=== PATIENT | male | born 1930 | race Caucasian/White ===

== ENCOUNTER 2016-12-08 12:53 | Observation (INO) | payer OTHER ==
[~2016-12-08] VITALS: Ht 175.3 cm; Wt 83.7 kg
[~2016-12-08 12:53] MED LIST: ACET500C6 PO; ALBU1AER9 INH; AMLO5TAB2 PO; ASPEC81 PO; CMD5 PO; DIGO0.122 PO; IPRA0.037 NAE; ISR20 PO; LCTX PO; LSN40 PO; MCRK20 PO; METO50TA17 PO; MULT-506 PO; NTRGSL/4 UT; POTTAB2 PO; PRAV20TA PO; PRLSR20 PO; SALM50AE2 INH; VLSO15 TOP; WARF5TAB90 PO
[2016-12-08] MEDS ORDERED: NITROGLYCERIN OINT 2% 1GM PACKET EXT STA (13:16)
--- NOTE | 2016-12-08 13:41 | EMERGENCY ROOM VISIT NOTE ---
History Report prepared by Samuel: Hayden Starkey Under the Supervision of: Dr. Alexandr Do M.D. First contact with patient: 13:13 Chief Complaint: BACK PAIN Stated Complaint: BACK PAIN History of Present Illness The patient is an 86 year old male who presents to the Emergency Room via ambulance with complaints of resolved upper back pain beginning two and a half hours prior to arrival. He currently is not experiencing discomfort, but it was a 9-10/10 in severity. The patient states he was getting ready to take a shower this morning, when the upper back pain began between his shoulder blades. As per daughter, the patient associates resolved shortness of breath, resolved diaphoresis, and resolved pale skin with today's symptoms. She states the episode lasted an hour and a half. The daughter notes the patient has experienced similar episodes 3-4 times over the past 10 days. The patient states the discomfort today was the worst his back pain has been during an episode. He notes his symptoms worsen with exertion and resolve with rest. The patient states he took a Nitro this morning before his daughter called for an ambulance. The daughter notes the patient was slow to respond during conversation thirty minutes prior to the ambulance arriving. She states this was when the patient became diaphoretic and pale. The patient denies experiencing nausea. He notes a history of atrial fibrillation and a "slight" heart attack. 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 Review of Systems See HPI for pertinent positives & negatives. A total of 10 systems reviewed and were otherwise negative. Past Medical & Surgical Medical Problems: (1) Chronic atrial fibrillation (2) CKD (chronic kidney disease), stage III (3) COPD, mild (4) Depression (5) Dyslipidemia (6) HTN (hypertension) (7) Ischemic heart disease Surgical Problems: (1) History of inguinal hernia repair, bilateral (2) Hx of cataract surgery Family History FH: heart disease Hypertension Social History Smoking Status: Never Smoker Marital Status: Occupation Status: retired Current/Historical Medications Scheduled Acetaminophen (Acetaminophen), 1,000 MG PO TID Amlodipine Besylate (Amlodipine Besylate), 10 MG PO DAILY Amoxicillin & Pot Clavulanate (Augmentin 875-125 mg), 1 TAB PO BID Aspirin Enteric Coated (Ecotrin Or Generic *), 81 MG PO DAILY Calcitriol (Calcitriol), 0.25 MCG PO 3XWK Digoxin (Lanoxin), 0.125 MG PO DAILY Ipratropium [place] (Nasal) (Atrovent Nasal [place]), 2 SPRAYS MIGUEL QID PRN Lisinopril (Lisinopril), 40 MG PO DAILY Metoprolol Tartrate (Lopressor), 100 MG PO BID Multivitamin (Multivitamin), 1 TAB PO DAILY Nitroglycerin (Nitrostat), 0.4 MG UT PRN Omeprazole (Prilosec), 20 MG PO DAILY Pot Phosphate Monobasic W/ Sod (Phospha 250 Neutral), 1 TAB PO BID Potassium Chloride (Klor-Con), 20 MEQ PO DAILY Pravastatin Sodium (Pravachol), 10 MG PO HS Prednisone (Prednisone), Unknown Dose PO UD Salmeterol Xinafoate (Serevent Diskus Inh), 1 PUFF INH BID Warfarin Sod (Coumadin *), 5 MG PO 2XWK Warfarin Sodium (Coumadin), 2.5 MG PO 5XD Scheduled PRN Albuterol Sulfate (Proair Hfa), 2 PUFFS INH Q6 PRN for Wheezing Betamethasone Nasrin (Valisone 0.1% Oint), 1 APPLN TOP DAILY PRN for UNKN Isosorbide Dinitrate (Isordil), 20 MG PO DAILY PRN for PRIOR TO STRENUOS ACTIVITY Allergies Coded Allergies: Latex (Verified Allergy, Unknown, RASH, 12/08/16) Meclizine (Verified Allergy, Unknown, unknown, 12/08/16) Niacin (Verified Allergy, Unknown, RASH, 12/08/16) Physical Exam Vital Signs Date Time Temp Pulse Resp B/P Pulse Ox O2 Delivery O2 Flow Rate FiO2 12/08/16 15:22 97 Room Air 12/08/16 15:04 86 16 175/91 97 12/08/16 14:10 76 24 165/70 97 Room Air 12/08/16 13:23 96 Room Air 12/08/16 13:05 96 Room Air 12/08/16 13:04 61 12/08/16 13:02 36.5 60 16 158/100 96 Room Air Physical Exam GENERAL: Patient is in no acute distress. HEENT: No acute trauma, normocephalic atraumatic, mucous membranes moist, no nasal congestion, no scleral icterus. NECK: No stridor, no adenopathy, no meningismus, trachea is midline. LUNGS: Clear to auscultation bilaterally, no wheeze, no rhonchi, breath sounds equal. HEART: Bradycardic and irregular. No murmurs. ABDOMEN: Soft, nontender, bowel sounds positive, no hernias, no peritonitis. EXTREMITIES: No cyanosis or edema, full range of motion of all the joints without pain or difficulty, no signs for acute trauma. NEUROLOGIC: Oriented x 3, no acute motor or sensory deficits, no focal weakness. SKIN: No rash, no jaundice, no diaphoresis. Medical Decision & Procedures ER Provider Diagnostic Interpretation: X-ray results as stated below per interpretation by me and the radiologist: SINGLE VIEW CHEST CLINICAL HISTORY: Atypical chest pain. FINDINGS: An AP, portable, upright chest radiograph is compared to study dated 12/11/2015 and correlated with chest CT dated 12/09/2015. The examination is degraded by portable technique and patient rotation. The heart is enlarged and there is atherosclerotic calcification of the thoracic aorta. The pulmonary vasculature is noncongested. Chronic interstitial thickening is unchanged. Bibasilar airspace opacities are observed, right greater than left. No large pleural effusion or pneumothorax is seen. Right apical scarring is similar to previous. The skeletal structures are osteopenic. The bony thorax is grossly intact. IMPRESSION: 1. Cardiomegaly without radiographic evidence of congestive failure. 2. There are bibasilar airspace opacities, right greater than left. This likely represents atelectasis. Correlate clinically for evidence of a mild infectious or inflammatory pneumonitis. Electronically signed by: Alexandr Harper M.D. 12/08/2016 1:41 PM Laboratory Results 12/08/16 13:50 12/08/16 13:50 Test 12/08/16 13:50 Red Blood Count 4.36 M/uL (4.7-6.1) Mean Corpuscular Volume 88.8 fL (80-100) Mean Corpuscular Hemoglobin 30.0 pg (25-34) Mean Corpuscular Hemoglobin Concent 33.9 g/dl (32-36) RDW Standard Deviation 43.4 fL (36.4-46.3) RDW Coefficient of Variation 13.5 % (11.5-14.5) Mean Platelet Volume 9.9 fL (7.4-10.4) Prothrombin Time 24.8 SECONDS (9.0-12.0) Prothromb Time International Ratio 2.2 (0.9-1.1) Activated Partial Thromboplast Time 35.1 SECONDS (21.0-31.0) Partial Thromboplastin Ratio 1.4 Anion Gap 8.0 mmol/L (3-11) Est Creatinine Clear Calc Drug Dose 29.8 ml/min Estimated GFR () 35.9 Estimated GFR (Non- 31.0 BUN/Creatinine Ratio 17.2 (10-20) Calcium Level 8.8 mg/dl (8.5-10.1) Total Bilirubin 0.4 mg/dl (0.2-1) Aspartate Amino Transf (AST/SGOT) 12 U/L (15-37) Alanine Aminotransferase (ALT/SGPT) 18 U/L (12-78) Alkaline Phosphatase 50 U/L (45-117) Total Creatine Kinase 48 U/L (39-308) Creatine Kinase MB 0.7 ng/ml (0.5-3.6) Creatine Kinase MB Ratio 1.5 (0-3.0) Troponin I < 0.015 ng/ml (0-0.045) Total Protein 8.4 gm/dl (6.4-8.2) Albumin 3.8 gm/dl (3.4-5.0) Globulin 4.6 gm/dl (2.5-4.0) Albumin/Globulin Ratio 0.8 (0.9-2) Lipase 276 U/L (73-393) Digoxin Level 1.9 ng/ml (0.8-2.0) Laboratory results reviewed by me. Medications Administered Medications (Trade) Dose Ordered Sig/Norma Route Start Time Stop Time Status Last Admin Dose Admin Nitroglycerin (Nitroglycerin 2% Oint) 1 inch NOW STAT EXT 12/08/16 13:16 12/08/16 13:19 DC 12/08/16 13:33 1 INCH ECG Indication: back/shoulder pain Rate (beats per minute): 66 Rhythm: atrial fibrillation Findings: no acute ischemic change, no ectopy ED Course 1313: The patient was evaluated in room B3B. A complete history and physical exam was performed. 1316: Ordered Nitroglycerin 1 inch EXT. 1447: I spoke to Chacha Massey PA-C, [facility] (Hospitalist) about the patient's case, and she will follow the patient for further evaluation. 1452: Reevaluated the patient at this time and updated him. He is doing well and drinking a chocolate milkshake. Medical Decision The differential diagnoses include but are not limited to: cardiac ischemia, UT , musculoskeletal pain, aortic dissection, anemia, electrolyte imbalance. There is no leukocytosis or worrisome anemia. No significant electrolyte abnormality. The patient does have some renal insufficiency but this appears baseline looking back at previous testing. There is no hepatitis or pancreatitis. EKG shows a rate-controlled atrial fibrillation, no acute ischemia. Cardiac enzyme testing times one is not consistent with acute cardiac injury. Chest x-ray shows some possible atelectasis at the bases; no pneumonia, CHF or mediastinal widening. The patient was given Nitropaste, he has had no recurrence of symptoms, he is resting comfortably. Given the exertional component to his presentation, given the diaphoresis and shortness of breath, cardiac ischemia was a true consideration. I did think further evaluation in the hospital was warranted. I spoke with the patient and case management. The on-call hospitalist was consulted. Consults Time Called: 1438 Consulting Physician: Chacha Massey PA-C, [facility] (Hospitalist) Returned Call: 1447 I spoke to Chacha Massey PA-C, [facility] (Hospitalist) about the patient's case, and she will follow the patient for further evaluation. Impression Primary Impression: Upper back pain Additional Impression: Near syncope Scribe Attestation The scribe's documentation has been prepared under my direction and personally reviewed by me in its entirety. I confirm that the note above accurately reflects all work, treatment, procedures, and medical decision making performed by me. Departure Information Dispostion Being Evaluated By Hospitalist (Chacha Massey PA-C, [facility] (Hospitalist)) Referrals Seymour Hoff M.D. (PCP) Problem Qualifiers
[2016-12-08 13:58] LABS: HEMATOCRIT 38.7 % (42-52); MEAN CELL VOLUME 88.8 fL (80-100); MEAN CORPUSCULAR HGB CONC 33.9 g/dl (32-36); MEAN PLATELET VOLUME 9.9 fL (7.4-10.4); PLATELET COUNT 275 K/uL (130-400); RED BLOOD COUNT 4.36 M/uL (4.7-6.1); WHITE BLOOD COUNT 9.75 K/uL (4.8-10.8)
[2016-12-08] MEDS ORDERED: NRV/10 PO (14:06)
[2016-12-08] MEDS ORDERED: METO-596 PO (14:06)
[2016-12-08 14:07] LABS: INR 2.2 (0.9-1.1); PARTIAL THROMBOPLASTIN RATIO 1.4; PROTHROMBIN TIME (PATIENT) 24.8 SECONDS (9.0-12.0)
[2016-12-08 14:18] LABS: ALT/SGPT 18 U/L (12-78); AST/SGOT 12 U/L (15-37); BLOOD UREA NITROGEN 33 mg/dl (7-18); BUN/CREATININE RATIO 17.2 (10-20); CALCIUM 8.8 mg/dl (8.5-10.1); CARBON DIOXIDE 29 mmol/L (21-32); CHLORIDE 102 mmol/L (98-107); GLUCOSE 107 mg/dl (70-99); POTASSIUM 4.5 mmol/L (3.5-5.1); SODIUM 139 mmol/L (136-145)
[2016-12-08] MEDS ORDERED: AMOX875T PO (14:18)
[2016-12-08] MEDS ORDERED: PRED10TA PO (14:18)
[2016-12-08] MEDS ORDERED: CALC1CAP36 PO (14:18)
[2016-12-08 14:24] LABS: ALB/GLOB RATIO 0.8 (0.9-2); ALKALINE PHOSPHATASE 50 U/L (45-117); CKMB/CK RATIO 1.5 (0-3.0)
[2016-12-08 15:22] VITALS: O2SAT 97; Ht 175.3 cm; Wt 83.7 kg
[2016-12-08] MEDS ORDERED: ONDANSETRON INJ 2 MG/ML 2 ML VIAL IV PRN (15:45)
[2016-12-08] MEDS ORDERED: NITROGLYCERIN 0.4 MG SL PER TAB CHARGE SL PRN (15:45)
[2016-12-08] MEDS ORDERED: ACETAMINOPHEN 325 MG TAB PO PRN (15:45)
[2016-12-08] MEDS ORDERED: FERR1TAB13 PO (16:05)
[2016-12-08] MEDS ORDERED: IV FLUIDS COMPLETED PRN (16:15)
--- NOTE | 2016-12-08 16:18 | DIAGNOSTIC IMAGING REPORT ---
CT SCAN OF THE CHEST WITHOUT IV CONTRAST; CT SCAN OF THE THORACIC SPINE WITHOUT IV CONTRAST CLINICAL HISTORY: Atypical chest pain. Thoracic back pain. COMPARISON STUDY: Chest CT scan dated 12/09/2015. Chest x-ray dated 12/08/2016. TECHNIQUE: CT scan of the thorax was performed from the thoracic inlet to the upper abdomen. Images are reviewed in the axial, sagittal, and coronal planes. CT scan of the thoracic spine is also performed from the lower cervical spine to the upper lumbar spine. Images are reviewed in the axial, sagittal, and coronal planes. IV contrast was not administered for this examination as per the referring clinician. CT DOSE: 331.72 mGy.cm FINDINGS: Thyroid: Atrophic. Thoracic aorta: There is atherosclerotic calcification of the thoracic aorta, which is normal in caliber and demonstrates standard 3-vessel arch anatomy. Heart: The heart is enlarged and there is a small pericardial effusion. The coronary arteries are densely calcified. There is diminished attenuation of the cardiac blood pool as compared to the myocardium suggesting anemia. The pulmonary trunk is normal in caliber. Lungs and pleural spaces: Evaluation of the lung parenchyma is degraded by large ring motion artifact. There is biapical scarring, right greater than left. There is no airspace consolidation or pleural effusion. The trachea and central airways are clear. Scattered calcified granulomas are similar previous. Mild chronic nodularity in the left upper lobe is also similar to the 2016 examination. Mediastinum: There is no mediastinal lymphadenopathy. Gladys: Not well assessed without IV contrast. Axillae: There is no axillary lymphadenopathy. Upper abdomen: There is a small hiatal hernia. Partially visualized upper abdominal viscera is otherwise within normal limits. Thoracic spine and skeletal structures: The skeletal structures are osteopenic. Vertebral body height and alignment are maintained throughout the thoracic spine. The transverse and spinous processes appear intact. Multilevel degenerative disc space narrowing is observed. There is no evidence of large disc herniation. The central canal is clear as visualized. Calcification of the anterior longitudinal ligament is consistent with DISH. Anterior osteophytes are noted throughout. No lytic or blastic bony lesions are seen. A large hemangioma is noted in the body of T6. A hemangioma is also seen in the manubrium of the sternum. There are healed right-sided rib fractures. IMPRESSION: 1. There is no airspace consolidation or pleural effusion. 2. Cardiomegaly. 3. Chronic pulmonary parenchymal changes as above. 4. No acute bony abnormality is identified involving the thoracic spine. 5. Osteopenia and spondylotic change as above. Electronically signed by: Alexandr Harper M.D. 12/08/2016 4:16 PM Dictated Date/Time: 12/08/2016 4:04 PM
--- NOTE | 2016-12-08 16:34 | History and Physical ---
History & Physical Date & Time of Service: Dec 08, 2016 at 16:10 Chief Complaint: Back Pain Primary Care Physician: Seymour Hoff M.D. History of Present Illness 86 year old male who presents to the ER with upper back pain. Patient reports he has been getting these episodes of back pain over the past couple of weeks however today was the most severe. He describes the pain as located in between the shoulder blades and radiates down and underneath both shoulder blades. Previously the back pain was brought on with running the vacuum and shaving and was relieved with about 10 minutes of rest. Today when patient got out of the shower he reports the pain was severe. He also had associated diaphoresis and shortness of breath. Patient's daughter is at the bedside and reports he had decreased responsiveness for about 30 minutes. He then took a nitroglycerin. EMS was called and pain was starting to subside. Patient denies associated chest pain, lightheadedness, dizziness, or nausea. No abdominal pain, vomiting, constipation, diarrhea, or loss of appetite. He denies fever and chills. No urinary symptoms. In the ER, patient's work up is unrevealing. Initial troponin is negative, EKG does not show any acute ST changes. CXR unremarkable. Patient was given 1 inch nitro paste. Past Medical/Surgical History Medical Problems: (1) Chronic atrial fibrillation Status: Chronic (2) CKD (chronic kidney disease), stage III Status: Chronic (3) COPD, mild Status: Chronic (4) Depression Status: Chronic (5) Dyslipidemia Status: Chronic (6) HTN (hypertension) Status: Chronic (7) Ischemic heart disease Permanent Comment: echo 2009 - inferior wall motion abnormality suggesting silent [place] Status: Chronic Surgical Problems: (1) History of inguinal hernia repair, bilateral Status: Chronic (2) Hx of cataract surgery Status: Chronic Family History non contributory due to patient's age Social History Smoking Status: Never Smoker Alcohol Use: none Immunizations History of Influenza Vaccine: Yes Influenza Vaccine Date: Sep 02, 2016 History of Tetanus Vaccine?: Yes Tetanus Immunization Date: May 30, 2008 History of Pneumococcal: Yes Pneumococcal Date: Sep 14, 2015 Multi-Drug Resistant Organisms History of MDRO: No Allergies Coded Allergies: Latex (Verified Allergy, Unknown, RASH, 12/08/16) Meclizine (Verified Allergy, Unknown, unknown, 12/08/16) Niacin (Verified Allergy, Unknown, RASH, 12/08/16) Home Medications Scheduled Acetaminophen (Acetaminophen), 1,000 MG PO TID Amlodipine Besylate (Amlodipine Besylate), 10 MG PO DAILY Amoxicillin & Pot Clavulanate (Augmentin 875-125 mg), 1 TAB PO BID Aspirin Enteric Coated (Ecotrin Or Generic *), 81 MG PO DAILY Calcitriol (Calcitriol), 0.25 MCG PO 3XWK Digoxin (Lanoxin), 0.125 MG PO DAILY Ferrous Sulfate (Kp Ferrous Sulfate), 1 TAB PO DAILY Ipratropium [place] (Nasal) (Atrovent Nasal [place]), 2 SPRAYS MIGUEL QID PRN Lisinopril (Lisinopril), 40 MG PO DAILY Metoprolol Tartrate (Lopressor), 100 MG PO BID Multivitamin (Multivitamin), 1 TAB PO DAILY Nitroglycerin (Nitrostat), 0.4 MG [place] PRN Omeprazole (Prilosec), 20 MG PO DAILY Pot Phosphate Monobasic W/ Sod (Phospha 250 Neutral), 1 TAB PO BID Potassium Chloride (Klor-Con), 20 MEQ PO DAILY Pravastatin Sodium (Pravachol), 10 MG PO HS Prednisone (Prednisone), Unknown Dose PO UD Salmeterol Xinafoate (Serevent Diskus Inh), 1 PUFF INH BID Warfarin Sod (Coumadin *), 5 MG PO 2XWK Warfarin Sodium (Coumadin), 2.5 MG PO 5XD Scheduled PRN Albuterol Sulfate (Proair Hfa), 2 PUFFS INH Q6 PRN for Wheezing Betamethasone Nasrin (Valisone 0.1% Oint), 1 APPLN TOP DAILY PRN for UNKN Review of Systems 10 point review of systems was completed with the pertinent positives and negatives noted per the HPI Physical Exam Vital Signs Date Time Temp Pulse Resp B/P Pulse Ox O2 Delivery O2 Flow Rate FiO2 12/08/16 15:22 97 Room Air 12/08/16 15:04 86 16 175/91 97 12/08/16 14:10 76 24 165/70 97 Room Air 12/08/16 13:23 96 Room Air 12/08/16 13:05 96 Room Air 12/08/16 13:04 61 12/08/16 13:02 36.5 60 16 158/100 96 Room Air please refer to Dr. Carmona's addendum for physical exam Diagnostics Laboratory Results Results Past 24 Hours Test 12/08/16 13:50 Range/Units White Blood Count 9.75 4.8-10.8 K/uL Red Blood Count 4.36 4.7-6.1 M/uL Hemoglobin 13.1 14.0-18.0 g/dL Hematocrit 38.7 42-52 % Mean Corpuscular Volume 88.8 80-100 fL Mean Corpuscular Hemoglobin 30.0 25-34 pg Mean Corpuscular Hemoglobin Concent 33.9 32-36 g/dl RDW Standard Deviation 43.4 36.4-46.3 fL RDW Coefficient of Variation 13.5 11.5-14.5 % Platelet Count 275 130-400 K/uL Mean Platelet Volume 9.9 7.4-10.4 fL Prothrombin Time 24.8 9.0-12.0 SECONDS Prothromb Time International Ratio 2.2 0.9-1.1 Activated Partial Thromboplast Time 35.1 21.0-31.0 SECONDS Partial Thromboplastin Ratio 1.4 Sodium Level 139 136-145 mmol/L Potassium Level 4.5 3.5-5.1 mmol/L Chloride Level 102 98-107 mmol/L Carbon Dioxide Level 29 21-32 mmol/L Anion Gap 8.0 3-11 mmol/L Blood Urea Nitrogen 33 7-18 mg/dl Creatinine 1.90 0.60-1.40 mg/dl Est Creatinine Clear Calc Drug Dose 29.8 ml/min Estimated GFR () 35.9 Estimated GFR (Non- 31.0 BUN/Creatinine Ratio 17.2 10-20 Random Glucose 107 70-99 mg/dl Calcium Level 8.8 8.5-10.1 mg/dl Total Bilirubin 0.4 0.2-1 mg/dl Aspartate Amino Transf (AST/SGOT) 12 15-37 U/L Alanine Aminotransferase (ALT/SGPT) 18 12-78 U/L Alkaline Phosphatase 50 45-117 U/L Total Creatine Kinase 48 39-308 U/L Creatine Kinase MB 0.7 0.5-3.6 ng/ml Creatine Kinase MB Ratio 1.5 0-3.0 Troponin I < 0.015 0-0.045 ng/ml Total Protein 8.4 6.4-8.2 gm/dl Albumin 3.8 3.4-5.0 gm/dl Globulin 4.6 2.5-4.0 gm/dl Albumin/Globulin Ratio 0.8 0.9-2 Lipase 276 73-393 U/L Digoxin Level 1.9 0.8-2.0 ng/ml Diagnostic Radiology CXR IMPRESSION: 1. Cardiomegaly without radiographic evidence of congestive failure. 2. There are bibasilar airspace opacities, right greater than left. This likely represents atelectasis. Correlate clinically for evidence of a mild infectious or inflammatory pneumonitis. CT CHEST/THORACIC SPINE IMPRESSION: 1. There is no airspace consolidation or pleural effusion. 2. Cardiomegaly. 3. Chronic pulmonary parenchymal changes as above. 4. No acute bony abnormality is identified involving the thoracic spine. 5. Osteopenia and spondylotic change as above. Impression Assessment and Plan BACK PAIN - admit to tele - pain seems to be musculoskeletal however due to possible exertional component will work up for atypical angina - initial troponin negative, EKG without acute ST changes - continue to cycle cardiac enzymes - CT ordered and does not show any acute findings - PT/OT ATRIAL FIBRILLATION - rate controlled on dig and metoprolol - dig level therapeutic - on Coumadin with therapeutic INR HTN - BP somewhat elevated, ? situational - continue home meds (lisinopril, amlodipine, and metoprolol) for now, make adjustments if needed CKD STAGE III - baseline creat runs in the high 1's - noted to be 1.9 today - continue to monitor, avoid nephrotoxic agents when able COPD - no signs of acute exacerbation - continue home inhalers DVT PROPHYLAXIS - on Coumadin with therapeutic INR CODE STATUS - Patient is a DNR as per Dr. Carmona's discussion with the patient. DISPO - The patient will be placed as observation status for now until further work up is complete. Attending Note Patient seen & examined at bedside. Reviewed the above History/Physical and confirmed all the findings in person. Patient has been having intermittent inter-scapular pain especially on exertion associated with cold sweats. Denies any nausea/vomiting. Afebrile. Exam. is a follows: GENERAL: Alert/Awake and is in no acute distress. HEENT: No acute trauma, normocephalic atraumatic, mucous membranes moist, no nasal congestion, no scleral icterus. NECK: No stridor, no adenopathy, no meningismus, trachea is midline. LUNGS: Clear to auscultation bilaterally, no wheeze, no rhonchi, breath sounds equal. Reproducible pain on palpating around the Right scapula. No selling or other abnormality in that area. HEART: Bradycardic and irregular. No murmurs. ABDOMEN: Soft, nontender, bowel sounds positive, no hernias, no peritonitis. EXTREMITIES: No cyanosis or edema, full range of motion of all the joints without pain or difficulty, no signs for acute trauma. NEUROLOGIC: Oriented x 3, no acute motor or sensory deficits, no focal weakness. SKIN: No rash, no jaundice, no diaphoresis. With medical history and risk factors of the patient, he is being admitted to telemetry to R/O ACS. Follow serial Troponin. Ordered CT Chest. Discussed with patient & he is DNR. DVT Prophylaxis: Coumadin. Patient will be followed by Dr. Patel. Khris Carmona MD Advanced Directives Existing Advance Directive: Yes Existing Living Will: Yes Existing Power of Harness Repairer: Yes VTE Prophylaxis VTE Risk Assessment Done? Y/N: Yes Risk Level: Moderate
[2016-12-08 16:35] VITALS: BP 165/86; PULSE 96; TEMP 36.4; O2SAT 95
[2016-12-08 19:00] VITALS: BP 166/76; PULSE 87; TEMP 36.6; O2SAT 96
[2016-12-08] MEDS ORDERED: WARFARIN SOD 2.5 MG TAB PO SCH (19:00)
[2016-12-08] MEDS: METOPROLOL TARTRATE 100 MG TAB PO SCH (19:36)
[2016-12-08] MEDS: SALMETEROL XINAFOATE 50MCG 28 BLISTER INH INH SCH (19:36)
[2016-12-08] MEDS: POT PHOSPHATE MONOBASIC W/ SOD TAB PO SCH (19:36)
[2016-12-08 19:37] VITALS: BP 166/76; PULSE 87; TEMP 36.6; O2SAT 96
[2016-12-08] MEDS ORDERED: PRAVASTATIN SOD 20 MG TAB PO SCH (21:00)
[2016-12-08 22:30] VITALS: BP 178/79; PULSE 79
[2016-12-09] VITALS (9 sets, daily range): BP systolic 137–176; BP diastolic 62–86; PULSE 74–84; TEMP 36.6–36.7; O2SAT 94–96
[2016-12-09 06:58] LABS: HEMATOCRIT 37.3 % (42-52); MEAN CELL VOLUME 89.7 fL (80-100); MEAN CORPUSCULAR HEMOGLOBIN 30.3 pg (25-34); MEAN CORPUSCULAR HGB CONC 33.8 g/dl (32-36); MEAN PLATELET VOLUME 10.2 fL (7.4-10.4); PLATELET COUNT 276 K/uL (130-400); RED BLOOD COUNT 4.16 M/uL (4.7-6.1); WHITE BLOOD COUNT 9.65 K/uL (4.8-10.8)
[2016-12-09 07:05] LABS: INR 2.2 (0.9-1.1); PROTHROMBIN TIME (PATIENT) 24.1 SECONDS (9.0-12.0)
[2016-12-09 07:35] LABS: BUN/CREATININE RATIO 16.1 (10-20); CALCIUM 8.8 mg/dl (8.5-10.1); CREATININE 1.7 mg/dl (0.60-1.40)
[2016-12-09 07:59] LABS: POTASSIUM 3.7 mmol/L (3.5-5.1)
[2016-12-09] MEDS: SALMETEROL XINAFOATE 50MCG 28 BLISTER INH INH SCH (08:17)
[2016-12-09] MEDS: METOPROLOL TARTRATE 100 MG TAB PO SCH (08:20)
[2016-12-09] MEDS: POT PHOSPHATE MONOBASIC W/ SOD TAB PO SCH (08:22)
[2016-12-09] MEDS ORDERED: LISINOPRIL 40 MG TAB PO SCH (09:00)
[2016-12-09] MEDS ORDERED: POTASSIUM CHLORIDE 20 MEQ TABCR PO SCH (09:00)
[2016-12-09] MEDS ORDERED: CALCITRIOL 0.25 MCG CAP PO SCH (09:00)
[2016-12-09] MEDS ORDERED: MULTIVITAMIN TAB PO SCH (09:00)
[2016-12-09] MEDS ORDERED: AMLODIPINE BESYLATE 5 MG TAB PO SCH (09:00)
[2016-12-09] MEDS ORDERED: PANTOprazole SOD 40 MG TAB PO SCH (09:00)
[2016-12-09] MEDS ORDERED: ASPIRIN 81 MG ECTAB PO SCH (09:00)
[2016-12-09] MEDS ORDERED: FERROUS SULFATE 325 MG TAB PO SCH (09:00)
--- NOTE | 2016-12-09 13:52 | Discharge Instructions ---
Discharge Instructions Admission Reason for Admission: Upper Back Pain Discharge Discharge Diagnosis / Problem: INTRASCPULAR PAIN , CHRONIC AFIB Discharge Goals Goal(s): Improve disease control, Diagnostic testing Activity Recommendations Activity Limitations: resume your previous activity . Instructions / Follow-Up Instructions / Follow-Up HOSPITAL FOLLOW UP WITH DR Seymour Hoff ON 12/17/2016 @11:10 AM [facility] FOLLOW UP WITH CARDIOLOGY DR TATE /Snow Larios PA-C on 12/23/2016 @ 2:15 PM Cardiology, [facility] OUT PT ECHO WITH CARDIOLOGY APPOINTMENT Current Hospital Diet Patient's current hospital diet: AHA Diet (Heart Healthy) Discharge Diet Recommended Diet: AHA Diet (Heart Healthy) Pending Studies Studies pending at discharge: no Medical Emergencies . Who to Call and When: Medical Emergencies: If at any time you feel your situation is an emergency, please call 911 immediately. . Non-Emergent Contact Non-Emergency issues call your: Primary Care Provider . . "Provider Documentation" section prepared by Katharina Patel. VTE Core Measure Inpt VTE Proph given/why not?: Warfarin (Coumadin) [place] Drug Monitoring Program Search Results: no issues identified
--- NOTE | 2016-12-09 15:48 | Discharge Summary ---
Discharge Summary Admission Date: Dec 08, 2016 at 15:36 Discharge Date: Dec 09, 2016 Discharge Disposition: Home Principal Diagnosis: INTRASCAPULAR PAIN , CHRONIC AFIB Procedures: CARDIAC MONITORING CT SCAN OF THE CHEST WITHOUT IV CONTRAST; CT SCAN OF THE THORACIC SPINE WITHOUT IV CONTRAST IMPRESSION: 1. There is no airspace consolidation or pleural effusion. 2. Cardiomegaly. 3. Chronic pulmonary parenchymal changes as above. 4. No acute bony abnormality is identified involving the thoracic spine. 5. Osteopenia and spondylotic change as above. Pending Studies/Follow-Up: Instructions / Follow-Up HOSPITAL FOLLOW UP WITH DR Seymour Hoff ON 12/17/2016 @11:10 AM [facility] FOLLOW UP WITH CARDIOLOGY DR TATE /Snow Larios PA-C on 12/23/2016 @ 2:15 PM Cardiology, [facility] OUT PT ECHO WITH CARDIOLOGY APPOINTMENT Medication Reconciliation Continued Medications: Acetaminophen (Acetaminophen) 500 Mg Cap 1000 MG PO TID Albuterol Sulfate (Proair Hfa) 108 Mcg/ Aer 2 PUFFS INH Q6 PRN for Wheezing Amlodipine Besylate (Amlodipine Besylate) 10 Mg Tab 10 MG PO DAILY, #90 Amoxicillin & Pot Clavulanate (Augmentin 875-125 mg) 1 Tab Tab 1 TAB PO BID, #20 PRN COPD rescue kit Aspirin Enteric Coated (Ecotrin Or Generic *) 81 Mg Ectab 81 MG PO DAILY, 0 Refills Betamethasone Nasrin (Valisone 0.1% Oint) 45 Appln/15 Gm Oint 1 APPLN TOP DAILY PRN for UNKN Calcitriol (Calcitriol) 0.25 Mcg Cap 0.25 MCG PO 3XWK, #15 Digoxin (Lanoxin) 0.125 Mg Tab 0.125 MG PO DAILY, 0 Refills Ferrous Sulfate (Kp Ferrous Sulfate) 325 Mg Tab 1 TAB PO DAILY for 30 Days, #30 TAB 3 Refills Ipratropium [place] (Nasal) (Atrovent Nasal Council) 0.06 % April 2 SPRAYS MIGUEL QID PRN Lisinopril (Lisinopril) 40 Mg Tab 40 MG PO DAILY Metoprolol Tartrate (Lopressor) 100 Mg Tab 100 MG PO BID, TAB Multivitamin (Multivitamin) Tab 1 TAB PO DAILY Nitroglycerin (Nitrostat) 0.4 Mg Tab 0.4 MG UT PRN Omeprazole (Prilosec) 20 Mg Capcr 20 MG PO DAILY, 0 Refills Pot Phosphate Monobasic W/ Sod (Phospha 250 Neutral) 1 Tab Tab 1 TAB PO BID Potassium Chloride (Klor-Con) 20 Meq Tabcr 20 MEQ PO DAILY, TAB Pravastatin Sodium (Pravachol) 20 Mg Tab 10 MG PO HS, TAB Prednisone (Prednisone) Unknown Strength Tab Unknown Dose PO UD, #30 PRN COPD rescue kit Salmeterol Xinafoate (Serevent Diskus Inh) 50 Mcg/ Aer 1 PUFF INH BID, INHALER Warfarin Sod (Coumadin *) 5 Mg Tab 5 MG PO 2XWK, 0 Refills TUES<SAT Warfarin Sodium (Coumadin) 5 Mg Tab 2.5 MG PO 5XD, TAB MON<WED<THURS<FRI<SUN Referrals At Discharge Follow up Referrals: Physician Referral - 12/23/16 with Wilfrido Tate D.O. Physician Referral - 12/17/16 with Seymour Hoff M.D. Admission Information HPI (per Admitting provider): 86 year old male who presents to the ER with upper back pain. Patient reports he has been getting these episodes of back pain over the past couple of weeks however today was the most severe. He describes the pain as located in between the shoulder blades and radiates down and underneath both shoulder blades. Previously the back pain was brought on with running the vacuum and shaving and was relieved with about 10 minutes of rest. Today when patient got out of the shower he reports the pain was severe. He also had associated diaphoresis and shortness of breath. Patient's daughter is at the bedside and reports he had decreased responsiveness for about 30 minutes. He then took a nitroglycerin. EMS was called and pain was starting to subside. Patient denies associated chest pain, lightheadedness, dizziness, or nausea. No abdominal pain, vomiting, constipation, diarrhea, or loss of appetite. He denies fever and chills. No urinary symptoms. In the ER, patient's work up is unrevealing. Initial troponin is negative, EKG does not show any acute ST changes. CXR unremarkable. Patient was given 1 inch nitro paste. Physical Exam (per Admitting): please refer to Dr. Carmona's addendum for physical exam Hospital Course pain and discomfort in mid back /intra scapular region has resolved no SOB or chest discomfort no dizzy spell , feels fine wants to know when he can be discharged home . P/E: gen : Elderly male , very pleasant, no sign of distress HEENT: sclera , no icteric , PERRLA/EOMI HT: regular S1/S2 Lungs; CTA abdomen; soft, non tender EXT ; no rash or deformity Neuro: no focal neurological deformity BACK PAIN - presented with severe pain in between scapular area -mentions of doing some house hold chores prior that - pain seems to be musculoskeletal - serial troponin negative, EKG without acute ST changes - CT of chest and thoracic spine does not show any acute change pt is completely asymptomatic now stable to be discharge home will benefit with muscle relaxant -Flexeril PRN out pt follow up with Family physician ATRIAL FIBRILLATION - rate controlled on dig and metoprolol - dig level therapeutic - on Coumadin with therapeutic INR -no complain of chest pain or SOB on presentation -will benefit with follow up with Cardiology and repeat ECHO HTN - BP stable - continue home meds (lisinopril, amlodipine, and metoprolol) CKD STAGE III - Cr at baseline - continue to monitor, avoid nephrotoxic agents when able COPD - no signs of acute exacerbation - continue home inhalers DVT PROPHYLAXIS - on Coumadin with therapeutic INR CODE STATUS - Patient is a DNR DISPOSITION : stable to be discharged home today Medicine follow up with Dr Seymour Hoff Cardiology follow up with Dr Tate Total time spent on discharge = This includes examination of the patient, discharge planning, medication reconciliation, and communication with other providers. Discharge Instructions Discharge Instructions Admission Reason for Admission: Upper Back Pain Discharge Discharge Diagnosis / Problem: INTRASCAPULAR PAIN , CHRONIC AFIB Discharge Goals Goal(s): Improve disease control, Diagnostic testing Activity Recommendations Activity Limitations: resume your previous activity . Instructions / Follow-Up Instructions / Follow-Up HOSPITAL FOLLOW UP WITH DR Seymour Hoff ON 12/17/2016 @11:10 AM [facility] FOLLOW UP WITH CARDIOLOGY DR TATE /Snow Larios PA-C on 12/23/2016 @ 2:15 PM Cardiology, [facility] OUT PT ECHO WITH CARDIOLOGY APPOINTMENT Current Hospital Diet Patient's current hospital diet: AHA Diet (Heart Healthy) Discharge Diet Recommended Diet: AHA Diet (Heart Healthy) Pending Studies Studies pending at discharge: no Medical Emergencies . Who to Call and When: Medical Emergencies: If at any time you feel your situation is an emergency, please call 911 immediately. . Non-Emergent Contact Non-Emergency issues call your: Primary Care Provider . . "Provider Documentation" section prepared by Katharina Patel. VTE Core Measure Inpt VTE Proph given/why not?: Warfarin (Coumadin) [place] Drug Monitoring Program Search Results: no issues identified Additional Copies To Wilfrido Tate D.O. Rozick, Mark S., M.D.
[2016-12-09] MEDS ORDERED: DIGOXIN 0.125 MG TAB PO SCH (16:00)
[2016-12-09] MEDS ORDERED: CYCL10TA6 PO (18:37)
[2016-12-10] MEDS ORDERED: WARFARIN SOD 5 MG TAB PO SCH (16:00)
== END 2016-12-09 17:24 | disposition home or self-care (01) ==
LOC: ENRESERVDT → ENRESERVTM → EDBD 12:53 → C.EDB 12:56 → C.2T 15:36
PROVIDERS: ADMIT Emergency Medicine; ATTEND Hospitalist
DX: M54.9 Dorsalgia, unspecified (principal); I48.2 Chronic atrial fibrillation; N18.3 Chronic kidney disease, stage 3 (moderate); I12.9 Hypertensive chronic kidney disease with stage 1 through stage 4 chronic kidney disease, or unspecified chronic kidney disease; E78.5 Hyperlipidemia, unspecified; J44.9 Chronic obstructive pulmonary disease, unspecified; I25.9 Chronic ischemic heart disease, unspecified; Z66 Do not resuscitate; Z91.040 Latex allergy status; Z79.01 Long term (current) use of anticoagulants; Z79.52 Long term (current) use of systemic steroids; Z79.82 Long term (current) use of aspirin; Z82.49 Family history of ischemic heart disease and other diseases of the circulatory system

== ENCOUNTER 2017-03-22 13:10 | Emergency (ER) | payer OTHER ==
[~2017-03-22] VITALS: Ht 172.7 cm; Wt 88.6 kg
[~2017-03-22 13:10] MED LIST changes: -AMLO5TAB2 PO; +AMOX875T PO; +CALC1CAP36 PO; +FERR1TAB13 PO; -ISR20 PO; -LCTX PO; +METO-596 PO; -METO50TA17 PO; +NRV/10 PO; +PRED10TA PO
[2017-03-22 13:14] VITALS: TEMP 36.8; Ht 172.7 cm; Wt 88.6 kg
[2017-03-22] MEDS ORDERED: DiphenhydrAMINE HCL 50 MG/ML VIAL IV STA (13:30)
[2017-03-22] MEDS ORDERED: METHYLPREDNISOLONE 125 MG VIAL IV STA (13:30)
[2017-03-22] MEDS ORDERED: FAMOTIDINE IV INJ 20 MG in DEXTROSE 5% 100ML 100 ML IV SCH (13:30)
[2017-03-22] MEDS ORDERED: POTA20TA16 PO (13:42)
[2017-03-22] MEDS ORDERED: IPRA0.06 (13:42)
[2017-03-22] MEDS ORDERED: DIGO30TA PO (13:42)
[2017-03-22] MEDS ORDERED: CMD/25 PO (13:42)
[2017-03-22] MEDS ORDERED: VNTHFA/IN INH (13:42)
[2017-03-22] MEDS ORDERED: WARF-246 PO (13:42)
[2017-03-22] MEDS ORDERED: ASPI81TA28 PO (13:42)
[2017-03-22 13:44] LABS: BASO % 0.5 %; BASO ABS # 0.05 K/uL (0-0.2); COMPLETE YES; EOS % 3.3 %; HEMATOCRIT 38.3 % (42-52); IG% 0.3 %; LYMPH % 31.7 %; LYMPH ABS # 3.45 K/uL (1.2-3.4); MEAN CELL VOLUME 88.5 fL (80-100); MEAN CORPUSCULAR HEMOGLOBIN 29.3 pg (25-34); MEAN CORPUSCULAR HGB CONC 33.2 g/dl (32-36); MONO % 7.5 %; NEUT % 56.7 %; PLATELET COUNT 266 K/uL (130-400); RED BLOOD COUNT 4.33 M/uL (4.7-6.1); WHITE BLOOD COUNT 10.87 K/uL (4.8-10.8)
[2017-03-22] MEDS ORDERED: FAMOTIDINE 20MG/102 ML D5W ONE (13:56)
[2017-03-22 14:03] LABS: BUN/CREATININE RATIO 15.3 (10-20); CALCIUM 8.8 mg/dl (8.5-10.1); CREATININE 1.8 mg/dl (0.60-1.40); POTASSIUM 4.3 mmol/L (3.5-5.1)
--- NOTE | 2017-03-22 15:13 | EMERGENCY ROOM VISIT NOTE ---
ED Visit Note First contact with patient: 13:17 I have personally evaluated and examined this patient. I agree with assessment and plan of Bola Garcia PA-C. 86 yr old male with tongue swelling. Consistent with joselin-related angioedema. No respiratory difficulty though clearly large amount of tongue swelling.
--- NOTE | 2017-03-22 17:10 | EMERGENCY ROOM VISIT NOTE ---
History First contact with patient: 13:17 Chief Complaint: SWELLING TO EXTREMITY Stated Complaint: SWELLING TO TONGUE History of Present Illness The patient is a 86 year old white Male who presents to the Emergency Room with complaints of swelling of his tongue that began about an hour and a half ago. He denies any trauma to his tongue. He states it was a normal morning. He took his usual medications including lisinopril, around 9 AM. He had breakfast. He denies eating anything out of the ordinary. He has no food allergies. He brushed his teeth, which he also says was uneventful. He developed swelling that has since progressed. He denies any difficulty swallowing or breathing. There is difficulty speaking. No prior history of similar episode. His son accompanies him today. He denies any tenderness in the sublingual area. No other complaints. Review of Systems REVIEW OF SYSTEM: HEENT: No dizziness, visual problems, hearing loss, or tinnitus. There is no difficulty swallowing and no oral lesions are present. LYMPH: No adenopathy. PULMONARY: No cough, shortness of breath, sputum production or hemoptysis. CARDIOVASCULAR: No chest pain, palpitations, shortness of breath or peripheral edema. GASTROINTESTINAL: No diarrhea, constipation, nausea, vomiting, or abdominal pain. GENITOURINARY: No dysuria, frequency, urgency or nocturia. NEUROLOGIC: No weakness, muscle tenderness, epilepsy or history of neurological problems. MUSCULOSKELETAL: No history of joint tenderness/swelling. Positive history of arthritis and arthralgias. SKIN: No rashes or lesions. PSYCHIATRIC: Positive history of depression. ENDOCRINE: No history of diabetes, thyroid disorders, or abnormal hair growth. Past Medical/Surgical History Medical Problems: (1) Chronic atrial fibrillation (2) CKD (chronic kidney disease), stage III (3) COPD, mild (4) Depression (5) Dyslipidemia (6) HTN (hypertension) (7) Ischemic heart disease Surgical Problems: (1) History of inguinal hernia repair, bilateral (2) Hx of cataract surgery Family History FH: heart disease Hypertension Social History Smoking Status: Never Smoker Smokeless Tobacco Use: No Alcohol Use: none Drug Use: none Housing Status: lives with family Occupation Status: retired Current/Historical Medications Scheduled Albuterol Hfa (Ventolin Hfa), 2-4 PUFFS INH Q6H Amlodipine Besylate (Amlodipine Besylate), 10 MG PO DAILY Aspirin (Aspirin Ec), 81 MG PO DAILY Calcitriol (Calcitriol), 0.25 MCG PO 3XWK Digoxin (Digitek), 1 TAB PO DAILY Ferrous Sulfate (Kp Ferrous Sulfate), 1 TAB PO DAILY Lisinopril (Lisinopril), 40 MG PO DAILY Metoprolol Tartrate (Lopressor), 100 MG PO BID Multivitamin (Multivitamin), 1 TAB PO DAILY Nitroglycerin (Nitrostat), 0.4 MG UT PRN Omeprazole (Prilosec), 20 MG PO DAILY Pot Phosphate Monobasic W/ Sod (Phospha 250 Neutral), 1 TAB PO BID Potassium Ext Rel (Klor-Con), 20 MEQ PO DAILY Pravastatin Sodium (Pravachol), 10 MG PO HS Warfarin Sod (Coumadin), 2.5 MG PO 5XWK Warfarin Sodium (Warfarin Sodium), 1 TAB PO 2XWK Scheduled PRN Betamethasone Nasrin (Valisone 0.1% Oint), 1 APPLN TOP DAILY PRN for UNKN Miscellaneous Medications Ipratropium [place] (Nasal) (Ipratropium [place]) Allergies Coded Allergies: Latex (Verified Allergy, Unknown, RASH, 03/22/17) Meclizine (Verified Allergy, Unknown, unknown, 03/22/17) Niacin (Verified Allergy, Unknown, RASH, 03/22/17) Physical Exam Vital Signs Date Time Temp Pulse Resp B/P Pulse Ox O2 Delivery O2 Flow Rate FiO2 03/22/17 17:16 95 18 196/121 96 Room Air 03/22/17 15:36 78 20 182/93 95 Room Air 03/22/17 14:34 64 03/22/17 13:42 66 18 174/85 96 Room Air 03/22/17 13:14 36.8 69 20 189/84 96 Room Air Physical Exam Gen.: Well-developed, well-nourished, elderly white male, in no acute distress. Laying on a bed. Alert and oriented. Skin:Warm and dry with fair turgor. No rashes or lesions. No ecchymosis or erythema. The patient is not diaphoretic. No abrasions. HEENT: Normocephalic atraumatic. Eyes PERRLA, EOMI. No conjunctiva or scleral injection. Nares patent bilaterally without turbinate enlargement. No significant drainage. No epistaxis. Oropharynx with significant edema of the tongue. It is primarily left side. Sublingual area is also considerably swollen. Fullness is palpable under the chin and into the soft tissue. Again it is primarily on the left side. Patient has difficulty with speech. No difficulty with swallowing or breathing. No swelling of the lips or cheeks. No erythema or exudate. Uvula midline, oral mucosa moist. No lesions present. Heart: Heart RRR with occasional premature beats. No MGR. Peripheral pulses are 2+. Lungs: Lungs are clear to auscultation. No crackles rhonchi or wheezing. Good air movement. The patient is able to take a deep breath. Abdomen: Abdomen was inspected, auscultated, and palpated. Bowel sounds present x 4. Soft, nontender to palpation. Musculoskeletal: Gross motor function of the upper and lower extremities is intact and unremarkable. Medical Decision & Procedures ER Provider Diagnostic Interpretation: EKG obtained today was reviewed with Dr. Rios. Atrial fibrillation with a rate of 75. No acute ST or T-wave changes are present. Laboratory Results 03/22/17 13:29 Red Blood Count 4.33, Mean Corpuscular Volume 88.5, Mean Corpuscular Hemoglobin 29.3, Mean Corpuscular Hemoglobin Concent 33.2, Mean Platelet Volume 10.0, Neutrophils (%) (Auto) 56.7, Lymphocytes (%) (Auto) 31.7, Monocytes (%) (Auto) 7.5, Eosinophils (%) (Auto) 3.3, Basophils (%) (Auto) 0.5, Neutrophils # (Auto) 6.16, Lymphocytes # (Auto) 3.45, Monocytes # (Auto) 0.82, Eosinophils # (Auto) 0.36, Basophils # (Auto) 0.05 03/22/17 13:29 Test 03/22/17 13:29 White Blood Count 10.87 K/uL (4.8-10.8) Red Blood Count 4.33 M/uL (4.7-6.1) Hemoglobin 12.7 g/dL (14.0-18.0) Hematocrit 38.3 % (42-52) Mean Corpuscular Volume 88.5 fL (80-100) Mean Corpuscular Hemoglobin 29.3 pg (25-34) Mean Corpuscular Hemoglobin Concent 33.2 g/dl (32-36) Platelet Count 266 K/uL (130-400) Mean Platelet Volume 10.0 fL (7.4-10.4) Neutrophils (%) (Auto) 56.7 % Lymphocytes (%) (Auto) 31.7 % Monocytes (%) (Auto) 7.5 % Eosinophils (%) (Auto) 3.3 % Basophils (%) (Auto) 0.5 % Neutrophils # (Auto) 6.16 K/uL (1.4-6.5) Lymphocytes # (Auto) 3.45 K/uL (1.2-3.4) Monocytes # (Auto) 0.82 K/uL (0.11-0.59) Eosinophils # (Auto) 0.36 K/uL (0-0.5) Basophils # (Auto) 0.05 K/uL (0-0.2) RDW Standard Deviation 46.6 fL (36.4-46.3) RDW Coefficient of Variation 14.2 % (11.5-14.5) Immature Granulocyte % (Auto) 0.3 % Immature Granulocyte # (Auto) 0.03 K/uL (0.00-0.02) Anion Gap 6.0 mmol/L (3-11) Est Creatinine Clear Calc Drug Dose 31.3 ml/min Estimated GFR () 38.4 Estimated GFR (Non- 33.1 BUN/Creatinine Ratio 15.3 (10-20) Calcium Level 8.8 mg/dl (8.5-10.1) CBC, and PRP were obtained. Mildly low H&H. WBC is within normal limits. Creatinine of 1.8 Medications Administered Medications (Trade) Dose Ordered Sig/Norma Route Start Time Stop Time Status Last Admin Dose Admin Diphenhydramine HCl (Benadryl Inj) 25 mg NOW STAT IV 03/22/17 13:30 03/22/17 13:33 DC 03/22/17 13:41 25 MG Methylprednisolone Sodium Succinate (Solu-Medrol IV) 125 mg NOW STAT IV 03/22/17 13:30 03/22/17 13:33 DC 03/22/17 13:41 125 MG Famotidine (Pepcid 20mg/100 ml) 20 mg STK-MED ONCE .ROUTE 03/22/17 13:56 03/22/17 13:57 DC 03/22/17 14:01 20 MG Pepcid 20 mg IV, Solu-Medrol 125 mg IV, Benadryl 25 mg IV ED Course Patient and his son were educated regarding today's findings. Conservative care measures were discussed. IV was established. Labs were obtained. EKG was obtained. He remained stable while in the ED. He had no difficulty with breathing. Oxygen saturations remained adequate. He was given Solu-Medrol 125 mg IV, Benadryl 25 mg IV, and Pepcid 20 mg IV with mild improvement of his edema. He was able to speak more clearly. I had a long discussion with the patient regarding observation overnight due to his airway involvement. Patient was adamant that he did not want to come in for observation. I do not think he will meet criteria for 2 mid nights in the hospital and this was discussed at length with him. Patient was adamant that he would like to go home. I did make him aware that he may return at any point if he reconsiders, and to certainly return for any breathing difficulty or worsening swelling. He was made aware that he should no longer take lisinopril and call his PCP on Friday to discuss an alternative antihypertensive. He was hypertensive during his visit here today. He should have this rechecked by his PCP. He was able to demonstrate adequate swallowing of ice water prior to discharge. Patient was seen in conjunction with Dr. Rios, who also evaluated the patient and concurred with today's diagnosis and treatment plan. Medical Decision Possibility of angioedema secondary to lisinopril use, food allergy, medication allergy, oral trauma, and infection were considered. Impression Primary Impression: Angioedema Additional Impressions: Swollen tongue HTN (hypertension) Departure Information Referrals Seymour Hoff M.D. (PCP) Patient Instructions [facility] Problem Qualifiers Primary Impression: Angioedema Encounter type: initial encounter Qualified Codes: T78.3XXA - Angioneurotic edema, initial encounter Additional Impressions: HTN (hypertension) Hypertension type: essential hypertension Qualified Codes: I10 - Essential ( primary) hypertension
[2017-03-22 17:16] VITALS: BP 196/121; PULSE 95; O2SAT 96
[2017-09-24] MEDS ORDERED: PRD20 PO (12:31)
[2017-09-24] MEDS ORDERED: ZYR10 PO (12:31)
== END 2017-03-22 17:19 | disposition home or self-care (01) ==
LOC: C.EDB 13:12 → C.EDA 17:19
DX: T78.3XXA Angioneurotic edema, initial encounter (principal); X58.XXXA Exposure to other specified factors, initial encounter; I12.9 Hypertensive chronic kidney disease with stage 1 through stage 4 chronic kidney disease, or unspecified chronic kidney disease; N18.3 Chronic kidney disease, stage 3 (moderate); E78.5 Hyperlipidemia, unspecified; I48.91 Unspecified atrial fibrillation; J44.9 Chronic obstructive pulmonary disease, unspecified; F32.9 Major depressive disorder, single episode, unspecified; I51.9 Heart disease, unspecified; Z98.890 Other specified postprocedural states; Z98.49 Cataract extraction status, unspecified eye; Z79.82 Long term (current) use of aspirin; Z79.01 Long term (current) use of anticoagulants; Z79.899 Other long term (current) drug therapy; Z88.8 Allergy status to other drugs, medicaments and biological substances; Z91.040 Latex allergy status

== ENCOUNTER 2017-09-23 09:50 | Inpatient (IN) | payer OTHER ==
[2017-09-23] VITALS (7 sets, daily range): BP systolic 145–197; BP diastolic 71–88; PULSE 65–85; TEMP 36.6–37; O2SAT 91–97; Ht 175.3 cm; Wt 83.7 kg
[~2017-09-23] VITALS: Ht 175.3 cm; Wt 83.7 kg
[~2017-09-23 09:50] MED LIST changes: -ACET500C6 PO; -ALBU1AER9 INH; -AMOX875T PO; -ASPEC81 PO; +ASPI81TA28 PO; +CMD/25 PO; -CMD5 PO; -DIGO0.122 PO; +DIGO30TA PO; -IPRA0.037 NAE; +IPRA0.06; -MCRK20 PO; +POTA20TA16 PO; -PRED10TA PO; -SALM50AE2 INH; +VNTHFA/IN INH; +WARF-246 PO; -WARF5TAB90 PO
[2017-09-23] MEDS ORDERED: METHYLPREDNISOLONE 125 MG VIAL IV STA (10:14)
[2017-09-23] MEDS ORDERED: FAMOTIDINE 20MG/5ML IV PUSH IV STA (10:14)
[2017-09-23] MEDS ORDERED: DiphenhydrAMINE HCL 50 MG/ML VIAL IV STA (10:14)
[2017-09-23 10:32] LABS: BASO % 0.4 %; BASO ABS # 0.04 K/uL (0-0.2); COMPLETE YES; EOS % 2.1 %; HEMATOCRIT 39.4 % (42-52); IG% 0.3 %; LYMPH % 25.1 %; LYMPH ABS # 2.64 K/uL (1.2-3.4); MEAN CELL VOLUME 85.1 fL (80-100); MEAN CORPUSCULAR HEMOGLOBIN 28.1 pg (25-34); MEAN PLATELET VOLUME 9.9 fL (7.4-10.4); MONO % 7.4 %; NEUT % 64.7 %; PLATELET COUNT 260 K/uL (130-400); RED BLOOD COUNT 4.63 M/uL (4.7-6.1); WHITE BLOOD COUNT 10.51 K/uL (4.8-10.8)
[2017-09-23 10:37] LABS: INR 1.5 (0.9-1.1); PARTIAL THROMBOPLASTIN RATIO 1.3; PROTHROMBIN TIME (PATIENT) 16.7 SECONDS (9.0-12.0)
--- NOTE | 2017-09-23 10:42 | DIAGNOSTIC IMAGING REPORT ---
CHEST ONE VIEW PORTABLE CLINICAL HISTORY: sob eval for pna dyspnea COMPARISON STUDY: 12/08/2016 FINDINGS: Mild cardiomegaly. Diaphragms smooth. Lungs are clear. Chronic fibrotic changes right pulmonary apex. IMPRESSION: No acute process. The above report was generated using voice recognition software. It may contain grammatical, syntax or spelling errors. Electronically signed by: Seymour Yun M.D. 09/23/2017 10:41 AM Dictated Date/Time: 09/23/2017 10:40 AM
[2017-09-23 10:48] LABS: BUN/CREATININE RATIO 16.9 (10-20); CALCIUM 8.8 mg/dl (8.5-10.1); CREATININE 1.92 mg/dl (0.60-1.40); POTASSIUM 3.8 mmol/L (3.5-5.1)
[2017-09-23] MEDS ORDERED: LSX20 PO (10:55)
[2017-09-23] MEDS ORDERED: ZLF/50 PO (10:55)
[2017-09-23] MEDS ORDERED: DEXAMETHASONE SOD INJ 10 MG/ML VIAL IV ONE (11:15)
[2017-09-23] MEDS ORDERED: ONDANSETRON INJ 2 MG/ML 2 ML VIAL IV PRN (11:45)
[2017-09-23] MEDS ORDERED: ACETAMINOPHEN 325 MG TAB PO PRN (11:45)
[2017-09-23] MEDS ORDERED: CETIRIZINE HCL 10 MG TAB PO ONE (13:00)
--- NOTE | 2017-09-23 13:55 | History and Physical ---
History & Physical Date & Time of Service: Sep 23, 2017 ~ 12:00 Chief Complaint: Tongue Swelling Primary Care Physician: Seymour Hoff M.D. History of Present Illness 86 year old male who presents to the ED with tongue swelling. Patient had a similar episode about 6 months ago in the setting of being on Lisinopril (which he had been on for several years). He was treated in the ED for angioedema and advised to stop his Lisinopril. For BP control, patient was trialed on PO clonidine which made him feel tired and then clonidine patch which made him itch all over. On 07/30, patient was started on furosemide. Then on 09/10 and he was started on sertraline. He took a half a tab for one week and then increased to a full tab 2 days ago. Last night he thought he had some mild shortness of breath however that resolved by this morning. While shaving this morning patient reports he bit his tongue and that's when he noticed his tongue was swollen. He then tried to have breakfast and was able to chew however his tongue got in the way of him being able to swallow. He denies any feelings of his throat closing shut. No chest pain or shortness of breath. He denies itching and rashes. He notes some mild diarrhea over the past couple of days. No BRBPR or dark tarry stools. He denies abdominal pain, nausea, and vomiting. No fever or chills. He denies urinary symptoms. In the ED, patient was initially noted to have swelling on the left side of his tongue. He was given IV solumedrol and IV Pepcid. Swelling then started to develop on the right side of his tongue so he was then given IV Decadron. 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 Status: Chronic Surgical Problems: (1) History of inguinal hernia repair, bilateral Status: Chronic (2) Hx of cataract surgery Status: Chronic Family History non contributory due to patient's advanced age Social History Smoking Status: Never Smoker Alcohol Use: none Immunizations History of Influenza Vaccine: Yes Influenza Vaccine Date: Sep 10, 2017 History of Tetanus Vaccine?: Yes Tetanus Immunization Date: May 30, 2008 History of Pneumococcal: Yes Pneumococcal Date: Sep 14, 2015 Multi-Drug Resistant Organisms History of MDRO: No Allergies Coded Allergies: Latex (Verified Allergy, Unknown, RASH, 03/22/17) Meclizine (Verified Allergy, Unknown, unknown, 03/22/17) Niacin (Verified Allergy, Unknown, RASH, 03/22/17) Home Medications Scheduled Amlodipine Besylate (Amlodipine Besylate), 10 MG PO DAILY Aspirin (Aspirin Ec), 81 MG PO DAILY Calcitriol (Calcitriol), 0.25 MCG PO DAILY Digoxin (Digitek), 1 TAB PO DAILY Ferrous Sulfate (Kp Ferrous Sulfate), 1 TAB PO DAILY Furosemide (Furosemide), 20 MG PO DAILY Metoprolol Tartrate (Lopressor), 100 MG PO BID Multivitamin (Multivitamin), 1 TAB PO DAILY Nitroglycerin (Nitrostat), 0.4 MG UT PRN Omeprazole (Prilosec), 20 MG PO DAILY Pot Phosphate Monobasic W/ Sod (Phospha 250 Neutral), 1 TAB PO BID Potassium Ext Rel (Klor-Con), 20 MEQ PO DAILY Pravastatin Sodium (Pravachol), 10 MG PO HS Sertraline HCl (Sertraline HCl), 50 MG PO DAILY Warfarin Sod (Coumadin), 2.5 MG PO 5XWK Warfarin Sodium (Warfarin Sodium), 1 TAB PO 2XWK Scheduled PRN Albuterol Hfa (Ventolin Hfa), 2-4 PUFFS INH Q6H PRN for Shortness of Breath Ipratropium [place] (Nasal) (Ipratropium [place]), 1 DOSE QID PRN for Nasal Congestion Review of Systems ROS per HPI, all other systems reviewed and negative Physical Exam Vital Signs Date Time Temp Pulse Resp B/P (MAP) Pulse Ox O2 Delivery O2 Flow Rate FiO2 09/23/17 12:30 37.0 84 18 197/78 (117) 92 Room Air 09/23/17 12:06 81 22 97 09/23/17 12:01 195/91 09/23/17 12:00 193/144 09/23/17 11:48 Room Air 09/23/17 11:36 64 15 09/23/17 11:31 182/75 09/23/17 11:28 179/82 09/23/17 11:20 61 14 09/23/17 11:01 153/119 09/23/17 10:50 61 16 09/23/17 10:32 158/84 09/23/17 10:29 76 20 144/86 96 Room Air 09/23/17 10:26 144/86 09/23/17 10:20 58 14 97 09/23/17 10:05 66 09/23/17 10:05 75 20 183/89 98 Room Air 09/23/17 10:04 97 Room Air 09/23/17 10:03 183/89 09/23/17 09:52 36.4 73 18 201/81 96 Room Air General Appearance: WD/WN, no apparent distress Head: normocephalic, atraumatic Eyes: normal inspection, EOMI, sclerae normal ENT: hearing grossly normal, + pertinent finding (tongue edema noted, L>R side ; airway intact, no respiratory distress) Neck: supple, no JVD, trachea midline Respiratory/Chest: lungs clear, normal breath sounds, no respiratory distress Cardiovascular: regular rate, rhythm, no edema, normal peripheral pulses Abdomen/GI: normal bowel sounds, non tender, soft, no organomegaly Extremities/Musculoskelatal: normal inspection, no calf tenderness, normal capillary refill Neurologic/Psych: no motor/sensory deficits, alert, normal mood/affect, oriented x 3 Skin: normal color, warm/dry Diagnostics Laboratory Results Results Past 24 Hours Test 09/23/17 10:22 09/23/17 10:24 Range/Units White Blood Count 10.51 4.8-10.8 K/uL Red Blood Count 4.63 4.7-6.1 M/uL Hemoglobin 13.0 14.0-18.0 g/dL Hematocrit 39.4 42-52 % Mean Corpuscular Volume 85.1 80-100 fL Mean Corpuscular Hemoglobin 28.1 25-34 pg Mean Corpuscular Hemoglobin Concent 33.0 32-36 g/dl Platelet Count 260 130-400 K/uL Mean Platelet Volume 9.9 7.4-10.4 fL Neutrophils (%) (Auto) 64.7 % Lymphocytes (%) (Auto) 25.1 % Monocytes (%) (Auto) 7.4 % Eosinophils (%) (Auto) 2.1 % Basophils (%) (Auto) 0.4 % Neutrophils # (Auto) 6.80 1.4-6.5 K/uL Lymphocytes # (Auto) 2.64 1.2-3.4 K/uL Monocytes # (Auto) 0.78 0.11-0.59 K/uL Eosinophils # (Auto) 0.22 0-0.5 K/uL Basophils # (Auto) 0.04 0-0.2 K/uL RDW Standard Deviation 45.3 36.4-46.3 fL RDW Coefficient of Variation 14.6 11.5-14.5 % Immature Granulocyte % (Auto) 0.3 % Immature Granulocyte # (Auto) 0.03 0.00-0.02 K/uL Prothrombin Time 16.7 9.0-12.0 SECONDS Prothromb Time International Ratio 1.5 0.9-1.1 Activated Partial Thromboplast Time 33.2 21.0-31.0 SECONDS Partial Thromboplastin Ratio 1.3 Sodium Level 137 136-145 mmol/L Potassium Level 3.8 3.5-5.1 mmol/L Chloride Level 101 98-107 mmol/L Carbon Dioxide Level 28 21-32 mmol/L Anion Gap 8.0 3-11 mmol/L Blood Urea Nitrogen 32 7-18 mg/dl Creatinine 1.92 0.60-1.40 mg/dl Est Creatinine Clear Calc Drug Dose 29.5 ml/min Estimated GFR () 35.5 Estimated GFR (Non- 30.6 BUN/Creatinine Ratio 16.9 10-20 Random Glucose 142 70-99 mg/dl Calcium Level 8.8 8.5-10.1 mg/dl Total Bilirubin 0.5 0.2-1 mg/dl Direct Bilirubin 0.1 0-0.2 mg/dl Aspartate Amino Transf (AST/SGOT) 13 15-37 U/L Alanine Aminotransferase (ALT/SGPT) 16 12-78 U/L Alkaline Phosphatase 51 45-117 U/L Total Protein 8.2 6.4-8.2 gm/dl Albumin 3.4 3.4-5.0 gm/dl Bedside Troponin I < 0.030 0-0.045 ng/ml Diagnostic Radiology CXR IMPRESSION: No acute process. Impression Assessment and Plan ANGIOEDEMA - admit to tele - patient presenting with tongue swelling that began this morning; airway intact , no respiratory distress; Patient had a similar episode about 6 months ago in the setting of being on Lisinopril (which he had been on for several years). He was treated in the ED for angioedema and advised to stop his Lisinopril. For BP control, patient was trialed on PO clonidine which made him feel tired and then clonidine patch which made him itch all over. On 07/30, patient was started on furosemide. Then on 09/10 and he was started on sertraline. He took a half a tab for one week and then increased to a full tab 2 days ago. - patient denies any other new exposures - ? due to sertraline vs. idiopathic angioedema - no signs of airway compromise - full liquids for now and advance as edema improves - case was discussed with Thuy Altman PA-C with [facility] - recommends a prednisone taper and daily Zyrtec, no role for H2 martinez at this time; also recommended to provide patient with a rescue tablet of Prednisone 40mg to take at the onset of recurrent symptoms - appointment made with [facility] - 10/06 at 2pm CAD - stable, no reports of chest pain - continue ASA, beta martinez, and statin ATRIAL FIBRILLATION - rate controlled on digoxin and metoprolol - anticoagulated on Coumadin, INR 1.5 HTN - BP elevated, however patient missed meds this morning - will give home doses of antihypertensives and reassess - continue amlodipine, furosemide, metoprolol CKD STAGE III - baseline creat runs ~ 1.8 - 2.0 - creat noted to be 1.9 today - continue to monitor, avoid nephrotoxic agents when able - continue routine renal meds DVT PROPHYLAXIS - on Coumadin CODE STATUS - Patient is a full code as per my discussion with him. DISPO - In my clinical judgment this beneficiary meets acute admission criteria, established by [facility], that includes being hospitalized through two midnights. ATTENDING NOTE : pt seen and examined , care co -ordinated with Chacha TURNER 86 yo M presented with sudden onset of tongue swelling developed this morning had prior hx of angioedema while on ACEI -was discontinued since recently started on SSRI /Zoloft for depression P/E: GEN; No apparent distress HEENT : tongue -mild swelling, no rash or erythema ,speech is fluent , able to eat solid, no dysphagia or odynophagia , no erythema noted on oropharynx sclera non icteric , PERRLA/EOMI HT; regular Lungs: CTA ext; no rash or deformity noted neuro: no focal deficit A/P ANGIOEDEMA OF TONGUE : possible idiopathic-not on ACEI/ARB , does not take NSAID's new medication was Zoloft which was started 1 week back pt stopped taking it after 1-2 dose due to GI symptoms with diarrhea tongue swelling has significantly improved after Prednisone , H1 receptor martinez given in ED no trouble in speech . articulation , no problem in swallowing. able to eat solid case d/w complaint specialist possible drug reaction vs idiopathic has appointment schedule in office for next week possible discharge home with PO prednisone taper and Prednisone 40mg PO rescue kit HTN : BP elevated as pt was unable to take any of the antihypertensive meds in AM for tongue swelling home medications -Lasix , Lopressor resumes repeat BP monitor in Tele HX OF AFIB : controlled with Lopressor and Digoxin -continued on Coumadin anticoagulation Full code Disposition ; expected to be discharged home when medically stable Advanced Directives Existing Living Will: Yes 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 Y/N: Yes Risk Level: Moderate Additional Copies To Seymour Hoff M.D.
--- NOTE | 2017-09-23 15:38 | EMERGENCY ROOM VISIT NOTE ---
History Report prepared by Samuel: Bibi Man Under the Supervision of: Dr. Patrice Valencia M.D. First contact with patient: 10:01 Chief Complaint: SWELLING TO EXTREMITY Stated Complaint: SWOLLEN TONGUE, DIFFICULTY W/BOWELS History of Present Illness The patient is a 86 year old male who presents to the Emergency Room with complaints of worsening swelling to his tongue since he woke up this morning. The patient was feeling fine last night when he went to bed, although, he did feel slightly more short of breath than usual. He states he did not feel short of breath because of his throat. There was just a brief episode of shortness of breath. He denies experiencing any chest pain or chest heaviness. His shortness of breath has resolved. This morning he woke up and states that it felt like he had bit his tongue. His tongue has continued to swell. He denies any tongue pain or dental pain. The patient denies feeling like his throat is closing. He denies any other swelling anywhere on his body. He denies fevers, itching, rash, abdominal pain, nausea, and vomiting. He has been having some diarrhea for the last few days. The patient has a history of a-fib. He had similar swelling in February 2017 that he states was worse. He was advised to stop his lisinopril at that time. The patient is no longer taking lisinopril. He started taking sertraline about one week ago. He denies any other recent changes to his medications. Source of History: patient Onset: this morning Position: tongue Quality: other (swelling) Timing: worsening Associated Symptoms: + SOB (resolved), + diarrhea, No fevers, No chest pain , No nausea, No vomiting, No abdominal pain, No rash Review of Systems See HPI for pertinent positives & negatives. A total of 10 systems reviewed and were otherwise negative. Past Medical & Surgical Medical Problems: (1) Chronic atrial fibrillation (2) CKD (chronic kidney disease), stage III (3) COPD, mild (4) Depression (5) Dyslipidemia (6) HTN (hypertension) (7) Ischemic heart disease Surgical Problems: (1) History of inguinal hernia repair, bilateral (2) Hx of cataract surgery Family History FH: heart disease Hypertension Social History Smoking Status: Never Smoker Alcohol Use: none Drug Use: none Housing Status: lives with family Occupation Status: retired Current/Historical Medications Scheduled Amlodipine Besylate (Amlodipine Besylate), 10 MG PO DAILY Aspirin (Aspirin Ec), 81 MG PO DAILY Calcitriol (Calcitriol), 0.25 MCG PO DAILY Digoxin (Digitek), 1 TAB PO DAILY Ferrous Sulfate (Kp Ferrous Sulfate), 1 TAB PO DAILY Furosemide (Furosemide), 20 MG PO DAILY Metoprolol Tartrate (Lopressor), 100 MG PO BID Multivitamin (Multivitamin), 1 TAB PO DAILY Nitroglycerin (Nitrostat), 0.4 MG UT PRN Omeprazole (Prilosec), 20 MG PO DAILY Pot Phosphate Monobasic W/ Sod (Phospha 250 Neutral), 1 TAB PO BID Potassium Ext Rel (Klor-Con), 20 MEQ PO DAILY Pravastatin Sodium (Pravachol), 10 MG PO HS Sertraline HCl (Sertraline HCl), 50 MG PO DAILY Warfarin Sod (Coumadin), 2.5 MG PO 5XWK Warfarin Sodium (Warfarin Sodium), 1 TAB PO 2XWK Scheduled PRN Albuterol Hfa (Ventolin Hfa), 2-4 PUFFS INH Q6H PRN for Shortness of Breath Ipratropium [place] (Nasal) (Ipratropium [place]), 1 DOSE QID PRN for Nasal Congestion Allergies Coded Allergies: Latex (Verified Allergy, Unknown, RASH, 03/22/17) Meclizine (Verified Allergy, Unknown, unknown, 03/22/17) Niacin (Verified Allergy, Unknown, RASH, 03/22/17) Physical Exam Vital Signs Date Time Temp Pulse Resp B/P (MAP) Pulse Ox O2 Delivery O2 Flow Rate FiO2 09/23/17 11:36 64 15 09/23/17 11:31 182/75 09/23/17 11:28 179/82 09/23/17 11:20 61 14 09/23/17 11:01 153/119 09/23/17 10:50 61 16 09/23/17 10:32 158/84 09/23/17 10:29 76 20 144/86 96 Room Air 09/23/17 10:26 144/86 09/23/17 10:20 58 14 97 09/23/17 10:05 66 09/23/17 10:05 75 20 183/89 98 Room Air 09/23/17 10:04 97 Room Air 09/23/17 10:03 183/89 09/23/17 09:52 36.4 73 18 201/81 96 Room Air Physical Exam Constitutional: Vital signs reviewed. Eyes: Pupils are equal round reactive to light. Conjunctiva are noninjected. ENT: Pharynx is clear without erythema or exudate. Mucous membranes are moist. Neck supple without meningeal signs. Significant swelling to left side of tongue without tenderness, no percussion tenderness to teeth. No submental tenderness or swelling, no facial swelling. Respiratory: Clear to auscultation bilaterally. Breath sounds are equal bilaterally. No wheezing or stridor. Cardiovascular: Irregularly irregular rhythm. Normal rate. No rubs or gallops. GI: Soft, nondistended and nontender. Bowel sounds are present. Musculoskeletal: No lower extremity tenderness. Pitting edema to lower extremities. Integumentary: No cyanosis. Neurological: The patient is awake and alert. No focal deficits. Psychiatric: Normal affect. Medical Decision & Procedures ER Provider Diagnostic Interpretation: Radiology results as stated below per my review and the radiologist's interpretation: CHEST ONE VIEW PORTABLE CLINICAL HISTORY: sob eval for pna dyspnea COMPARISON STUDY: 12/08/2016 FINDINGS: Mild cardiomegaly. Diaphragms smooth. Lungs are clear. Chronic fibrotic changes right pulmonary apex. IMPRESSION: No acute process. The above report was generated using voice recognition software. It may contain grammatical, syntax or spelling errors. Electronically signed by: Seymour Yun M.D. 09/23/2017 10:41 AM Dictated Date/Time: 09/23/2017 10:40 AM Laboratory Results 09/23/17 10:22 Red Blood Count 4.63, Mean Corpuscular Volume 85.1, Mean Corpuscular Hemoglobin 28.1, Mean Corpuscular Hemoglobin Concent 33.0, Mean Platelet Volume 9.9, Neutrophils (%) (Auto) 64.7, Lymphocytes (%) (Auto) 25.1, Monocytes (%) (Auto) 7.4, Eosinophils (%) (Auto) 2.1, Basophils (%) (Auto) 0.4, Neutrophils # (Auto) 6.80, Lymphocytes # (Auto) 2.64, Monocytes # (Auto) 0.78, Eosinophils # (Auto) 0.22, Basophils # (Auto) 0.04 10/31/17 10:22 Test 09/23/17 10:22 09/23/17 10:24 White Blood Count 10.51 K/uL (4.8-10.8) Red Blood Count 4.63 M/uL (4.7-6.1) Hemoglobin 13.0 g/dL (14.0-18.0) Hematocrit 39.4 % (42-52) Mean Corpuscular Volume 85.1 fL (80-100) Mean Corpuscular Hemoglobin 28.1 pg (25-34) Mean Corpuscular Hemoglobin Concent 33.0 g/dl (32-36) Platelet Count 260 K/uL (130-400) Mean Platelet Volume 9.9 fL (7.4-10.4) Neutrophils (%) (Auto) 64.7 % Lymphocytes (%) (Auto) 25.1 % Monocytes (%) (Auto) 7.4 % Eosinophils (%) (Auto) 2.1 % Basophils (%) (Auto) 0.4 % Neutrophils # (Auto) 6.80 K/uL (1.4-6.5) Lymphocytes # (Auto) 2.64 K/uL (1.2-3.4) Monocytes # (Auto) 0.78 K/uL (0.11-0.59) Eosinophils # (Auto) 0.22 K/uL (0-0.5) Basophils # (Auto) 0.04 K/uL (0-0.2) RDW Standard Deviation 45.3 fL (36.4-46.3) RDW Coefficient of Variation 14.6 % (11.5-14.5) Immature Granulocyte % (Auto) 0.3 % Immature Granulocyte # (Auto) 0.03 K/uL (0.00-0.02) Prothrombin Time 16.7 SECONDS (9.0-12.0) Prothromb Time International Ratio 1.5 (0.9-1.1) Activated Partial Thromboplast Time 33.2 SECONDS (21.0-31.0) Partial Thromboplastin Ratio 1.3 Anion Gap 8.0 mmol/L (3-11) Est Creatinine Clear Calc Drug Dose 29.5 ml/min Estimated GFR () 35.5 Estimated GFR (Non- 30.6 BUN/Creatinine Ratio 16.9 (10-20) Calcium Level 8.8 mg/dl (8.5-10.1) Total Bilirubin 0.5 mg/dl (0.2-1) Direct Bilirubin 0.1 mg/dl (0-0.2) Aspartate Amino Transf (AST/SGOT) 13 U/L (15-37) Alanine Aminotransferase (ALT/SGPT) 16 U/L (12-78) Alkaline Phosphatase 51 U/L (45-117) Total Protein 8.2 gm/dl (6.4-8.2) Albumin 3.4 gm/dl (3.4-5.0) Bedside Troponin I < 0.030 ng/ml (0-0.045) Laboratory results as reviewed by me. Medications Administered Medications (Trade) Dose Ordered Sig/Norma Route Start Time Stop Time Status Last Admin Dose Admin Methylprednisolone Sodium Succinate (Solu-Medrol IV) 125 mg NOW STAT IV 09/23/17 10:14 09/23/17 10:20 DC 09/23/17 10:26 125 MG Diphenhydramine HCl (Benadryl Inj) 50 mg NOW STAT IV 09/23/17 10:14 09/23/17 10:20 DC 09/23/17 10:26 50 MG Famotidine (Pepcid 20mg Iv Push) 20 mg ONE STAT IV 09/23/17 10:14 09/23/17 10:20 DC 09/23/17 10:26 20 MG Dexamethasone Sodium Phosphate (Decadron Inj) 10 mg NOW ONCE IV 09/23/17 11:15 09/23/17 11:16 DC 09/23/17 11:38 10 MG ECG Indication: SOB/dyspnea Rate (beats per minute): 57 Rhythm: atrial fibrillation Findings: no acute ischemic change, no ectopy ED Course 1001: The patient was evaluated in room A3. A complete history and physical exam was performed. 1014: Famotidine 20 mg IV, Benadryl 50 mg IV, Solu-Medrol 125 mg IV 1059: Upon reevaluation the patient has increased swelling now to the right side of his tongue. He denies any difficulty breathing. I discussed the results and treatment plan with the patient. I answered all pertaining questions that he had. He expressed understanding and verbalized agreement. 1115: I spoke with Jazmin Garvey PA-C. We discussed the patients case. [facility]. Medical Decision This is a 86-year-old male who presents with swelling to his tongue and a brief episode of shortness of breath. Differential diagnosis includes Allergic reaction, angioedema, dental abscess, Dayo angina, tumor. I did perform a limited focused review of portions of the patient's old chart on the electronic medical record. The patient was here in February for swelling to his tongue and extremities. He did not want to be hospitalized at that time because he was concerned about not meeting criteria for admission so he was discharged home per his request. He was told to stop his lisinopril. I did evaluate the patient as noted above. Patient is presenting with unilateral swelling to the left side of his tongue. He has no other symptoms other than a brief episode of shortness of breath yesterday. He has no pain to that area or any dental tenderness. There is no cyanosis of an abscess or Dayo angina. He was previously seen here for a similar episode when he was on lisinopril but he has been off of that medication since. IV access was established. The patient was placed on a continuous cardiac cath lab manager. I did treat patient with Solu-Medrol, Benadryl and Pepcid IV. I did order and personally review the patient's 12-lead EKG and chest x-ray as described above. I did order and review the patient's blood work as noted in the electronic medical record. He has chronic elevation of his creatinine. I did reevaluate the patient. He now has swelling to the entire tongue. It is no longer unilateral. He does not have any shortness of breath or difficulty breathing. He does not feel his throat is swelling. I did discuss the test results with him and recommended hospitalization for further care and evaluation. I did discuss the case with the hospitalist and caser shoe parts. I did treat patient with an additional 10 mg of Decadron IV. I did not give him epinephrine as the patient has a prior history of [place]. Medication Reconcilliation Current Medication List: was personally reviewed by me Blood Pressure Screening Patient's blood pressure: Elevated blood pressure Blood pressure disposition: Referred to PCP Consults Time Called: 1111 Consulting Physician: Jazmin Garvey PA-C Returned Call: 1112 I spoke with Jazmin Garvey PA-C. We discussed the patients case. The patient will be evaluated by the [facility] for further management. Impression Primary Impression: Angioedema Additional Impressions: Elevated serum creatinine Subtherapeutic international normalized ratio (INR) Atrial fibrillation Scribe Attestation The scribe's documentation has been prepared under my direct and personally reviewed by me in its entirety. I confirm that the note above accurately reflects all work, treatment, procedures, and medical decision making performed by me. Departure Information Dispostion Being Evaluated By Hospitalist Seymour Brady M.D. (PCP) Patient Instructions My [facility] Problem Qualifiers Primary Impression: Angioedema Encounter type: initial encounter Qualified Codes: T78.3XXA - Angioneurotic edema, initial encounter Additional Impressions: Atrial fibrillation Atrial fibrillation type: chronic Qualified Codes: I48.2 - Chronic atrial fibrillation
[2017-09-23] MEDS ORDERED: DIGOXIN 0.125 MG TAB PO SCH (16:00)
[2017-09-23] MEDS ORDERED: WARFARIN SOD 5 MG TAB PO SCH (16:00)
[2017-09-23] MEDS: ASPIRIN 81 MG ECTAB PO SCH (16:08)
[2017-09-23] MEDS: FUROSEMIDE 20 MG TAB PO SCH (16:09)
[2017-09-23] MEDS: METOPROLOL TARTRATE 100 MG TAB PO SCH ×2 (16:09→23:24)
[2017-09-23] MEDS: AMLODIPINE BESYLATE 5 MG TAB PO SCH (16:10)
[2017-09-23] MEDS ORDERED: HydrALAZINE HCL 20 MG/ML VIAL IV. PRN (18:30)
[2017-09-23] MEDS: POT PHOSPHATE MONOBASIC W/ SOD TAB PO SCH (19:39)
[2017-09-23] MEDS ORDERED: METOPROLOL TARTRATE 100 MG TAB PO SCH (21:00)
[2017-09-23] MEDS ORDERED: PRAVASTATIN SOD 10 MG TAB PO SCH (21:00)
[2017-09-24 04:30] VITALS: BP 193/76; PULSE 60; TEMP 36.7; O2SAT 96
[2017-09-24 06:13] LABS: HEMATOCRIT 35.9 % (42-52); MEAN CELL VOLUME 84.9 fL (80-100); MEAN CORPUSCULAR HEMOGLOBIN 28.4 pg (25-34); MEAN CORPUSCULAR HGB CONC 33.4 g/dl (32-36); MEAN PLATELET VOLUME 10.2 fL (7.4-10.4); PLATELET COUNT 263 K/uL (130-400); RED BLOOD COUNT 4.23 M/uL (4.7-6.1); WHITE BLOOD COUNT 10.25 K/uL (4.8-10.8)
[2017-09-24 06:22] LABS: INR 1.6 (0.9-1.1)
[2017-09-24 06:34] LABS: BUN/CREATININE RATIO 18.9 (10-20); CALCIUM 8.8 mg/dl (8.5-10.1); CREATININE 2.05 mg/dl (0.60-1.40); POTASSIUM 3.7 mmol/L (3.5-5.1)
[2017-09-24] MEDS: FUROSEMIDE 20 MG TAB PO SCH (07:53)
[2017-09-24] MEDS: AMLODIPINE BESYLATE 5 MG TAB PO SCH (07:54)
[2017-09-24] MEDS: METOPROLOL TARTRATE 100 MG TAB PO SCH (07:54)
[2017-09-24] MEDS: POT PHOSPHATE MONOBASIC W/ SOD TAB PO SCH (07:55)
[2017-09-24] MEDS: ASPIRIN 81 MG ECTAB PO SCH (07:55)
[2017-09-24 08:07] VITALS: BP 186/82; PULSE 69; TEMP 36.7; O2SAT 95
[2017-09-24] MEDS ORDERED: CETIRIZINE HCL 10 MG TAB PO SCH (09:00)
[2017-09-24] MEDS ORDERED: POTASSIUM CHLORIDE 20 MEQ TABCR PO SCH (09:00)
[2017-09-24] MEDS ORDERED: FUROSEMIDE 20 MG TAB PO SCH (09:00)
[2017-09-24] MEDS ORDERED: PANTOprazole SOD 40 MG TAB PO SCH (09:00)
[2017-09-24] MEDS ORDERED: ASPIRIN 81 MG ECTAB PO SCH (09:00)
[2017-09-24] MEDS ORDERED: CALCITRIOL 0.25 MCG CAP PO SCH (09:00)
[2017-09-24] MEDS ORDERED: DIGOXIN 0.125 MG TAB PO SCH (09:00)
[2017-09-24] MEDS ORDERED: MULTIVITAMIN TAB PO SCH (09:00)
[2017-09-24] MEDS ORDERED: FERROUS SULFATE 325 MG TAB PO SCH (09:00)
[2017-09-24] MEDS ORDERED: AMLODIPINE BESYLATE 10 MG PO SCH (09:00)
--- NOTE | 2017-09-24 10:49 | Progress Note ---
Internal Med Progress Note Date of Service: Sep 24, 2017. Provider Documentation: SUBJECTIVE: patient eating and drinking without difficulty. oral swelling symptoms reported by patient to have been resolving. denies shortness of breath OBJECTIVE: General Appearance: WD/WN, no apparent distress Head: normocephalic, atraumatic Eyes: normal inspection, EOMI, sclerae normal ENT: hearing grossly normal,tongue of normal size Neck: supple, no JVD, trachea midline Respiratory/Chest: lungs clear, normal breath sounds, no respiratory distress Cardiovascular: regular rate, rhythm, no edema, normal peripheral pulses Abdomen/GI: normal bowel sounds, non tender, soft, no organomegaly Extremities/Musculoskelatal: normal inspection, no calf tenderness, normal capillary refill Neurologic/Psych: no motor/sensory deficits, alert, normal mood/affect, oriented x 3 Skin: normal color, warm/dry ASSESSMENT & PLAN: This is a 87 year old M who presented with angioedema, swelling of the tongue. Patient recently on sertraline and symptoms correlating with the start of this medication as outpatient. Since ED presentation on 09/23/17 pative has received IV solumedrol and IV Pepcid and IV Decadron as well as Zyrtec. Patient symptoms resolving since [facility] on [facility]. No overnight events. Patient able to eat, swallow, speak and breath comfortably throughout hospital course. Patient to be discharged with prescription for Zyretc and Prednisone. Patient instructed to avoid sertraline and lisinopril to prevent future episodes of angioedema Follow up appointments 09/29/2017 11:20 AM Seymour Hoff MD [facility] 09/30/2017 9:45 AM [facility] 2:20 PM Sara Jiménez Oncu, DO Nephrology, [facility] Vital Signs: Date Time Temp Pulse Resp B/P (MAP) Pulse Ox O2 Delivery O2 Flow Rate FiO2 09/24/17 12:00 Room Air 09/24/17 11:07 36.6 58 18 153/75 (101) 96 Room Air 09/24/17 08:07 36.7 69 18 186/82 (116) 95 Room Air 09/24/17 08:00 Room Air 09/24/17 04:30 36.7 60 18 193/76 (115) 96 Room Air 09/24/17 04:00 Room Air 09/24/17 00:01 Room Air 09/23/17 23:22 36.8 73 18 176/77 (110) 93 Room Air 09/23/17 20:21 97 Room Air 09/23/17 20:15 36.7 65 18 176/71 (106) 95 Room Air 09/23/17 16:23 97 Room Air 09/23/17 16:09 72 09/23/17 15:32 36.6 76 19 186/88 (120) 97 Room Air 09/23/17 15:29 36.8 85 20 145/74 (97) 91 Room Air Lab Results: Results Past 24 Hours Test 09/24/17 05:55 Range/Units White Blood Count 10.25 4.8-10.8 K/uL Red Blood Count 4.23 4.7-6.1 M/uL Hemoglobin 12.0 14.0-18.0 g/dL Hematocrit 35.9 42-52 % Mean Corpuscular Volume 84.9 80-100 fL Mean Corpuscular Hemoglobin 28.4 25-34 pg Mean Corpuscular Hemoglobin Concent 33.4 32-36 g/dl RDW Standard Deviation 45.7 36.4-46.3 fL RDW Coefficient of Variation 14.8 11.5-14.5 % Platelet Count 263 130-400 K/uL Mean Platelet Volume 10.2 7.4-10.4 fL Prothrombin Time 17.0 9.0-12.0 SECONDS Prothromb Time International Ratio 1.6 0.9-1.1 Sodium Level 138 136-145 mmol/L Potassium Level 3.7 3.5-5.1 mmol/L Chloride Level 102 98-107 mmol/L Carbon Dioxide Level 29 21-32 mmol/L Anion Gap 7.0 3-11 mmol/L Blood Urea Nitrogen 39 7-18 mg/dl Creatinine 2.05 0.60-1.40 mg/dl Est Creatinine Clear Calc Drug Dose 24.9 ml/min Estimated GFR () 32.6 Estimated GFR (Non- 28.1 BUN/Creatinine Ratio 18.9 10-20 Random Glucose 134 70-99 mg/dl Calcium Level 8.8 8.5-10.1 mg/dl
[2017-09-24 11:07] VITALS: BP 153/75; PULSE 58; TEMP 36.6; O2SAT 96
[2017-09-24] MEDS ORDERED: ZYR10 PO (12:31)
[2017-09-24] MEDS ORDERED: PRD20 PO (12:31)
--- NOTE | 2017-09-24 12:39 | Discharge Instructions ---
Discharge Instructions Date of Service Sep 24, 2017. Admission Reason for Admission: Angioedema Discharge Discharge Diagnosis / Problem: angioedema of tongue, serteraline use, atrial fibrillation, on couamdin Discharge Goals Goal(s): Decrease discomfort, Improve function, Improve disease control Activity Recommendations Activity Limitations: resume your previous activity . Instructions / Follow-Up Instructions / Follow-Up This is a 87 year old M who presented with angioedema, swelling of the tongue. Patient recently on sertraline and symptoms correlating with the start of this medication as outpatient. Since ED presentation on 09/23/17 pative has received IV solumedrol and IV Pepcid and IV Decadron as well as Zyrtec. Patient symptoms resolving since presentation [facility] same [facility] on [facility]. No overnight events. Patient able to eat, swallow, speak and breath comfortably throughout hospital course. Patient to be discharged with prescription for Zyretc and Prednisone. Patient instructed to avoid sertraline and lisinopril to prevent future episodes of angioedema Follow up appointments 09/29/2017 11:20 AM Seymour Hoff MD [facility] 09/30/2017 9:45 AM [facility] [place] 10/01/2017 2:20 PM Sara Jiménez Oncu, DO Nephrology, [facility] Current Hospital Diet Patient's current hospital diet: AHA Diet (Heart Healthy) Discharge Diet Recommended Diet: AHA Diet (Heart Healthy) Pending Studies Studies pending at discharge: no Laboratory Results 09/24/17 05:55 09/24/17 05:55 Test 09/23/17 10:22 09/23/17 10:24 09/24/17 05:55 Immature Granulocyte % (Auto) 0.3 % White Blood Count 10.51 K/uL (4.8-10.8) Red Blood Count 4.63 M/uL (4.7-6.1) 4.23 M/uL (4.7-6.1) Hemoglobin 13.0 g/dL (14.0-18.0) Hematocrit 39.4 % (42-52) Mean Corpuscular Volume 85.1 fL (80-100) 84.9 fL (80-100) Mean Corpuscular Hemoglobin 28.1 pg (25-34) 28.4 pg (25-34) Mean Corpuscular Hemoglobin Concent 33.0 g/dl (32-36) 33.4 g/dl (32-36) Platelet Count 260 K/uL (130-400) Mean Platelet Volume 9.9 fL (7.4-10.4) 10.2 fL (7.4-10.4) Neutrophils (%) (Auto) 64.7 % Lymphocytes (%) (Auto) 25.1 % Monocytes (%) (Auto) 7.4 % Eosinophils (%) (Auto) 2.1 % Basophils (%) (Auto) 0.4 % Neutrophils # (Auto) 6.80 K/uL (1.4-6.5) Lymphocytes # (Auto) 2.64 K/uL (1.2-3.4) Monocytes # (Auto) 0.78 K/uL (0.11-0.59) Eosinophils # (Auto) 0.22 K/uL (0-0.5) Basophils # (Auto) 0.04 K/uL (0-0.2) Immature Granulocyte # (Auto) 0.03 K/uL (0.00-0.02) Activated Partial Thromboplast Time 33.2 SECONDS (21.0-31.0) Partial Thromboplastin Ratio 1.3 Total Bilirubin 0.5 mg/dl (0.2-1) Direct Bilirubin 0.1 mg/dl (0-0.2) Aspartate Amino Transf (AST/SGOT) 13 U/L (15-37) Alanine Aminotransferase (ALT/SGPT) 16 U/L (12-78) Alkaline Phosphatase 51 U/L (45-117) Total Protein 8.2 gm/dl (6.4-8.2) Albumin 3.4 gm/dl (3.4-5.0) Bedside Troponin I < 0.030 ng/ml (0-0.045) RDW Standard Deviation 45.7 fL (36.4-46.3) RDW Coefficient of Variation 14.8 % (11.5-14.5) Prothrombin Time 17.0 SECONDS (9.0-12.0) Prothromb Time International Ratio 1.6 (0.9-1.1) Anion Gap 7.0 mmol/L (3-11) Est Creatinine Clear Calc Drug Dose 24.9 ml/min Estimated GFR () 32.6 Estimated GFR (Non- 28.1 BUN/Creatinine Ratio 18.9 (10-20) Calcium Level 8.8 mg/dl (8.5-10.1) Medical Emergencies . Who to Call and When: Medical Emergencies: If at any time you feel your situation is an emergency, please call 911 immediately. . Non-Emergent Contact Non-Emergency issues call your: Primary Care Provider . . "Provider Documentation" section prepared by Devin Cevallos. . VTE Core Measure Inpt VTE Proph given/why not?: Warfarin (Coumadin)
--- NOTE | 2017-09-24 12:42 | Discharge Summary ---
Discharge Summary Date of Service Sep 24, 2017. Discharge Summary Admission Date: Sep 23, 2017 at 11:47 Discharge Date: Sep 24, 2017 Discharge Disposition: Home Principal Diagnosis: angioedema of tongue, sertraline use, atrial fibrillation, on Coumadin Medication Reconciliation New Medications: Cetirizine HCl (All Day Allergy) 10 Mg Tab 5 MG PO QAM for 10 Days, #10 TAB Prednisone (Prednisone) 20 Mg Tab 40 MG PO DAILY for 7 Days, #14 TAB Continued Medications: Albuterol Hfa (Ventolin Hfa) 200 Puffs/83073 Mcg Aers 2-4 PUFFS INH Q6H PRN for Shortness of Breath, #1 INHALER Amlodipine Besylate (Amlodipine Besylate) 10 Mg Tab 10 MG PO DAILY, #90 Aspirin (Aspirin Ec) 81 Mg Tab 81 MG PO DAILY Calcitriol (Calcitriol) 0.25 Mcg Cap 0.25 MCG PO DAILY, #15 Digoxin (Digitek) 0.125 Mg Tab 1 TAB PO DAILY, #30 Ferrous Sulfate (Kp Ferrous Sulfate) 325 Mg Tab 1 TAB PO DAILY for 30 Days, #30 TAB 3 Refills Furosemide (Furosemide) 20 Mg Tab 20 MG PO DAILY Ipratropium [place] (Nasal) (Ipratropium [place]) 0.06 % Spr 1 DOSE QID PRN for Nasal Congestion, #45 Metoprolol Tartrate (Lopressor) 100 Mg Tab 100 MG PO BID, TAB Multivitamin (Multivitamin) Tab 1 TAB PO DAILY Nitroglycerin (Nitrostat) 0.4 Mg Tab 0.4 MG UT PRN Omeprazole (Prilosec) 20 Mg Capcr 20 MG PO DAILY, 0 Refills Pot Phosphate Monobasic W/ Sod (Phospha 250 Neutral) 1 Tab Tab 1 TAB PO BID Potassium Ext Rel (Klor-Con) 20 Meq Tabcr 20 MEQ PO DAILY, TAB Pravastatin Sodium (Pravachol) 20 Mg Tab 10 MG PO HS, TAB Warfarin Sod (Coumadin) 2.5 Mg Tab 2.5 MG PO 5XWK, TAB MON, WED, THURS, FRI, SUN Warfarin Sodium (Warfarin Sodium) 5 Mg Tab 1 TAB PO 2XWK, #30 TUESDAYS & SATURDAYS Discontinued Medications: Sertraline HCl (Sertraline HCl) 50 Mg Tab 50 MG PO DAILY Admission Information HPI (per Admitting provider): 86 year old male who presents to the ED with tongue swelling. Patient had a similar episode about 6 months ago in the setting of being on Lisinopril (which he had been on for several years). He was treated in the ED for angioedema and advised to stop his Lisinopril. For BP control, patient was trialed on PO clonidine which made him feel tired and then clonidine patch which made him itch all over. On 07/30, patient was started on furosemide. Then on 09/10 and he was started on sertraline. He took a half a tab for one week and then increased to a full tab 2 days ago. Last night he thought he had some mild shortness of breath however that resolved by this morning. While shaving this morning patient reports he bit his tongue and that's when he noticed his tongue was swollen. He then tried to have breakfast and was able to chew however his tongue got in the way of him being able to swallow. He denies any feelings of his throat closing shut. No chest pain or shortness of breath. He denies itching and rashes. He notes some mild diarrhea over the past couple of days. No BRBPR or dark tarry stools. He denies abdominal pain, nausea, and vomiting. No fever or chills. He denies urinary symptoms. In the ED, patient was initially noted to have swelling on the left side of his tongue. He was given IV solumedrol and IV Pepcid. Swelling then started to develop on the right side of his tongue so he was then given IV Decadron. Physical Exam (per Admitting): General Appearance: WD/WN, no apparent distress Head: normocephalic, atraumatic Eyes: normal inspection, EOMI, sclerae normal ENT: hearing grossly normal, + pertinent finding (tongue edema noted, L>R side; airway intact, no respiratory distress) Neck: supple, no JVD, trachea midline Respiratory/Chest: lungs clear, normal breath sounds, no respiratory distress Cardiovascular: regular rate, rhythm, no edema, normal peripheral pulses Abdomen/GI: normal bowel sounds, non tender, soft, no organomegaly Extremities/Musculoskelatal: normal inspection, no calf tenderness, normal capillary refill Neurologic/Psych: no motor/sensory deficits, alert, normal mood/affect, oriented x 3 Skin: normal color, warm/dry Hospital Course This is a 87 year old M who presented with angioedema, swelling of the tongue. Patient recently on sertraline and symptoms correlating with the start of this medication as outpatient. Since ED presentation on 09/23/17 pative has received IV solumedrol and IV Pepcid and IV Decadron as well as Zyrtec. Patient symptoms resolving since [facility] the [facility] on [facility]. No overnight events. Patient able to eat, swallow, speak and breath comfortably throughout hospital course. Patient to be discharged with prescription for Zyretc and Prednisone. Patient instructed to avoid sertraline and lisinopril to prevent future episodes of angioedema Follow up appointments 09/29/2017 11:20 AM Seymour Hoff MD [facility] [place] 09/30/2017 9:45 AM [facility] [place] 10/01/2017 2:20 PM Sara Jiménez Oncu, DO Nephrology, [facility] Total time spent on discharge = 1 hour This includes examination of the patient, discharge planning, medication reconciliation, and communication with other providers. Discharge Instructions see above
[2017-09-24 13:40] VITALS: BP 153/75; PULSE 58; TEMP 36.6; O2SAT 96
[2017-09-24] MEDS ORDERED: WARFARIN SOD 2.5 MG TAB PO SCH (16:00)
== END 2017-09-24 14:45 | disposition home or self-care (01) | DRG 916 ==
LOC: C.EDB 09:52 → C.2T 11:47 → ENRESERV 12:00
PROVIDERS: ADMIT Hospitalist; ATTEND Hospitalist
DX: T78.3XXA Angioneurotic edema, initial encounter (principal); I48.2 Chronic atrial fibrillation; F32.9 Major depressive disorder, single episode, unspecified; N18.3 Chronic kidney disease, stage 3 (moderate); J44.9 Chronic obstructive pulmonary disease, unspecified; I25.10 Atherosclerotic heart disease of native coronary artery without angina pectoris; I12.9 Hypertensive chronic kidney disease with stage 1 through stage 4 chronic kidney disease, or unspecified chronic kidney disease

== ENCOUNTER 2019-04-06 10:03 | Inpatient (IN) ==
--- OUTSIDE RECORDS SUMMARY | 2019-04-06 10:06 | External Medical Summary | Continuity of Care Document ---
:1930 Author Name Austin M.D. 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 , M.D. Refills: 0 PriLOSEC 20 MG CPDR; TAKE 1 CAPSULE DAILY. , M.D. Refills: 0 Digoxin 125 MCG Oral Tablet; TAKE 1 TABLET DAILY. , M.D. Refills: 0 Lisinopril 20 MG Oral Tablet; TAKE 1 TABLET DAILY DIRECTE D. , M.D. Refills: 0 hydroCHLOROthiazide 25 MG Oral Tablet; TAKE 1 TABLET DAILY. , M.D. Refills: 0 Klor-Con 20 MEQ Oral Packet; TAKE 1 PACKET DAILY. , M.D. Refills: 0 Nitrostat 0.4 MG Sublingual Tablet Subli ngual; DISSOLVE 1 TABLET UNDER THE TONGUE NEEDED FOR CHEST PAIN. , M.D. Refills: 0 Aspirin 81 MG TABS; TAKE 1 TABLET DAILY. , M.D. Refills: 0 Vitamin D TABS; 1 tablet 3 times a week , M.D. Refills: 0 Isosorbide Dinitrate 5 MG Oral Tablet , M.D. Refills: 0 Pravastatin Sodium 10 MG Oral Tablet , M.D. Refills: 0 Metoprolol Tartrate 100 MG Oral Tablet; TAKE 1 TABLET TWICE DAILY. , M.D. Refills: 0 Procedures History of Hernia Repair Status: Complet ed History of Blepharoplasty Upper Lid W/ Excessive Skin Status: Completed Immunizations Immunizations not documented Family History Unknown Family Member Family history of Reported Family History Of Status: Active Comments: Family History Heart Disease Social History - Smoking Status Never smoker Plan of Treatment Planned Observations Planned Goals not documented Results No Known Results Results not documented Encounters Appointment; Seymour Case M.D. 26-May-2017 15:20 Encounter Diagnosis: Problem not documented
[2019-04-06 10:24] LABS: Basophils # (auto) 0.04 K/uL (0-0.2); Basophils % (auto) 0.4 %; Eosinophils # (auto) 0.17 K/uL (0-0.5); Eosinophils % (auto) 1.8 %; Hematocrit (blood only) 40.1 % (42-52); Hemoglobin 13.4 g/dL (14.0-18.0); Immature Granulocytes # (auto) 0.02 K/uL (0.00-0.02); Immature Granulocytes % (auto) 0.2 %; Lymphocytes # (auto) 2.16 K/uL (1.2-3.4); Lymphocytes % (auto) 22.8 %; Mean Corpuscular Hgb Conc 33.4 g/dL (32-36); Mean Corpuscular Volume 86.1 fL (80-100); Mean Platelet Volume 10.2 fL (7.4-10.4); Monocytes # (auto) 0.99 K/uL (0.11-0.59); Monocytes % (auto) 10.5 %; Neutrophils # (auto) 6.09 K/uL (1.4-6.5); Neutrophils % (auto) 64.3 %; Platelet Count 247 K/uL (130-400); RDW Coefficient of Variation 14.5 % (11.5-14.5); RDW Standard Deviation 45.4 fL (36.4-46.3); Red Blood Count 4.66 M/uL (4.7-6.1); White Blood Count 9.47 K/uL (4.8-10.8)
--- NOTE | 2019-04-06 10:39 | XRay Report ---
XR chest 1V portable CLINICAL HISTORY: Chest Pain COMPARISON STUDY: Chest radiograph May 05, 2018. FINDINGS: Right apical opacity is unchanged and favors scarring. There is no pneumothorax or pleural effusion. There is no evidence for pulmonary edema. No consolidation is identified to suggest pneumon ia. Cardiomegaly is unchanged. The appearance of the chest is unchanged. IMPRESSION: No acute cardiopulmonary findings. No change in appearance of the chest. Electronically signed by: Erik Lo M.D. 04/06/2019 10:37 AM
[2019-04-06 10:40] LABS: INR 2.3 (0.9-1.1); Prothrombin Time 22.6 Seconds (9.0-12.0)
[2019-04-06 10:45] LABS: Alanine Aminotransferase 17 U/L (12-78); Albumin Level 3.6 gm/dl (3.4-5.0); Aspartate Aminotransferase 14 U/L (15-37); Bilirubin Direct < 0.1 mg/dl (0-0.2); Blood Urea Nitrogen 28 mg/dl (7-18); Calcium 8.9 mg/dl (8.5-10.1); Carbon Dioxide 30 mmol/L (21-32); Chloride 103 mmol/L (98-107); Creatinine Clr Calc Pharmacy 29.5 ml/min; Est GFR (African American) 36.6; Est GFR (Non-African American) 31.6; Glucose 97 mg/dl (70-99); Magnesium 1.8 mg/dl (1.8-2.4); Potassium 3.8 mmol/L (3.5-5.1); Sodium 139 mmol/L (136-145)
[2019-04-06 10:48] LABS: Albumin Globulin Ratio 0.7 (0.9-2); Alkaline Phosphatase 69 U/L (45-117); Bilirubin,Total 0.4 mg/dl (0.2-1); Globulin 5.3 gm/dl (2.5-4.0); NT Pro B Type Natriuretic Pept 2003 pg/ml (0-1800); Phosphorus 2.6 mg/dl (2.5-4.9); Total Protein 8.9 gm/dl (6.4-8.2); Troponin I < 0.015 ng/ml (0-0.045)
--- NOTE | 2019-04-06 10:49 | Emergency Department Note ---
Entered by Brooklynn Syed acting as a scribe for Christoph Walton MD History of Present Illness General Chief complaint: Chest Pain Time Seen by Provider: 04/06/19 10:08 Source: patient Mode of arrival: EMS Limitations: no limitations History of Present Illness Onset (ago): month(s) 1 Location: chest Pain Consistency: + intermittent Quality: + other (He describes the pain as breathing problems and heaviness.) Exacerbated By: + movement (exertion) Associated symptoms: + chest pain, + shortness of breath and + other (The patient complains of melena. The patient denies diarrhea and urinary symptoms. ); no nausea/vomiting The patient is an 88 year old male with a history of a heart attack and atrial fibrillation who presents to the ED via EMS with complaints of intermittent chest pain that onset 1 month ago. The patient was referred to the ED by his PCP for his symptoms after an EKG was completed in office this morning. He states that he is not currently in any pain. The patient states that he was in pain yesterday but does not experience it every day. The patient complains of shortness of breath and melena. He notes that his shortness of breath is exacerbated with exertion. He describes the pain as breathing problems and heaviness. The patient denies nausea, vomiting, diarrhea, and urinary symptoms. The patient states that he takes iron supplements and Coumadin. *The patient had an echo completed in 2016 and had a normal EF with mild LVH. He had mild mitral regurgitation. Aortic valve sclerosis is mild without significant stenosis. Mild aortic regurgitation. Home Medications Home Medications Medication Instructions Recorded Confirmed Type acetaminophen [Tylenol Extra 500 mg PO Q6H PRN 04/06/19 04/06/19 History Strength] albuterol sulfate [Ventolin HFA] 2 puff INHALATION Q6H PRN 04/06/19 04/06/19 History amlodipine 10 mg PO DAILY 04/06/19 04/06/19 History aspirin 81 mg PO DAILY 04/06/19 04/06/19 History digoxin [Digitek] 125 mcg PO DAILY 04/06/19 04/06/19 History diphenhydramine HCl 25 mg PO UD PRN 04/06/19 04/06/19 History ferrous sulfate 325 mg PO Q2D 04/06/19 04/06/19 History fluticasone propionate [Flovent 2 puff INHALATION BID 04/06/19 04/06/19 History HFA] furosemide 20 mg PO QAM 04/06/19 04/06/19 History ipratropium bromide 2 spray INTRANASAL QAM 04/06/19 04/06/19 History metoprolol tartrate 100 mg PO BID 04/06/19 04/06/19 History montelukast 10 mg PO HS 04/06/19 04/06/19 History nitroglycerin 0.4 mg SUBLINGUAL UD 04/06/19 04/06/19 History omeprazole 20 - 40 mg PO DAILY 04/06/19 04/06/19 History potassium chloride 20 meq PO HS 04/06/19 04/06/19 History pravastatin 10 mg PO HS 04/06/19 04/06/19 History prednisone 40 mg PO UD 04/06/19 04/06/19 History vit C,P-Eh-evyac-lutein-zeaxan 1 tab PO QAM 04/06/19 04/06/19 History [PreserVision AREDS-2] warfarin 2.5 mg PO SUMOWETHFR@1600 04/06/19 04/06/19 History warfarin 5 mg PO TUSA@1600 04/06/19 04/06/19 History Allergies Allergy/AdvReac Type Severity Reaction Status Date / Time lisinopril Allergy Severe tongue Verified 04/06/19 10:39 swelling latex Allergy Unknown RASH Verified 04/06/19 10:39 meclizine Allergy Unknown unknown Verified 04/06/19 10:39 niacin Allergy Unknown RASH Verified 04/06/19 10:39 sertraline AdvReac Severe Edema Unverified 04/06/19 10:39 face/lips/tongue clonidine [From Catapres] AdvReac Unknown Unknown Unverified 04/06/19 10:39 Past Med/Surg History Medical History CKD (chronic kidney disease), stage III (Chronic) MGUS (monoclonal gammopathy of unknown significance) (Chronic) Anemia (Chronic) Chronic ischemic heart disease (Chronic) Asthma (Chronic) Depression (Chronic) Dyslipidemia (Chronic) HTN (hypertension) (Chronic) Chronic atrial fibrillation (Chronic) Surgical History History of inguinal hernia repair, bilateral (Chronic) Hx of cataract surgery (Chronic) Family History Other Heart disease Social History Preferred Language: [place] Communication Ability: Effective Visual Impairment: No Limitations Hearing Ability: Normal Beliefs That Will Affect Care: None Current Living Situation: Family Feels Safe at Home: Yes and No Is there a partner from a previous relationship who is making you feel unsafe now?: No Any Concerns about Your Family Situation: No Would You Like to Speak to Someone About Your Situation: No Safety Concerns: Feels Safe At This Time Smoking Status: Never smoker Hx Alcohol Use: Yes Hx Substance Use: No Review of Systems See HPI for pertinent positives & negatives. and A total of 10 systems reviewed and were otherwise negative Physical Exam Vital Signs Vital Signs - 24 hr 04/06/19 10:12 04/06/19 10:18 04/06/19 11:04 Temperature 36.6 C Temperature Source Oral Sepsis Recent Fever Within 48 Hours No Sepsis New/Unexplained Change in Mental Status No Sepsis Action Taken by Nursing No Action Required Pulse Rate 57 L Pulse Rate [Apical] 60 Respiratory Rate 18 20 Respiratory Effort / Characteristics Respiratory Depth Normal Respiratory Pattern Blood Pressure 208/105 H Blood Pressure [Left Arm] 180/90 H Blood Pressure Mean 139 Blood Pressure Mean [Left Arm] 120 Blood Pressure Position [Left Arm] Pulse Oximetry 96 96 95 Oxygen Delivery Method Room Air Room Air Room Air 04/06/19 11:49 04/06/19 13:41 04/06/19 14:20 Temperature 36.4 C L Temperature Source Oral Sepsis Recent Fever Within 48 Hours Sepsis New/Unexplained Change in Mental Status Sepsis Action Taken by Nursing Pulse Rate Pulse Rate [Apical] 60 72 70 Respiratory Rate 16 18 Respiratory Effort / Characteristics Non-Labored Spontaneous SOB on Exertion Respiratory Depth Normal Respiratory Pattern Regular Blood Pressure Blood Pressure [Left Arm] 181/107 H 212/102 H 210/115 H Blood Pressure Mean Blood Pressure Mean [Left Arm] 131 138 146 Blood Pressure Position [Left Arm] Lying Pulse Oximetry 95 97 94 Oxygen Delivery Method Room Air Room Air Room Air 04/06/19 16:58 04/06/19 19:10 Temperature 36.4 C L Temperature Source Oral Sepsis Recent Fever Within 48 Hours Sepsis New/Unexplained Change in Mental Status Sepsis Action Taken by Nursing Pulse Rate Pulse Rate [Apical] 110 H 84 Respiratory Rate 18 Respiratory Effort / Characteristics Respiratory Depth Respiratory Pattern Blood Pressure Blood Pressure [Left Arm] 187/86 H 197/90 H Blood Pressure Mean Blood Pressure Mean [Left Arm] 119 125 Blood Pressure Position [Left Arm] Pulse Oximetry 96 Oxygen Delivery Method Room Air GENERAL: Awake, alert, well-appearing, in no distress HENT: Normocephalic, atraumatic. Oropharynx with dry mucous membranes and otherwise unremarkable. EYES: Normal conjunctiva. Sclera non-icteric. NECK: Supple. No nuchal rigidity. FROM. No JVD. RESPIRATORY: Normal exam. CARDIAC: Regular rate, irregular rhythm. Extremities warm and well perfused. Pulses equal. ABDOMEN: Soft, non-distended. No tenderness to palpation. No rebound or guarding. No masses. RECTAL: No stool, no blood, no melena. MUSCULOSKELETAL: Chest examination reveals no tenderness. The back is symmetrical on inspection without obvious abnormality. There is no CVA tenderness to palpation. No joint edema. LOWER EXTREMITIES: Calves are equal size bilaterally and non-tender. Scant edema. No discoloration. NEURO: Normal sensorium. No sensory or motor deficits noted. SKIN: No rash or jaundice noted. Course 1014: Past medical records reviewed. The patient was evaluated in room A03. A complete history and physical examination was performed. 1212: I reviewed the patient's case with Jazmin Morales. She will evaluate the patient for further management. Consultations Consultation #1: 1212: I reviewed the patient's case with Jazmin Morales. She will evaluate the patient for further management. Time: 12:12 Administered Medications Ferrous Sulfate (Feosol) 325 mg PO Q2D [facility] Stop: 05/06/19 14:19 Last Admin: 04/06/19 17:17 Dose: 325 mg Documented by: [id number] Fluticasone Propionate (Flovent Hfa 110mch) 2 puffs INH BID JT Stop: 05/06/19 20:59 Last Admin: 04/06/19 21:49 Dose: 2 puffs Documented by: [id number] Hydralazine HCl (Apresoline) 10 mg PO Q8H PRN PRN Reason: SBP >170 Stop: 05/06/19 14:19 Last Admin: 04/06/19 18:52 Dose: 10 mg Documented by: [id number] Hydralazine HCl (Apresoline) 10 mg PO TID [facility] Stop: 05/06/19 20:59 Last Admin: 04/06/19 21:47 Dose: 10 mg Documented by: [id number] Metoprolol Tartrate (Lopressor) 100 mg PO BID [facility] Stop: 05/06/19 20:59 Last Admin: 04/06/19 21:47 Dose: 100 mg Documented by: [id number] Montelukast Sodium (Singulair) 10 mg PO HS [facility] Stop: 05/06/19 20:59 Last Admin: 04/06/19 21:48 Dose: 10 mg Documented by: [id number] Nitroglycerin (Nitro-Bid 2%) 1 inch EXT Q6H [facility] Stop: 05/06/19 17:59 Last Admin: 04/06/19 17:17 Dose: 1 inch Documented by: [id number] Potassium Chloride (Klor-Con M20) 20 meq PO [facility] Stop: 05/06/19 20:59 Last Admin: 04/06/19 21:48 Dose: 20 meq Documented by: [id number] Pravastatin Sodium (Pravachol) 10 mg PO [facility] Stop: 05/06/19 20:59 Last Admin: 04/06/19 21:47 Dose: 10 mg Documented by: [id number] Warfarin Sodium (Coumadin) 5 mg PO TUSA@1600 [facility] Stop: 05/06/19 15:59 Last Admin: 04/06/19 17:16 Dose: 5 mg Documented by: [id number] Discontinued Medications Aspirin (Aspirin) 162 mg PO NOW STA Stop: 04/06/19 12:06 Last Admin: 04/06/19 12:15 Dose: Not Given Documented by: [id number] Aspirin (Aspirin Chew) Confirm Administered Dose 162 mg .ROUTE .STK-MED ONE Stop: 04/06/19 12:11 Last Admin: 04/06/19 12:15 Dose: 162 mg Documented by: [id number] Hydralazine HCl (Hydralazine Hcl) 10 mg IV NOW STA Stop: 04/06/19 14:05 Last Admin: 04/06/19 16:00 Dose: 10 mg Documented by: [id number] Medical Decision Making Differential Diagnosis Differential diagnoses includes but is not limited to pneumonia, bronchitis, COPD/Asthma exacerbation, pneumothorax, pulmonary embolism, congestive heart failure, acute coronary syndrome Medical Records Attestation: I reviewed the patient's medical records. Home Medications Current Medication List: was personally reviewed by me Laboratory Data Attestation: I reviewed the patient's lab results. Result diagrams: 04/06/19 10:11 04/06/19 10:11 Lab Results 04/06/19 04/06/19 04/06/19 Range/Units 10:11 10:11 10:11 WBC 9.47 (4.8-10.8) K/uL RBC 4.66 L (4.7-6.1) M/uL Hgb 13.4 L (14.0-18.0) g/dL Hct 40.1 L (42-52) % MCV 86.1 (80-100) fL MCH 28.8 (25-34) pg MCHC 33.4 (32-36) g/dL RDW Std Deviation 45.4 (36.4-46.3) fL RDW Coeff of Ember 14.5 (11.5-14.5) % Plt Count 247 (130-400) K/uL MPV 10.2 (7.4-10.4) fL Immature Gran % (Auto) 0.2 % Neut % (Auto) 64.3 % Lymph % (Auto) 22.8 % [place] % (Auto) 10.5 % Eos % (Auto) 1.8 % Baso % (Auto) 0.4 % Immature Gran # (Auto) 0.02 (0.00-0.02) K/uL Neut # (Auto) 6.09 (1.4-6.5) K/uL Lymph # (Auto) 2.16 (1.2-3.4) K/uL [place] # (Auto) 0.99 H (0.11-0.59) K/uL Eos # (Auto) 0.17 (0-0.5) K/uL Baso # (Auto) 0.04 (0-0.2) K/uL PT 22.6 H (9.0-12.0) Seconds INR 2.3 H (0.9-1.1) Sodium 139 (136-145) mmol/L Potassium 3.8 (3.5-5.1) mmol/L Chloride 103 (98-107) mmol/L Carbon Dioxide 30 (21-32) mmol/L Anion Gap 6.0 (3-11) BUN 28 H (7-18) mg/dl Creatinine 1.85 H (0.6-1.4) mg/dl Est Cr Clr Drug Dosing 29.5 ml/min Est GFR ( Amer) 36.6 Est GFR (Non-Af Amer) 31.6 BUN/Creatinine Ratio 15.0 (10-20) Glucose 97 (70-99) mg/dl Calcium 8.9 (8.5-10.1) mg/dl Phosphorus 2.6 (2.5-4.9) mg/dl Magnesium 1.8 (1.8-2.4) mg/dl Total Bilirubin 0.4 (0.2-1) mg/dl Direct Bilirubin < 0.1 (0-0.2) mg/dl AST 14 L (15-37) U/L ALT 17 (12-78) U/L Alkaline Phosphatase 69 (45-117) U/L Troponin I < 0.015 (0-0.045) ng/ml NT-Pro-B Natriuret Pep 2003 H (0-1800) pg/ml Total Protein 8.9 H (6.4-8.2) gm/dl Albumin 3.6 (3.4-5.0) gm/dl Globulin 5.3 H (2.5-4.0) gm/dl Albumin/Globulin Ratio 0.7 L (0.9-2) Lipase 147 (73-393) U/L 04/06/19 Range/Units 15:47 WBC (4.8-10.8) K/uL RBC (4.7-6.1) M/uL Hgb (14.0-18.0) g/dL Hct (42-52) % MCV (80-100) fL MCH (25-34) pg MCHC (32-36) g/dL RDW Std Deviation (36.4-46.3) fL RDW Coeff of Ember (11.5-14.5) % Plt Count (130-400) K/uL MPV (7.4-10.4) fL Immature Gran % (Auto) % Neut % (Auto) % Lymph % (Auto) % [place] % (Auto) % Eos % (Auto) % Baso % (Auto) % Immature Gran # (Auto) (0.00-0.02) K/uL Neut # (Auto) (1.4-6.5) K/uL Lymph # (Auto) (1.2-3.4) K/uL [place] # (Auto) (0.11-0.59) K/uL Eos # (Auto) (0-0.5) K/uL Baso # (Auto) (0-0.2) K/uL PT (9.0-12.0) Seconds INR (0.9-1.1) Sodium (136-145) mmol/L Potassium (3.5-5.1) mmol/L Chloride (98-107) mmol/L Carbon Dioxide (21-32) mmol/L Anion Gap (3-11) BUN (7-18) mg/dl Creatinine (0.6-1.4) mg/dl Est Cr Clr Drug Dosing ml/min Est GFR ( Amer) Est GFR (Non-Af Amer) BUN/Creatinine Ratio (10-20) Glucose (70-99) mg/dl Calcium (8.5-10.1) mg/dl Phosphorus (2.5-4.9) mg/dl Magnesium (1.8-2.4) mg/dl Total Bilirubin (0.2-1) mg/dl Direct Bilirubin (0-0.2) mg/dl AST (15-37) U/L ALT (12-78) U/L Alkaline Phosphatase (45-117) U/L Troponin I < 0.015 (0-0.045) ng/ml NT-Pro-B Natriuret Pep (0-1800) pg/ml Total Protein (6.4-8.2) gm/dl Albumin (3.4-5.0) gm/dl Globulin (2.5-4.0) gm/dl Albumin/Globulin Ratio (0.9-2) Lipase (73-393) U/L Imaging Data Radiologist's Impression: Radiology results as stated below per my review and the radiologist's interpretation: XR chest 1V portable CLINICAL HISTORY: Chest Pain COMPARISON STUDY: Chest radiograph May 05, 2018. FINDINGS: Right apical opacity is unchanged and favors scarring. There is no pneumothorax or pleural effusion. There is no evidence for pulmonary edema. No consolidation is identified to suggest pneumonia. Cardiomegaly is unchanged. The appearance of the chest is unchanged. IMPRESSION: No acute cardiopulmonary findings. No change in appearance of the chest. Electronically signed by: Erik Lo M.D. 04/06/2019 10:37 AM Dictated: 04/06/19 1036 Transcribed: 04/06/19 1036 ECG Data Attestation: I personally reviewed and interpreted this ECG as follows: Indication: chest pain Rate (beats per minute): 62 Rhythm: atrial fibrillation Findings: + other (LVH), + nonspecific-ST abn (nonspecific ST changes) and + left axis deviation; no acute ischemic change Comparison ECG Date: from (04/06/2019 this morning) Change: no significant change Additional Comments: EKG from today is similar to EKG conducted on 05/05/2018. Blood Pressure Blood Pressure Findings: Normal blood pressure MDM Narrative The patient is a pleasant 88-year-old gentleman with a past medical history of stage III CKD, hypertension, A. fib on Coumadin, COPD, CAD, hyperlipidemia, hypertension who presents emergency department referred from his PCPs office aft er being seen for 1 month of exertional chest pain and shortness of breath per hpi. On arrival patient is in no acute distress, afebrile, hypertensive with systolic blood pressure in the 200s but otherwise vital signs stable. Of note, the patient denies any symptoms at this time other than some mild seasonal allergies. Rectal exam performed and the patient had no stool, blood or melena at this time. EKG demonstrates A. fib with LVH and nonspecific ST abnormalities that are similar to prior. Chest x-ray without acute process. WBC within normal limits. H/H 13.4/40.1 similar to prior values. Platelets within normal limits. INR therapeutic at 2.3. Creatinine is 1.85 within patient's baseline range for his CKD. BUN is 28 also within patient's baseline range. Troponin negative. BNP 2K without prior values for comparison. The patient continued to feel asymptomatic in the emergency department. Given the patient's exertional symptoms was given 162 mg of aspirin. While patient has no evidence of GI bleed at this time and his H/H is approximate to prior values, will defer heparin at this time. Case was discussed with Andrew Gómez PA-C, who will evaluate the patient for admission. Impression & Plan Exertional chest pain Discharge Plan Visit Data *Final* Discharge Date/Time: 04/06/19 13:57 Chief Complaint: Chest Pain Other Complaint: Hypertension ED Provider: Christoph Walton Discharge Problem: Exertional chest pain Patient Disposition: Admitted As Inpatient Discharge Instructions Interventions: ED Discharge Assessment Last Done: 04/06/19 13:57 The scribe's documentation has been prepared under my direction and personally reviewed by me in its entirety. I confirm that the note above accurately reflects all work, treatment, procedures, and medical decision making performed by me.
[2019-04-06] MEDS ORDERED: ASPIRIN CHEW 324 MG PO STA (12:05)
[2019-04-06] MEDS ORDERED: ASPIRIN 81 MG CHEW ONE (12:10)
[2019-04-06] MEDS ORDERED: HydrALAZINE HCL 20 MG/ML VIAL IV STA (14:04)
[2019-04-06] MEDS ORDERED: NITROGLYCERIN SL 0.4 MG/TAB TAB SL SCH (14:20)
[2019-04-06] MEDS ORDERED: ALBUTEROL HFA 8 GM INHALER INH PRN (14:20)
[2019-04-06] MEDS ORDERED: ONDANSETRON INJ 2 MG/ML 2 ML VIAL IV PRN (14:20)
[2019-04-06] MEDS ORDERED: ACETAMINOPHEN 500 MG TAB PO PRN (14:20)
[2019-04-06] MEDS ORDERED: POLYETHYLENE (MIRALAX) 17 GM PACK PO PRN (14:20)
--- NOTE | 2019-04-06 15:33 | History & Physical Report ---
Date of Service April 06, 2019 Assessment & Plan (1) Chest pain: This is an 79yo M with a PMH of HTN, chronic diastolic heart failure, chronic A Fib on coumadin, CKD III, asthma and other medical problems listed below who was sent over from PCP's office with intermittent chest pain x 1 month. -Asymptomatic right now -Hypertensive at 181/107, did take AM medications. Pain possibly 2/2 uncontrolled HTN -Initial troponin negative. EKG without acute changes. CXR normal -Trend serial cardiac enzymes. Repeat EKG in AM -Check echo. Most recent echo from Nov 2015 with evidence of normal left ventricular EF, mild concentric LVH, AV sclerosis without stenosis, mild aortic insufficiency and mild mitral regurgitation -Given full dose aspirin in ED. NTG prn -Routine cardio consult (2) HTN (hypertension): Uncontrolled HTN of 181/107 initially -Given 10mg IV Hydralazine x 1 -Continue home amlodipine, lopressor -PRN PO Hydralazine Q8H for SBP >170 (3) Chronic ischemic heart disease: Continue home dose lasix, lopressor (4) Chronic atrial fibrillation: EKG with A Fib at 62 bpm -Continue lopressor, digoxin -Anticoagulated with coumadin with INR of 2.3 -Check INR daily (5) CKD (chronic kidney disease), stage III: As baseline (Cr high-1s at baseline, GFR low 30s) -Continue monitoring with daily BMP (6) Anemia: Hgb stable at 13.4 -Rectal exam performed in ED negative -Continue iron supplement -Continue trending CBC daily (7) Asthma: Stable. Continue albuterol inhaler PRN (8) MGUS (monoclonal gammopathy of unknown significance): Was evaluated by Dr. Caldera of [facility] onc in 2013 and told to follow up as needed (9) Dyslipidemia: Continue Pravastatin DVT Ppx: Coumadin Code status: DNR per discussion with patient PCP: Luis Eduardo Dispo: Observation med tele. Plan to return home once medically stable (lives with daughter). Patient seen in collaboration with Dr. Lindo. Please see addendum. History of Present Illness Chief Complaint: intermittent CP Primary Care Provider: Seymour Hoff MD This is an 79yo M with a PMH of HTN, chronic diastolic heart failure, chronic A Fib on coumadin, CKD III, asthma and other medical problems listed below who was sent over from PCP's office with intermittent chest pain x 1 month. Patient has been experiencing heaviness in chest for 5-10 minute episodes intermittently over the past month. Heaviness is associated with shortness of breath but is nonradiating and patient denies any diaphoresis, nausea or vomiting. Chest heaviness does not seem to occur in the setting of exertion patient has noticed it after eating meals as well as while sitting still watching TV. Denies any burning pain or reflux symptoms. Denies any history of [place]. Last episode of chest pain was yesterday. Also endorsing dark colored stool but does not know whether or not this is due to iron supplementation. Follows with Dr. Horn for chronic A Fib and diastolic HF. Echo from November 2015 with evidence of normal left ventricular ejection fraction, mild concentric left ventricular hypertrophy, aortic valve sclerosis without stenosis, mild aortic insufficiency and mild mitral regurgitation. Denies fever, chills, headache, lightheadedness, visual changes, palpitations, shortness of breath, abdominal pain, nausea, vomiting, dysuria, constipation or diarrhea. Allergies Allergy/AdvReac Type Severity Reaction Status Date / Time lisinopril Allergy Severe tongue Verified 04/06/19 10:39 swelling latex Allergy Unknown RASH Verified 04/06/19 10:39 meclizine Allergy Unknown unknown Verified 04/06/19 10:39 niacin Allergy Unknown RASH Verified 04/06/19 10:39 sertraline AdvReac Severe Edema Unverified 04/06/19 10:39 face/lips/tongue clonidine [From Catapres] AdvReac Unknown Unknown Unverified 04/06/19 10:39 Home Medications Home Medications Medication Instructions Recorded Confirmed Type acetaminophen [Tylenol Extra 500 mg PO Q6H PRN 04/06/19 04/06/19 History Strength] albuterol sulfate [Ventolin HFA] 2 puff INHALATION Q6H PRN 04/06/19 04/06/19 History amlodipine 10 mg PO DAILY 04/06/19 04/06/19 History aspirin 81 mg PO DAILY 04/06/19 04/06/19 History digoxin [Digitek] 125 mg PO DAILY 04/06/19 04/06/19 History diphenhydramine HCl 25 mg PO UD PRN 04/06/19 04/06/19 History ferrous sulfate 325 mg PO Q2D 04/06/19 04/06/19 History fluticasone propionate [Flovent 2 puff INHALATION BID 04/06/19 04/06/19 History HFA] furosemide 20 mg PO QAM 04/06/19 04/06/19 History ipratropium bromide 2 spray INTRANASAL QAM 04/06/19 04/06/19 History metoprolol tartrate 100 mg PO BID 04/06/19 04/06/19 History montelukast 10 mg PO HS 04/06/19 04/06/19 History nitroglycerin 0.4 mg SUBLINGUAL UD 04/06/19 04/06/19 History omeprazole 20 - 40 mg PO DAILY 04/06/19 04/06/19 History potassium chloride 20 meq PO HS 04/06/19 04/06/19 History pravastatin 10 mg PO HS 04/06/19 04/06/19 History prednisone 40 mg PO UD 04/06/19 04/06/19 History vit C,I-Td-uliju-lutein-zeaxan 1 tab PO QAM 04/06/19 04/06/19 History [PreserVision AREDS-2] warfarin 2.5 mg PO SUMOWETHFR@1600 04/06/19 04/06/19 History warfarin 5 mg PO TUSA@1600 04/06/19 04/06/19 History Past Med/Surg History Medical History CKD (chronic kidney disease), stage III (Chronic) MGUS (monoclonal gammopathy of unknown significance) (Chronic) Anemia (Chronic) Chronic ischemic heart disease (Chronic) Asthma (Chronic) Depression (Chronic) Dyslipidemia (Chronic) HTN (hypertension) (Chronic) Chronic atrial fibrillation (Chronic) Surgical History History of inguinal hernia repair, bilateral (Chronic) Hx of cataract surgery (Chronic) Social History Preferred Language: Turkish Communication Ability: Effective Visual Impairment: No Limitations Hearing Ability: Normal Beliefs That Will Affect Care: None Current Living Situation: Family Feels Safe at Home: Yes and No Is there a partner from a previous relationship who is making you feel unsafe now?: No Any Concerns about Your Family Situation: No Would You Like to Speak to Someone About Your Situation: No Safety Concerns: Feels Safe At This Time Smoking Status: Never smoker Hx Alcohol Use: Yes Hx Substance Use: No Review of Systems Review of Systems: At least ten systems reviewed and negative except as noted in the HPI. Physical Exam Physical Exam: General Appearance: WD/WN, no apparent distress, elderly gentleman resting comfortably Head: normocephalic, atraumatic Eyes: normal inspection, PERRL, EOMI ENT: hard of hearing, pharynx normal (moist mucous membranes) Neck: supple, no JVD, no adenopathy Respiratory/Chest: lungs clear to auscultation. No wheezes, rales or rhonci. No respiratory distress or accessory muscle use Cardiovascular: irregular rate & rhythm, no murmur, normal peripheral pulses, trace BLE edema Abdomen/GI: normal bowel sounds, soft, non-tender to palpation Extremities/Musculoskelatal: normal inspection, no calf tenderness, normal capillary refill Neurologic/Psych: alert, normal mood/affect, oriented x 3 Skin: normal color, warm/dry Results & Data Vital Signs (Past 12 Hours) Vital Signs Temp Pulse Pulse Resp BP BP Pulse Ox 04/06/19 13:41 72 18 212/102 H 97 04/06/19 11:49 60 16 181/107 H 95 04/06/19 11:04 60 20 180/90 H 95 04/06/19 10:18 96 04/06/19 10:12 36.6 C 57 L 18 208/105 H 96 Laboratory Results Short CBC 04/06/19 Range/Units 10:11 WBC 9.47 (4.8-10.8) K/uL Hgb 13.4 L (14.0-18.0) g/dL Hct 40.1 L (42-52) % Plt Count 247 (130-400) K/uL BMP 04/06/19 10:11 Sodium 139 Potassium 3.8 Chloride 103 Carbon Dioxide 30 BUN 28 H Creatinine 1.85 H Glucose 97 Calcium 8.9 Cardiac Enzymes 04/06/19 Range/Units 10:11 Troponin I < 0.015 (0-0.045) ng/ml Liver Function 04/06/19 Range/Units 10:11 Total Bilirubin 0.4 (0.2-1) mg/dl Direct Bilirubin < 0.1 (0-0.2) mg/dl AST 14 L (15-37) U/L ALT 17 (12-78) U/L Alkaline Phosphatase 69 (45-117) U/L Albumin 3.6 (3.4-5.0) gm/dl Diagnostic Findings CXR: IMPRESSION: No acute cardiopulmonary findings. No change in appearance of the chest. Supervising Physician Co-Signing Physician Notes Patient is an 79-year-old male with history of hypertension, diastolic heart failure, chronic atrial fibrillation on anticoagulation and other problems presents with history of intermittent chest pain associated with shortness of breath since 1 month duration. He describes the chest pain as heaviness which is retrosternal location, nonradiating, no relation with exertion, denies any nausea, dizziness. He states that his chest pain lasts for about 5-10 minutes each time. Patient received aspirin while in ED. Currently he denies any chest pain. He was noted to have hypertensive urgency with systolic blood pressure in 200s. He denies any headache, visual changes. His EKG did not show any signs of acute ischemia. Initial troponins are negative. Chest x-ray showed no acute cardiopulmonary findings. His INR is in therapeutic range. On exam patient is moderately built and nourished, no apparent distress, normocephalic atraumatic, lungs are clear to auscultation, decreased breath sounds, irregularly irregular rhythm, no audible murmur, abdomen soft nontender, neurologically no focal deficits, trace pedal edema. Patient's chest pain is likely due to uncontrolled hypertension. Plan to trend cardiac enzymes, update echo, control his blood pressure. We will start him on PO hydralazine as needed. He is allergic to MARK, clonidine. If chest pain reoccurs, we will start him on nitroglycerin. Continue aspirin, metoprolol, statin. Also continue amlodipine for blood pressure control. Will consult cardiology. His volume status appears to be euvolemic. Continue Coumadin for atrial fibrillation, monitor INR. Check digoxin levels. Patient noted dark-colored stool but was unsure on about the onset. He is currently on iron supplements. Hemoglobin is at baseline. He denies any bright red blood in stools. Monitor CBC and consider evaluation for GI bleed if needed. Currently does not seem to have any bleeding issues. I personally reviewed the record. Patient is interviewed and examined at bedside. Patient's care is coordinated with Jazmin Garvey PA-C. Please refer to the documentation above for details of patient's presentation and for discussion of other issues.
--- NOTE | 2019-04-06 16:50 | Cardiology Consultation ---
Date of Consultation April 06, 2019 Assessment & Plan (1) Hypertensive urgency: Importance of compliance with current medical therapies discussed with patient at length. Per review of the outpatient record, it appears patient's blood pressure is labile and intermittently registers systolic blood pressures of approximately 190 to 200 mmHg. Patient admits to excessive sodium intake on a regular basis. Recommend addition of topical nitrates as well as low-dose oral hydralazine to improve blood pressure control currently. He will begin hydralazine 10 mg 3 times daily and 1 inch of Nitropaste will be applied at this time. Cardiac enzymes will be cycled x3 sets. Resting 2D transthoracic echocardiogram reviewed. There are no regional wall motion abnormalities present. Atrial fibrillation appears rate controlled currently. Patient does not appear volume overloaded. I do not see a role for intravenous diuretic therapy currently. Further evaluation ending clinical response to medical prevention. (2) TURPIN (dyspnea on exertion): Medical management at this time with a focus regarding blood pressure control. Consider repeat stress testing in future pending clinical course. (3) Chronic atrial fibrillation: Rate controlled. Continue metoprolol and Coumadin. (4) Chronic ischemic heart disease: (5) CKD (chronic kidney disease), stage III: Creatinine at baseline. Continue to monitor. History of Present Illness Reason for Consultation: TURPIN, HTN, AF Requesting Physician: Dr. Lindo Attending Physician: Mikie Lindo MD History of Present Illness 88-year-old patient sent from PCP office today due to the on exertion and chest discomfort. Patient describes dyspnea with activity over the past 1 month. Reports associated chest tightness. Discomfort typically lasts up to 5 minutes and is relieved with rest. The dyspnea as well as chest discomfort is not consistently reproducible. In general he notes it when walking from restaurant to his automobile and parking lot. He reported the symptoms to his primary care physician today who then referred the patient to the emergency room. He was given aspirin in the ER. Blood pressure significantly elevated with systolic blood pressure greater than 200 mmHg. Patient reports this is extremely high for him. Denies orthopnea or PND. No lower extremity edema,, weight gain, or claudication. Carries history of chronic ischemic heart disease, chronic atrial fibrillation, and hypertension. 2D transthoracic echocardiogram performed at the bedside demonstrates preserved LV systolic function with mild concentric left ventricular hypertrophy. Telemetry demonstrates atrial fibrillation with controlled ventricular response. Resting twelve-lead ECG demonstrates no ischemic ST segment changes. Allergies Allergy/AdvReac Type Severity Reaction Status Date / Time lisinopril Allergy Severe tongue Verified 04/06/19 10:39 swelling latex Allergy Unknown RASH Verified 04/06/19 10:39 meclizine Allergy Unknown unknown Verified 04/06/19 10:39 niacin Allergy Unknown RASH Verified 04/06/19 10:39 sertraline AdvReac Severe Edema Unverified 04/06/19 10:39 face/lips/tongue clonidine [From Catapres] AdvReac Unknown Unknown Unverified 04/06/19 10:39 Home Medications Home Medications Medication Instructions Recorded Confirmed Type acetaminophen [Tylenol Extra 500 mg PO Q6H PRN 04/06/19 04/06/19 History Strength] albuterol sulfate [Ventolin HFA] 2 puff INHALATION Q6H PRN 04/06/19 04/06/19 History amlodipine 10 mg PO DAILY 04/06/19 04/06/19 History aspirin 81 mg PO DAILY 04/06/19 04/06/19 History digoxin [Digitek] 125 mcg PO DAILY 04/06/19 04/06/19 History diphenhydramine HCl 25 mg PO UD PRN 04/06/19 04/06/19 History ferrous sulfate 325 mg PO Q2D 04/06/19 04/06/19 History fluticasone propionate [Flovent 2 puff INHALATION BID 04/06/19 04/06/19 History HFA] furosemide 20 mg PO QAM 04/06/19 04/06/19 History ipratropium bromide 2 spray INTRANASAL QAM 04/06/19 04/06/19 History metoprolol tartrate 100 mg PO BID 04/06/19 04/06/19 History montelukast 10 mg PO HS 04/06/19 04/06/19 History nitroglycerin 0.4 mg SUBLINGUAL UD 04/06/19 04/06/19 History omeprazole 20 - 40 mg PO DAILY 04/06/19 04/06/19 History potassium chloride 20 meq PO HS 04/06/19 04/06/19 History pravastatin 10 mg PO HS 04/06/19 04/06/19 History prednisone 40 mg PO UD 04/06/19 04/06/19 History vit C,O-Bm-fakkj-lutein-zeaxan 1 tab PO QAM 04/06/19 04/06/19 History [PreserVision AREDS-2] warfarin 2.5 mg PO SUMOWETHFR@1600 04/06/19 04/06/19 History warfarin 5 mg PO TUSA@1600 04/06/19 04/06/19 History Patient History Medical History CKD (chronic kidney disease), stage III (Chronic) MGUS (monoclonal gammopathy of unknown significance) (Chronic) Anemia (Chronic) Chronic ischemic heart disease (Chronic) Asthma (Chronic) Depression (Chronic) Dyslipidemia (Chronic) HTN (hypertension) (Chronic) Chronic atrial fibrillation (Chronic) Surgical History History of inguinal hernia repair, bilateral (Chronic) Hx of cataract surgery (Chronic) Family History Other Heart disease Social History Preferred Language: Turkish Communication Ability: Effective Visual Impairment: No Limitations Hearing Ability: Normal Beliefs That Will Affect Care: None Current Living Situation: Family Feels Safe at Home: Yes and No Is there a partner from a previous relationship who is making you feel unsafe now?: No Any Concerns about Your Family Situation: No Would You Like to Speak to Someone About Your Situation: No Safety Concerns: Feels Safe At This Time Smoking Status: Never smoker Hx Alcohol Use: Yes Hx Substance Use: No Review of Systems Review of Systems: All systems reviewed & are unremarkable except as noted in HPI & below Physical Exam Physical Exam: General: NAD, AAO x3, well nourished. HEENT: Normocephalic. Atraumatic. Conjunctiva pink, no scleral icterus. Neck: No carotid bruits, the carotid upstrokes are brisk. No JVD. No HJR Heart: Irregular rhythm with a normal S1 and S2. Soft, 1/6 midsystolic murmur heard best at the left ventricular apex. PMI is not displaced. No RV heave. Lungs: Clear bilateral without rales , rhonchi, or wheeze. Abdomen: Normal bowel sounds. Soft. Nontender. No masses or organomegaly. No abdominal bruits. Extremities: No clubbing, cyanosis, or edema. Pulses: radial=2/4, posterior tibial=2/4. Neuro: Cranial nerves grossly intact. No focal motor deficit. Results & Data Vital Signs (Past 12 Hours) Vital Signs Temp Pulse Pulse Resp BP BP Pulse Ox 04/06/19 14:20 36.4 C L 70 210/115 H 94 04/06/19 13:41 72 18 212/102 H 97 04/06/19 11:49 60 16 181/107 H 95 04/06/19 11:04 60 20 180/90 H 95 04/06/19 10:18 96 04/06/19 10:12 36.6 C 57 L 18 208/105 H 96 Laboratory Results Laboratory Results - last 24 hr 04/06/19 04/06/19 04/06/19 10:11 10:11 10:11 WBC 9.47 RBC 4.66 L Hgb 13.4 L Hct 40.1 L MCV 86.1 MCH 28.8 MCHC 33.4 RDW Std Deviation 45.4 RDW Coeff of Ember 14.5 Plt Count 247 MPV 10.2 Immature Gran % (Auto) 0.2 Neut % (Auto) 64.3 Lymph % (Auto) 22.8 [place] % (Auto) 10.5 Eos % (Auto) 1.8 Baso % (Auto) 0.4 Immature Gran # (Auto) 0.02 Neut # (Auto) 6.09 Lymph # (Auto) 2.16 [place] # (Auto) 0.99 H Eos # (Auto) 0.17 Baso # (Auto) 0.04 PT 22.6 H INR 2.3 H Sodium 139 Potassium 3.8 Chloride 103 Carbon Dioxide 30 Anion Gap 6.0 BUN 28 H Creatinine 1.85 H Est Cr Clr Drug Dosing 29.5 Est GFR ( Amer) 36.6 Est GFR (Non-Af Amer) 31.6 BUN/Creatinine Ratio 15.0 Glucose 97 Calcium 8.9 Phosphorus 2.6 Magnesium 1.8 Total Bilirubin 0.4 Direct Bilirubin < 0.1 AST 14 L ALT 17 Alkaline Phosphatase 69 Troponin I < 0.015 NT-Pro-B Natriuret Pep 2003 H Total Protein 8.9 H Albumin 3.6 Globulin 5.3 H Albumin/Globulin Ratio 0.7 L Lipase 147 04/06/19 15:47 WBC RBC Hgb Hct MCV MCH MCHC RDW Std Deviation RDW Coeff of Ember Plt Count MPV Immature Gran % (Auto) Neut % (Auto) Lymph % (Auto) [place] % (Auto) Eos % (Auto) Baso % (Auto) Immature Gran # (Auto) Neut # (Auto) Lymph # (Auto) [place] # (Auto) Eos # (Auto) Baso # (Auto) PT INR Sodium Potassium Chloride Carbon Dioxide Anion Gap BUN Creatinine Est Cr Clr Drug Dosing Est GFR ( Amer) Est GFR (Non-Af Amer) BUN/Creatinine Ratio Glucose Calcium Phosphorus Magnesium Total Bilirubin Direct Bilirubin AST ALT Alkaline Phosphatase Troponin I < 0.015 NT-Pro-B Natriuret Pep Total Protein Albumin Globulin Albumin/Globulin Ratio Lipase
[2019-04-06] MEDS: WARFARIN SOD 5 MG TAB PO SCH (17:16)
[2019-04-06] MEDS: NITROGLYCERIN 2% OINTMENT 30GM TUBE EXT SCH ×2 (17:17→23:24)
[2019-04-06] MEDS: FERROUS SULFATE 325 MG TAB PO SCH (17:17)
[2019-04-06] MEDS: HydrALAZINE 10 MG TAB PO PRN (18:52)
[2019-04-06] MEDS ORDERED: HydrALAZINE 10 MG TAB PO SCH (21:00)
[2019-04-06] MEDS: PRAVASTATIN SOD 10 MG TAB PO SCH (21:47)
[2019-04-06] MEDS: METOPROLOL TARTRATE 100 MG TAB PO SCH (21:47)
[2019-04-06] MEDS: MONTELUKAST SODIUM 10 MG TABLET PO SCH (21:48)
[2019-04-06] MEDS: POTASSIUM CHLORIDE 20 MEQ TABCR PO SCH (21:48)
[2019-04-06] MEDS: FLUTICASONE HFA 110MCG INHALER INH SCH (21:49)
[2019-04-07] MEDS: NITROGLYCERIN 2% OINTMENT 30GM TUBE EXT SCH ×4 (05:59→23:18)
[2019-04-07] MEDS: HydrALAZINE 10 MG TAB PO PRN (05:59)
[2019-04-07 07:26] LABS: Hematocrit (blood only) 37.2 % (42-52); Hemoglobin 12.8 g/dL (14.0-18.0); Mean Corpuscular Hgb Conc 34.4 g/dL (32-36); Mean Corpuscular Volume 84.7 fL (80-100); Mean Platelet Volume 10.5 fL (7.4-10.4); Platelet Count 247 K/uL (130-400); RDW Coefficient of Variation 14.5 % (11.5-14.5); RDW Standard Deviation 45.4 fL (36.4-46.3); Red Blood Count 4.39 M/uL (4.7-6.1); White Blood Count 9.28 K/uL (4.8-10.8)
[2019-04-07 07:32] LABS: INR 2.4 (0.9-1.1); Prothrombin Time 23.5 Seconds (9.0-12.0)
[2019-04-07 07:51] LABS: BUN Creatinine Ratio 16.9 (10-20); Calcium 8.7 mg/dl (8.5-10.1); Creatinine Clr Calc Pharmacy 28.6 ml/min; Est GFR (African American) 39.1; Est GFR (Non-African American) 33.8; Potassium 3.7 mmol/L (3.5-5.1)
--- NOTE | 2019-04-07 08:52 | Cardiology Progress Note ---
Date of Service April 07, 2019 Assessment & Plan (1) Hypertensive urgency: Increase hydralazine to 20 mg 3 times daily. Continue topical nitrates in addition to other outpatient antihypertensive medications. Will administer 20 mg of IV furosemide today. Patient is not a candidate for MARK inhibitor or angiotensin receptor martinez with chronic renal insufficiency. (2) Elevated troponin: Suspect related to hypertensive urgency in the setting of CKD stage IV. No regional wall motion abnormalities per echocardiogram. Will trend x3 sets. (3) TURPIN (dyspnea on exertion): Medical management at this time with a focus regarding blood pressure control. Give dose of intravenous furosemide today and assess clinical response. (4) Chronic atrial fibrillation: Rate controlled. Continue metoprolol and Coumadin. (5) Chronic ischemic heart disease: (6) CKD (chronic kidney disease), stage III: Creatinine at baseline. Continue to monitor. Subjective Patient seen and examined the bedside. Reports episode of dyspnea when walking to the bathroom. Denies recurrent chest discomfort. Mildly elevated troponin noted since admission. Resting 2D transthoracic echocardiogram without regional wall motion abnormality. Telemetry demonstrates rate controlled atrial fibrillation. INR is therapeutic. Blood pressure remains elevated. Review of Systems Review of Systems: All systems reviewed & are unremarkable except as noted in HPI & below Physical Exam Physical Exam: General: NAD, AAO x3, well nourished. HEENT: Normocephalic. Atraumatic. Conjunctiva pink, no scleral icterus. Neck: No carotid bruits, the carotid upstrokes are brisk. No JVD. No HJR Heart: Irregular rhythm with a normal S1 and S2. Soft, 1/6 midsystolic murmur heard best at the left ventricular apex. PMI is not displaced. No RV heave. Lungs: Clear bilateral without rales , rhonchi, or wheeze. Abdomen: Normal bowel sounds. Soft. Nonten gage. No masses or organomegaly. No abdominal bruits. Extremities: No clubbing, cyanosis, or edema. Pulses: radial=2/4, posterior tibial=2/4. Neuro: Cranial nerves grossly intact. No focal motor deficit. Results & Data Vital Signs (Past 12 Hours) Vital Signs Temp Pulse Pulse Resp BP Pulse Ox 04/07/19 07:23 36.9 C 64 17 196/88 H 94 04/07/19 04:58 37.1 C 57 L 20 196/87 H 95 04/06/19 23:55 37.1 C 68 19 161/70 H 96 04/06/19 23:38 86 Laboratory Results Laboratory Results - last 24 hr 04/06/19 04/06/19 04/06/19 10:11 10:11 10:11 WBC 9.47 RBC 4.66 L Hgb 13.4 L Hct 40.1 L MCV 86.1 MCH 28.8 MCHC 33.4 RDW Std Deviation 45.4 RDW Coeff of Ember 14.5 Plt Count 247 MPV 10.2 Immature Gran % (Auto) 0.2 Neut % (Auto) 64.3 Lymph % (Auto) 22.8 [place] % (Auto) 10.5 Eos % (Auto) 1.8 Baso % (Auto) 0.4 Immature Gran # (Auto) 0.02 Neut # (Auto) 6.09 Lymph # (Auto) 2.16 [place] # (Auto) 0.99 H Eos # (Auto) 0.17 Baso # (Auto) 0.04 PT 22.6 H INR 2.3 H Sodium 139 Potassium 3.8 Chloride 103 Carbon Dioxide 30 Anion Gap 6.0 BUN 28 H Creatinine 1.85 H Est Cr Clr Drug Dosing 29.5 Est GFR ( Amer) 36.6 Est GFR (Non-Af Amer) 31.6 BUN/Creatinine Ratio 15.0 Glucose 97 Calcium 8.9 Phosphorus 2.6 Magnesium 1.8 Total Bilirubin 0.4 Direct Bilirubin < 0.1 AST 14 L ALT 17 Alkaline Phosphatase 69 Troponin I < 0.015 NT-Pro-B Natriuret Pep 2003 H Total Protein 8.9 H Albumin 3.6 Globulin 5.3 H Albumin/Globulin Ratio 0.7 L Lipase 147 Digoxin 04/06/19 04/06/19 04/07/19 15:47 22:12 07:00 WBC 9.28 RBC 4.39 L Hgb 12.8 L Hct 37.2 L MCV 84.7 MCH 29.2 MCHC 34.4 RDW Std Deviation 45.4 RDW Coeff of Ember 14.5 Plt Count 247 MPV 10.5 H Immature Gran % (Auto) Neut % (Auto) Lymph % (Auto) [place] % (Auto) Eos % (Auto) Baso % (Auto) Immature Gran # (Auto) Neut # (Auto) Lymph # (Auto) [place] # (Auto) Eos # (Auto) Baso # (Auto) PT INR Sodium Potassium Chloride Carbon Dioxide Anion Gap BUN Creatinine Est Cr Clr Drug Dosing Est GFR ( Amer) Est GFR (Non-Af Amer) BUN/Creatinine Ratio Glucose Calcium Phosphorus Magnesium Total Bilirubin Direct Bilirubin AST ALT Alkaline Phosphatase Troponin I < 0.015 0.074 H* NT-Pro-B Natriuret Pep Total Protein Albumin Globulin Albumin/Globulin Ratio Lipase Digoxin 04/07/19 04/07/19 04/07/19 07:00 07:00 07:00 WBC RBC Hgb Hct MCV MCH MCHC RDW Std Deviation RDW Coeff of Ember Plt Count MPV Immature Gran % (Auto) Neut % (Auto) Lymph % (Auto) [place] % (Auto) Eos % (Auto) Baso % (Auto) Immature Gran # (Auto) Neut # (Auto) Lymph # (Auto) [place] # (Auto) Eos # (Auto) Baso # (Auto) PT 23.5 H INR 2.4 H Sodium 142 Potassium 3.7 Chloride 107 Carbon Dioxide 29 Anion Gap 6.0 BUN 30 H Creatinine 1.75 H Est Cr Clr Drug Dosing 28.6 Est GFR ( Amer) 39.1 Est GFR (Non-Af Amer) 33.8 BUN/Creatinine Ratio 16.9 Glucose 101 H Calcium 8.7 Phosphorus Magnesium Total Bilirubin Direct Bilirubin AST ALT Alkaline Phosphatase Troponin I NT-Pro-B Natriuret Pep Total Protein Albumin Globulin Albumin/Globulin Ratio Lipase Digoxin 0.9
[2019-04-07] MEDS: METOPROLOL TARTRATE 100 MG TAB PO SCH ×2 (09:13→20:48)
[2019-04-07] MEDS: HydrALAZINE 10 MG TAB PO SCH ×3 (09:13→20:49)
[2019-04-07] MEDS: PANTOprazole 40 MG TAB PO SCH (09:13)
[2019-04-07] MEDS: AMLODIPINE BESYLATE 5 MG TAB PO SCH (09:14)
[2019-04-07] MEDS: ASPIRIN 81 MG CHEW PO SCH (09:14)
[2019-04-07] MEDS: CEROVITE ADV FORMULA TAB PO SCH (09:14)
[2019-04-07] MEDS ORDERED: FUROSEMIDE 20 MG in SYRINGE 0 ML IV ONE (09:15)
[2019-04-07] MEDS: FUROSEMIDE 20 MG TAB PO SCH (09:15)
[2019-04-07] MEDS: IPRATROPIUM BROMIDE NASAL SPRAY 0.06% 15ML SCH (09:16)
[2019-04-07] MEDS: FLUTICASONE HFA 110MCG INHALER INH SCH ×2 (09:16→20:51)
--- NOTE | 2019-04-07 14:05 | Hospitalist Progress Note ---
Date of Service April 07, 2019 Assessment & Plan (1) Hypertensive urgency: uncontrolled, increase hydralazine and cont nitro per cards. cont norvasc and Lasix. (2) Chest pain: Resolved with no reoccurrences overnight. That being said, patient is not ambulating much at this time and pain occured with exertion at home. Cont with BP control efforts and increase activity level. (3) Elevated troponin: Doubt active ischemia, currently no chest pain. EKG reveals atrial fibrillation this morning with no acute ischemic changes. Cont to trend per Cards. (4) CKD (chronic kidney disease), stage III: at baseline. Cont to monitor. (5) Chronic atrial fibrillation: Lopressor, digoxin, INR therapeutic. Cont warfarin. (6) Chronic ischemic heart disease: Cont home medications including ASA 81, Lopressor 100mg PO BID, Pravachol 10mg qHS. ACEI/ARB contraindicated in setting of CKD. (7) DVT prophylaxis: warfarin DNR/DNI Dispo-pending more consistent BP control and PT/OT evaluations. Elaina Renteria DO [facility] Hospitalist Subjective 88-year-old man presents to the ER with chest pain shortness of breath for approximately 1 month. He reports that episodes of chest pain have lasted 15 to 20 minutes and have occurred when he returns from outings to dinner. He reports this happening more than twice weekly but not daily. He reports that once settled in at rest his chest pain resolved. He recently started adding nitroglycerin to help the pain which improved after 1 dose consistently. Since being admitted he has been recorded as having a blood pressure ranging 180s to 210s consistently systolic. Cardiology has been working to increase blood pressure medication to control this. The patient states he has never had an issue with blood pressure in the past while on his current antihypertensive regimen consisting of amlodipine 10 mg p.o. daily, furosemide 20 mill grams p.o. every morning, Lopressor 100 mill grams p.o. twice daily. Review of outpatient records reveals blood pressure ranging from the 120 systolic to 160 systolic, mostly controlled. Only recently has his blood pressure been documented prior to arrival in the hospital at 212/76. He currently denies any chest pain or shortness of breath overnight. Blood pressure is again uncontrolled this morning and cardiology is making further adjustments to medicate. He otherwise feels fine with review of systems otherwise negative. Review of Systems Review of Systems: At least ten systems were reviewed and negative except as indicated in HPI above. Physical Exam Physical Exam: CONSTITUTIONAL: WNWD, vitals as above, generally well- appearing, elderly EYES: normal conjuctivae, no scleral icterus ENT: MMM RESPIRATORY: clear to auscultation bilaterally, no crackles, rales or wheezes, normal respiratory effort CARDIOVASCULAR: regular rate and rhythm, S1 and 2 heard without murmurs, gallops or rubs, no JVD, no peripheral edema, no carotid bruits CHEST: inspection of chest was normal GASTROINTESTINAL: normal bowel sounds, soft, nontender, nondistended MUSCULOSKELETAL: strength 5/5 throughout, head is normocephalic and atraumatic SKIN: warm and dry NEUROLOGIC: No facial palsy, no dysarthria. CN 2-12 grossly intact, normal cognition, no tremor, no gross focal deficits. PSYCHIATRIC: alert cooperative and oriented Results & Data Vital Signs (Past 12 Hours) Vital Signs Temp Pulse Resp BP Pulse Ox 04/07/19 13:06 36.6 C 62 18 178/81 H 95 04/07/19 07:23 36.9 C 64 17 196/88 H 94 04/07/19 04:58 37.1 C 57 L 20 196/87 H 95 Laboratory Results Short CBC 04/07/19 Range/Units 07:00 WBC 9.28 (4.8-10.8) K/uL Hgb 12.8 L (14.0-18.0) g/dL Hct 37.2 L (42-52) % Plt Count 247 (130-400) K/uL BMP 04/07/19 07:00 Sodium 142 Potassium 3.7 Chloride 107 Carbon Dioxide 29 BUN 30 H Creatinine 1.75 H Glucose 101 H Calcium 8.7 Cardiac Enzymes 04/06/19 04/06/19 04/07/19 Range/Units 15:47 22:12 07:00 Troponin I < 0.015 0.074 H* 0.124 H* (0-0.045) ng/ml Medications Administered Current Inpatient Medications Acetaminophen (Tylenol) 500 mg PO Q6H PRN PRN Reason: Pain Stop: 05/06/19 14:19 Albuterol (Ventolin Hfa) 2 puffs INH Q6H PRN PRN Reason: Shortness Of Breath Or Wheezin Stop: 05/06/19 14:19 Amlodipine Besylate (Norvasc) 10 mg PO DAILY [facility] Stop: 05/07/19 08:59 Last Admin: 04/07/19 09:14 Dose: 10 mg Documented by: Aspirin (Aspirin Chew) 81 mg PO DAILY JT Stop: 05/07/19 08:59 Last Admin: 04/07/19 09:14 Dose: 81 mg Documented by: Digoxin (Lanoxin) 0.125 mg PO DAILY@1600 [facility] Stop: 05/07/19 15:59 Diphenhydramine HCl (Benadryl Capsule) 25 mg PO UD PRN PRN Reason: swelling Stop: 05/06/19 14:19 Ferrous Sulfate (Feosol) 325 mg PO Q2D JT Stop: 05/06/19 14:19 Last Admin: 04/06/19 17:17 Dose: 325 mg Documented by: Fluticasone Propionate (Flovent Hfa 110mch) 2 puffs INH BID JT Stop: 05/06/19 20:59 Last Admin: 04/07/19 09:16 Dose: 2 puffs Documented by: Furosemide (Lasix) 20 mg PO QAM [facility] Stop: 05/07/19 08:59 Last Admin: 04/07/19 09:15 Dose: 20 mg Documented by: Hydralazine HCl (Apresoline) 10 mg PO Q8H PRN PRN Reason: SBP >170 Stop: 05/06/19 14:19 Last Admin: 04/07/19 05:59 Dose: 10 mg Documented by: Hydralazine HCl (Apresoline) 20 mg PO TID [facility] Stop: 05/07/19 08:59 Last Admin: 04/07/19 09:13 Dose: 20 mg Documented by: Ipratropium [place] (Atrovent Nasal [place] 0.06%) 2 sprays NA QAM [facility] Stop: 05/07/19 08:59 Last Admin: 04/07/19 09:16 Dose: 2 sprays Documented by: Metoprolol Tartrate (Lopressor) 100 mg PO BID [facility] Stop: 05/06/19 20:59 Last Admin: 04/07/19 09:13 Dose: 100 mg Documented by: Montelukast Sodium (Singulair) 10 mg PO HS [facility] Stop: 05/06/19 20:59 Last Admin: 04/06/19 21:48 Dose: 10 mg Documented by: Multivitamins/Minerals (Multivitamin W/ Minerals Tab) 1 tab PO QAM [facility] Stop: 05/07/19 08:59 Last Admin: 04/07/19 09:14 Dose: 1 tab Documented by: Nitroglycerin (Nitrostat) 0.4 mg SL UD [facility] Stop: 05/06/19 14:19 Nitroglycerin (Nitro-Bid 2%) 1 inch EXT Q6H [facility] Stop: 05/06/19 17:59 Last Admin: 04/07/19 12:00 Dose: 1 inch Documented by: Ondansetron HCl (Zofran) 4 mg IV Q6H PRN PRN Reason: Nausea Stop: 05/06/19 14:19 Pantoprazole Sodium (Protonix) 40 mg PO DAILY [facility] Stop: 05/07/19 08:59 Last Admin: 04/07/19 09:13 Dose: 40 mg Documented by: Polyethylene Glycol (Miralax Powder Packet) 17 gm PO DAILY PRN PRN Reason: Constipation Stop: 05/06/19 14:19 Potassium Chloride (Klor-Con M20) 20 meq PO [facility] Stop: 05/06/19 20:59 Last Admin: 04/06/19 21:48 Dose: 20 meq Documented by: Pravastatin Sodium (Pravachol) 10 mg PO [facility] Stop: 05/06/19 20:59 Last Admin: 04/06/19 21:47 Dose: 10 mg Documented by: Warfarin Sodium (Coumadin) 5 mg PO [facility]@1600 [facility] Stop: 05/06/19 15:59 Last Admin: 04/06/19 17:16 Dose: 5 mg Documented by: Warfarin Sodium (Coumadin) 2.5 mg PO SUMOWETHFR@1600 [facility] Stop: 05/07/19 15:59
[2019-04-07] MEDS: WARFARIN SOD 5 MG TAB PO SCH (16:41)
[2019-04-07] MEDS: DIGOXIN 0.125 MG TAB PO SCH (16:43)
[2019-04-07] MEDS: POTASSIUM CHLORIDE 20 MEQ TABCR PO SCH (20:48)
[2019-04-07] MEDS: PRAVASTATIN SOD 10 MG TAB PO SCH (20:48)
[2019-04-07] MEDS: MONTELUKAST SODIUM 10 MG TABLET PO SCH (20:49)
[2019-04-08] MEDS: HydrALAZINE 10 MG TAB PO PRN (04:26)
[2019-04-08] MEDS: NITROGLYCERIN 2% OINTMENT 30GM TUBE EXT SCH ×4 (05:03→23:31)
[2019-04-08] MEDS ORDERED: METOPROLOL TARTRATE 100 MG TAB PO SCH (06:15)
[2019-04-08] MEDS: METOPROLOL TARTRATE 100 MG TAB PO SCH ×2 (07:13→20:25)
[2019-04-08 08:01] LABS: Hemoglobin 13.1 g/dL (14.0-18.0); Mean Corpuscular Hgb Conc 34.5 g/dL (32-36); Mean Corpuscular Volume 85.2 fL (80-100); Mean Platelet Volume 10.5 fL (7.4-10.4); Platelet Count 256 K/uL (130-400); RDW Coefficient of Variation 14.7 % (11.5-14.5); RDW Standard Deviation 45.7 fL (36.4-46.3); Red Blood Count 4.46 M/uL (4.7-6.1); White Blood Count 11.19 K/uL (4.8-10.8)
[2019-04-08] MEDS: AMLODIPINE BESYLATE 5 MG TAB PO SCH (08:19)
[2019-04-08] MEDS: PANTOprazole 40 MG TAB PO SCH (08:19)
[2019-04-08] MEDS: CEROVITE ADV FORMULA TAB PO SCH (08:19)
[2019-04-08] MEDS: HydrALAZINE 10 MG TAB PO SCH ×3 (08:20→20:24)
[2019-04-08] MEDS: FUROSEMIDE 20 MG TAB PO SCH (08:21)
[2019-04-08] MEDS: FLUTICASONE HFA 110MCG INHALER INH SCH ×2 (08:21→20:24)
[2019-04-08] MEDS: ASPIRIN 81 MG CHEW PO SCH (08:21)
[2019-04-08] MEDS: IPRATROPIUM BROMIDE NASAL SPRAY 0.06% 15ML SCH (08:22)
[2019-04-08 08:31] LABS: BUN Creatinine Ratio 16.8 (10-20); Creatinine Clr Calc Pharmacy 26.6 ml/min; Est GFR (African American) 35.9; Magnesium 1.9 mg/dl (1.8-2.4); Potassium 3.5 mmol/L (3.5-5.1)
--- NOTE | 2019-04-08 09:16 | Cardiology Progress Note ---
Date of Service April 08, 2019 Assessment & Plan (1) Hypertensive urgency: Increase hydralazine to 30 mg 3 times daily. Add terazosin 2 mg nightly. Continue topical nitrates in addition to other outpatient antihypertensive medications. Patient is not a candidate for MARK inhibitor or angiotensin receptor martinez with CKD stage 4. (2) Elevated troponin: Suspect related to hypertensive urgency in the setting of CKD stage IV. No regional wall motion abnormalities per echocardiogram. Will trend x3 sets. (3) TURPIN (dyspnea on exertion): Improving with medical management of hypertension and single dose of intravenous Lasix. (4) Chronic atrial fibrillation: Rate controlled. Continue metoprolol and Coumadin. (5) Chronic ischemic heart disease: (6) CKD (chronic kidney disease), stage III: Creatinine at baseline. Continue to monitor. Subjective Patient seen and examined at the bedside. Poor historian. States he feels well today. Denies chest discomfort or unusual shortness of breath this a.m. Blood pressure remains elevated. Telemetry demonstrates rate controlled atrial fibrillation. Currently without complaints. Review of Systems Review of Systems: All systems reviewed & are unremarkable except as noted in HPI & below Physical Exam Physical Exam: General: NAD, AAO x3, well nourished. HEENT: Normocephalic. Atraumatic. Conjunctiva pink, no scleral icterus. Neck: No carotid bruits, the carotid upstrokes are brisk. No JVD. No HJR Heart: Irregular rhythm with a normal S1 and S2. Soft, 1/6 midsystolic murmur heard best at the left ventricular apex. PMI is not displaced. No RV heave. Lungs: Clear bilateral without rales , rhonchi, or wheeze. Abdomen: Normal bowel sounds. Soft. Non tender. No masses or organomegaly. No abdominal bruits. Extremities: No clubbing, cyanosis, or edema. Pulses: radial=2/4, posterior tibial=2/4. Neuro: Cranial nerves grossly intact. No focal motor deficit. Results & Data Vital Signs (Past 12 Hours) Vital Signs Temp Pulse Pulse Resp BP BP Pulse Ox 04/08/19 08:15 78 198/99 H 04/08/19 08:00 63 04/08/19 07:44 36.6 C 68 20 198/77 H 95 04/08/19 05:57 185/83 H 04/08/19 04:27 36.6 C 63 18 185/80 H 95 04/08/19 00:43 73 04/07/19 22:09 159/83 H Laboratory Results Laboratory Results - last 24 hr 04/07/19 04/08/19 04/08/19 15:08 07:35 07:35 WBC 11.19 H RBC 4.46 L Hgb 13.1 L Hct 38.0 L MCV 85.2 MCH 29.4 MCHC 34.5 RDW Std Deviation 45.7 RDW Coeff of Ember 14.7 H Plt Count 256 MPV 10.5 H Sodium 141 Potassium 3.5 Chloride 106 Carbon Dioxide 28 Anion Gap 7.0 BUN 32 H Creatinine 1.88 H Est Cr Clr Drug Dosing 26.6 Est GFR ( Amer) 35.9 Est GFR (Non-Af Amer) 31.0 BUN/Creatinine Ratio 16.8 Glucose 101 H Calcium 9.0 Magnesium 1.9 Troponin I 0.088 H*
--- NOTE | 2019-04-08 10:19 | Hospitalist Progress Note ---
Date of Service April 08, 2019 Assessment & Plan (1) Hypertensive urgency: Still uncontrolled, improving to the 170s systolic with goal 150s systolic. Increase hydralazine and cont nitro per cards. cont norvasc and Lasix. Added Hytrin qHS (2) Chest pain: Resolved with no reoccurrences overnight. Ambulation today did not provoke symptom return. Cont efforts to control BP. (3) CKD (chronic kidney disease), stage III: at baseline. Cont to monitor. Avoid ACEI or ARB (4) Chronic atrial fibrillation: Lopressor, digoxin, INR therapeutic. Cont warfarin. (5) Chronic ischemic heart disease: Cont home medications including ASA 81, Lopressor 100mg PO BID, Pravachol 10mg qHS. ACEI/ARB contraindicated in setting of CKD. (6) DVT prophylaxis: warfarin DNR/DNI Dispo-to home when BP controlled and Cardiology signs off [facility] Subjective doing well, denies chest pain or SOB reports ambulating around the hallways without issue expressed that he wants to go home soon respects the process, however, eating well no other issues to report Review of Systems Review of Systems: All systems reviewed & are unremarkable except as noted in HPI & below Physical Exam Physical Exam: CONSTITUTIONAL: WNWD, vitals as above, generally well- appearing, appears stronger today EYES: normal conjuctivae, no scleral icterus ENT: MMM RESPIRATORY: clear to auscultation bilaterally, no crackles, rales or wheezes, normal respiratory effort CARDIOVASCULAR: regular rate and rhythm, S1 and 2 heard without murmurs, gallops or rubs, no JVD, no peripheral edema CHEST: inspection of chest was normal GASTROINTESTINAL: soft, nontender, nondistended MUSCULOSKELETAL: strength 5/5 throughout, head is normocephalic and atraumatic SKIN: warm and dry NEUROLOGIC: No facial palsy, no dysarthria. CN 2-12 grossly intact, normal cognition, no tremor, no gross focal deficits. PSYCHIATRIC: alert cooperative and oriented Results & Data Vital Signs (Past 12 Hours) Vital Signs Temp Pulse Pulse Resp BP BP Pulse Ox 04/08/19 08:15 78 198/99 H 04/08/19 08:00 63 04/08/19 07:44 36.6 C 68 20 198/77 H 95 04/08/19 05:57 185/83 H 04/08/19 04:27 36.6 C 63 18 185/80 H 95 04/08/19 00:43 73 Laboratory Results Short CBC 04/08/19 Range/Units 07:35 WBC 11.19 H (4.8-10.8) K/uL Hgb 13.1 L (14.0-18.0) g/dL Hct 38.0 L (42-52) % Plt Count 256 (130-400) K/uL BMP 04/08/19 07:35 Sodium 141 Potassium 3.5 Chloride 106 Carbon Dioxide 28 BUN 32 H Creatinine 1.88 H Glucose 101 H Calcium 9.0 Cardiac Enzymes 04/07/19 Range/Units 15:08 Troponin I 0.088 H* (0-0.045) ng/ml Medications Administered Current Inpatient Medications Acetaminophen (Tylenol) 500 mg PO Q6H PRN PRN Reason: Pain Stop: 05/06/19 14:19 Albuterol (Ventolin Hfa) 2 puffs INH Q6H PRN PRN Reason: Shortness Of Breath Or Wheezin Stop: 05/06/19 14:19 Amlodipine Besylate (Norvasc) 10 mg PO DAILY JT Stop: 05/07/19 08:59 Last Admin: 04/08/19 08:19 Dose: 10 mg Documented by: Aspirin (Aspirin Chew) 81 mg PO DAILY JT Stop: 05/07/19 08:59 Last Admin: 04/08/19 08:21 Dose: 81 mg Documented by: Digoxin (Lanoxin) 0.125 mg PO DAILY@1600 JT Stop: 05/07/19 15:59 Last Admin: 04/07/19 16:43 Dose: 0.125 mg Documented by: Diphenhydramine HCl (Benadryl Capsule) 25 mg PO UD PRN PRN Reason: swelling Stop: 05/06/19 14:19 Ferrous Sulfate (Feosol) 325 mg PO Q2D JT Stop: 05/06/19 14:19 Last Admin: 04/06/19 17:17 Dose: 325 mg Documented by: Fluticasone Propionate (Flovent Hfa 110mch) 2 puffs INH BID JT Stop: 05/06/19 20:59 Last Admin: 04/08/19 08:21 Dose: 2 puffs Documented by: Furosemide (Lasix) 20 mg PO QAM JT Stop: 05/07/19 08:59 Last Admin: 04/08/19 08:21 Dose: 20 mg Documented by: Hydralazine HCl (Apresoline) 10 mg PO Q8H PRN PRN Reason: SBP >170 Stop: 05/06/19 14:19 Last Admin: 04/08/19 04:26 Dose: 10 mg Documented by: Hydralazine HCl (Apresoline) 30 mg PO TID [facility] Stop: 05/08/19 13:59 Ipratropium [place] (Atrovent Nasal [place] 0.06%) 2 sprays NA QAM [facility] Stop: 05/07/19 08:59 Last Admin: 04/08/19 08:22 Dose: 2 sprays Documented by: Metoprolol Tartrate (Lopressor) 100 mg PO BID [facility] Stop: 05/08/19 07:14 Last Admin: 04/08/19 07:13 Dose: 100 mg Documented by: Montelukast Sodium (Singulair) 10 mg PO [facility] Stop: 05/06/19 20:59 Last Admin: 04/07/19 20:49 Dose: 10 mg Documented by: Multivitamins/Minerals (Multivitamin W/ Minerals Tab) 1 tab PO QAM [facility] Stop: 05/07/19 08:59 Last Admin: 04/08/19 08:19 Dose: 1 tab Documented by: Nitroglycerin (Nitrostat) 0.4 mg SL UD [facility] Stop: 05/06/19 14:19 Nitroglycerin (Nitro-Bid 2%) 1 inch EXT Q6H [facility] Stop: 05/06/19 17:59 Last Admin: 04/08/19 05:03 Dose: 1 inch Documented by: Ondansetron HCl (Zofran) 4 mg IV Q6H PRN PRN Reason: Nausea Stop: 05/06/19 14:19 Pantoprazole Sodium (Protonix) 40 mg PO DAILY [facility] Stop: 05/07/19 08:59 Last Admin: 04/08/19 08:19 Dose: 40 mg Documented by: Polyethylene Glycol (Miralax Powder Packet) 17 gm PO DAILY PRN PRN Reason: Constipation Stop: 05/06/19 14:19 Potassium Chloride (Klor-Con M20) 20 meq PO [facility] Stop: 05/06/19 20:59 Last Admin: 04/07/19 20:48 Dose: 20 meq Documented by: Pravastatin Sodium (Pravachol) 10 mg PO [facility] Stop: 05/06/19 20:59 Last Admin: 04/07/19 20:48 Dose: 10 mg Documented by: Terazosin HCl (Hytrin) 2 mg PO [facility] Stop: 05/08/19 20:59 Warfarin Sodium (Coumadin) 5 mg PO [facility]@1600 [facility] Stop: 05/06/19 15:59 Last Admin: 04/06/19 17:16 Dose: 5 mg Documented by: Warfarin Sodium (Coumadin) 2.5 mg PO SUMOWETHFR@1600 [facility] Stop: 05/07/19 15:59 Last Admin: 04/07/19 16:41 Dose: 2.5 mg Documented by:
[2019-04-08] MEDS: DIGOXIN 0.125 MG TAB PO SCH (15:32)
[2019-04-08] MEDS: WARFARIN SOD 5 MG TAB PO SCH (15:33)
[2019-04-08] MEDS: FERROUS SULFATE 325 MG TAB PO SCH (15:33)
[2019-04-08] MEDS: MONTELUKAST SODIUM 10 MG TABLET PO SCH (20:23)
[2019-04-08] MEDS: POTASSIUM CHLORIDE 20 MEQ TABCR PO SCH (20:24)
[2019-04-08] MEDS: PRAVASTATIN SOD 10 MG TAB PO SCH (20:24)
[2019-04-08] MEDS: TERAZOSIN HCL 1 MG CAP PO SCH (20:24)
[2019-04-09] MEDS: HydrALAZINE 10 MG TAB PO PRN (02:59)
[2019-04-09] MEDS: NITROGLYCERIN 2% OINTMENT 30GM TUBE EXT SCH ×3 (05:09→17:44)
[2019-04-09 06:15] LABS: Hematocrit (blood only) 35.9 % (42-52); Hemoglobin 12.2 g/dL (14.0-18.0); Mean Corpuscular Volume 85.3 fL (80-100); Mean Platelet Volume 9.8 fL (7.4-10.4); Platelet Count 218 K/uL (130-400); RDW Coefficient of Variation 14.8 % (11.5-14.5); Red Blood Count 4.21 M/uL (4.7-6.1)
[2019-04-09 06:24] LABS: INR 2.6 (0.9-1.1); Prothrombin Time 24.6 Seconds (9.0-12.0)
[2019-04-09 06:52] LABS: BUN Creatinine Ratio 17.4 (10-20); Calcium 8.4 mg/dl (8.5-10.1); Creatinine Clr Calc Pharmacy 22.5 ml/min; Est GFR (African American) 29.2; Est GFR (Non-African American) 25.2; Potassium 3.7 mmol/L (3.5-5.1)
[2019-04-09] MEDS: HydrALAZINE 10 MG TAB PO SCH ×3 (07:47→20:15)
[2019-04-09] MEDS: PANTOprazole 40 MG TAB PO SCH (07:48)
[2019-04-09] MEDS: IPRATROPIUM BROMIDE NASAL SPRAY 0.06% 15ML SCH (07:48)
[2019-04-09] MEDS: FLUTICASONE HFA 110MCG INHALER INH SCH ×2 (07:48→20:16)
[2019-04-09] MEDS: AMLODIPINE BESYLATE 5 MG TAB PO SCH (07:48)
[2019-04-09] MEDS: CEROVITE ADV FORMULA TAB PO SCH (07:48)
[2019-04-09] MEDS: METOPROLOL TARTRATE 100 MG TAB PO SCH (07:48)
[2019-04-09] MEDS: FUROSEMIDE 20 MG TAB PO SCH (07:48)
[2019-04-09] MEDS: ASPIRIN 81 MG CHEW PO SCH (07:48)
--- NOTE | 2019-04-09 08:57 | Hospitalist Progress Note ---
Date of Service April 09, 2019 Assessment & Plan (1) Acute on chronic renal failure: holding Lasix, repeat BMP in am. Chronic renal insufficiency. Avoid ACEI/ARB. (2) Hypertensive urgency: Continue Norvasc 10 mg daily, terazosin 2 mg p.o. nightly, hydralazine 30 mg p.o. 3 times daily. Will DC topical nitrate per Cards recs and monitor BP overnight. Current BP (1999) is 138 systolic. Increase hydralazine to 50 TID. (3) Chest pain: Resolved with no reoccurrences this admission, notable on topical nitrates this entire admission. Cont efforts to control BP. Of note, patient has expressed a desire to go home for the past two days. He is eating, ambulating and mentating at baseline and has been consistently asymptomatic. BP changes have resulted in some improvement in numbers, however, he is not consistently at goal. Increase hydralazine as above. Observe for pain off nitrates. (4) Demand ischemia: (5) Chronic atrial fibrillation: Lopressor reduced from 100 BID to 75 BID as bradycardia consistently noted on telemetry, digoxin, INR therapeutic. Cont warfarin. (6) Chronic ischemic heart disease: Cont home medications including ASA 81, Lopressor, Pravachol 10mg qHS. ACEI/ARB contraindicated in setting of CKD. (7) DVT prophylaxis: warfarin DNR/DNI Dispo-to home when BP controlled and Cardiology agrees with discharge. Elaina Renteria DO [facility] Hospitalist Subjective doing well, asymptomatic denies CP or SOB tolerating PO ambulatory no events on telemetry Review of Systems Review of Systems: All systems reviewed & are unremarkable except as noted in HPI & below Physical Exam Physical Exam: CONSTITUTIONAL: WNWD, vitals as above, generally well- appearing EYES: normal conjuctivae, no scleral icterus ENT: MMM RESPIRATORY: clear to auscultation bilaterally, no crackles, rales or wheezes, normal respiratory effort CARDIOVASCULAR: regular rate and rhythm, S1 and 2 heard without murmurs, gallops or rubs, no JVD, no peripheral edema CHEST: inspection of chest was normal GASTROINTESTINAL: soft, nontender, nondistended MUSCULOSKELETAL: strength 5/5 throughout, head is normocephalic and atraumatic SKIN: warm and dry NEUROLOGIC: No facial palsy, no dysarthria. CN 2-12 grossly intact, normal cognition, no tremor, no gross focal deficits. PSYCHIATRIC: alert cooperative and oriented Results & Data Vital Signs (Past 12 Hours) Vital Signs Temp Pulse Pulse Resp BP Pulse Ox 04/09/19 07:37 36.8 C 69 20 182/68 H 94 04/09/19 04:30 36.6 C 58 L 18 171/80 H 92 04/09/19 00:02 77 04/08/19 23:31 37 C 96 H 16 154/90 H 94 Laboratory Results Short CBC 04/09/19 Range/Units 06:03 WBC 9.60 (4.8-10.8) K/uL Hgb 12.2 L (14.0-18.0) g/dL Hct 35.9 L (42-52) % Plt Count 218 (130-400) K/uL BMP 04/09/19 06:03 Sodium 139 Potassium 3.7 Chloride 106 Carbon Dioxide 28 BUN 39 H Creatinine 2.23 H D Glucose 105 H Calcium 8.4 L Medications Administered Current Inpatient Medications Acetaminophen (Tylenol) 500 mg PO Q6H PRN PRN Reason: Pain Stop: 05/06/19 14:19 Albuterol (Ventolin Hfa) 2 puffs INH Q6H PRN PRN Reason: Shortness Of Breath Or Wheezin Stop: 05/06/19 14:19 Amlodipine Besylate (Norvasc) 10 mg PO DAILY JT Stop: 05/07/19 08:59 Last Admin: 04/09/19 07:48 Dose: 10 mg Documented by: Aspirin (Aspirin Chew) 81 mg PO DAILY JT Stop: 05/07/19 08:59 Last Admin: 04/09/19 07:48 Dose: 81 mg Documented by: Digoxin (Lanoxin) 0.125 mg PO DAILY@1600 JT Stop: 05/07/19 15:59 Last Admin: 04/08/19 15:32 Dose: 0.125 mg Documented by: Diphenhydramine HCl (Benadryl Capsule) 25 mg PO UD PRN PRN Reason: swelling Stop: 05/06/19 14:19 Ferrous Sulfate (Feosol) 325 mg PO Q2D JT Stop: 05/06/19 14:19 Last Admin: 04/08/19 15:33 Dose: 325 mg Documented by: Fluticasone Propionate (Flovent Hfa 110mch) 2 puffs INH BID [facility]T Stop: 05/06/19 20:59 Last Admin: 04/09/19 07:48 Dose: 2 puffs Documented by: Furosemide (Lasix) 20 mg PO QAM [facility] Stop: 05/07/19 08:59 Last Admin: 04/09/19 07:48 Dose: 20 mg Documented by: Hydralazine HCl (Apresoline) 10 mg PO Q8H PRN PRN Reason: SBP >170 Stop: 05/06/19 14:19 Last Admin: 04/09/19 02:59 Dose: 10 mg Documented by: Hydralazine HCl (Apresoline) 30 mg PO TID JT Stop: 05/08/19 13:59 Last Admin: 04/09/19 07:47 Dose: 30 mg Documented by: Ipratropium [place] (Atrovent Nasal [place] 0.06%) 2 sprays NA QAM [facility] Stop: 05/07/19 08:59 Last Admin: 04/09/19 07:48 Dose: 2 sprays Documented by: Metoprolol Tartrate (Lopressor) 100 mg PO BID [facility] Stop: 05/08/19 07:14 Last Admin: 04/09/19 07:48 Dose: 100 mg Documented by: Montelukast Sodium (Singulair) 10 mg PO HS [facility] Stop: 05/06/19 20:59 Last Admin: 04/08/19 20:23 Dose: 10 mg Documented by: Multivitamins/Minerals (Multivitamin W/ Minerals Tab) 1 tab PO QAM [facility] Stop: 05/07/19 08:59 Last Admin: 04/09/19 07:48 Dose: 1 tab Documented by: Nitroglycerin (Nitrostat) 0.4 mg SL UD [facility] Stop: 05/06/19 14:19 Nitroglycerin (Nitro-Bid 2%) 1 inch EXT Q6H JT Stop: 05/06/19 17:59 Last Admin: 04/09/19 05:09 Dose: 1 inch Documented by: Ondansetron HCl (Zofran) 4 mg IV Q6H PRN PRN Reason: Nausea Stop: 05/06/19 14:19 Pantoprazole Sodium (Protonix) 40 mg PO DAILY [facility]T Stop: 05/07/19 08:59 Last Admin: 04/09/19 07:48 Dose: 40 mg Documented by: Polyethylene Glycol (Miralax Powder Packet) 17 gm PO DAILY PRN PRN Reason: Constipation Stop: 05/06/19 14:19 Potassium Chloride (Klor-Con M20) 20 meq PO [facility] Stop: 05/06/19 20:59 Last Admin: 04/08/19 20:24 Dose: 20 meq Documented by: Pravastatin Sodium (Pravachol) 10 mg PO [facility] Stop: 05/06/19 20:59 Last Admin: 04/08/19 20:24 Dose: 10 mg Documented by: Terazosin HCl (Hytrin) 2 mg PO [facility] Stop: 05/08/19 20:59 Last Admin: 04/08/19 20:24 Dose: 2 mg Documented by: Warfarin Sodium (Coumadin) 5 mg PO [facility]@1600 [facility] Stop: 05/06/19 15:59 Last Admin: 04/06/19 17:16 Dose: 5 mg Documented by: Warfarin Sodium (Coumadin) 2.5 mg PO [place]OWETHFR@1600 [facility] Stop: 05/07/19 15:59 Last Admin: 04/08/19 15:33 Dose: 2.5 mg Documented by: (1) Acute on chronic renal failure Acute renal failure type: unspecified Chronic kidney disease stage: stage 4 (severe) Qualified Code(s): N17.9 - Acute kidney failure, unspecified; N18.4 - Chronic kidney disease, stage 4 (severe)
--- NOTE | 2019-04-09 12:11 | Cardiology Progress Note ---
Date of Service April 09, 2019 Assessment & Plan (1) Hypertensive urgency: Continue hydralazine to 30 mg 3 times daily and terazosin 2 mg nightly. Discontinue topical nitrates. Patient is not a candidate for MARK inhibitor or angiotensin receptor martinez with CKD stage 4. (2) Acute on chronic renal failure: Hold Lasix today. Encourage oral hydration. Repeat BMP in a.m. (3) Elevated troponin: Suspect related to hypertensive urgency in the setting of CKD stage IV. No regional wall motion abnormalities per echocardiogram. (4) TURPIN (dyspnea on exertion): Resolved. (5) Chronic atrial fibrillation: Rate controlled. Continue metoprolol and Coumadin. (6) Chronic ischemic heart disease: Subjective Patient seen and examined the bedside. Denies chest pain or shortness of breath. Atrial fibrillation with heart rates ranging from 50 to 65 bpm noted on telemetry. Denies lightens, dizziness, syncope, near syncope. Mild elevation of creatinine noted today. Tolerating new medications including hydralazine and terazosin. Anxious for discharge. Review of Systems Review of Systems: All systems reviewed & are unremarkable except as noted in HPI & below Physical Exam Physical Exam: General: NAD, AAO x3, well nourished. HEENT: Normocephalic. Atraumatic. Conjunctiva pink, no scleral icterus. Neck: No carotid bruits, the carotid upstrokes are brisk. No JVD. No HJR Heart: Irregular rhythm with a normal S1 and S2. Soft, 1/6 midsystolic murmur heard best at the left ventricular apex. PMI is not displaced. No RV heave. Lungs: Clear bilateral without rales , rhonchi, or wheeze. Abdomen: Normal bowel sounds. Soft. Nontender. No masses or organomegaly. No abdominal bruits. Extremities: No clubbing, cyanosis, or edema. Pulses: radial=2/4, posterior tibial=2/4. Neuro: Cranial nerves grossly intact. No focal motor deficit. Results & Data Vital Signs (Past 12 Hours) Vital Signs Temp Pulse Pulse Resp BP Pulse Ox 04/09/19 11:57 36.4 C L 55 L 18 176/77 H 95 04/09/19 08:00 58 L 04/09/19 07:37 36.8 C 69 20 182/68 H 94 04/09/19 04:30 36.6 C 58 L 18 171/80 H 92 Laboratory Results Laboratory Results - last 24 hr 04/09/19 04/09/19 04/09/19 06:03 06:03 06:03 WBC 9.60 RBC 4.21 L Hgb 12.2 L Hct 35.9 L MCV 85.3 MCH 29.0 MCHC 34.0 RDW Std Deviation 46.0 RDW Coeff of Ember 14.8 H Plt Count 218 MPV 9.8 PT 24.6 H INR 2.6 H Sodium 139 Potassium 3.7 Chloride 106 Carbon Dioxide 28 Anion Gap 5.0 BUN 39 H Creatinine 2.23 H D Est Cr Clr Drug Dosing 22.5 Est GFR ( Amer) 29.2 Est GFR (Non-Af Amer) 25.2 BUN/Creatinine Ratio 17.4 Glucose 105 H Calcium 8.4 L (1) Acute on chronic renal failure Acute renal failure type: unspecified Chronic kidney disease stage: stage 4 (severe) Qualified Code(s): N17.9 - Acute kidney failure, unspecified; N18.4 - Chronic kidney disease, stage 4 (severe)
[2019-04-09] MEDS ORDERED: TRAMADOL HCL 50 MG TABLET PO PRN (13:31)
[2019-04-09] MEDS ORDERED: TRAMADOL HCL 50 MG TABLET ONE (13:36)
[2019-04-09] MEDS: DIGOXIN 0.125 MG TAB PO SCH (16:02)
[2019-04-09] MEDS: WARFARIN SOD 5 MG TAB PO SCH (16:03)
[2019-04-09] MEDS: TERAZOSIN HCL 1 MG CAP PO SCH (20:16)
[2019-04-09] MEDS: POTASSIUM CHLORIDE 20 MEQ TABCR PO SCH (20:16)
[2019-04-09] MEDS: METOPROLOL TARTRATE 50 MG TAB PO SCH (20:17)
[2019-04-09] MEDS: PRAVASTATIN SOD 10 MG TAB PO SCH (20:17)
[2019-04-09] MEDS: MONTELUKAST SODIUM 10 MG TABLET PO SCH (20:18)
[2019-04-10 06:18] LABS: INR 2.6 (0.9-1.1); Prothrombin Time 25.1 Seconds (9.0-12.0)
[2019-04-10 06:42] LABS: BUN Creatinine Ratio 19.2 (10-20); Calcium 8.6 mg/dl (8.5-10.1); Creatinine Clr Calc Pharmacy 23.3 ml/min; Est GFR (African American) 30.5; Est GFR (Non-African American) 26.3
[2019-04-10] MEDS: HydrALAZINE TAB 50 MG TAB PO SCH ×2 (08:41→15:29)
[2019-04-10] MEDS: AMLODIPINE BESYLATE 5 MG TAB PO SCH (08:42)
[2019-04-10] MEDS: METOPROLOL TARTRATE 50 MG TAB PO SCH (08:42)
[2019-04-10] MEDS: CEROVITE ADV FORMULA TAB PO SCH (08:43)
[2019-04-10] MEDS: PANTOprazole 40 MG TAB PO SCH (08:43)
[2019-04-10] MEDS: ASPIRIN 81 MG CHEW PO SCH (08:43)
[2019-04-10] MEDS: FLUTICASONE HFA 110MCG INHALER INH SCH (08:45)
[2019-04-10] MEDS: IPRATROPIUM BROMIDE NASAL SPRAY 0.06% 15ML SCH (08:46)
--- NOTE | 2019-04-10 12:05 | Hospitalist Progress Note ---
Date of Service April 10, 2019 Assessment & Plan (1) Acute on chronic renal failure: holding Lasix, repeat BMP in am. Chronic renal insufficiency. Avoid ACEI/ARB. (2) Hypertensive urgency: Continue Norvasc 10 mg daily, terazosin 2 mg p.o. nightly, hydralazine 30 mg p.o. 3 times daily. Will DC topical nitrate per Cards recs and monitor BP overnight. Current BP (1999) is 138 systolic. Increase hydralazine to 50 TID. (3) Chest pain: Resolved with no reoccurrences this admission, notable on topical nitrates this entire admission. Cont efforts to control BP. Of note, patient has expressed a desire to go home for the past two days. He is eating, ambulating and mentating at baseline and has been consistently asymptomatic. BP changes have resulted in some improvement in numbers, however, he is not consistently at goal. Increase hydralazine as above. Observe for pain off nitrates. (4) Demand ischemia: (5) Chronic atrial fibrillation: Lopressor reduced from 100 BID to 75 BID as bradycardia consistently noted on telemetry, digoxin, INR therapeutic. Cont warfarin. (6) Chronic ischemic heart disease: Cont home medications including ASA 81, Lopressor, Pravachol 10mg qHS. ACEI/ARB contraindicated in setting of CKD. (7) DVT prophylaxis: warfarin DNR/DNI Dispo-to home when BP controlled and Cardiology agrees with discharge. Elaina Renteria DO [facility] Hospitalist Results & Data Vital Signs (Past 12 Hours) Vital Signs Temp Pulse Pulse Resp BP Pulse Ox 04/10/19 11:08 36.5 C 57 L 16 158/64 H 95 04/10/19 07:19 70 04/10/19 07:10 36.4 C L 69 18 166/86 H 92 04/10/19 04:08 36.4 C L 73 18 173/82 H 95 Laboratory Results BMP 04/10/19 05:51 Sodium 139 Potassium 4.0 Chloride 105 Carbon Dioxide 30 BUN 41 H Creatinine 2.15 H Glucose 104 H Calcium 8.6 Medications Administered Current Inpatient Medications Acetaminophen (Tylenol) 500 mg PO Q6H PRN PRN Reason: Pain Stop: 05/06/19 14:19 Last Admin: 04/09/19 16:08 Dose: 500 mg Documented by: Albuterol (Ventolin Hfa) 2 puffs INH Q6H PRN PRN Reason: Shortness Of Breath Or Wheezin Stop: 05/06/19 14:19 Amlodipine Besylate (Norvasc) 10 mg PO DAILY JT Stop: 05/07/19 08:59 Last Admin: 04/10/19 08:42 Dose: 10 mg Documented by: Aspirin (Aspirin Chew) 81 mg PO DAILY JT Stop: 05/07/19 08:59 Last Admin: 04/10/19 08:43 Dose: 81 mg Documented by: Digoxin (Lanoxin) 0.125 mg PO DAILY@1600 JT Stop: 05/07/19 15:59 Last Admin: 04/09/19 16:02 Dose: 0.125 mg Documented by: Diphenhydramine HCl (Benadryl Capsule) 25 mg PO UD PRN PRN Reason: swelling Stop: 05/06/19 14:19 Ferrous Sulfate (Feosol) 325 mg PO Q2D [facility] Stop: 05/06/19 14:19 Last Admin: 04/08/19 15:33 Dose: 325 mg Documented by: Fluticasone Propionate (Flovent Hfa 110mch) 2 puffs INH BID [facility] Stop: 05/06/19 20:59 Last Admin: 04/10/19 08:45 Dose: 2 puffs Documented by: Furosemide (Lasix) 20 mg PO QAM [facility] Stop: 05/07/19 08:59 Last Admin: 04/09/19 07:48 Dose: 20 mg Documented by: Hydralazine HCl (Apresoline) 50 mg PO TID [facility] Stop: 05/10/19 08:59 Last Admin: 04/10/19 08:41 Dose: 50 mg Documented by: Ipratropium [place] (Atrovent Nasal Fletcher 0.06%) 2 sprays NA QAM [facility] Stop: 05/07/19 08:59 Last Admin: 04/10/19 08:46 Dose: 2 sprays Documented by: Metoprolol Tartrate (Lopressor) 75 mg PO BID [facility] Stop: 05/09/19 20:59 Last Admin: 04/10/19 08:42 Dose: 75 mg Documented by: Montelukast Sodium (Singulair) 10 mg PO HS [facility] Stop: 05/06/19 20:59 Last Admin: 04/09/19 20:18 Dose: 10 mg Documented by: Multivitamins/Minerals (Multivitamin W/ Minerals Tab) 1 tab PO QAM [facility] Stop: 05/07/19 08:59 Last Admin: 04/10/19 08:43 Dose: 1 tab Documented by: Nitroglycerin (Nitrostat) 0.4 mg [facility] Stop: 05/06/19 14:19 Ondansetron HCl (Zofran) 4 mg IV Q6H PRN PRN Reason: Nausea Stop: 05/06/19 14:19 Pantoprazole Sodium (Protonix) 40 mg PO DAILY [facility] Stop: 05/07/19 08:59 Last Admin: 04/10/19 08:43 Dose: 40 mg Documented by: Polyethylene Glycol (Miralax Powder Packet) 17 gm PO DAILY PRN PRN Reason: Constipation Stop: 05/06/19 14:19 Potassium Chloride (Klor-Con M20) 20 meq PO [facility] Stop: 05/06/19 20:59 Last Admin: 04/09/19 20:16 Dose: 20 meq Documented by: Pravastatin Sodium (Pravachol) 10 mg PO [facility] Stop: 05/06/19 20:59 Last Admin: 04/09/19 20:17 Dose: 10 mg Documented by: Terazosin HCl (Hytrin) 2 mg PO [facility] Stop: 05/08/19 20:59 Last Admin: 04/09/19 20:16 Dose: 2 mg Documented by: Tramadol HCl (Ultram) 50 mg PO Q4H PRN PRN Reason: Pain Stop: 05/09/19 13:30 Last Admin: 04/09/19 17:43 Dose: 50 mg Documented by: Warfarin Sodium (Coumadin) 5 mg PO TUSA@1600 [facility] Stop: 05/06/19 15:59 Last Admin: 04/06/19 17:16 Dose: 5 mg Documented by: Warfarin Sodium (Coumadin) 2.5 mg PO SUMOWETHFR@1600 [facility] Stop: 05/07/19 15:59 Last Admin: 04/09/19 16:03 Dose: 2.5 mg Documented by: (1) Acute on chronic renal failure Acute renal failure type: unspecified Chronic kidney disease stage: stage 4 (severe) Qualified Code(s): N17.9 - Acute kidney failure, unspecified; N18.4 - Chronic kidney disease, stage 4 (severe)
[2019-04-10 15:04] VITALS: TEMP 97.3; O2SAT 94
--- NOTE | 2019-04-10 15:07 | Discharge Summary ---
Date of Service April 10, 2019 Admission HPI Per Admitting Provider This is an 79yo M with a PMH of HTN, chronic diastolic heart failure, chronic A Fib on coumadin, CKD III, asthma and other medical problems listed below who was sent over from PCP's office with intermittent chest pain x 1 month. Patient has been experiencing heaviness in chest for 5-10 minute episodes intermittently over the past month. Heaviness is associated with shortness of breath but is nonradiating and patient denies any diaphoresis, nausea or vomiting. Chest heaviness does not seem to occur in the setting of exertion patient has noticed it after eating meals as well as while sitting still watching TV. Denies any burning pain or reflux symptoms. Denies any history of [place]. Last episode of chest pain was yesterday. Also endorsing dark colored stool but does not know whether or not this is due to iron supplementation. Follows with Dr. Horn for chronic A Fib and diastolic HF. Echo from November 2015 with evidence of normal left ventricular ejection fraction, mild concentric left ventricular hypertrophy, aortic valve sclerosis without stenosis, mild aortic insufficiency and mild mitral regurgitation. Denies fever, chills, headache, lightheadedness, visual changes, palpitations, shortness of breath, abdominal pain, nausea, vomiting, dysuria, constipation or diarrhea. Admission Exam Per Admitting Provider General Appearance: WD/WN, no apparent distress, elderly gentleman resting comfortably Head: normocephalic, atraumatic Eyes: normal inspection, PERRL, EOMI ENT: hard of hearing, pharynx normal (moist mucous membranes) Neck: supple, no JVD, no adenopathy Respiratory/Chest: lungs clear to auscultation. No wheezes, rales or rhonci. No respiratory distress or accessory muscle use Cardiovascular: irregular rate & rhythm, no murmur, normal peripheral pulses, trace BLE edema Abdomen/GI: normal bowel sounds, soft, non-tender to palpation Extremities/Musculoskelatal: normal inspection, no calf tenderness, normal capillary refill Neurologic/Psych: alert, normal mood/affect, oriented x 3 Skin: normal color, warm/dry Principal Diagnosis Hypertensive urgency Atypical chest pain-resolved. Discharge Data Allergies Allergy/AdvReac Type Severity Reaction Status Date / Time lisinopril Allergy Severe tongue Verified 04/06/19 10:39 swelling latex Allergy Unknown RASH Verified 04/06/19 10:39 meclizine Allergy Unknown unknown Verified 04/06/19 10:39 niacin Allergy Unknown RASH Verified 04/06/19 10:39 sertraline AdvReac Severe Edema Unverified 04/06/19 10:39 face/lips/tongue clonidine [From Catapres] AdvReac Unknown Unknown Unverified 04/06/19 10:39 Consultations 04/06/19 12:05 ED Decision to Admit Stat 04/06/19 14:20 Consult Cardiology Routine Hospital Course (1) Acute on chronic renal failure: (2) Hypertensive urgency: (3) Chest pain: (4) Demand ischemia: (5) Chronic atrial fibrillation: (6) Chronic ischemic heart disease: 88-year-old man with a history of hypertension and chronic diastolic failure as well as chronic A. fib on Coumadin and CKD stage III presented to the hospital for intermittent chest pain x1 month. He was notably hypertensive on arrival with a blood pressure 181/107. He was admitted to the hospitalist service and cardiology was consulted. Cardiology thought hypertensive urgency was responsible for his intermittent pain and the patient admitted to excessive sodium intake on a regular basis. Topical nitrates and low-dose oral hydralazine were started. He was notably not fluid overloaded. 2D echocardiogram revealed an ejection fraction 60 to 65% with moderate concentric left ventricular hypertrophy and no regional wall motion abnormalities. There was mild valvular disease. Over the next several days his blood pressure remained high, and hydralazine and nitrates were adjusted to effect. It was noted that the patient was not a candidate for MARK inhibitor or angiotensin receptor martinez therapy with chronic renal insufficiency. Over the next couple days his blood pressure trended into the 150 systolic and there was no continued pain or dyspnea on exertion while admitted. There were also no events on telemetry while hospitalized. On day of discharge the patient was ablating at baseline, was mentating normally and was tolerating p.o. He was asymptomatic. Physical exam was unremarkable. He was discharged in stable condition with close primary care follow-up recommended with adjustments in blood pressure medications per medication discharge list. While hospitalized heart rate was too low and Lopressor 100 mg p.o. twice daily was reduced to 75 mg p.o. twice daily. Also, a mildly elevated troponin while hospitalized was thought se condary to demand ischemia as opposed to ACS. Total Time Total Time Spent Total Time Spent (In Minutes): 60 Total Time Includes: Examination of the Patient, Discharge Planning, Medication Reconciliation and Communication With Other Providers Discharge Plan Discharge Items Patient Disposition: Home - Self-Care Reason For Visit: CHEST PAIN Discharge Diagnosis: Hypertensive urgency Atypical chest pain-resolved. Condition: Good Discharge Goals: Improve disease control Activity: Resume your previous activity Non-emergency contact: Primary Care Provider Call non-emergency contact if: you have any medication questions, your symptoms worsen, your pain is not controlled and you have a fever Follow-up/Referrals: Seymour Hoff MD [Primary Care Provider] - Diet: Low Sodium (2gm) Addtl Provider Instructions: Please take all medications as instructed on discharge list below. It is recommended that you follow-up with primary care within 1 week of discharge to for recheck of blood pressure and to ensure you are still doing well. Someone from our hospital staff will contact you on Friday regarding time and date for this appointment. It was a pleasure taking care of you! Please call if you have any questions or problems. You can reach a [facility] hospitalist on duty at [facility] 24 hours a day by calling [phone]. Take care of yourself. Elaina Renteria, DO [facility] Hospitalist Prescriptions: New metoprolol tartrate 50 mg Tablet 75 mg PO BID Qty: 60 RF: 1 hydralazine 50 mg Tablet 50 mg PO TID Qty: 90 RF: 1 terazosin 1 mg Capsule 2 mg PO HS Qty: 30 RF: 1 Continued prednisone 20 mg tablet 40 mg PO UD RF: 0 acetaminophen [Tylenol Extra Strength] 500 mg Tablet 500 mg PO Q6H PRN (Reason: Pain) RF: 0 pravastatin 10 mg tablet 10 mg PO HS RF: 0 amlodipine 10 mg tablet 10 mg PO DAILY RF: 0 diphenhydramine HCl 25 mg Capsule 25 mg PO UD PRN (Reason: swelling) RF: 0 ferrous sulfate 325 mg (65 mg iron) Tablet 325 mg PO Q2D RF: 0 warfarin 5 mg tablet 2.5 mg PO SUMOWETHFR@1600 RF: 0 warfarin 5 mg tablet 5 mg PO TUSA@1600 RF: 0 nitroglycerin 0.4 mg tablet, sublingual 0.4 mg sublingual UD RF: 0 omeprazole 20 mg capsule,delayed release(DR/EC) 20 - 40 mg PO DAILY RF: 0 aspirin 81 mg Tablet,Chewable 81 mg PO DAILY RF: 0 montelukast 10 mg tablet 10 mg PO HS RF: 0 digoxin [Digitek] 125 mcg tablet 125 mcg PO DAILY RF: 0 albuterol sulfate [Ventolin HFA] 90 mcg/actuation Hfa Aerosol Inhaler 2 puff INHALATION Q6H PRN (Reason: Shortness Of Breath Or Wheezing) RF: 0 ipratropium bromide 42 mcg (0.06 %) spray,non-aerosol 2 spray intranasal QAM RF: 0 Flovent HFA 110 mcg/actuation HFA aerosol inhaler 2 puff inhalation BID RF: 0 PreserVision AREDS-2 [phone] [id number]-mg Capsule 1 tab PO QAM RF: 0 Discontinued metoprolol tartrate 100 mg tablet 100 mg PO BID RF: 0 potassium chloride 20 mEq tablet,ER particles/crystals 20 meq PO HS RF: 0 furosemide 20 mg tablet 20 mg PO QAM RF: 0 Stand-Alone Forms: [facility] Discharge Orders: Discharge Order (Routine); Ordered 04/10/19 Ordered By: Elaina Renteria Admission Data Admit Date/Time: 04/07/19 14:15 Attending Provider: Elaina Renteria Admit Provider: Mikie Lindo Primary Care Provider: Seymour Hoff Other Providers: Patrice Esparza Service: Telemetry Medical Other Interventions: Discharge Summary Assessment (RN) Last Done: 04/10/19 15:36 DC Date/Time DO NOT enter until pt leaves facility: 04/10/19 16:10
[2019-04-10 15:28] VITALS: BP 163/52; PULSE 91
--- NOTE | 2019-04-10 15:28 | Cardiology Progress Note ---
Date of Service April 10, 2019 Assessment & Plan (1) Hypertensive urgency: Continue current medical therapies as prescribed there is room to increase terazosin further post hospital discharge will need close clinical follow-up. Renal function appears to have plateaued (2) Elevated troponin: Suspect related to hypertensive urgency in the setting of CKD stage IV. No regional wall motion abnormalities per echocardiogram. Renal function appears to have plateaued (3) TURPIN (dyspnea on exertion): Resolved. (4) Chronic atrial fibrillation: Rate controlled. Continue metoprolol and Coumadin. (5) Chronic ischemic heart disease: (6) CKD (chronic kidney disease), stage III: Creatinine at baseline. Continue to monitor. Subjective . No fevers chills or sweats. No headache or visual changes. Patient seen and examined, chart medications telemetry reviewed. Feels very well today without complaints. No dizziness or lightheadedness. Blood pressures are trending towards better control Physical Exam Constitutional: WD/WN, vitals as above Eyes: PERRL, conjunctivae normal, anicteric sclerae ENMT: external ear and nose normal, oropharynx normal Neck: trachea midline, no thyromegaly Respiratory: normal respiratory effort, lungs clear to auscultation Cardiovascular: Rate/Rhythm: + irregularly irregular Heart Sounds: + murmur; no gallop Gastrointestinal (Abdomen): normal bowel sounds, soft, nontender, no hepatosplenomegaly Neurologic: PERRL, EOMI, accommodation nl, no face palsy, no dysarthria Results & Data Vital Signs (Past 12 Hours) Vital Signs Temp Pulse Pulse Resp BP Pulse Ox 04/10/19 15:05 65 04/10/19 15:03 36.3 C L 77 16 173/75 H 94 04/10/19 11:08 36.5 C 57 L 16 158/64 H 95 04/10/19 07:19 70 04/10/19 07:10 36.4 C L 69 18 166/86 H 92 04/10/19 04:08 36.4 C L 73 18 173/82 H 95
[2019-04-10] MEDS: FERROUS SULFATE 325 MG TAB PO SCH (15:30)
[2019-04-10] MEDS: WARFARIN SOD 5 MG TAB PO SCH (15:40)
[2019-04-10] MEDS: DIGOXIN 0.125 MG TAB PO SCH (15:41)
== END 2019-04-10 16:10 | disposition home or self-care (01) | DRG 305 ==
LOC: ED 10:03 → 2N 10:03 → SUATTDRO 13:37 → 2N 13:57
DX: N17.9 Acute kidney failure, unspecified; I24.8 Other forms of acute ischemic heart disease; I50.32 Chronic diastolic (congestive) heart failure; Z66 Do not resuscitate; Z91.040 Latex allergy status; J45.909 Unspecified asthma, uncomplicated; Z79.01 Long term (current) use of anticoagulants; I16.0 Hypertensive urgency; I25.10 Atherosclerotic heart disease of native coronary artery without angina pectoris; I48.2 Chronic atrial fibrillation; Z79.82 Long term (current) use of aspirin; E78.5 Hyperlipidemia, unspecified; Z51.81 Encounter for therapeutic drug level monitoring; Z79.52 Long term (current) use of systemic steroids; Z79.899 Other long term (current) drug therapy; I13.0 Hypertensive heart and chronic kidney disease with heart failure and stage 1 through stage 4 chronic kidney disease, or unspecified chronic kidney disease; D63.1 Anemia in chronic kidney disease; Z88.8 Allergy status to other drugs, medicaments and biological substances; N18.3 Chronic kidney disease, stage 3 (moderate)

== ENCOUNTER 2019-04-18 16:41 | Inpatient (IN) ==
[2019-04-18] MEDS ORDERED: NITROGLYCERIN SL 0.4 MG/TAB TAB ONE (17:05)
[2019-04-18] MEDS: NITROGLYCERIN SL 0.4 MG/TAB TAB SL PRN (17:08)
[2019-04-18 17:21] LABS: Basophils # (auto) 0.03 K/uL (0-0.2); Basophils % (auto) 0.2 %; Eosinophils # (auto) 0.02 K/uL (0-0.5); Eosinophils % (auto) 0.1 %; Hematocrit (blood only) 35.3 % (42-52); Hemoglobin 12.3 g/dL (14.0-18.0); Immature Granulocytes # (auto) 0.04 K/uL (0.00-0.02); Immature Granulocytes % (auto) 0.3 %; Lymphocytes # (auto) 1.76 K/uL (1.2-3.4); Mean Corpuscular Hgb Conc 34.8 g/dL (32-36); Mean Corpuscular Volume 84.4 fL (80-100); Mean Platelet Volume 10.5 fL (7.4-10.4); Monocytes # (auto) 1.37 K/uL (0.11-0.59); Monocytes % (auto) 9.4 %; Neutrophils # (auto) 11.41 K/uL (1.4-6.5); Platelet Count 291 K/uL (130-400); RDW Coefficient of Variation 14.4 % (11.5-14.5); RDW Standard Deviation 44.7 fL (36.4-46.3); Red Blood Count 4.18 M/uL (4.7-6.1); White Blood Count 14.63 K/uL (4.8-10.8)
[2019-04-18 17:38] LABS: INR 1.9 (0.9-1.1); Partial Thromboplastin Ratio 1.3; Prothrombin Time 18.2 Seconds (9.0-12.0)
[2019-04-18 17:39] LABS: Albumin Level 3.4 gm/dl (3.4-5.0); BUN Creatinine Ratio 15.3 (10-20); Calcium 9.1 mg/dl (8.5-10.1); Creatinine Clr Calc Pharmacy 30.4 ml/min; Est GFR (African American) 38.1; Est GFR (Non-African American) 32.9; Potassium 3.7 mmol/L (3.5-5.1)
--- NOTE | 2019-04-18 17:41 | XRay Report ---
XR chest 1V portable HISTORY: Short of breath. Atypical chest pain. COMPARISON: Chest 04/06/2019. FINDINGS: No pneumothorax. The heart remains enlarged. Progressive interstitial thickening most prono unced at the right lung base. Trace right pleural effusion. IMPRESSION: Progressive interstitial thickening most pronounced at the right lung base. This may represent develo ping pulmonary edema. There is also a trace right pleural effusion. Electronically signed by: Altaf Gandara M.D. 04/18/2019 5:39 PM
[2019-04-18 17:42] LABS: Albumin Globulin Ratio 0.7 (0.9-2); Bilirubin,Total 0.6 mg/dl (0.2-1); Globulin 4.9 gm/dl (2.5-4.0); Total Protein 8.3 gm/dl (6.4-8.2)
[2019-04-18] MEDS ORDERED: ASPIRIN 81 MG CHEW PO STA (17:49)
[2019-04-18] MEDS ORDERED: NITROGLYCERIN 2% OINTMENT 30GM TUBE EXT ONE (17:49)
--- NOTE | 2019-04-18 18:27 | Emergency Department Note ---
Entered by Collette Jimenes acting as a scribe for Patrice Valencia MD History of Present Illness General Chief complaint: Shortness of Breath/Dyspnea Stated complaint: SHORT OF BREATH - EXTREME TIREDNESS Source: patient and family (daughter) History of Present Illness Provider complaint: shortness of breath Onset (ago): day(s) 5 Location: chest Pain Consistency: + other (worsening) Relieved By: + medication (nitroglycerine) Exacerbated By: + other (laying down) Associated symptoms: + chest pain Treatments prior to arrival: none (nitroglycerine) The patient is a 88 year old male who presents to the Emergency Room with complaints of worsening shortness of breath. Per the daughter, the patient's shortness of breath had started 5 days ago and worsened since then. She states that on Friday the patient was her for shortness of breath and chest pain where he was discharged. She states that the patient was prescribed Hydralazine and Terazosin. She reports that his PCP reduced his dose of hydralazine and discontinued his Terazosin, because his conditions did not improve. She states that the patient has been experiencing fatigue. The patient reports that he is experiencing 8/10 chest pain that feels like pressure that is in the middle of his chest and radiates to his neck. He states is been pretty much having this chest pain since he was admitted. He states that laying down and deep breaths worsens his breathing. The patient reports taking a nitroglycerine which all eviated the pain temporarily, but denies any Asprin prior to visit. The daughter states that the patient has a history of hypertension, chronic obstructive pulmonary disorder, and that he has never had an asthma attack. Home Medications Home Medications Medication Instructions Recorded Confirmed Type Flovent HFA 2 puff INHALATION BID 04/06/19 04/18/19 History PreserVision AREDS-2 1 tab PO QAM 04/06/19 04/18/19 History acetaminophen [Tylenol Extra 500 mg PO Q6H PRN 04/06/19 04/18/19 History Strength] albuterol sulfate [Ventolin HFA] 2 puff INHALATION Q6H PRN 04/06/19 04/18/19 History amlodipine 10 mg PO QAM 04/06/19 04/18/19 History digoxin [Digitek] 125 mcg PO QAM 04/06/19 04/18/19 History diphenhydramine HCl 25 mg PO UD PRN 04/06/19 04/18/19 History ferrous sulfate 325 mg PO Q2D 04/06/19 04/18/19 History ipratropium bromide 2 spray INTRANASAL QID PRN 04/06/19 04/18/19 History montelukast 10 mg PO HS 04/06/19 04/18/19 History nitroglycerin 0.4 mg SUBLINGUAL UD 04/06/19 04/18/19 History omeprazole 20 mg PO HS 04/06/19 04/18/19 History pravastatin 10 mg PO HS 04/06/19 04/18/19 History prednisone 40 mg PO UD 04/06/19 04/18/19 History warfarin 2.5 mg PO SUMOWETHFR@1600 04/06/19 04/18/19 History warfarin 5 mg PO TUSA@1600 04/06/19 04/18/19 History metoprolol tartrate 75 mg PO BID #60 tab 04/10/19 04/18/19 Rx aspirin 81 mg PO DAILY 04/18/19 04/18/19 History furosemide 20 mg PO QAM 04/18/19 04/18/19 History hydralazine 25 mg PO TID 04/18/19 04/18/19 History lidocaine [Lidocaine Pain Relief] 1 patch TOPICAL DAILY 04/18/19 04/18/19 History multivitamin 1 tab PO QAM 04/18/19 04/18/19 History potassium chloride 10 meq PO QAM 04/18/19 04/18/19 History Allergies Allergy/AdvReac Type Severity Reaction Status Date / Time lisinopril Allergy Severe tongue Verified 04/18/19 17:55 swelling latex Allergy Unknown RASH Verified 04/18/19 17:55 meclizine Allergy Unknown unknown Verified 04/18/19 17:55 niacin Allergy Unknown RASH Verified 04/18/19 17:55 sertraline AdvReac Severe Edema Unverified 04/18/19 17:55 face/lips/tongue clonidine [From Catapres] AdvReac Unknown Unknown Unverified 04/18/19 17:55 Past Med/Surg History Medical History CKD (chronic kidney disease), stage III (Chronic) MGUS (monoclonal gammopathy of unknown significance) (Chronic) Anemia (Chronic) Chronic ischemic heart disease (Chronic) Asthma (Chronic) Depression (Chronic) Dyslipidemia (Chronic) HTN (hypertension) (Chronic) Chronic atrial fibrillation (Chronic) Surgical History History of inguinal hernia repair, bilateral (Chronic) Hx of cataract surgery (Chronic) Family History Other Heart disease Social History Preferred Language: Tristanian Communication Ability: Effective Visual Impairment: No Limitations Hearing Ability: Normal Beliefs That Will Affect Care: None Current Living Situation: Family Feels Safe at Home: Yes Smoking Status: Never smoker Hx Alcohol Use: Yes Hx Substance Use: No Review of Systems See HPI for pertinent positives & negatives. and A total of 10 systems reviewed and were otherwise negative Physical Exam Vital Signs Vital Signs - 24 hr 04/18/19 16:41 04/18/19 16:49 04/18/19 17:04 Temperature 36.8 C Temperature Source Oral Sepsis Recent Fever Within 48 Hours No Sepsis New/Unexplained Change in Mental Status No Sepsis Action Taken by Nursing No Action Required Pulse Rate 95 H Pulse Rate [Right Finger] 97 H Pulse Rhythm Respiratory Rate 21 18 Respiratory Effort / Characteristics Non-Labored Spontaneous Respiratory Depth Normal Respiratory Pattern Regular Blood Pressure 191/82 H Blood Pressure [Right Arm] 166/90 H Blood Pressure Mean 118 Blood Pressure Mean [Right Arm] 115 Blood Pressure Position Sitting Blood Pressure Position [Right Arm] Lying Pulse Oximetry 97 92 96 Oxygen Delivery Method Nasal Cannula Room Air Nasal Cannula Oxygen Flow Rate 2 2 04/18/19 17:08 04/18/19 17:11 Temperature Temperature Source Sepsis Recent Fever Within 48 Hours Sepsis New/Unexplained Change in Mental Status Sepsis Action Taken by Nursing Pulse Rate 95 H Pulse Rate [Right Finger] Pulse Rhythm Irregular Respiratory Rate 20 Respiratory Effort / Characteristics Respiratory Depth Respiratory Pattern Blood Pressure Blood Pressure [Right Arm] Blood Pressure Mean Blood Pressure Mean [Right Arm] Blood Pressure Position Blood Pressure Position [Right Arm] Pulse Oximetry 96 Oxygen Delivery Method Nasal Cannula Nasal Cannula Oxygen Flow Rate 2 2 Constitutional: Vital signs reviewed. Eyes: Pupils are equal round reactive to light. Conjunctiva are noninjected. ENT: Pharynx is clear without erythema or exudate. Mucous membranes are moist. Neck supple without meningeal signs. Respiratory: Clear to auscultation bilaterally. Breath sounds are equal bilaterally. Cardiovascular: Regular rate and rhythm. No rubs or gallops. GI: Soft, nondistended and nontender. Bowel sounds are present. Musculoskeletal: No peripheral edema. No lower extremity tenderness. Integumentary: No cyanosis. Neurological: The patient is awake and alert. No focal deficits. Psychiatric: Normal affect. Course 165: The patient was evaluated in room C10, and a complete history and physical examination were performed. 1712: i reevaluated the patient and he is currently experiencing 4/10 chest pain now after nitroglycerine dosage. 1717: I reevaluated the patient and he states that he is chest pain free after second dose of nitroglycerine. 1748: I discussed the patient's case with Dr. Toan Morales, where she recommended to give him nitroglycerine paste and keep his blood pressure under control. She also recommended that the patient be further german luated by a hospitalist 1752: I reevaluated the patient and he is currently stiil chest pain free. 1756: I discussed the patient's case with Noris Morales and the patient will be further reevaluated by Dr. Sarah Morales. Administered Medications Nitroglycerin (Nitrostat) 0.4 mg SL UD PRN PRN Reason: Chest Pain Stop: 05/18/19 17:03 Last Admin: 04/18/19 17:08 Dose: 0.4 mg Documented by: [id number] Discontinued Medications Aspirin (Aspirin Chew) 81 mg PO NOW STA Stop: 04/18/19 17:50 Last Admin: 04/18/19 18:21 Dose: 81 mg Documented by: [id number] Nitroglycerin (Nitrostat) Confirm Administered Dose 0.4 mg .ROUTE .STK-MED ONE Stop: 04/18/19 17:06 Last Admin: 04/18/19 17:08 Dose: Not Given Documented by: [id number] Nitroglycerin (Nitro-Bid 2%) 0.5 inch EXT NOW ONE Stop: 04/18/19 17:50 Last Admin: 04/18/19 18:21 Dose: 0.5 inch Documented by: [id number] Medical Decision Making Differential Diagnosis Differentials include unstable angina, congested heart disease, pulmonary edema, and pneumonia. Medical Records I did perform a limited focused review of portions of the patient's old chart on the electronic medical record. The patient was admitted on April 07 and discharged on that for chest pain and shortness of breath. The patient had light elevated troponin and it was thought to be demand ischemia and not IVS. Home Medications Current Medication List: was personally reviewed by me Laboratory Data Attestation: I reviewed the patient's lab results. Result diagrams: 04/18/19 17:04 04/18/19 17:04 Lab Results 04/18/19 04/18/19 04/18/19 Range/Units 17:04 17:04 17:04 WBC 14.63 H (4.8-10.8) K/uL RBC 4.18 L (4.7-6.1) M/uL Hgb 12.3 L (14.0-18.0) g/dL Hct 35.3 L (42-52) % MCV 84.4 (80-100) fL MCH 29.4 (25-34) pg MCHC 34.8 (32-36) g/dL RDW Std Deviation 44.7 (36.4-46.3) fL RDW Coeff of Ember 14.4 (11.5-14.5) % Plt Count 291 (130-400) K/uL MPV 10.5 H (7.4-10.4) fL Immature Gran % (Auto) 0.3 % Neut % (Auto) 78.0 % Lymph % (Auto) 12.0 % [place] % (Auto) 9.4 % Eos % (Auto) 0.1 % Baso % (Auto) 0.2 % Immature Gran # (Auto) 0.04 H (0.00-0.02) K/uL Neut # (Auto) 11.41 H (1.4-6.5) K/uL Lymph # (Auto) 1.76 (1.2-3.4) K/uL [place] # (Auto) 1.37 H (0.11-0.59) K/uL Eos # (Auto) 0.02 (0-0.5) K/uL Baso # (Auto) 0.03 (0-0.2) K/uL PT 18.2 H (9.0-12.0) Seconds INR 1.9 H (0.9-1.1) APTT 36.0 H (21.0-31.0) Seconds PTT Ratio 1.3 Sodium 141 (136-145) mmol/L Potassium 3.7 (3.5-5.1) mmol/L Chloride 103 (98-107) mmol/L Carbon Dioxide 27 (21-32) mmol/L Anion Gap 11.0 (3-11) BUN 27 H (7-18) mg/dl Creatinine 1.79 H (0.6-1.4) mg/dl Est Cr Clr Drug Dosing 30.4 ml/min Est GFR ( Amer) 38.1 Est GFR (Non-Af Amer) 32.9 BUN/Creatinine Ratio 15.3 (10-20) Glucose 117 H (70-99) mg/dl Calcium 9.1 (8.5-10.1) mg/dl Total Bilirubin 0.6 (0.2-1) mg/dl AST 19 (15-37) U/L ALT 17 (12-78) U/L Alkaline Phosphatase 68 (45-117) U/L POC Troponin I (0-0.045) ng/ml Total Protein 8.3 H (6.4-8.2) gm/dl Albumin 3.4 (3.4-5.0) gm/dl Globulin 4.9 H (2.5-4.0) gm/dl Albumin/Globulin Ratio 0.7 L (0.9-2) //19 Range/Units 17:24 WBC (4.8-10.8) K/uL RBC (4.7-6.1) M/uL Hgb (14.0-18.0) g/dL Hct (42-52) % MCV (80-100) fL MCH (25-34) pg MCHC (32-36) g/dL RDW Std Deviation (36.4-46.3) fL RDW Coeff of Ember (11.5-14.5) % Plt Count (130-400) K/uL MPV (7.4-10.4) fL Immature Gran % (Auto) % Neut % (Auto) % Lymph % (Auto) % [place] % (Auto) % Eos % (Auto) % Baso % (Auto) % Immature Gran # (Auto) (0.00-0.02) K/uL Neut # (Auto) (1.4-6.5) K/uL Lymph # (Auto) (1.2-3.4) K/uL [place] # (Auto) (0.11-0.59) K/uL Eos # (Auto) (0-0.5) K/uL Baso # (Auto) (0-0.2) K/uL PT (9.0-12.0) Seconds INR (0.9-1.1) APTT (21.0-31.0) Seconds PTT Ratio Sodium (136-145) mmol/L Potassium (3.5-5.1) mmol/L Chloride (98-107) mmol/L Carbon Dioxide (21-32) mmol/L Anion Gap (3-11) BUN (7-18) mg/dl Creatinine (0.6-1.4) mg/dl Est Cr Clr Drug Dosing ml/min Est GFR ( Amer) Est GFR (Non-Af Amer) BUN/Creatinine Ratio (10-20) Glucose (70-99) mg/dl Calcium (8.5-10.1) mg/dl Total Bilirubin (0.2-1) mg/dl AST (15-37) U/L ALT (12-78) U/L Alkaline Phosphatase (45-117) U/L POC Troponin I 0.40 H (0-0.045) ng/ml Total Protein (6.4-8.2) gm/dl Albumin (3.4-5.0) gm/dl Globulin (2.5-4.0) gm/dl Albumin/Globulin Ratio (0.9-2) Imaging Data Radiologist's Impression: Radiology results as stated below per my review and the radiologist's interpretation: XR chest 1V portable HISTORY: Short of breath. Atypical chest pain. COMPARISON: Chest 04/06/2019. FINDINGS: No pneumothorax. The heart remains enlarged. Progressive interstitial thickening most pronounced at the right lung base. Trace right pleural effusion. IMPRESSION: Progressive interstitial thickening most pronounced at the right lung base. This may represent developing pulmonary edema. There is also a trace right pleural effusion. Electronically signed by: Altaf Gandara M.D. 04/18/2019 5:39 PM ECG Data Attestation: I personally reviewed and interpreted this ECG as follows: Indication: SOB/dyspnea Rate (beats per minute): 87 Rhythm: atrial fibrillation Findings: + ST depression (deep ST depression in the V3 and V6, depressed in 1 in AVR) and + ST elevation (slight in the AVR) Additional Comments: Repeat EKG after first nitroglycerine dosage: Atrial fibrillation. BPM: 90. Improved ST depression in in anterior lateral waves. Mild ST elevation in AVR. Blood Pressure Blood Pressure Findings: Elevated blood pressure MDM Narrative I did evaluate the patient as noted above. The patient is presenting with act drew chest pain and shortness of breath. IV access was established. The patient was placed on a continuous cardiac tech. I did treat him with sublingual nitroglycerin. I did order and personally review the patient's 12-lead EKG as described above. He has significant ST depressions in leads V3 to V6 as well as some depression in 1 and aVL and slight ST elevation in aVR. I did repeat an EKG after 2 sublingual nitroglycerin. He had significant improvement of his ST depressions. He was chest pain-free after 2 sublingual nitroglycerin. I did give him aspirin. He is on Coumadin and so I did not put him on IV heparin. I did order and personally reviewed the images of the patient's chest x-ray as described above. He has a trace pleural effusion. I did order and review the patient's blood work as noted in the electronic medical record. Creatinine is chronically elevated. Troponin is bumped at 0.4 which is increased from his previous admission. I did discuss the case with Dr. Mccoy of cardiology. He recommended patient be placed on nitroglycerin paste to control his blood pr essure and admitted to the hospitalist. I did discuss the case with the hospitalist and case aide. I did reassess the patient. He is not having any chest discomfort and his blood pressure is in the 130s systolic. Impression & Plan Acute coronary syndrome, CKD (chronic kidney disease), stage III, Subtherapeutic international normalized ratio (INR) Critical Care Time I have personally spent 35 minutes of critical care time in the direct management of this patient. This includes bedside care, interpretation of diagnostic studies, and testing, discussion with consultants, patient, and family members, and other required patient management activities. This 35 minutes is in excess of all separately billable procedures. Critical Care Time: Yes Total Critical Care Time: 35 Discharge Plan Visit Data Chief Complaint: Shortness of Breath/Dyspnea Stated Complaint: SHORT OF BREATH - EXTREME TIREDNESS ED Provider: Patrice Valencia Discharge Problem: Acute coronary syndrome, CKD (chronic kidney disease), stage III, Subtherapeutic international normalized ratio (INR) Patient Disposition: Being Evaluated by Hospitalist Forms Stand Alone Forms: [facility] Prescriptions Prescriptions: No Action prednisone 20 mg tablet 40 mg PO UD RF: 0 acetaminophen [Tylenol Extra Strength] 500 mg Tablet 500 mg PO Q6H PRN (Reason: Pain) RF: 0 pravastatin 10 mg tablet 10 mg PO HS RF: 0 amlodipine 10 mg tablet 10 mg PO QAM RF: 0 diphenhydramine HCl 25 mg Capsule 25 mg PO UD PRN (Reason: swelling) RF: 0 ferrous sulfate 325 mg (65 mg iron) Tablet 325 mg PO Q2D RF: 0 warfarin 5 mg tablet 2.5 mg PO SUMOWETHFR@1600 RF: 0 warfarin 5 mg tablet 5 mg PO TUSA@1600 RF: 0 nitroglycerin 0.4 mg tablet, sublingual 0.4 mg sublingual UD RF: 0 omeprazole 20 mg capsule,delayed release(DR/EC) 20 mg PO HS RF: 0 montelukast 10 mg tablet 10 mg PO HS RF: 0 digoxin [Digitek] 125 mcg tablet 125 mcg PO QAM RF: 0 albuterol sulfate [Ventolin HFA] 90 mcg/actuation Hfa Aerosol Inhaler 2 puff INHALATION Q6H PRN (Reason: Shortness Of Breath Or Wheezing) RF: 0 ipratropium bromide 42 mcg (0.06 %) spray,non-aerosol 2 spray intranasal QID PRN (Reason: Congestion) RF: 0 Flovent HFA 110 mcg/actuation HFA aerosol inhaler 2 puff inhalation BID RF: 0 PreserVision AREDS-2 [id number] Capsule 1 tab PO QAM RF: 0 metoprolol tartrate 50 mg Tablet 75 mg PO BID Qty: 60 RF: 1 multivitamin Tablet 1 tab PO QAM RF: 0 potassium chloride 10 mEq capsule, extended release 10 meq PO QAM RF: 0 Lidocaine Pain Relief 4 % Adhesive Patch,Medicated 1 patch TOPICAL DAILY RF: 0 hydralazine 25 mg Tablet 25 mg PO TID RF: 0 aspirin 81 mg Tablet,Chewable 81 mg PO DAILY RF: 0 furosemide 20 mg tablet 20 mg PO QAM RF: 0 Referrals Referrals: Seymour Hoff MD [Primary Care Provider] - The scribe's documentation has been prepared under my direction and personally reviewed by me in its entirety. I confirm that the note above accurately reflects all work, treatment, procedures, and medical decision making performed by me.
[2019-04-18] MEDS ORDERED: NITROGLYCERIN 2% OINTMENT 30GM TUBE EXT SCH (19:15)
[2019-04-18] MEDS ORDERED: NITROGLYCERIN SL 0.4 MG/TAB TAB SL SCH (19:40)
[2019-04-18] MEDS ORDERED: ALUMINUM/MAGNESIUM SUSP 30 ML UDC PO PRN (19:40)
[2019-04-18] MEDS ORDERED: ONDANSETRON INJ 2 MG/ML 2 ML VIAL IV PRN (19:40)
[2019-04-18] MEDS ORDERED: predniSONE 20 MG TAB PO PRN (19:40)
[2019-04-18] MEDS ORDERED: ACETAMINOPHEN 325 MG TAB PO PRN (19:40)
[2019-04-18] MEDS ORDERED: MAGNESIUM HYDROXIDE SUSP 30 ML UDC PO PRN (19:40)
[2019-04-18] MEDS ORDERED: ACETAMINOPHEN 500 MG TAB PO PRN (19:40)
--- NOTE | 2019-04-18 19:55 | History & Physical Report ---
Date of Service April 18, 2019 Assessment & Plan (1) Chest pain: Recent admission with chest pain, approximately a week ago Had detailed cardiac work-up, was negative for ACS Order for Nitropaste, with significant improvement of symptoms, continues to have dyspnea on exertion, orthopnea Admitted to telemetry, serial cardiac markers ordered, cardiology evaluation requested (2) TURPIN (dyspnea on exertion): Possible decompensation of CHF: Recent echo shows grade 1 diastolic dysfunction Patient is continued with outpatient diuretics Monitor intake output, daily weight Cardiology consult requested (3) Elevated troponin: Possible secondary to demand ischemia/cardiac strain, for hypoxia Follow serial cardiac marker, patient denies of any anginal symptoms at present Had very recent echocardiogram done, repeat echo as per cardiology Continue Nitropaste, beta During telemetry (4) HTN (hypertension): And admission with hypertensive urgency, BP appears to be well controlled Continue outpatient meds, Monitoring telemetry Radiology consulted (5) Chronic atrial fibrillation: Remains in atrial fibrillation Beta-martinez On Coumadin, INR 1.9 (6) CKD (chronic kidney disease), stage III: Recent admission a week ago with acute renal failure, Creatinine appears to be an approximate baseline Continue diuretics Follow daily BMP (7) Asthma: Presents with hypoxia, dyspnea on exertion, possible secondary to decompensated CHF with diastolic dysfunction, no audible wheeze noted Continue outpatient inhalers DNR/DNI as per discussion with pt Follows with Dr Hoff for routine care Pt was seen with Dr Patel. See addendum for assessment and plan. History of Present Illness Chief Complaint: SOB Primary Care Provider: Seymour Hoff MD Pt is 88 y/o M with PMH HTN, chronic atrial fibrillation on Coumadin, CKD 3, chronic diastolic heart failure, asthma presented to ER with complaint of shortness of breath. Recent hospital admission 04/06/2019-04/10/2019 for intermittent chest pain. Patient was hypertensive. Cardiology was consulted and thought hypertensive urgency was because of intermittent pain. Had mildly elevated troponin while hospitalized was thought secondary to demand ischemia as opposed to ACS. Topical nitrates and low-dose oral hydralazine were started. Echo: EF: 60-65% with moderate concentric left ventricular hypertrophy and no regional wall motion abnormalities. There was mild valvular disease. Patient had improved BP during hospital course with improved chest pain and shortness of breath. Patient had Lopressor decreased to 75 mg twice daily from 100 mg twice daily secondary to low heart rate. Since returning home patient states 3 to 4 days ago started with increased shortness of breath with exertion. Also complains of chest heaviness. He has been feeling weak and tired. 4 days ago his Lasix was resumed. 2 days ago terazosin was stopped. Denies fever/chills, diaphoresis, N/V/D/C, MASTERS, dizziness, syncope, vision changes, neck pain, orthopnea, palpitations, cough, sore throat, choking, otalgia, rhinorrhea, abdominal pain, paresthesias, ex tremity weakness, increased extremity edema, rashes, urinary symptoms. Today in ER patient was given nitroglycerin with reported some improvement of SOB and chest heaviness. Allergies Allergy/AdvReac Type Severity Reaction Status Date / Time lisinopril Allergy Severe tongue Verified 04/18/19 17:55 swelling latex Allergy Unknown RASH Verified 04/18/19 17:55 meclizine Allergy Unknown unknown Verified 04/18/19 17:55 niacin Allergy Unknown RASH Verified 04/18/19 17:55 sertraline AdvReac Severe Edema Unverified 04/18/19 17:55 face/lips/tongue clonidine [From Catapres] AdvReac Unknown Unknown Unverified 04/18/19 17:55 Home Medications Home Medications Medication Instructions Recorded Confirmed Type Flovent HFA 2 puff INHALATION BID 04/06/19 04/18/19 History PreserVision AREDS-2 1 tab PO QAM 04/06/19 04/18/19 History acetaminophen [Tylenol Extra 500 mg PO Q6H PRN 04/06/19 04/18/19 History Strength] albuterol sulfate [Ventolin HFA] 2 puff INHALATION Q6H PRN 04/06/19 04/18/19 History amlodipine 10 mg PO QAM 04/06/19 04/18/19 History digoxin [Digitek] 125 mcg PO QAM 04/06/19 04/18/19 History diphenhydramine HCl 25 mg PO UD PRN 04/06/19 04/18/19 History ferrous sulfate 325 mg PO Q2D 04/06/19 04/18/19 History ipratropium bromide 2 spray INTRANASAL QID PRN 04/06/19 04/18/19 History montelukast 10 mg PO HS 04/06/19 04/18/19 History nitroglycerin 0.4 mg SUBLINGUAL UD 04/06/19 04/18/19 History omeprazole 20 mg PO HS 04/06/19 04/18/19 History pravastatin 10 mg PO HS 04/06/19 04/18/19 History prednisone 40 mg PO UD 04/06/19 04/18/19 History warfarin 2.5 mg PO SUMOWETHFR@1600 04/06/19 04/18/19 History warfarin 5 mg PO TUSA@1600 04/06/19 04/18/19 History metoprolol tartrate 75 mg PO BID #60 tab 04/10/19 04/18/19 Rx aspirin 81 mg PO DAILY 04/18/19 04/18/19 History furosemide 20 mg PO QAM 04/18/19 04/18/19 History hydralazine 25 mg PO TID 04/18/19 04/18/19 History lidocaine [Lidocaine Pain Relief] 1 patch TOPICAL DAILY 04/18/19 04/18/19 History multivitamin 1 tab PO QAM 04/18/19 04/18/19 History potassium chloride 10 meq PO QAM 04/18/19 04/18/19 History Past Med/Surg History Medical History CKD (chronic kidney disease), stage III (Chronic) MGUS (monoclonal gammopathy of unknown significance) (Chronic) Anemia (Chronic) Chronic ischemic heart disease (Chronic) Asthma (Chronic) Depression (Chronic) Dyslipidemia (Chronic) HTN (hypertension) (Chronic) Chronic atrial fibrillation (Chronic) Surgical History History of inguinal hernia repair, bilateral (Chronic) Hx of cataract surgery (Chronic) Family History Other Heart disease Social History Preferred Language: Serbian Communication Ability: Effective Visual Impairment: No Limitations Hearing Ability: Normal Beliefs That Will Affect Care: None Current Living Situation: Family Feels Safe at Home: Yes Safety Concerns: Feels Safe At This Time Smoking Status: Never smoker Hx Alcohol Use: No Hx Substance Use: No Review of Systems Review of Systems: All systems reviewed & are unremarkable except as noted in HPI & below Physical Exam Physical Exam: General: elderly male, no acute distress, WDWN Head: normocephalic, atraumatic Eyes: PERRL, EOM's intact, conjunctiva non-injected, anicteric ENT: normal inspection external ears, nose, mucous membranes moist, +hard of hearing Neck: supple, trachea midline Lungs: clear, no respiratory distress, no wheezing/rhonchi/rales CV: irregularly irregular, no murmur, 1+ pretibial edema Abd: normal BS, soft, non-tender Ext: no cyanosis, no calf tenderness Neuro: A&O x 3, no focal deficits noted, normal affect Skin: warm, dry Results & Data Vital Signs (Past 12 Hours) Vital Signs Temp Pulse Pulse Resp BP BP Pulse Ox 04/18/19 19:22 96 H 22 148/84 H 98 04/18/19 18:55 93 H 24 168/94 H 97 04/18/19 17:30 100 H 23 175/87 H 97 04/18/19 17:11 95 H 20 96 04/18/19 17:04 96 04/18/19 16:49 36.8 C 95 H 18 191/82 H 92 04/18/19 16:41 97 H 21 166/90 H 97 Laboratory Results Short CBC 04/18/19 Range/Units 17:04 WBC 14.63 H (4.8-10.8) K/uL Hgb 12.3 L (14.0-18.0) g/dL Hct 35.3 L (42-52) % Plt Count 291 (130-400) K/uL BMP 04/18/19 17:04 Sodium 141 Potassium 3.7 Chloride 103 Carbon Dioxide 27 BUN 27 H Creatinine 1.79 H Glucose 117 H Calcium 9.1 Liver Function 04/18/19 Range/Units 17:04 Total Bilirubin 0.6 (0.2-1) mg/dl AST 19 (15-37) U/L ALT 17 (12-78) U/L Alkaline Phosphatase 68 (45-117) U/L Albumin 3.4 (3.4-5.0) gm/dl Diagnostic Findings CXR: IMPRESSION: Progressive interstitial thickening most pronounced at the right lung base. This may represent developing pulmonary edema. There is also a trace right pleural effusion. ECG Rate (beats per minute): 68 Rhythm: atrial fibrillation Supervising Physician Co-Signing Physician Notes Attending addendum: Patient is seen and examined, care coordinated with Tara Gallo PA-C This is an 88-year-old male with complex medical history, recently discharged h [facility] approximately 1 week ago with chest pain shortness of breath Shortness of breath, orthopnea, dyspnea on exertion, Monitoring telemetry, continue diuretics possible decompensated CHF, cardiology consulted Follow serial cardiac markers CODE STATUS: DNR/DNI Please refer to further documentation by Brandie Gallo PA-C for discussion of other chronic issues Katharina patel MD
[2019-04-18] MEDS: PRAVASTATIN SOD 10 MG TAB PO SCH (21:24)
[2019-04-18] MEDS: METOPROLOL TARTRATE 25 MG TAB PO SCH (21:24)
[2019-04-18] MEDS: FLUTICASONE HFA 110MCG INHALER INH SCH (21:24)
[2019-04-18] MEDS: PANTOprazole 40 MG TAB PO SCH (21:25)
[2019-04-18] MEDS: ALBUTEROL HFA 8 GM INHALER INH PRN (21:26)
[2019-04-18] MEDS: MONTELUKAST SODIUM 10 MG TABLET PO SCH (21:26)
[2019-04-18] MEDS ORDERED: FUROSEMIDE 40 MG/4 ML VIAL IV STA (21:30)
[2019-04-18] MEDS ORDERED: Heparin IV Low Dose *NO* Bolus IV ONE (21:31)
[2019-04-18] MEDS ORDERED: Heparin Adult LOW DOSE Wt-Based Dextrose 5% 25,000 units/500 mL IV SCH (22:00)
[2019-04-18] MEDS: IPRATROPIUM BROMIDE NEB SOLN 0.02% 2.5 ML VIAL INH SCH (22:36)
[2019-04-18] MEDS: LEVALBUTEROL 1.25MG/0.5ML NEB INH SCH (22:36)
[2019-04-18 23:50] LABS: Troponin I 0.685 ng/ml (0-0.045)
[2019-04-19] MEDS ORDERED: XOPENEX/ATROVENT 1.25mg/0.5MG NEB COMBO NEB SCH
[2019-04-19] MEDS: NITROGLYCERIN 2% OINTMENT 30GM TUBE EXT SCH ×4 (01:04→20:08)
[2019-04-19] MEDS: IPRATROPIUM BROMIDE NEB SOLN 0.02% 2.5 ML VIAL INH SCH ×3 (03:15→11:14)
[2019-04-19] MEDS: LEVALBUTEROL 1.25MG/0.5ML NEB INH SCH ×3 (03:15→11:14)
[2019-04-19 05:01] LABS: Basophils # (auto) 0.02 K/uL (0-0.2); Basophils % (auto) 0.1 %; Hematocrit (blood only) 35.9 % (42-52); Hemoglobin 12.1 g/dL (14.0-18.0); Immature Granulocytes # (auto) 0.04 K/uL (0.00-0.02); Immature Granulocytes % (auto) 0.3 %; Lymphocytes # (auto) 1.25 K/uL (1.2-3.4); Lymphocytes % (auto) 8.9 %; Mean Corpuscular Hgb Conc 33.7 g/dL (32-36); Mean Corpuscular Volume 84.7 fL (80-100); Mean Platelet Volume 10.7 fL (7.4-10.4); Monocytes # (auto) 1.51 K/uL (0.11-0.59); Monocytes % (auto) 10.8 %; Neutrophils # (auto) 11.16 K/uL (1.4-6.5); Neutrophils % (auto) 79.9 %; Platelet Count 275 K/uL (130-400); RDW Coefficient of Variation 14.4 % (11.5-14.5); RDW Standard Deviation 44.5 fL (36.4-46.3); Red Blood Count 4.24 M/uL (4.7-6.1); White Blood Count 13.98 K/uL (4.8-10.8)
[2019-04-19 05:12] LABS: INR 1.8 (0.9-1.1); Partial Thromboplastin Ratio 1.5; Partial Thromboplastin Time 41.5 Seconds (21.0-31.0); Prothrombin Time 18.1 Seconds (9.0-12.0)
[2019-04-19 05:27] LABS: BUN Creatinine Ratio 17.9 (10-20); Calcium 8.7 mg/dl (8.5-10.1); Creatinine Clr Calc Pharmacy 30.9 ml/min; Est GFR (African American) 38.9; Est GFR (Non-African American) 33.5; Magnesium 1.9 mg/dl (1.8-2.4); Potassium 3.5 mmol/L (3.5-5.1)
[2019-04-19 05:35] LABS: Troponin I 4.47 ng/ml (0-0.045)
[2019-04-19] MEDS ORDERED: HEPARIN IV BOLUS 3,000 UNITS in SYRINGE 0 ML IV ONE (06:15)
[2019-04-19] MEDS: METOPROLOL TARTRATE 25 MG TAB PO SCH ×2 (07:53→20:11)
[2019-04-19] MEDS: AMLODIPINE BESYLATE 5 MG TAB PO SCH (07:53)
[2019-04-19] MEDS: CEROVITE ADV FORMULA TAB PO SCH (07:53)
[2019-04-19] MEDS: MULTIVITAMIN TAB PO SCH (07:54)
[2019-04-19] MEDS: FUROSEMIDE 20 MG TAB PO SCH (07:54)
[2019-04-19] MEDS: DIGOXIN 0.125 MG TAB PO SCH (07:54)
[2019-04-19] MEDS: POTASSIUM CHLORIDE 10 MEQ TABCR PO SCH (07:55)
[2019-04-19] MEDS: ASPIRIN 81 MG CHEW PO SCH (07:55)
[2019-04-19] MEDS: FLUTICASONE HFA 110MCG INHALER INH SCH ×2 (07:56→20:13)
[2019-04-19] MEDS: IPRATROPIUM BROMIDE NASAL SPRAY 0.06% 15ML NAE PRN (07:56)
[2019-04-19] MEDS: POLYETHYLENE (MIRALAX) 17 GM PACK PO SCH (07:58)
[2019-04-19] MEDS: LIDOCAINE 5% 1 PATCH TD SCH (07:58)
[2019-04-19] MEDS ORDERED: [UNRECOGNIZED DRUG - REMARK] ONE (08:00)
[2019-04-19] MEDS ORDERED: Nursing to Pharmacy Communication ONE (08:25)
[2019-04-19] MEDS ORDERED: METOPROLOL TARTRATE 1 MG/ML VIAL IV STA ×2 (08:26→08:55)
[2019-04-19] MEDS: Heparin Adult LOW DOSE Wt-Based Dextrose 5% 25,000 units/500 mL IV SCH (08:37)
[2019-04-19] MEDS: NITROGLYCERIN SL 0.4 MG/TAB TAB SL PRN ×3 (08:37→08:45)
[2019-04-19] MEDS ORDERED: FUROSEMIDE 40 MG/4 ML VIAL IV ONE (08:49)
[2019-04-19] MEDS ORDERED: FUROSEMIDE 40 MG/4 ML VIAL IV STA (08:56)
--- NOTE | 2019-04-19 09:05 | Cardiology Consultation ---
Date of Consultation April 19, 2019 Assessment & Plan (1) Non-ST elevation (NSTEMI) myocardial infarction: Continue intravenous heparin. Patient currently pain-free after sublingual nitroglycerin x3 and 1 5 mg dose of intravenous Lopressor. Recommend additional 5mg of IV Lopressor now. Consider addition of intravenous nitroglycerin pending clinical course. Recommend urgent cardiac catheterization with any recurrent chest discomfort. Bedside 2D transthoracic echocardiogram pending at this time. 60 minutes critical care time spent evaluating patient, formulating the plan of care, discussion with consultants, as well as family members via telephone. (2) Acute diastolic heart failure with preserved ejection fraction: Likely precipitated by recent discontinuation of diuretic therapy. 40 mg IV Lasix x1 now. Follow fluid balance, daily weight, GFR closely. (3) Atrial fibrillation with RVR: Continue oral Toprol. Patient has received 1 dose of IV Lopressor with a second dose pending at this time. To need to monitor telemetry. (4) Hypertensive urgency: Continue current medications with addition of topical nitrates. (5) CKD (chronic kidney disease) stage 4, GFR 15-29 ml/min: History of Present Illness Reason for Consultation: chest pain, HTN Requesting Physician: Dr. Ly Attending Physician: Domonique Ly MD History of Present Illness 88-year-old patient admitted through the emergency department with chest discomfort. Patient recently hospitalized for hypertensive urgency approximately 1 week ago. Carries history of chronic atrial fibrillation and labile hypertension. During recent hospitalization hydralazine and terazosin added. Lasix was discontinued prior to discharge. He followed up with his primary care physician on 2 occasions over the past week. Hydralazine reduced to 25 mg 3 times daily and terazosin discontinued. Lasix had been on hold for several days. He presented to the emergency room with several hours of persistent chest discomfort. Periods of atrial fibrillation with rapid ventricular response noted on telemetry. Initial troponin minimally elevated with a second troponin of 4.47 recorded. Patient seen and examined at the bedside this morning. Complaining of 9/10 chest discomfort. Stat ECG demonstrates atrial fibrillation with a heart rate of 99 bpm and 3 to 4 mm of downsloping anterolateral ST depression. Patient treated with intravenous Lopressor, Lasix, and sublingual nitroglycerin x3. Currently pain-free. Notes residual dyspnea. ST segments have nearly norm alized with evidence of left ventricular hypertrophy. Allergies Allergy/AdvReac Type Severity Reaction Status Date / Time lisinopril Allergy Severe tongue Verified 04/18/19 17:55 swelling niacin Allergy Intermediate RASH Verified 04/19/19 08:29 latex Allergy Unknown RASH Verified 04/18/19 17:55 meclizine Allergy Unknown unknown Verified 04/18/19 17:55 sertraline AdvReac Severe Edema Unverified 04/18/19 17:55 face/lips/tongue clonidine [From Catapres] AdvReac Unknown Unknown Unverified 04/18/19 17:55 Home Medications Home Medications Medication Instructions Recorded Confirmed Type Flovent HFA 2 puff INHALATION BID 04/06/19 04/18/19 History PreserVision AREDS-2 1 tab PO QAM 04/06/19 04/18/19 History acetaminophen [Tylenol Extra 500 mg PO Q6H PRN 04/06/19 04/18/19 History Strength] albuterol sulfate [Ventolin HFA] 2 puff INHALATION Q6H PRN 04/06/19 04/18/19 History amlodipine 10 mg PO QAM 04/06/19 04/18/19 History digoxin [Digitek] 125 mcg PO QAM 04/06/19 04/18/19 History ferrous sulfate 325 mg PO Q2D 04/06/19 04/18/19 History ipratropium bromide 2 spray INTRANASAL QID PRN 04/06/19 04/18/19 History montelukast 10 mg PO HS 04/06/19 04/18/19 History nitroglycerin 0.4 mg SUBLINGUAL UD 04/06/19 04/18/19 History omeprazole 20 mg PO HS 04/06/19 04/18/19 History pravastatin 10 mg PO HS 04/06/19 04/18/19 History prednisone 40 mg PO UD 04/06/19 04/18/19 History warfarin 2.5 mg PO SUMOWETHFR@1600 04/06/19 04/18/19 History warfarin 5 mg PO TUSA@1600 04/06/19 04/18/19 History Lidocaine Pain Relief 1 patch TOPICAL DAILY 04/18/19 04/18/19 History aspirin 81 mg PO DAILY 04/18/19 04/18/19 History multivitamin 1 tab PO QAM 04/18/19 04/18/19 History hydralazine 50 mg PO TID #180 tab 04/22/19 Rx isosorbide mononitrate 120 mg PO QAM #60 tab 04/22/19 Rx metoprolol tartrate 100 mg PO BID #60 tab 04/22/19 Rx potassium chloride [Klor-Con M10] 40 meq PO QAM #120 tab 04/22/19 Rx furosemide 40 mg PO Q12 #60 tab 04/25/19 Rx Patient History Medical History CKD (chronic kidney disease), stage III (Chronic) MGUS (monoclonal gammopathy of unknown significance) (Chronic) Anemia (Chronic) Chronic ischemic heart disease (Chronic) Asthma (Chronic) Depression (Chronic) Dyslipidemia (Chronic) HTN (hypertension) (Chronic) Chronic atrial fibrillation (Chronic) Surgical History History of inguinal hernia repair, bilateral (Chronic) Hx of cataract surgery (Chronic) Family History Other Heart disease Social History Preferred Language: Hungarian Communication Ability: Effective Visual Impairment: No Limitations Hearing Ability: Normal Beliefs That Will Affect Care: None marital status: / Current Living Situation: Family Feels Safe at Home: Yes Safety Concerns: Feels Safe At This Time Smoking Status: Never smoker Hx Alcohol Use: No Hx Substance Use: No Review of Systems Review of Systems: All systems reviewed & are unremarkable except as noted in HPI & below Physical Exam Physical Exam: General: NAD, AAO x3, well nourished. HEENT: Normocephalic. Atraumatic. Conjunctiva pink, no scleral icterus. Neck: No carotid bruits, the carotid upstrokes are brisk. No JVD. No HJR Heart: Irregular rhythm. Normal S1, S2. No murmurs or rub appreciated. PMI is not displaced. No RV heave. Lungs: Crackles at the right base. No rhonchi or wheeze. Abdomen: Normal bowel sounds. Soft. Nontender. No masses or organomegaly. No abdominal bruits. Extremities: No clubbing, cyanosis, or edema. Pulses: radial=2/4, Dorsalis pedis =2/4, posterior tibial=2/4. Neuro: Cranial nerves grossly intact. No focal motor deficit. Results & Data Vital Signs (Past 12 Hours) Vital Signs Temp Pulse Pulse Resp BP BP Pulse Ox 04/19/19 08:34 110 H 162/67 H 04/19/19 07:54 99 H 04/19/19 07:32 87 16 95 04/19/19 07:04 36.7 C 104 H 18 173/97 H 92 04/19/19 04:00 36.7 C 85 22 176/78 H 94 04/19/19 03:15 97 H 16 95 04/18/19 23:46 99 H 04/18/19 23:41 160/77 H 04/18/19 23:21 36.6 C 95 H 22 183/82 H 90 04/18/19 22:37 82 24 90 Laboratory Results Laboratory Results - last 24 hr 04/18/19 04/18/19 04/18/19 17:04 17:04 17:04 WBC 14.63 H RBC 4.18 L Hgb 12.3 L Hct 35.3 L MCV 84.4 MCH 29.4 MCHC 34.8 RDW Std Deviation 44.7 RDW Coeff of Ember 14.4 Plt Count 291 MPV 10.5 H Immature Gran % (Auto) 0.3 Neut % (Auto) 78.0 Lymph % (Auto) 12.0 [place] % (Auto) 9.4 Eos % (Auto) 0.1 Baso % (Auto) 0.2 Immature Gran # (Auto) 0.04 H Neut # (Auto) 11.41 H Lymph # (Auto) 1.76 [place] # (Auto) 1.37 H Eos # (Auto) 0.02 Baso # (Auto) 0.03 PT 18.2 H INR 1.9 H APTT 36.0 H PTT Ratio 1.3 Sodium 141 Potassium 3.7 Chloride 103 Carbon Dioxide 27 Anion Gap 11.0 BUN 27 H Creatinine 1.79 H Est Cr Clr Drug Dosing 30.4 Est GFR ( Amer) 38.1 Est GFR (Non-Af Amer) 32.9 BUN/Creatinine Ratio 15.3 Glucose 117 H Calcium 9.1 Magnesium Total Bilirubin 0.6 AST 19 ALT 17 Alkaline Phosphatase 68 POC Troponin I Troponin I NT-Pro-B Natriuret Pep Total Protein 8.3 H Albumin 3.4 Globulin 4.9 H Albumin/Globulin Ratio 0.7 L 04/18/19 04/18/19 04/19/19 17:24 22:59 04:43 WBC 13.98 H RBC 4.24 L Hgb 12.1 L Hct 35.9 L MCV 84.7 MCH 28.5 MCHC 33.7 RDW Std Deviation 44.5 RDW Coeff of Ember 14.4 Plt Count 275 MPV 10.7 H Immature Gran % (Auto) 0.3 Neut % (Auto) 79.9 Lymph % (Auto) 8.9 [place] % (Auto) 10.8 Eos % (Auto) 0.0 Baso % (Auto) 0.1 Immature Gran # (Auto) 0.04 H Neut # (Auto) 11.16 H Lymph # (Auto) 1.25 [place] # (Auto) 1.51 H Eos # (Auto) 0.00 Baso # (Auto) 0.02 PT INR APTT PTT Ratio Sodium Potassium Chloride Carbon Dioxide Anion Gap BUN Creatinine Est Cr Clr Drug Dosing Est GFR ( Amer) Est GFR (Non-Af Amer) BUN/Creatinine Ratio Glucose Calcium Magnesium Total Bilirubin AST ALT Alkaline Phosphatase POC Troponin I 0.40 H Troponin I 0.685 H* NT-Pro-B Natriuret Pep 6138 H Total Protein Albumin Globulin Albumin/Globulin Ratio 04/19/19 04/19/19 04:43 04:43 WBC RBC Hgb Hct MCV MCH MCHC RDW Std Deviation RDW Coeff of Ember Plt Count MPV Immature Gran % (Auto) Neut % (Auto) Lymph % (Auto) [place] % (Auto) Eos % (Auto) Baso % (Auto) Immature Gran # (Auto) Neut # (Auto) Lymph # (Auto) [place] # (Auto) Eos # (Auto) Baso # (Auto) PT 18.1 H INR 1.8 H APTT 41.5 H PTT Ratio 1.5 Sodium 136 Potassium 3.5 Chloride 102 Carbon Dioxide 29 Anion Gap 5.0 BUN 31 H Creatinine 1.76 H Est Cr Clr Drug Dosing 30.9 Est GFR ( Amer) 38.9 Est GFR (Non-Af Amer) 33.5 BUN/Creatinine Ratio 17.9 Glucose 137 H Calcium 8.7 Magnesium 1.9 Total Bilirubin AST ALT Alkaline Phosphatase POC Troponin I Troponin I 4.470 H* NT-Pro-B Natriuret Pep Total Protein Albumin Globulin Albumin/Globulin Ratio
[2019-04-19] MEDS ORDERED: FUROSEMIDE 40 MG in SYRINGE 0 ML IV ONE (09:15)
[2019-04-19 14:39] LABS: Partial Thromboplastin Ratio 2.1
[2019-04-19 14:43] LABS: Partial Thromboplastin Time 56.9 Seconds (21.0-31.0)
--- NOTE | 2019-04-19 15:26 | Hospitalist Progress Note ---
Date of Service April 19, 2019 Assessment & Plan (1) Non-ST elevation (NSTEMI) myocardial infarction: (2) Chest pain: Recently admitted with chest pain with negative work up for ACS Present on admission with chest pain Troponin elevated to 6.4 Cardiology on board Continue IV heparin drip Continue aspirin., metoprolol and statin Will continue trend troponin Plan for cardiac cath in am, but if pt develops any chest pain, will get urgent cardiac cath Will make NPO after midnight Continue monitor in tele Echo today showed no wall motion abnormality with EF 55- 60% (3) 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 Pro BNP 6138 on admission Received IV lasix 40mg on admission, additional IV lasix given today Monitor I/O Monitor BMP (4) Elevated troponin: Possible secondary to demand ischemia/cardiac strain, for hypoxia Follow serial cardiac marker, patient denies of any anginal symptoms at present Had very recent echocardiogram done, repeat echo as per cardiology Continue Nitropaste, beta During telemetry (5) HTN (hypertension): BP elevated on admission Continue amlodipine and metoprolol Monitor blood pressure (6) Chronic atrial fibrillation: rate controlled with metoprolol and digoxin On Heparin drip Coumadin on hold with INR 1.8 today Continue monitor in tele (7) CKD (chronic kidney disease), stage III: Creatinine stable at 1.7 Received IV lasix Monitor BMP (8) Asthma: Continue oxygen supplement Duoneb treatment Continue ouptient med CODE STATUS DNR/DNI Disposition Continue monitor in tele Possible cardiac cath in am Subjective Pt was seen and examined Lying in bed with no distress Pt said that he feels fine Denies any chest pain, palpitation and dizziness Physical Exam Physical Exam: General- No acute distress Head- atraumatic Eyes- PERRL, EOMI, ENT- oropharynx clear, decrease hearing function Neck- supple, no JVD Lungs- clear to auscultation Heart- irregular rhythm; no murmur Abdomen- normal bowel sounds, soft, nontender Extremities- no calf tenderness, +edema Neuro- alert, oriented, PERRL, EOMI; no facial palsy; no dysarthria Skin- warm & dry Results & Data Vital Signs (Past 12 Hours) Vital Signs Temp Pulse Pulse Resp BP BP Pulse Ox 04/19/19 11:24 36.6 C 87 18 146/78 H 95 04/19/19 11:15 87 18 95 04/19/19 09:01 110 H 162/67 H 04/19/19 09:00 80 156/79 H 04/19/19 08:34 110 H 162/67 H 04/19/19 07:54 99 H 04/19/19 07:32 87 16 95 04/19/19 07:04 36.7 C 104 H 18 173/97 H 92 04/19/19 04:00 36.7 C 85 22 176/78 H 94 04/19/19 03:15 97 H 16 95
[2019-04-19] MEDS ORDERED: LEVALBUTEROL 1.25MG/0.5ML NEB NEB SCH (16:00)
[2019-04-19] MEDS ORDERED: WARFARIN SOD 2.5 MG TAB PO SCH (16:00)
[2019-04-19] MEDS: IPRATROPIUM BROMIDE NEB SOLN 0.02% 2.5 ML VIAL NEB SCH (19:02)
[2019-04-19] MEDS: LEVALBUTEROL 1.25MG/0.5ML NEB NEB SCH (19:02)
[2019-04-19] MEDS: PANTOprazole 40 MG TAB PO SCH (20:11)
[2019-04-19] MEDS: MONTELUKAST SODIUM 10 MG TABLET PO SCH (20:12)
[2019-04-19] MEDS: PRAVASTATIN SOD 10 MG TAB PO SCH (20:14)
[2019-04-19] MEDS ORDERED: IPRATROPIUM BROMIDE NEB SOLN 0.02% 2.5 ML VIAL NEB SCH (22:00)
[2019-04-20] MEDS: IPRATROPIUM BROMIDE NASAL SPRAY 0.06% 15ML NAE PRN ×2 (02:31→21:23)
[2019-04-20] MEDS: NITROGLYCERIN 2% OINTMENT 30GM TUBE EXT SCH ×2 (02:37→09:04)
[2019-04-20 06:52] LABS: Hematocrit (blood only) 31.6 % (42-52); Hemoglobin 10.5 g/dL (14.0-18.0); Mean Corpuscular Hgb Conc 33.2 g/dL (32-36); Mean Corpuscular Volume 85.2 fL (80-100); Mean Platelet Volume 10.4 fL (7.4-10.4); Platelet Count 234 K/uL (130-400); RDW Coefficient of Variation 14.5 % (11.5-14.5); RDW Standard Deviation 45.6 fL (36.4-46.3); Red Blood Count 3.71 M/uL (4.7-6.1); White Blood Count 13.45 K/uL (4.8-10.8)
[2019-04-20 07:00] LABS: INR 1.5 (0.9-1.1); Prothrombin Time 15.1 Seconds (9.0-12.0)
[2019-04-20] MEDS: LEVALBUTEROL 1.25MG/0.5ML NEB NEB SCH ×2 (07:03→20:16)
[2019-04-20] MEDS: IPRATROPIUM BROMIDE NEB SOLN 0.02% 2.5 ML VIAL NEB SCH ×2 (07:03→20:16)
[2019-04-20 07:15] LABS: Partial Thromboplastin Ratio 1.9
[2019-04-20 07:21] LABS: Calcium 8.8 mg/dl (8.5-10.1); Creatinine Clr Calc Pharmacy 25.4 ml/min; Est GFR (African American) 30.7; Est GFR (Non-African American) 26.5; Potassium 3.4 mmol/L (3.5-5.1)
[2019-04-20 07:22] LABS: Partial Thromboplastin Time 50.9 Seconds (21.0-31.0)
[2019-04-20] MEDS: DIGOXIN 0.125 MG TAB PO SCH (08:42)
[2019-04-20] MEDS: FERROUS SULFATE 325 MG TAB PO SCH (08:42)
[2019-04-20] MEDS: MULTIVITAMIN TAB PO SCH (08:42)
[2019-04-20] MEDS: FUROSEMIDE 20 MG TAB PO SCH (08:42)
[2019-04-20] MEDS: POTASSIUM CHLORIDE 10 MEQ TABCR PO SCH (08:42)
[2019-04-20] MEDS: ASPIRIN 81 MG CHEW PO SCH (08:42)
[2019-04-20] MEDS: CEROVITE ADV FORMULA TAB PO SCH (08:43)
[2019-04-20] MEDS: AMLODIPINE BESYLATE 5 MG TAB PO SCH (08:43)
[2019-04-20] MEDS: METOPROLOL TARTRATE 25 MG TAB PO SCH (08:43)
[2019-04-20] MEDS: FLUTICASONE HFA 110MCG INHALER INH SCH ×2 (09:03→21:18)
[2019-04-20] MEDS: POTASSIUM CHLORIDE / WTR 10 MEQ/100 ML PLCT IV SCH ×2 (09:37→10:51)
[2019-04-20] MEDS: POLYETHYLENE (MIRALAX) 17 GM PACK PO SCH (09:38)
[2019-04-20] MEDS: LIDOCAINE 5% 1 PATCH TD SCH (09:38)
[2019-04-20] MEDS: Heparin Adult LOW DOSE Wt-Based Dextrose 5% 25,000 units/500 mL IV SCH (09:39)
[2019-04-20] MEDS: ISOSORBIDE MONO EXTENDED REL 60 MG TABCR PO SCH (10:47)
--- NOTE | 2019-04-20 14:45 | Cardiology Progress Note ---
Date of Service April 20, 2019 Assessment & Plan (1) Non-ST elevation (NSTEMI) myocardial infarction: troponin trending upwards but now pain free I've changed nitro paste to imdur with good response hydralazine dose increased to 50mg tid will hold digoxin and attempt to uptitrate beta martinez as well cont heparin for now I had a long and extensive conversation with patient and daughter at bedside explained, in great detail, risks/benefits of cardiac catheterization as well as medical therapy alone explained to patient multiple times the risk of renal failure with dye load explained the likelihood that he likely has disease that is not amenable to intervention and the possibility that cath would not be beneficial he would then contradict himself in terms of his goals, i.e. "I want the cath but I don't want my kidneys to shut down" I asked his daughter at the bedside, if she believes he is understanding what has been explained and she stated "probably 70-80% of what you've explained." daughter states that she will follow whatever decisions the patient makes will ask psych to evaluate for decision making capacity, I am not convinced that despite a conversation lasting approx 60minutes that the patient comprehends will also ask palliative care team to discuss goals of care will make npo after midnight should he wish to proceed with cath (2) Acute diastolic heart failure with preserved ejection fraction: Likely precipitated by recent discontinuation of diuretic therapy. will hold off on further diuresis in preparation for possible dye load does not examine as overly volume overloaded (3) Atrial fibrillation with RVR: Continue oral Toprol. rates controlled INR of 1.5 today already on heparin gtt (4) Hypertensive urgency: improving hydralazine increased cont amlodipine, metoprolol and hydralazine ideally would like to increase metoprolol dose for further antianginal relief could also consider restarting terazosin (5) CKD (chronic kidney disease) stage 4, GFR 15-29 ml/min: Subjective Pt seen and examined, with daughter at bedside. OOB in chair. States that he feels well today. No recurrence of chest pain. Denies sob, palpitations, lightheadedness or dizziness. tele reviewed: afib, rate controlled with frequent PVC's Review of Systems Review of Systems: All systems reviewed & are unremarkable except as noted in HPI & below Physical Exam Physical Exam: General: Awake, alert and oriented x 3. No acute distress. HEENT: Normocephalic, atraumatic. Pupils equal, round and reactive to light and accommodation. Extraocular muscles are intact. Anicteric sclera. Moist mucous membranes. Neck: No JVD. No bruit. Cardiovascular: irregularly irregular, unable to appreciate murmur, rub or gallop. Pulmonary: Clear to auscultation bilaterally. No rales, rhonchi, or wheezing. Abdomen: Bowel sounds x 4, soft. No rebound, guarding or tenderness. No organomegaly. Extremities: No clubbing, cyanosis or edema. +2 pedal pulses bilaterally. Skin: Warm and dry. Results & Data Vital Signs (Past 12 Hours) Vital Signs Temp Pulse Pulse Resp BP Pulse Ox 04/20/19 11:15 36.7 C 78 22 154/77 H 94 04/20/19 08:42 70 04/20/19 07:29 36.6 C 93 H 20 163/82 H 94 04/20/19 07:03 77 H 96 04/20/19 04:21 36.9 C 84 24 143/72 H 92
[2019-04-20] MEDS ORDERED: WARFARIN SOD 5 MG TAB PO SCH (16:00)
--- NOTE | 2019-04-20 16:45 | Psychiatric Consultation ---
Date of Consultation April 20, 2019 Impression / Recommendations Impression 88-year-old male admitted medically due to complaints of shortness of breath and chest heaviness. Pt currently being treated for N-STEMI along with other chronic medical concerns. Psychiatric consultation requested to assess patient's capacity for medical decision making regarding cardiac interventions being considered. At time of this evaluation, patient is able to explain to this provider two options proposed: for cardiac catheterization versus medication therapy. Pt was able to recall the options being presented with minimal prompting from this provider. He is able to explain the idea of a cardiac catheterization in his own terms with rather decent accuracy. When asked about risks of the procedure, he is able to verbalize that many blockages may not be amenable to this intervention and that his kidneys would likely undergo significant damage. He explains that there are side effects with medication therapy as well, but feels more comfortable with the possible risks proposed. It is believed that patient is able to appreciate the risks of his condition and consequences of his decisions. He recognizes his age, but also that he would like to maintain his health and independence as long as possible. Pt is able to rationally process the information he shared with this provider, reasoning why medication therapy is felt to be best in his scenario. At the end of the assessment, the patient verbalizes a clear choice to continue with medication therapy alone, not electing for a catheterization at this time. Based on this evaluation, it is this provider's opinion that the patient has capacity to make this decision, and voiced a clear desire to pursue medications alone to treat his condition at this time. Capacity to make specific medical decisions is a factor that can change depending on disease course, contributing factors, and mental status. At this time, patient is deemed to have capacity to decide medical treatment and refusal of a cardiac catheterization. If there is concern for change in patient's capacity - this can be reassessed by evaluating if patient has the following: recall/understanding of information related to the medication situation/decision; ability to appreciate the condition and consequences of the decision; ability to process information rationally; and ability to communicate a clear choice. Dr. Cindy Villalobos was directly involved in review and discussion of the patient's case and participated in medical decision making regarding treatment recommendations. Appreciate the opportunity to participate in the care of this patient. CPT Code Initial Consultation: 14979 Psych History Identifying Data 88-year-old male admitted medically on 04/18/19 for cardiac work-up after presenting to the ED with reports of chest tightness and shortness of breath. Pt was treated for an N-STEMI and recommendations for further management of his condition are being made. Psychiatric consultation was requested to evaluate patient for capacity to determine the next step in his treatment. Information is gathered from hospital documentation, discussion with consulting physician and patient's nurse, patient's daughter, and from the patient himself. Chief Complaint "I think I made a good decision, but getter another person's thoughts is always helpful." History of Present Illness Tee Joseph is an 88-year-old male admitted medically on 04/18/19 for cardiac work-up following presentation to the ED for shortness of breath and chest tightness. Cardiac work-up is consistent with an N-STEMI. Cardiology has been managing treatment and explaining options to the patient regarding recommendations for the next course of action. Psychiatric consultation was requested to assess the patient for capacity to make the decision between cardiac catheterization or medical therapy to manage the condition. A thorough conversation between patient, daughter, and dental secretary was documented and appreciated. Documentation suggests that patient was made aware of treatment options, current recommendation, risks, and benefits. At time of the conversation, patient was interested in a catheterization, but also reportedly interested in maintaining the current function of his kidneys. With these, and other comments, it was questioned if patient was able to reasonably consider this important information and make a rational choice regarding his treatment. Case was reviewed with patient's RN and the ordering physician prior to assessment. Pt's roommate was also asked to step out of room, as he had been contributing too greatly to the conversation, skewing this provider's ability to assess the patient's decision-making process. Pt's daughter, Larissa, was invited to join at patient's request. Pt was seen individually initially, aside from interjections from his roommate. When roommate was kindly agreeable to visiting elsewhere with his family, allowing for better assessment of the patient's understanding. Pt shares with this provider, "Well, they talked about doing that procedure, they check my arteries and check to see how many are bad and clogged up." He clearly explains that he was informed that many of the anticipated blockages - "they're not sure they can clear, they may have to leave them." Pt states, "If they may not be able to get it all, oh, and they said it would hurt my kidneys, then what do I have to loose with medications." Pt begins stating that he has had time to consider his options and is interested in pursuing medication therapy to manage his symptoms, no longer interested in a catheterization. He states, "I'm going in that direction now." Pt is able to explain anticipated risks of both options, as well as the risk of doing nothing. Pt states, "my heart wasn't letting me breathe, it was difficult to do anything. I don't want to feel like that anymore, that's why I came in isn't it?" Pt states, "I think the medication is the lesser of two evils, don't you?" For the duration of our visit, patient maintained a decision to pursue medical therapy to treat his symptoms. Pt states several times, "I'm 88 year old, I don't have long, but I don't want to keep feeling like this. And the other option, they may not get everything and it may end my kidneys." Pt was asked about current level of anxiety and depression. He states, "depression isn't even a word here, it's fine." He does admit to some anxiety, "I think anybody would be anxious about this - I just think once I make a decision, I'll be able to convince myself it's the right one." Pt does not feel any specific intervention is necessary at this time to manage these concerns. Pt denies SI, A/V hallucinations, and other specific psychiatric concerns. Past Psychiatric History Previous Psych History: Reported history of depression Allergies Allergy/AdvReac Type Severity Reaction Status Date / Time lisinopril Allergy Severe tongue Verified 04/18/19 17:55 swelling niacin Allergy Intermediate RASH Verified 04/19/19 08:29 latex Allergy Unknown RASH Verified 04/18/19 17:55 meclizine Allergy Unknown unknown Verified 04/18/19 17:55 sertraline AdvReac Severe Edema Unverified 04/18/19 17:55 face/lips/tongue clonidine [From Catapres] AdvReac Unknown Unknown Unverified 04/18/19 17:55 Home Medications Home Medications Medication Instructions Recorded Confirmed Type Flovent HFA 2 puff INHALATION BID 04/06/19 04/18/19 History PreserVision AREDS-2 1 tab PO QAM 04/06/19 04/18/19 History acetaminophen [Tylenol Extra 500 mg PO Q6H PRN 04/06/19 04/18/19 History Strength] albuterol sulfate [Ventolin HFA] 2 puff INHALATION Q6H PRN 04/06/19 04/18/19 History amlodipine 10 mg PO QAM 04/06/19 04/18/19 History digoxin [Digitek] 125 mcg PO QAM 04/06/19 04/18/19 History diphenhydramine HCl 25 mg PO UD PRN 04/06/19 04/18/19 History ferrous sulfate 325 mg PO Q2D 04/06/19 04/18/19 History ipratropium bromide 2 spray INTRANASAL QID PRN 04/06/19 04/18/19 History montelukast 10 mg PO HS 04/06/19 04/18/19 History nitroglycerin 0.4 mg SUBLINGUAL UD 04/06/19 04/18/19 History omeprazole 20 mg PO HS 04/06/19 04/18/19 History pravastatin 10 mg PO HS 04/06/19 04/18/19 History prednisone 40 mg PO UD 04/06/19 04/18/19 History warfarin 2.5 mg PO SUMOWETHFR@1600 04/06/19 04/18/19 History warfarin 5 mg PO TUSA@1600 04/06/19 04/18/19 History metoprolol tartrate 75 mg PO BID #60 tab 04/10/19 04/18/19 Rx aspirin 81 mg PO DAILY 04/18/19 04/18/19 History furosemide 20 mg PO QAM 04/18/19 04/18/19 History hydralazine 25 mg PO TID 04/18/19 04/18/19 History lidocaine [Lidocaine Pain Relief] 1 patch TOPICAL DAILY 04/18/19 04/18/19 History multivitamin 1 tab PO QAM 04/18/19 04/18/19 History potassium chloride 10 meq PO QAM 04/18/19 04/18/19 History Personal History Living Arrangements: Home Employment Status: Retired Marital Status: Beliefs That Will Affect Care: None Patient History Medical History CKD (chronic kidney disease), stage III (Chronic) MGUS (monoclonal gammopathy of unknown significance) (Chronic) Anemia (Chronic) Chronic ischemic heart disease (Chronic) Asthma (Chronic) Depression (Chronic) Dyslipidemia (Chronic) HTN (hypertension) (Chronic) Chronic atrial fibrillation (Chronic) Surgical History History of inguinal hernia repair, bilateral (Chronic) Hx of cataract surgery (Chronic) Family History Other Heart disease Social History Preferred Language: Croatian Communication Ability: Effective Visual Impairment: No Limitations Hearing Ability: Normal Beliefs That Will Affect Care: None marital status: / Current Living Situation: Family Feels Safe at Home: Yes Safety Concerns: Feels Safe At This Time Smoking Status: Never smoker Hx Alcohol Use: No Hx Substance Use: No Physical Exam Psychiatric: Orientation: alert, oriented x 3 and cooperative (and pleasant) Apperance: appropriately dressed (in hospital gown covered by personal robe), appropriately groomed and appeared stated age Eye Contact: good eye contact Motor Behavior: no abnormal motor movements (observed while laying in bed) Speech: normal rate/rhythm/volume of speech Affect: euthymic affect and + anxious affect (mildly) Mood: + anxious mood ("Yeah, I think anybody would be"); no depressed mood ("depression is not even a word here, ok" ) Thought Process: goal directed thought process, linear/logical thought process and clear/coherent thought process Thought Content: reality based without delusions Suicidal Thoughts: denies suicidal thoughts and denies suicidal plan Homicidal Thoughts: denies homicidal thoughts Hallucinations: no auditory hallucinations and no visual hallucinations Cognition: recent memory grossly intact, attention grossly intact and language grossly intact Estimated Intelligence: consistent with education level Insight: + fair insight Judgement: + fair judgement Vital Signs (Past 24 Hours): Last Vital Signs Temp 36.8 C 04/20/19 15:38 Pulse 86 04/20/19 15:38 Resp 20 04/20/19 15:38 BP 123/73 04/20/19 15:38 Pulse Ox 95 04/20/19 15:38 Review of Systems Constitutional: reports fatigue and weakness Cardiovascular: reports mild chest tightness Respiratory: reports episodes of shortness of breath Gastrointestinal: denied Neurological: reports difficulty concentrating Psychiatric: denies symptoms other than stated above Total of at least 10 systems reviewed, pertinent positives as above and in HPI. Results & Data Medications Administered Albuterol (Ventolin Hfa) 2 puffs INH Q6H PRN PRN Reason: Shortness Of Breath Or Wheezing Stop: 05/18/19 19:39 Last Admin: 04/18/19 21:26 Dose: 2 puffs Documented by: [id number] Amlodipine Besylate (Norvasc) 10 mg PO QAM [facility] Stop: 05/19/19 08:59 Last Admin: 04/20/19 08:43 Dose: 10 mg Documented by: [id number] Admin: 04/19/19 07:53 Dose: 10 mg Documented by: [id number] Aspirin (Aspirin Chew) 81 mg PO DAILY [facility] Stop: 05/19/19 08:59 Last Admin: 04/20/19 08:42 Dose: 81 mg Documented by: [id number] Admin: 04/19/19 07:55 Dose: 81 mg Documented by: [id number] Digoxin (Lanoxin) 0.125 mg PO QAM [facility] Stop: 05/19/19 08:59 Last Admin: 04/20/19 08:42 Dose: 0.125 mg Documented by: [id number] Admin: 04/19/19 07:54 Dose: 0.125 mg Documented by: [id number] Ferrous Sulfate (Feosol) 325 mg PO Q2D [facility] Stop: 05/20/19 08:59 Last Admin: 04/20/19 08:42 Dose: 325 mg Documented by: [id number] Fluticasone Propionate (Flovent Hfa 110mch) 2 puffs INH BID [facility] Stop: 05/18/19 20:59 Last Admin: 04/20/19 09:03 Dose: 2 puffs Documented by: [id number] Admin: 04/19/19 20:13 Dose: 2 puffs Documented by: [id number] Admin: 04/19/19 07:56 Dose: 2 puffs Documented by: [id number] Admin: 04/18/19 21:24 Dose: 2 puffs Documented by: [id number] Furosemide (Lasix) 20 mg PO QAM [facility] Stop: 05/19/19 08:59 Last Admin: 04/20/19 08:42 Dose: 20 mg Documented by: [id number] Admin: 04/19/19 07:54 Dose: 20 mg Documented by: [id number] Hydralazine HCl (Apresoline) 50 mg PO TID [facility] Stop: 05/20/19 13:59 Last Admin: 04/20/19 13:49 Dose: 50 mg Documented by: [id number] Heparin Sodium/Dextrose (Heparin Sodium/Dextrose) 25,000 units in 500 mls @ 20 mls/hr IV .Q24H [facility]; Protocol Stop: 05/19/19 08:29 Last Admin: 04/20/19 09:39 Dose: 1,000 units/hr, 20 mls/hr Documented by: [id number] Cosigned by: [id number] Titration: 04/20/19 09:38 Dose: 1,000 units/hr, 20 mls/hr Documented by: [id number] Cosigned by: [id number] Titration: 04/20/19 07:14 Dose: 1,000 units/hr, 20 mls/hr Documented by: [id number] Cosigned by: [id number] Titration: 04/19/19 18:50 Dose: 1,000 units/hr, 20 mls/hr Documented by: [id number] Cosigned by: [id number] Admin: 04/19/19 08:37 Dose: 1,000 units/hr, 20 mls/hr Documented by: [id number] Cosigned by: [id number] Ipratropium Rodney (Atrovent Nasal [place] 0.06%) 2 sprays MIGUEL QID PRN PRN Reason: CONGESTION Stop: 05/18/19 20:44 Last Admin: 04/20/19 02:31 Dose: 2 sprays Documented by: [id number] Admin: 04/19/19 07:56 Dose: 2 sprays Documented by: [id number] Ipratropium Rodney (Atrovent 0.02% 0.5mg/2.5ml) 0.5 mg NEB Q12R [facility] Stop: 05/19/19 19:59 Last Admin: 04/20/19 07:03 Dose: 0.5 mg Documented by: [id number] Admin: 04/19/19 19:02 Dose: 0.5 mg Documented by: [id number] Isosorbide Mononitrate (Imdur Extended Rel) 60 mg PO QAM [facility] Stop: 05/20/19 09:59 Last Admin: 04/20/19 10:47 Dose: 60 mg Documented by: [id number] Levalbuterol HCl (Xopenex 1.25mg/0.5ml Neb) 1.25 mg NEB Q12R JT Stop: 05/19/19 19:59 Last Admin: 04/20/19 07:03 Dose: 1.25 mg Documented by: [id number] Admin: 04/19/19 19:02 Dose: 1.25 mg Documented by: [id number] Lidocaine (Lidoderm 5%) 1 patch TD DAILY JT Stop: 05/19/19 08:59 Last Admin: 04/20/19 09:38 Dose: Not Given Documented by: [id number] Admin: 04/19/19 07:58 Dose: Not Given Documented by: [id number] Metoprolol Tartrate (Lopressor) 75 mg PO BID JT Stop: 05/18/19 20:59 Last Admin: 04/20/19 08:43 Dose: 75 mg Documented by: [id number] Admin: 04/19/19 20:11 Dose: 75 mg Documented by: [id number] Admin: 04/19/19 07:53 Dose: 75 mg Documented by: [id number] Admin: 04/18/19 21:24 Dose: 75 mg Documented by: [id number] Miscellaneous (Remove Lidoderm Patch) 1 ea N/A [facility] Stop: 05/19/19 20:59 Last Admin: 04/19/19 20:10 Dose: 1 ea Documented by: [id number] Montelukast Sodium (Singulair) 10 mg PO [facility] Stop: 05/18/19 20:59 Last Admin: 04/19/19 20:12 Dose: 10 mg Documented by: [id number] Admin: 04/18/19 21:26 Dose: 10 mg Documented by: [id number] Multivitamins (Multivitamin Tab) 1 tab PO QAM [facility] Stop: 05/19/19 08:59 Last Admin: 04/20/19 08:42 Dose: 1 tab Documented by: [id number] Admin: 04/19/19 07:54 Dose: 1 tab Documented by: [id number] Multivitamins/Minerals (Multivitamin W/ Minerals Tab) 1 tab PO QAM [facility] Stop: 05/19/19 08:59 Last Admin: 04/20/19 08:43 Dose: 1 tab Documented by: [id number] Admin: 04/19/19 07:53 Dose: 1 tab Documented by: [id number] Nitroglycerin (Nitrostat) 0.4 mg SL UD PRN PRN Reason: Chest Pain Stop: 05/18/19 17:03 Last Admin: 04/19/19 08:45 Dose: 0.4 mg Documented by: [id number] Admin: 04/19/19 08:40 Dose: 0.4 mg Documented by: [id number] Admin: 04/19/19 08:37 Dose: 0.4 mg Documented by: [id number] Admin: 04/18/19 17:08 Dose: 0.4 mg Documented by: [id number] Pantoprazole Sodium (Protonix) 40 mg PO HS [facility] Stop: 05/18/19 20:59 Last Admin: 04/19/19 20:11 Dose: 40 mg Documented by: [id number] Admin: 04/18/19 21:25 Dose: 40 mg Documented by: [id number] Polyethylene Glycol (Miralax Powder Packet) 17 gm PO DAILY JT Stop: 05/19/19 08:59 Last Admin: 04/20/19 09:38 Dose: Not Given Documented by: [id number] Admin: 04/19/19 07:58 Dose: Not Given Documented by: [id number] Potassium Chloride (Klor-Con M10) 10 meq PO QAM [facility] Stop: 05/19/19 08:59 Last Admin: 04/20/19 08:42 Dose: 10 meq Documented by: [id number] Admin: 04/19/19 07:55 Dose: 10 meq Documented by: [id number] Pravastatin Sodium (Pravachol) 10 mg PO HS JT Stop: 05/18/19 20:59 Last Admin: 04/19/19 20:14 Dose: 10 mg Documented by: [id number] Admin: 04/18/19 21:24 Dose: 10 mg Documented by: [id number] Prednisone (Prednisone) 40 mg PO UD PRN PRN Reason: SWELLING EPISODES Stop: 05/18/19 19:39 Last Admin: 04/19/19 07:55 Dose: 40 mg Documented by: [id number]
--- NOTE | 2019-04-20 18:28 | Hospitalist Progress Note ---
Date of Service April 20, 2019 Assessment & Plan (1) Non-ST elevation (NSTEMI) myocardial infarction: (2) Elevated troponin: (3) Chest pain: Recently admitted with chest pain with negative work up for ACS Present on admission with chest pain Troponin peaked at 7.12, now trending down to 6.03 Echo showed no wall motion abnormality with EF 55- 60% Cardiology on board Continue IV heparin drip Pt decided not to proceed with any cardiac cath after risks discussed with patient (daughter at bedside agreed with his decision) Pt cardiology on board and recommended conservative management Continue aspirin., and statin Metoprolol increased to 100mg BID Nitro paste discontinued, then starting on isosorbide mononitrate 60mg Continue monitor in tele (4) 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 Pro BNP 6138 on admission Received IV lasix 40mg on admission, additional IV lasix given yesterday Oral lasis held today due to worsening kidney function Monitor I/O Monitor BMP (5) HTN (hypertension): BP improved Continue amlodipine, hydralazine and metoprolol Monitor blood pressure (6) Chronic atrial fibrillation: Rate controlled Metoprolol increased to 100mg BID Digoxin on hold due to worsening creatinine On Heparin drip Coumadin on hold with INR 1.5today Continue monitor in tele (7) CKD (chronic kidney disease), stage III: Acute Kidney injury Creatinine worsening to 2.14 today Lasix and digoxin on hold Avoid nephrotoxic agents Monitor BMP (8) Asthma: Continue oxygen supplement Duoneb treatment Continue outpatient med Hypokalemia K replaced Monitor BMP CODE STATUS DNR/DNI Disposition Continue monitor in tele Subjective Pt was seen and examined Lying in bed with no distress with daughter at bedside Pt said that he feels fine Denies any chest pain, palpitation, dizziness and SOB Physical Exam Physical Exam: General- No acute distress Head- atraumatic Eyes- PERRL, EOMI, ENT- oropharynx clear, decrease hearing function Neck- supple, no JVD Lungs- clear to auscultation Heart- irregular rhythm; no murmur Abdomen- normal bowel sounds, soft, nontender Extremities- no calf tenderness, +edema Neuro- alert, oriented, PERRL, EOMI; no facial palsy; no dysarthria Skin- warm & dry Results & Data Vital Signs (Past 12 Hours) Vital Signs Temp Pulse Pulse Resp BP Pulse Ox 04/20/19 15:38 36.8 C 86 20 123/73 95 04/20/19 11:15 36.7 C 78 22 154/77 H 94 04/20/19 08:42 70 04/20/19 07:29 36.6 C 93 H 20 163/82 H 94 04/20/19 07:03 77 H 96
[2019-04-20] MEDS: PANTOprazole 40 MG TAB PO SCH (21:15)
[2019-04-20] MEDS: PRAVASTATIN SOD 10 MG TAB PO SCH (21:17)
[2019-04-20] MEDS: MONTELUKAST SODIUM 10 MG TABLET PO SCH (21:19)
[2019-04-20] MEDS: METOPROLOL TARTRATE 100 MG TAB PO SCH (21:21)
[2019-04-21 05:32] LABS: Hematocrit (blood only) 29.4 % (42-52); Mean Corpuscular Volume 84.7 fL (80-100); Mean Platelet Volume 10.1 fL (7.4-10.4); Platelet Count 238 K/uL (130-400); RDW Coefficient of Variation 14.5 % (11.5-14.5); RDW Standard Deviation 44.9 fL (36.4-46.3); Red Blood Count 3.47 M/uL (4.7-6.1); White Blood Count 9.98 K/uL (4.8-10.8)
[2019-04-21 05:46] LABS: INR 1.3 (0.9-1.1); Partial Thromboplastin Ratio 1.6; Partial Thromboplastin Time 42.4 Seconds (21.0-31.0); Prothrombin Time 13.3 Seconds (9.0-12.0)
[2019-04-21 05:58] LABS: BUN Creatinine Ratio 19.2 (10-20); Calcium 8.1 mg/dl (8.5-10.1); Creatinine Clr Calc Pharmacy 26.6 ml/min; Est GFR (African American) 32.5; Est GFR (Non-African American) 28.1; Potassium 3.4 mmol/L (3.5-5.1)
[2019-04-21] MEDS ORDERED: HEPARIN IV BOLUS 3,000 UNITS in SYRINGE 0 ML IV ONE ×2 (06:35→16:02)
[2019-04-21] MEDS: IPRATROPIUM BROMIDE NEB SOLN 0.02% 2.5 ML VIAL NEB SCH ×2 (07:09→19:25)
[2019-04-21] MEDS: LEVALBUTEROL 1.25MG/0.5ML NEB NEB SCH ×2 (07:09→19:25)
[2019-04-21] MEDS: AMLODIPINE BESYLATE 5 MG TAB PO SCH (08:28)
[2019-04-21] MEDS: POTASSIUM CHLORIDE 10 MEQ TABCR PO SCH (08:29)
[2019-04-21] MEDS: ISOSORBIDE MONO EXTENDED REL 60 MG TABCR PO SCH (08:29)
[2019-04-21] MEDS: ASPIRIN 81 MG CHEW PO SCH (08:29)
[2019-04-21] MEDS: FLUTICASONE HFA 110MCG INHALER INH SCH ×2 (08:30→21:39)
[2019-04-21] MEDS: LIDOCAINE 5% 1 PATCH TD SCH (08:30)
[2019-04-21] MEDS: METOPROLOL TARTRATE 100 MG TAB PO SCH ×2 (08:31→21:35)
[2019-04-21] MEDS: POLYETHYLENE (MIRALAX) 17 GM PACK PO SCH (08:31)
[2019-04-21] MEDS ORDERED: POTASSIUM CHLORIDE 10 MEQ TABCR PO SCH (09:30)
[2019-04-21] MEDS ORDERED: ISOSORBIDE MONO EXTENDED REL 60 MG TABCR PO SCH (09:30)
[2019-04-21] MEDS: CEROVITE ADV FORMULA TAB PO SCH (10:13)
[2019-04-21] MEDS: MULTIVITAMIN TAB PO SCH (10:13)
[2019-04-21] MEDS: Heparin Adult LOW DOSE Wt-Based Dextrose 5% 25,000 units/500 mL IV SCH (10:14)
--- NOTE | 2019-04-21 12:02 | Hospitalist Progress Note ---
Date of Service April 21, 2019 Assessment & Plan (1) Non-ST elevation (NSTEMI) myocardial infarction: (2) Elevated troponin: Possible secondary to demand ischemia/cardiac strain, for hypoxia Follow serial cardiac marker, patient another episode of R Sided CP, Paste applied and went away Had very recent echocardiogram done, repeat echo as per cardiology Continue Nitropaste, beta Omer, Imdur increased today Continue telemetry (3) Chest pain: Recently admitted with chest pain with negative work up for ACS Present on admission with chest pain Troponin peaked at 7.12, now trending down to 6.03 Echo showed no wall motion abnormality with EF 55- 60% Cardiology on board Continue IV heparin drip Pt decided not to proceed with any cardiac cath after risks discussed with patient (daughter at bedside agreed with his decision) Pt cardiology on board and recommended conservative management Continue aspirin., and statin Metoprolol increased to 100mg BID isosorbide mononitrate increased today by Dr Mccoy Continue monitor in tele (4) 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 Pro BNP 6138 on admission Oral lasix 20 mg daily Monitor I/O Monitor BMP (5) HTN (hypertension): BP improved Continue amlodipine, hydralazine and metoprolol Monitor blood pressure (6) Chronic atrial fibrillation: Rate controlled Metoprolol increased to 100mg BID Digoxin on hold due to worsening creatinine On Heparin drip Coumadin on hold with INR 1.5today Continue monitor in tele (7) CKD (chronic kidney disease), stage III: Acute Kidney injury Creatinine worsening to 2.14 today Lasix and digoxin on hold Avoid nephrotoxic agents Monitor BMP (8) Asthma: Continue oxygen supplement Duoneb treatment Continue outpatient med Hypokalemia K replaced Monitor BMP CODE STATUS DNR/DNI Disposition Continue monitor in tele DC in 1-2 days, PT weak today, reconsult PT/OT ROS-No Headache, No Visual Changes, No Nausea, No Vomiting, No Fever, No Chills, No Neck Pain or Stiffness, No Chest Pain, No Palpitations, No SOB, No TURPIN, No Cough, No Sputum, No Wheezing, No Abdominal Pain, No Diarrhea, No Hematemesis, No Hemoptysis, No Unexpected Weight Loss, No Flank pain, No Melena, No Hematochezia, No Frequency, No Urgency, No Burning, No Hematuria, No Rashes, No Diaphoresis. Appetite is Normal Physical Exam Gen-AAO x 3, NAD, Afebrile, Feels weak and not right today, RN reports R Sided CP after I saw him Head-NCAT, EOMI, PERRLA, Anicteric Sclera, No Posterior Pharyngeal Erythema Neck-Supple, No JVD, No Thyromegaly, No Masses, No LAD, No Bruits Lungs-Clear to Auscultation Bilaterally, No Rales, No Rhonchi, No Wheezing, No Crepitus Chest-No S4, +S1, +S2, No S3, No Murmurs, No Rubs, No Gallops, No Ectopy Abdomen-Soft, Bowel Sounds Present, Non Tender, Non Distended, No Hepatomegaly, No Splenomegaly, No Palpable Masses, No Rebound, No Rigidity, No Guarding Musculoskeletal-Full Range of Motion Bilaterally, No CVAT Extremities-No Cyanosis, No Clubbing, No Edema Nuero-Cranial Nerves II-XII grossly intact, Motor WNL, DTRs WNL, Strength WNL, Non Focal Psych-Normal Mood Results & Data Vital Signs (Past 12 Hours) Vital Signs Temp Pulse Resp BP Pulse Ox 04/21/19 10:32 36.7 C 82 20 129/64 94 04/21/19 07:23 36.6 C 78 20 152/85 H 95 04/21/19 07:12 78 18 95 04/21/19 04:11 37.1 C 73 18 160/70 H 94 Current Diagnoses Essential (primary) hypertension (04/18/19) Hypertensive urgency (04/18/19) Non-ST elevation (NSTEMI) myocardial infarction (04/18/19) Chronic atrial fibrillation (04/18/19) Unspecified atrial fibrillation (04/18/19) Acute diastolic (congestive) heart failure (04/18/19) Unspecified asthma, uncomplicated (04/18/19) Chronic kidney disease, stage 3 (moderate) (04/18/19) Chronic kidney disease, stage 4 (severe) (04/18/19) Other forms of dyspnea (04/18/19) Chest pain, unspecified (04/18/19) Abnormal levels of other serum enzymes (04/18/19) Allergies lisinopril Allergy (Severe, Verified 04/18/19 17:55) tongue swelling niacin Allergy (Intermediate, Verified 04/19/19 08:29) RASH latex Allergy (Unknown, Verified 04/18/19 17:55) RASH meclizine Allergy (Unknown, Verified 04/18/19 17:55) unknown sertraline Adverse Reaction (Severe, Unverified 04/18/19 17:55) Edema face/lips/tongue clonidine [From Catapres] Adverse Reaction (Unknown, Unverified 04/18/19 17:55) Unknown Height/Weight/Isolation Height 5 ft 9 in Weight 85.5 kg Chemistry 04/20/19 04/21/19 06:38 04:44 Sodium 140 139 Potassium 3.4 L 3.4 L Chloride 102 102 Carbon Dioxide 29 30 Anion Gap 9.0 7.0 BUN 36 H 39 H Creatinine 2.14 H D 2.04 H Glucose 106 H 102 H
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
[2019-04-21 13:25] LABS: Partial Thromboplastin Ratio 1.7
--- NOTE | 2019-04-21 13:27 | Cardiology Progress Note ---
Date of Service April 21, 2019 Assessment & Plan (1) Non-ST elevation (NSTEMI) myocardial infarction: pt has opted not to undergo cardiac cath whick I believe is a villalobos decision will treat medically imdur increased to 120mg daily with resolution of chest pain (pt states: "that's a miracle pill") tolerating max dose metoprolol as well cont amlodipine ok to discharge from cardiac standpoint already scheduled to see Dr. 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 will hold off on further diuresis in preparation for possible dye load does not examine as overly volume overloaded (3) Atrial fibrillation with RVR: Continue oral Toprol. rates controlled would not restart digoxin restart coumadin today does not need therapeutic INR before discharge f/u with [facility] (4) Hypertensive urgency: resolved cont amlodipine, metoprolol and hydralazine (5) CKD (chronic kidney disease) stage 4, GFR 15-29 ml/min: Subjective Pt seen and examined, states that he's not feeling right today. Denies cp, sob, palpitations, lightheadedness or dizziness. States he'd feel better if he was home. Psych note reviewed and appreciated. tele reviewed: afib rate controlled. Review of Systems Review of Systems: All systems reviewed & are unremarkable except as noted in HPI & below Physical Exam Physical Exam: General: Awake, alert and oriented x 3. No acute distress. HEENT: Normocephalic, atraumatic. Pupils equal, round and reactive to light and accommodation. Extraocular muscles are intact. Anicteric sclera. Moist mucous membranes. Neck: No JVD. No bruit. Cardiovascular: Regular. Positive S-4. Normal S-1 and S-2. No S-3. No murmurs or rubs. Pulmonary: Clear to auscultation B/L. No rales, rhonchi or wheezing Abdomen: Bowel sounds x 4, soft. No rebound, guarding or tenderness. No organomegaly. Extremities: No clubbing, cyanosis or edema. +2 pedal pulses bilaterally. Skin: Warm and dry. Results & Data Vital Signs (Past 12 Hours) Vital Signs Temp Pulse Resp BP Pulse Ox 04/21/19 10:32 36.7 C 82 20 129/64 94 05/29/19 07:23 36.6 C 78 20 152/85 H 95 04/21/19 07:12 78 18 95 04/21/19 04:11 37.1 C 73 18 160/70 H 94
[2019-04-21 14:03] LABS: Partial Thromboplastin Time 45.9 Seconds (21.0-31.0)
[2019-04-21] MEDS ORDERED: TRAZODONE HCL 50 MG TAB PO ONE (19:34)
[2019-04-21 20:14] LABS: Partial Thromboplastin Ratio 2.3
[2019-04-21 20:23] LABS: Partial Thromboplastin Time 61.4 Seconds (21.0-31.0)
[2019-04-21] MEDS: MONTELUKAST SODIUM 10 MG TABLET PO SCH (21:34)
[2019-04-21] MEDS: PRAVASTATIN SOD 10 MG TAB PO SCH (21:36)
[2019-04-21] MEDS: PANTOprazole 40 MG TAB PO SCH (21:36)
[2019-04-22] MEDS: Heparin Adult LOW DOSE Wt-Based Dextrose 5% 25,000 units/500 mL IV SCH ×2 (05:16→22:42)
[2019-04-22] MEDS: IPRATROPIUM BROMIDE NEB SOLN 0.02% 2.5 ML VIAL NEB SCH ×2 (07:14→19:25)
[2019-04-22] MEDS: LEVALBUTEROL 1.25MG/0.5ML NEB NEB SCH ×2 (07:14→19:25)
[2019-04-22 07:50] LABS: Hematocrit (blood only) 31.9 % (42-52); Hemoglobin 10.5 g/dL (14.0-18.0); Mean Corpuscular Hgb Conc 32.9 g/dL (32-36); Mean Platelet Volume 10.5 fL (7.4-10.4); Platelet Count 244 K/uL (130-400); RDW Coefficient of Variation 14.5 % (11.5-14.5); RDW Standard Deviation 45.6 fL (36.4-46.3); Red Blood Count 3.71 M/uL (4.7-6.1); White Blood Count 11.83 K/uL (4.8-10.8)
[2019-04-22 08:02] LABS: INR 1.2 (0.9-1.1); Partial Thromboplastin Ratio 1.6; Partial Thromboplastin Time 42.9 Seconds (21.0-31.0); Prothrombin Time 12.2 Seconds (9.0-12.0)
[2019-04-22 08:17] LABS: BUN Creatinine Ratio 17.9 (10-20); Calcium 8.7 mg/dl (8.5-10.1); Creatinine Clr Calc Pharmacy 28.9 ml/min; Est GFR (African American) 35.9; Potassium 3.7 mmol/L (3.5-5.1)
[2019-04-22] MEDS ORDERED: HEPARIN IV BOLUS 3,000 UNITS in SYRINGE 0 ML IV ONE (08:18)
[2019-04-22] MEDS: METOPROLOL TARTRATE 100 MG TAB PO SCH ×2 (08:55→20:38)
[2019-04-22] MEDS: AMLODIPINE BESYLATE 5 MG TAB PO SCH (08:55)
[2019-04-22] MEDS: POTASSIUM CHLORIDE 10 MEQ TABCR PO SCH (08:55)
[2019-04-22] MEDS: ASPIRIN 81 MG CHEW PO SCH (08:56)
[2019-04-22] MEDS: MULTIVITAMIN TAB PO SCH (08:56)
[2019-04-22] MEDS: ISOSORBIDE MONO EXTENDED REL 60 MG TABCR PO SCH (08:56)
[2019-04-22] MEDS: FERROUS SULFATE 325 MG TAB PO SCH (08:56)
--- NOTE | 2019-04-22 08:56 | Discharge Summary ---
Date of Service April 22, 2019 Admission HPI Per Admitting Provider Tee Joseph is an 88-year-old male admitted medically on 04/18/19 for cardiac work-up following presentation to the ED for shortness of breath and chest tightness. Cardiac work-up is consistent with an N-STEMI. Cardiology has been managing treatment and explaining options to the patient regarding recommendations for the next course of action. Psychiatric consultation was requested to assess the patient for capacity to make the decision between cardiac catheterization or medical therapy to manage the condition. A thorough conversation between patient, daughter, and hematology nurse was documented and appreciated. Documentation suggests that patient was made aware of treatment options, current recommendation, risks, and benefits. At time of the conversation, patient was interested in a catheterization, but also reportedly interested in maintaining the current function of his kidneys. With these, and other comments, it was questioned if patient was able to reasonably consider this important information and make a rational choice regarding his treatment. Case was reviewed with patient's RN and the ordering physician prior to assessment. Pt's roommate was also asked to step out of room, as he had been contributing too greatly to the conversation, skewing this provider's ability to assess the patient's decision-making process. Pt's daughter, Larissa, was invited to join at patient's request. Pt was seen individually initially, aside from interjections from his roommate. When roommate was kindly agreeable to visiting elsewhere with his family, allowing for better assessment of the patient's understanding. Pt shares with this provider, "Well, they talked about doing that procedure, they check my arteries and check to see how many are bad and clogged up." He clearly explains that he was informed that many of the anticipated blockages - "they're not sure they can clear, they may have to leave them." Pt states, "If they may not be able to get it all, oh, and they said it would hurt my kidneys, then what do I have to loose with medications." Pt begins stating that he has had time to consider his options and is interested in pursuing medication therapy to manage his symptoms, no longer interested in a catheterization. He states, "I'm going in that direction now." Pt is able to explain anticipated risks of both options, as well as the risk of doing nothing. Pt states, "my heart wasn't letting me breathe, it was difficult to do anything. I don't want to feel like that anymore, that's why I came in isn't it?" Pt states, "I think the medication is the lesser of two evils, don't you?" For the duration of our visit, patient maintained a decision to pursue medical therapy to treat his symptoms. Pt states several times, "I'm 88 year old, I don't have long, but I don't want to keep feeling like this. And the other option, they may not get everything and it may end my kidneys." Pt was asked about current level of anxiety and depression. He states, "depression isn't even a word here, it's fine." He does admit to some anxiety, "I think anybody would be anxious about this - I just think once I make a decision, I'll be able to convince myself it's the right one." Pt does not feel any specific intervention is necessary at this time to manage these concerns. Pt denies SI, A/V hallucinations, and other specific psychiatric concerns. Admission Exam Per Admitting Provider General: elderly male, no acute distress, WDWN Head: normocephalic, atraumatic Eyes: PERRL, EOM's intact, conjunctiva non-injected, anicteric ENT: normal inspection external ears, nose, mucous membranes moist, +hard of hearing Neck: supple, trachea midline Lungs: clear, no respiratory distress, no wheezing/rhonchi/rales CV: irregularly irregular, no murmur, 1+ pretibial edema Abd: normal BS, soft, non-tender Ext: no cyanosis, no calf tenderness Neuro: A&O x 3, no focal deficits noted, normal affect Skin: warm, dry Principal Diagnosis NSTEMI CKD Atrial fibrillation Acute diastolic heart failure with preserved ejection fraction Acute coronary syndrome Subtherapeutic INR Dyspnea on exertion Hypertensive urgency MGUS Asthma Depression Dyslipidemia Anemia Discharge Exam ROS-No Headache, No Visual Changes, No Nausea, No Vomiting, No Fever, No Chills, No Neck Pain or Stiffness, No Chest Pain, No Palpitations, No SOB, No TURPIN, No Cough, No Sputum, No Wheezing, No Abdominal Pain, No Diarrhea, No Hematemesis, No Hemoptysis, No Unexpected Weight Loss, No Flank pain, No Melena, No Hematochezia, No Frequency, No Urgency, No Burning, No Hematuria, No Rashes, No Diaphoresis. Appetite is Normal Physical Exam Gen-AAO x 3, NAD, Afebrile, still feels weak Head-NCAT, EOMI, PERRLA, Anicteric Sclera, No Posterior Pharyngeal Erythema Neck-Supple, No JVD, No Thyromegaly, No Masses, No LAD, No Bruits Lungs-Clear to Auscultation Bilaterally, No Rales, No Rhonchi, No Wheezing, No Crepitus Chest-No S4, +S1, +S2, No S3, No Murmurs, No Rubs, No Gallops, No Ectopy Abdomen-Soft, Bowel Sounds Present, Non Tender, Non Distended, No Hepatomegaly, No Splenomegaly, No Palpable Masses, No Rebound, No Rigidity, No Guarding Musculoskeletal-Full Range of Motion Bilaterally, No CVAT Extremities-No Cyanosis, No Clubbing, No Edema Nuero-Cranial Nerves II-XII grossly intact, Motor WNL, DTRs WNL, Strength WNL, Non Focal Psych-Normal Mood Discharge Data Allergies Allergy/AdvReac Type Severity Reaction Status Date / Time lisinopril Allergy Severe tongue Verified 04/18/19 17:55 swelling niacin Allergy Intermediate RASH Verified 04/19/19 08:29 latex Allergy Unknown RASH Verified 04/18/19 17:55 meclizine Allergy Unknown unknown Verified 04/18/19 17:55 sertraline AdvReac Severe Edema Unverified 04/18/19 17:55 face/lips/tongue clonidine [From Catapres] AdvReac Unknown Unknown Unverified 04/18/19 17:55 Consultations 04/18/19 17:49 ED Decision to Admit Stat 04/18/19 19:40 Consult Cardiology Routine Consult Case Management - Discharge Planning Routine 04/20/19 14:40 Consult Psychiatry Routine 04/20/19 14:41 Consult Palliative Care Routine Current Diagnoses Essential (primary) hypertension (04/18/19) Hypertensive urgency (04/18/19) Non-ST elevation (NSTEMI) myocardial infarction (04/18/19) Chronic atrial fibrillation (04/18/19) Unspecified atrial fibrillation (04/18/19) Acute diastolic (congestive) heart failure (04/18/19) Unspecified asthma, uncomplicated (04/18/19) Chronic kidney disease, stage 3 (moderate) (04/18/19) Chronic kidney disease, stage 4 (severe) (04/18/19) Other forms of dyspnea (04/18/19) Chest pain, unspecified (04/18/19) Abnormal levels of other serum enzymes (04/18/19) Other specified counseling (04/18/19) Allergies lisinopril Allergy (Severe, Verified 04/18/19 17:55) tongue swelling niacin Allergy (Intermediate, Verified 04/19/19 08:29) RASH latex Allergy (Unknown, Verified 04/18/19 17:55) RASH meclizine Allergy (Unknown, Verified 04/18/19 17:55) unknown sertraline Adverse Reaction (Severe, Unverified 04/18/19 17:55) Edema face/lips/tongue clonidine [From Catapres] Adverse Reaction (Unknown, Unverified 04/18/19 17:55) Unknown Height/Weight/Isolation Height 5 ft 9 in Weight 85.5 kg Chemistry 04/21/19 04/22/19 04:44 07:35 Sodium 139 138 Potassium 3.4 L 3.7 Chloride 102 102 Carbon Dioxide 30 28 Anion Gap 7.0 8.0 BUN 39 H 34 H Creatinine 2.04 H 1.88 H Glucose 102 H 119 H Hospital Course (1) Non-ST elevation (NSTEMI) myocardial infarction: (2) Elevated troponin: Possible secondary to demand ischemia/cardiac strain for hypoxia Follow serial cardiac marker, patient another episode of R Sided CP, Paste applied and went away Had very recent echocardiogram done, repeat echo as per cardiology Continue Nitropaste, beta Omer, Imdur increased today DC home today with home (3) Chest pain: Recently admitted with chest pain with negative work up for ACS Present on admission with chest pain Troponin peaked at 7.12, now trending down to 6.03 Echo showed no wall motion abnormality with EF 55- 60% Cardiology on board Continue IV heparin drip Pt decided not to proceed with any cardiac cath after risks discussed with patient (daughter at bedside agreed with his decision) Pt cardiology on board and recommended conservative management Continue aspirin., and statin Metoprolol increased to 100mg BID isosorbide mononitrate increased to [address] Mccoy (4) 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 Pro BNP 6138 on admission Oral lasix 20 mg daily (5) HTN (hypertension): BP improved Continue amlodipine, hydralazine and metoprolol (6) Chronic atrial fibrillation: Rate controlled Metoprolol increased to 100mg BID Coumadin (7) CKD (chronic kidney disease), stage III: Acute Kidney injury improved Lasix Avoid nephrotoxic agents (8) Asthma: Hypokalemia K replaced Monitor BMP CODE STATUS DNR/DNI DC today, home health care for safety checks med review and cardiac rehab eval Total Time Total Time Spent Total Time Spent (In Minutes): 45 minutes Total Time Includes: Examination of the Patient, Discharge Planning, Medication Reconciliation and Communication With Other Providers Discharge Plan Discharge Items Patient Disposition: Home - Home Health Services Reason For Visit: CHEST PAIN/SOB Discharge Diagnosis: NSTEMI CKD Atrial fibrillation Acute diastolic heart failure with preserved ejection fraction Acute coronary syndrome Subtherapeutic INR Dyspnea on exertion Hypertensive urgency MGUS Asthma Depression Dyslipidemia Anemia Condition: Fair Discharge Goals: Decrease discomfort, Improve disease control and Improve function Activity: Resume your previous activity Activity Comment: As tolerated Lifting: None and Gradually increase as tolerated Bathing: No limitations Exercise/Sports: None Driving/Machine Use Comment: No driving Weightbearing: Left weightbearing and Right weightbearing Non-emergency contact: Primary Care Provider and Room Manager Call non-emergency contact if: you have any medication questions and your symptoms worsen Follow-up/Referrals: Wilfrido Horn DO [Family Provider] - 05/10/19 (Already has an appoint with Dr. Horn on [phone]) Margoth Flores MD [Physician] - (Follow-up as needed) Seymour Hoff MD [Primary Care Provider] - Diet: Heart Healthy Addtl Provider Instructions: Maximize medical therapy for angina Prescriptions: New metoprolol tartrate 100 mg Tablet 100 mg PO BID Qty: 60 RF: 0 hydralazine 25 mg Tablet 50 mg PO TID Qty: 180 RF: 0 isosorbide mononitrate 60 mg Tablet Extended Release 24 Hr 120 mg PO QAM Qty: 60 RF: 0 potassium chloride [Klor-Con M10] 10 mEq Tablet,Er Particles/Crystals 40 meq PO QAM Qty: 120 RF: 0 Continued prednisone 20 mg tablet 40 mg PO UD RF: 0 acetaminophen [Tylenol Extra Strength] 500 mg Tablet 500 mg PO Q6H PRN (Reason: Pain) RF: 0 pravastatin 10 mg tablet 10 mg PO HS RF: 0 amlodipine 10 mg tablet 10 mg PO QAM RF: 0 ferrous sulfate 325 mg (65 mg iron) Tablet 325 mg PO Q2D RF: 0 warfarin 5 mg tablet 2.5 mg PO SUMOWETHFR@1600 RF: 0 warfarin 5 mg tablet 5 mg PO TUSA@1600 RF: 0 nitroglycerin 0.4 mg tablet, sublingual 0.4 mg sublingual UD RF: 0 omeprazole 20 mg capsule,delayed release(DR/EC) 20 mg PO HS RF: 0 montelukast 10 mg tablet 10 mg PO HS RF: 0 digoxin [Digitek] 125 mcg tablet 125 mcg PO QAM RF: 0 albuterol sulfate [Ventolin HFA] 90 mcg/actuation Hfa Aerosol Inhaler 2 puff INHALATION Q6H PRN (Reason: Shortness Of Breath Or Wheezing) RF: 0 ipratropium bromide 42 mcg (0.06 %) spray,non-aerosol 2 spray intranasal QID PRN (Reason: Congestion) RF: 0 Flovent HFA 110 mcg/actuation HFA aerosol inhaler 2 puff inhalation BID RF: 0 PreserVision AREDS-2 [id number] [id number] Capsule 1 tab PO QAM RF: 0 multivitamin Tablet 1 tab PO QAM RF: 0 Lidocaine Pain Relief 4 % Adhesive Patch,Medicated 1 patch TOPICAL DAILY RF: 0 aspirin 81 mg Tablet,Chewable 81 mg PO DAILY RF: 0 furosemide 20 mg tablet 20 mg PO QAM RF: 0 Discontinued diphenhydramine HCl 25 mg Capsule 25 mg PO UD PRN (Reason: swelling) RF: 0 metoprolol tartrate 50 mg Tablet 75 mg PO BID Qty: 60 RF: 1 potassium chloride 10 mEq capsule, extended release 10 meq PO QAM RF: 0 hydralazine 25 mg Tablet 25 mg PO TID RF: 0 Visit Report Forms: Smoking Cessation Stand-Alone Forms: Count Includes [facility] Discharge Orders: Discharge Order (Routine); Ordered 04/22/19 Ordered By: Devin Alexis Admission Data Admit Date/Time: 04/18/19 19:02 Attending Provider: Devin Alexis Admit Provider: Katharina Patel Primary Care Provider: Seymour Hoff. Other Providers: Katharina Patel ; Elias Mccoy ; Wilfrido Horn ; Edouard Soria ; Patrcie Esparza ; Leno Cole ; Seymour Solano ; Snow Larios ; Judy Yeung ; Cindy Villalobos ; Margoth Flores Service: Telemetry Other Pending Studies at Discharge: No
[2019-04-22] MEDS: CEROVITE ADV FORMULA TAB PO SCH (08:57)
[2019-04-22] MEDS: LIDOCAINE 5% 1 PATCH TD SCH (08:57)
[2019-04-22] MEDS: FLUTICASONE HFA 110MCG INHALER INH SCH ×2 (08:58→20:42)
[2019-04-22] MEDS: POLYETHYLENE (MIRALAX) 17 GM PACK PO SCH (08:58)
--- NOTE | 2019-04-22 09:37 | Cardiology Progress Note ---
Date of Service April 22, 2019 Assessment & Plan (1) Non-ST elevation (NSTEMI) myocardial infarction: pt has opted not to undergo cardiac cath whick I believe is a villalobos decision will treat medically imdur increased to 120mg daily with resolution of chest pain (pt states: "that's a miracle pill") tolerating max dose metoprolol as well cont amlodipine ok to discharge from cardiac standpoint already scheduled to see Dr. 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 will hold off on further diuresis in preparation for possible dye load does not examine as overly volume overloaded (3) Atrial fibrillation with RVR: Continue oral Toprol. rates controlled would not restart digoxin restart coumadin today does not need therapeutic INR before discharge f/u with [facility] (4) Hypertensive urgency: elevated this AM but nursing reports patient significantly agitated at that time would recheck this AM cont current meds (5) CKD (chronic kidney disease) stage 4, GFR 15-29 ml/min: Subjective Pt seen and examined, states that he's not feeling right today. Denies cp, sob, palpitations, lightheadedness or dizziness. States he'd feel better if he was home. tele reviewed: afib rate controlled. Review of Systems Review of Systems: All systems reviewed & are unremarkable except as noted in HPI & below Physical Exam Physical Exam: General: Awake, alert and oriented x 3. No acute distress. HEENT: Normocephalic, atraumatic. Pupils equal, round and reactive to light and accommodation. Extraocular muscles are intact. Anicteric sclera. Moist mucous membranes. Neck: No JVD. No bruit. Cardiovascular: irregularly irregular, unable to appreciate murmur, rub or gallop. Pulmonary: Clear to auscultation bilaterally. No rales, rhonchi, or wheezing. Abdomen: Bowel sounds x 4, soft. No rebound, guarding or tenderness. No organomegaly. Extremities: No clubbing, cyanosis or edema. +2 pedal pulses bilaterally. Skin: Warm and dry. Results & Data Vital Signs (Past 12 Hours) Vital Signs Temp Pulse Pulse Resp BP Pulse Ox 04/22/19 07:24 36.9 C 98 H 16 182/93 H 95 04/22/19 07:16 80 47 L 24 95 04/22/19 04:08 36.5 C 98 H 18 188/76 H 94 04/22/19 00:03 37.2 C 83 18 154/67 H 93
--- NOTE | 2019-04-22 10:51 | XRay Report ---
XR chest 1V portable CLINICAL HISTORY: Hypoxia dyspnea COMPARISON STUDY: 04/18/2018 FINDINGS: Moderate stable cardia megaly. Slight increase in prominence of the bronchovascular and int erstitial markings compared to the prior study. Trace bilateral pleural effusions. IMPRESSION: Slightly progressive components of pulmonary edema versus congestive failure. The above report was generated using voice recognition software. It may contain grammatical, syntax or spelling errors. Electronically signed by: Seymour Yun M.D. 04/22/2019 10:50 AM
[2019-04-22] MEDS: FUROSEMIDE 80 MG in SYRINGE 0 ML IV SCH ×2 (11:03→22:19)
--- NOTE | 2019-04-22 14:50 | Palliative Care Progress Note ---
Date of Service April 22, 2019 Assessment & Plan (1) Goals of care, counseling/discussion: -Met with patient and his daughter, Larissa. -Again discussed goals of care. Both patient and Larissa agree that we are truly just focusing on symptom management and comfort at this point, but patient is not ready for hospice. Nor do I think he would certainly qualify for hospice at this point. Patient is agreeable to having [facility] once he goes home. Larissa states that she has the number for [facility] and will give them a call. -Larissa is concerned that patient continues to "overdo it" at home. He still thinks he is able to clean the house, climb ladders and drive a car. Patient is frustrated but also agreed that maybe he needs to "slow down." -Patient plans to return home where he lives with his daughter Larissa. -No symptom management needs at this time. (2) Non-ST elevation (NSTEMI) myocardial infarction: -Cardiology following -Nitropaste converted to Imdur -Titrating beta martinez up -Heparin gtt -Chest pain is resolved -Decision was made to not proceed with cardiac catheterization due to risks outweighing benefits. Medical management per patient's wishes. (3) Chest pain: -Medical management. -Chest pain resolved. (4) CKD (chronic kidney disease), stage III: -BR[place]ORD on CKD. -Creatinine peaked at 2.14, trending down. 1.88 today Subjective Patient today for follow up. No chest pain and feeling a little better. Daughter Larissa is at bedside. Review of Systems Respiratory: + dyspnea on exertion; no cough Cardiovascular: no chest pain and no edema Gastrointestinal: no abdominal pain and no nausea Psychiatric: no anxiety Physical Exam Constitutional: well developed and well nourished; no acute distress ENMT: Ears: + hearing impairment (hearing aids) Neck: normal visual inspection Respiratory: normal respiratory effort, lungs clear to auscultation Cardiovascular: Rate/Rhythm: regular rate Vessels: normal peripheral pulses Extremities: no edema Gastrointestinal (Abdomen): Inspection/Auscultation: abdomen normal to inspection and normal bowel sounds Percussion/Palpation: abdomen soft Skin: no rashes, warm and dry Neurologic: moves all extremities and awake; not confused Psychiatric: Orientation: alert, oriented x 3 and cooperative (and pleasant) Insight: + fair insight Results & Data Vital Signs (Past 12 Hours) Vital Signs Temp Pulse Pulse Pulse Resp BP Pulse Ox 04/22/19 11:36 36.6 C 63 20 115/52 L 94 04/22/19 07:24 36.9 C 98 H 16 182/93 H 95 04/22/19 07:16 80 47 L 24 95 04/22/19 04:08 36.5 C 98 H 18 188/76 H 94 Time Spent Midlevel 45 minutes with >50% of time spent at bedside with patient discussing condition and GOC.
[2019-04-22] MEDS: PANTOprazole 40 MG TAB PO SCH (20:40)
[2019-04-22] MEDS: MONTELUKAST SODIUM 10 MG TABLET PO SCH (20:40)
[2019-04-22] MEDS: PRAVASTATIN SOD 10 MG TAB PO SCH (20:41)
[2019-04-23 05:02] LABS: Partial Thromboplastin Ratio 1.7
[2019-04-23] MEDS: LEVALBUTEROL 1.25MG/0.5ML NEB NEB SCH ×2 (07:06→19:24)
[2019-04-23] MEDS: IPRATROPIUM BROMIDE NEB SOLN 0.02% 2.5 ML VIAL NEB SCH ×2 (07:06→19:24)
--- NOTE | 2019-04-23 07:46 | Hospitalist Progress Note ---
Date of Service April 23, 2019 Assessment & Plan (1) Non-ST elevation (NSTEMI) myocardial infarction: (2) Elevated troponin: Possible secondary to demand ischemia/cardiac strain for hypoxia Serial cardiac marker trending down, patient c sporadic episodes of R Sided CP, Paste applied and went away Had very recent echocardiogram done, repeat echo as per cardiology Continue Nitropaste, beta Omer, Imdur DC home when less hypoxic Lasix 80 q12 ordered, CHF/Pulm edema on CXR 04/22 CTC wo IVC today V/Q today, Pulm eval ordered (3) Chest pain: Recently admitted with chest pain with negative work up for ACS Present on admission with chest pain Troponin peaked at 7.12, now trending down to 6.03 Echo showed no wall motion abnormality with EF 55- 60% Cardiology on board Continue IV heparin drip Pt decided not to proceed with any cardiac cath after risks discussed with patient (daughter at bedside agreed with his decision) Pt cardiology on board and recommended conservative management Continue aspirin., and statin Metoprolol increased to 100mg BID isosorbide mononitrate increased to [address] Mccoy (4) 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 Pro BNP 6138 on admission IV lasix 80 mg q12 (5) HTN (hypertension): BP improved Continue amlodipine, hydralazine and metoprolol (6) Chronic atrial fibrillation: Rate controlled Metoprolol increased to 100mg BID Coumadin (7) CKD (chronic kidney disease), stage III: Acute Kidney injury improved Avoid nephrotoxic agents (8) Asthma: Hypokalemia K replaced Monitor BMP Cardiac rehab CODE STATUS DNR/DNI DC when less hypoxic, or if refractory then on home O2, home health care for safety checks med review and cardiac rehab eval Results & Data Vital Signs (Past 12 Hours) Vital Signs Temp Pulse Resp BP Pulse Ox 04/23/19 07:08 77 18 92 04/23/19 04:20 36.6 C 78 18 163/86 H 94 04/22/19 23:41 37.2 C 81 18 151/69 H 95 04/22/19 19:42 37.2 C 76 16 152/86 H 96 Current Diagnoses Essential (primary) hypertension (04/18/19) Hypertensive urgency (04/18/19) Non-ST elevation (NSTEMI) myocardial infarction (04/18/19) Chronic atrial fibrillation (04/18/19) Unspecified atrial fibrillation (04/18/19) Acute diastolic (congestive) heart failure (04/18/19) Unspecified asthma, uncomplicated (04/18/19) Chronic kidney disease, stage 3 (moderate) (04/18/19) Chronic kidney disease, stage 4 (severe) (04/18/19) Other forms of dyspnea (04/18/19) Chest pain, unspecified (04/18/19) Abnormal levels of other serum enzymes (04/18/19) Other specified counseling (04/18/19) Allergies lisinopril Allergy (Severe, Verified 04/18/19 17:55) tongue swelling niacin Allergy (Intermediate, Verified 04/19/19 08:29) RASH latex Allergy (Unknown, Verified 04/18/19 17:55) RASH meclizine Allergy (Unknown, Verified 04/18/19 17:55) unknown sertraline Adverse Reaction (Severe, Unverified 04/18/19 17:55) Edema face/lips/tongue clonidine [From Catapres] Adverse Reaction (Unknown, Unverified 04/18/19 17:55) Unknown Height/Weight/Isolation Height 5 ft 9 in Weight 83.5 kg Chemistry 04/22/19 07:35 Sodium 138 Potassium 3.7 Chloride 102 Carbon Dioxide 28 Anion Gap 8.0 BUN 34 H Creatinine 1.88 H Glucose 119 H
[2019-04-23] MEDS: ASPIRIN 81 MG CHEW PO SCH (08:14)
[2019-04-23] MEDS: FLUTICASONE HFA 110MCG INHALER INH SCH ×2 (08:15→20:30)
[2019-04-23] MEDS: ISOSORBIDE MONO EXTENDED REL 60 MG TABCR PO SCH (08:15)
[2019-04-23] MEDS: POTASSIUM CHLORIDE 10 MEQ TABCR PO SCH (08:15)
[2019-04-23] MEDS: METOPROLOL TARTRATE 100 MG TAB PO SCH ×2 (08:16→20:35)
[2019-04-23] MEDS: LIDOCAINE 5% 1 PATCH TD SCH (08:16)
[2019-04-23] MEDS: AMLODIPINE BESYLATE 5 MG TAB PO SCH (08:17)
[2019-04-23] MEDS: CEROVITE ADV FORMULA TAB PO SCH (08:17)
[2019-04-23] MEDS: MULTIVITAMIN TAB PO SCH (08:17)
[2019-04-23] MEDS: IPRATROPIUM BROMIDE NASAL SPRAY 0.06% 15ML NAE PRN ×2 (08:18→20:33)
[2019-04-23] MEDS: POLYETHYLENE (MIRALAX) 17 GM PACK PO SCH (08:24)
[2019-04-23] MEDS: FUROSEMIDE 80 MG in SYRINGE 0 ML IV SCH ×2 (10:21→20:36)
--- NOTE | 2019-04-23 11:12 | CT Scan Report ---
CT chest wo con CT DOSE: 536.72 mGycm HISTORY: Hypoxia Hypoxemia TECHNIQUE: Multiaxial CT images of the chest were performed without contrast. A dose lowering techni que was utilized adhering to the principles of ALARA. COMPARISON: 12/08/2016 FINDINGS: Interval development of moderate bilateral pleural effusions. Mild increase in cardiac size . Small pericardial effusion with maximum thickness of 1.4 cm. Mild prominence of pulmonary vasculatu re compared to the prior study. Minimal apical fibrotic change. Slight peribronchial prominence compared to the prior study. Superimp osed bibasilar atelectatic and or volume loss-type change. Area of calcification of the coronary kathryn rial vasculature. Several mediastinal hilar and subcarinal nodes measuring up to 1.2 cm. These may be reactive. IMPRESSION: 1. Bilateral pleural effusions with superimposed bibasilar atelectasis. 2. Components of congestive heart failure present. 3. Mild pericardial effusion. The above report was generated using voice recognition software. It may contain grammatical, syntax or spelling errors. Electronically signed by: Seymour Yun M.D. 04/23/2019 11:10 AM
--- NOTE | 2019-04-23 11:39 | Nuclear Medicine Report ---
NM pul perfusion CLINICAL HISTORY: Hypoxemia TECHNIQUE: Medially following the intravenous administration of 5.4 mCi of technetium 99 M MAA, anter ior, posterior, oblique, and lateral views of the chest were performed for the perfusion study. COMPARISON STUDY: Chest CT 04/23/2019. Chest x-ray 04/22/2019. FINDINGS: Heterogeneous perfusion within the lungs with a few scattered small nonsegmental defects. T he cardiac silhouette is mildly enlarged. No large segmental defects identified. IMPRESSION: The study is technically suboptimal due to the lack of a ventilation scan. However, the scattered nonsegmental small defects suggest a low probability scan. Electronically signed by: Altaf Gandara M.D. 04/23/2019 11:38 AM
--- NOTE | 2019-04-23 15:34 | Cardiology Progress Note ---
Date of Service April 23, 2019 Assessment & Plan (1) Non-ST elevation (NSTEMI) myocardial infarction: pt has opted not to undergo cardiac cath which I believe is a villalobos decision will treat medically imdur increased to 120mg daily with resolution of chest pain (pt states: "that's a miracle pill") tolerating max dose metoprolol as well cont amlodipine already scheduled to see Dr. Horn on 05/10, would keep that appointment (2) Acute diastolic heart failure with preserved ejection fraction: pleural effusions present for diuresis (3) Atrial fibrillation with RVR: Continue oral Toprol. rates controlled would not restart digoxin restart coumadin today does not need therapeutic INR before discharge f/u with [facility] (4) Hypertensive urgency: now controlled cont current meds (5) CKD (chronic kidney disease) stage 4, GFR 15-29 ml/min: Subjective Pt seen and examined, states that he's "ok" today. Still some sob. Denies cp, palpitations, lightheadedness or dizziness. Tele reviewed: afib rate controlled. Review of Systems Review of Systems: All systems reviewed & are unremarkable except as noted in HPI & below Physical Exam Physical Exam: General: Awake, alert and oriented x 3. No acute distress. HEENT: Normocephalic, atraumatic. Pupils equal, round and reactive to light and accommodation. Extraocular muscles are intact. Anicteric sclera. Moist mucous membranes. Neck: No JVD. No bruit. Cardiovascular: irregularly irregular, unable to appreciate murmur, rub or gallop. Pulmonary: Poor air movement in B/L bases, otherwise, clear. Abdomen: Bowel sounds x 4, soft. No rebound, guarding or tenderness. No organomegaly. Extremities: No clubbing, cyanosis or edema. +2 pedal pulses bilaterally. Skin: Warm and dry. Results & Data Vital Signs (Past 12 Hours) Vital Signs Temp Pulse Resp BP Pulse Ox 04/23/19 15:13 36.7 C 75 13 130/61 92 04/23/19 11:57 36.7 C 74 18 127/73 96 04/23/19 07:59 36.5 C 93 H 19 174/83 H 93 04/23/19 07:08 77 18 92 04/23/19 04:20 36.6 C 78 18 163/86 H 94
[2019-04-23] MEDS: Heparin Adult LOW DOSE Wt-Based Dextrose 5% 25,000 units/500 mL IV SCH ×2 (17:38→19:47)
--- NOTE | 2019-04-23 17:59 | Pulmonary Consultation ---
Date of Consultation April 23, 2019 Assessment & Plan (1) CKD (chronic kidney disease) stage 4, GFR 15-29 ml/min: Present on Admission?: Yes (2) Acute diastolic heart failure with preserved ejection fraction: Present on Admission?: Yes (3) Non-ST elevation (NSTEMI) myocardial infarction: Present on Admission?: Yes (4) TURPIN (dyspnea on exertion): Present on Admission?: Yes (5) CKD (chronic kidney disease), stage III: Present on Admission?: Yes (6) Asthma: Present on Admission?: Yes (7) Acute and chronic respiratory failure: His hypoxemic respiratory failure is multifactorial likely due to HFpEF CKD hypertensive urgency and fluid overload. bilateral pleural effusions are usually cardiac in origin however, removal of fluid offers symptomatic relief the patient is agreeable to thoracentesis and wants it done at 10 30 am. Unfortunately when I got the sonogram to the bedside the pockets of fluid on both sides appeared small with lung tissue floating in. This descripancy between the CT and bedside sono either means the patient is responding to medical therapy or that he has a level o f anasarca where pleural fluid communicated with a small ascitis so when he is erect the fluid is minimal continue diuresis 2 STEP for O2 thank you for allowing me to participate in the medical management of this patient Present on Admission?: Yes History of Present Illness Reason for Consultation: hypoxia refractory Requesting Physician: Clarisse Patel Attending Physician: Devin Alexis DO History of Present Illness This is a very pleasant 88 y/o M with PMH HTN, chronic atrial fibrillation on Coumadin, CKD 3, chronic diastolic heart failure, asthma presented to ER with complaint of shortness of breath as well as intermittent chest pain. Patient was hypertensive. He was managed for NSTEMI related to hypertesive urgency and demand ischemia. Cardiology and Primary medical team has been optimizing his CHF and Cardiac status for several days. He has diastolic heart failure HFpEF with echocardiogram showing EF: 60-65% with moderate concentric left ventricular hypertrophy and no regional wall motion abnormalities and mild valvular disease. Patient was given beta blockers with good BP control and lasix. The patient continues to have dyspnea and he is set to have a 2 STEP test. Pulmonary is consulted to try and help with his hypoxia. Patient denies any history of smoking or asthma. he has been given inhalers by his PCP. CT scan of the chest was performed and it shows bilateral pleural effusions. I discussed with the patient and his daughter the possibility of having a thoracentesis to help improve his symptoms and they are agreeable. he would like to have it tomorrow at 10 am. I infromed him I cover the ICU but would try to do it at 10-11 am for him tomorrow Allergies Allergy/AdvReac Type Severity Reaction Status Date / Time lisinopril Allergy Severe tongue Verified 04/18/19 17:55 swelling niacin Allergy Intermediate RASH Verified 04/19/19 08:29 latex Allergy Unknown RASH Verified 04/18/19 17:55 meclizine Allergy Unknown unknown Verified 04/18/19 17:55 sertraline AdvReac Severe Edema Unverified 04/18/19 17:55 face/lips/tongue clonidine [From Catapres] AdvReac Unknown Unknown Unverified 04/18/19 17:55 Home Medications Home Medications Medication Instructions Recorded Confirmed Type Flovent HFA 2 puff INHALATION BID 04/06/19 04/18/19 History PreserVision AREDS-2 1 tab PO QAM 04/06/19 04/18/19 History acetaminophen [Tylenol Extra 500 mg PO Q6H PRN 04/06/19 04/18/19 History Strength] albuterol sulfate [Ventolin HFA] 2 puff INHALATION Q6H PRN 04/06/19 04/18/19 History amlodipine 10 mg PO QAM 04/06/19 04/18/19 History digoxin [Digitek] 125 mcg PO QAM 04/06/19 04/18/19 History diphenhydramine HCl 25 mg PO UD PRN 04/06/19 04/18/19 History ferrous sulfate 325 mg PO Q2D 04/06/19 04/18/19 History ipratropium bromide 2 spray INTRANASAL QID PRN 04/06/19 04/18/19 History montelukast 10 mg PO HS 04/06/19 04/18/19 History nitroglycerin 0.4 mg SUBLINGUAL UD 04/06/19 04/18/19 History omeprazole 20 mg PO HS 04/06/19 04/18/19 History pravastatin 10 mg PO HS 04/06/19 04/18/19 History prednisone 40 mg PO UD 04/06/19 04/18/19 History warfarin 2.5 mg PO SUMOWETHFR@1600 04/06/19 04/18/19 History warfarin 5 mg PO TUSA@1600 04/06/19 04/18/19 History metoprolol tartrate 75 mg PO BID #60 tab 04/10/19 04/18/19 Rx aspirin 81 mg PO DAILY 04/18/19 04/18/19 History furosemide 20 mg PO QAM 04/18/19 04/18/19 History hydralazine 25 mg PO TID 04/18/19 04/18/19 History lidocaine [Lidocaine Pain Relief] 1 patch TOPICAL DAILY 04/18/19 04/18/19 History multivitamin 1 tab PO QAM 04/18/19 04/18/19 History potassium chloride 10 meq PO QAM 04/18/19 04/18/19 History hydralazine 50 mg PO TID #180 tab 04/22/19 Rx isosorbide mononitrate 120 mg PO QAM #60 tab 04/22/19 Rx metoprolol tartrate 100 mg PO BID #60 tab 04/22/19 Rx potassium chloride [Klor-Con M10] 40 meq PO QAM #120 tab 04/22/19 Rx Patient History Medical History CKD (chronic kidney disease), stage III (Chronic) MGUS (monoclonal gammopathy of unknown significance) (Chronic) Anemia (Chronic) Chronic ischemic heart disease (Chronic) Asthma (Chronic) Depression (Chronic) Dyslipidemia (Chronic) HTN (hypertension) (Chronic) Chronic atrial fibrillation (Chronic) Surgical History History of inguinal hernia repair, bilateral (Chronic) Hx of cataract surgery (Chronic) Family History Other Heart disease Social History Preferred Language: [place] Communication Ability: Effective Visual Impairment: No Limitations Hearing Ability: Normal Beliefs That Will Affect Care: None marital status: / Current Living Situation: Family Feels Safe at Home: Yes Safety Concerns: Feels Safe At This Time Smoking Status: Never smoker Hx Alcohol Use: No Hx Substance Use: No Physical Exam Constitutional: no acute distress Eyes: PERRL, conjunctivae normal, anicteric sclerae Neck: trachea midline, no thyromegaly Respiratory: no crackles but there is diminished air entry bilaterally at the basis Cardiovascular: Rate/Rhythm: regular rate and regular rhythm Heart Sounds: no gallop and no murmur Gastrointestinal (Abdomen): normal bowel sounds, soft, nontender, no hepatosplenomegaly scaphoid abdomen Musculoskeletal: Extremities: no cyanosis and no clubbing + 1 ankle edema Neurologic: no gross focal motor deficits. Results & Data Vital Signs (Past 12 Hours) Vital Signs Temp Pulse Resp BP Pulse Ox 04/23/19 15:13 36.7 C 75 13 130/61 92 04/23/19 11:57 36.7 C 74 18 127/73 96 04/23/19 07:59 36.5 C 93 H 19 174/83 H 93 04/23/19 07:08 77 18 92
[2019-04-23] MEDS: ALBUTEROL HFA 8 GM INHALER INH PRN (20:33)
[2019-04-23] MEDS: PRAVASTATIN SOD 10 MG TAB PO SCH (20:35)
[2019-04-23] MEDS: MONTELUKAST SODIUM 10 MG TABLET PO SCH (20:35)
[2019-04-23] MEDS: PANTOprazole 40 MG TAB PO SCH (20:36)
[2019-04-24 06:36] LABS: Partial Thromboplastin Ratio 1.1; Partial Thromboplastin Time 31.1 Seconds (21.0-31.0)
--- NOTE | 2019-04-24 07:11 | Hospitalist Progress Note ---
Date of Service April 24, 2019 Assessment & Plan (1) Non-ST elevation (NSTEMI) myocardial infarction: Doesn't want Cath (2) Elevated troponin: Possible secondary to demand ischemia/cardiac strain for hypoxia Serial cardiac marker trending down, patient c sporadic episodes of R Sided CP, Paste applied and went away Had very recent echocardiogram done, repeat echo as per cardiology Continue Nitropaste, beta Omer, Imdur DC home when less hypoxic Lasix 80 q12 ordered, CHF/Pulm edema on CXR 04/22 CTC 04/23-Bilateral pleural effusions with superimposed bibasilar atelectasis, Components of congestive heart failure present, Mild pericardial effusion. V/Q Low probability, Now on 2 L, Likely DC home in am 04/25 (3) Pleural effusion: Lasix for now, Pulm on case (4) Chest pain: Recently admitted with chest pain with negative work up for ACS Present on admission with chest pain Troponin peaked at 7.12, now trending down to 6.03 Echo showed no wall motion abnormality with EF 55- 60% Cardiology on board Continue IV heparin drip Pt decided not to proceed with any cardiac cath after risks discussed with patient (daughter at bedside agreed with his decision) Pt cardiology on board and recommended conservative management Continue aspirin., and statin Metoprolol increased to 100mg BID isosorbide mononitrate increased to [address] Mccoy (5) 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 Pro BNP 6138 on admission IV lasix 80 mg q12 (6) HTN (hypertension): BP improved Continue amlodipine, hydralazine and metoprolol (7) Chronic atrial fibrillation: Rate controlled Metoprolol increased to 100mg BID Coumadin (8) CKD (chronic kidney disease), stage III: Acute Kidney injury improved Avoid nephrotoxic agents (9) Asthma: Hypokalemia K replaced Monitor BMP Cardiac rehab CODE STATUS DNR/DNI DC when less hypoxic, or if refractory then on home O2, home health care for safety checks med review and cardiac rehab eval Now on 2 L and weaning nicely Results & Data Vital Signs (Past 12 Hours) Vital Signs Temp Pulse Pulse Resp BP Pulse Ox 04/24/19 02:29 36.7 C 80 20 150/76 H 92 04/23/19 23:11 36.7 C 71 18 144/70 H 92 04/23/19 19:24 91 H 18 95 04/23/19 19:16 36.8 C 89 16 138/70 92 Labs reviewed
[2019-04-24] MEDS: LEVALBUTEROL 1.25MG/0.5ML NEB NEB SCH ×2 (07:12→20:02)
[2019-04-24] MEDS: IPRATROPIUM BROMIDE NEB SOLN 0.02% 2.5 ML VIAL NEB SCH ×2 (07:12→20:02)
[2019-04-24] MEDS: FLUTICASONE HFA 110MCG INHALER INH SCH ×2 (08:36→20:36)
[2019-04-24] MEDS: ASPIRIN 81 MG CHEW PO SCH (08:36)
[2019-04-24] MEDS: FERROUS SULFATE 325 MG TAB PO SCH (08:36)
[2019-04-24] MEDS: LIDOCAINE 5% 1 PATCH TD SCH (08:37)
[2019-04-24] MEDS: POTASSIUM CHLORIDE 10 MEQ TABCR PO SCH (08:37)
[2019-04-24] MEDS: ISOSORBIDE MONO EXTENDED REL 60 MG TABCR PO SCH (08:37)
[2019-04-24] MEDS: POLYETHYLENE (MIRALAX) 17 GM PACK PO SCH (08:38)
[2019-04-24] MEDS: METOPROLOL TARTRATE 100 MG TAB PO SCH ×2 (08:38→20:37)
[2019-04-24] MEDS: MULTIVITAMIN TAB PO SCH (08:38)
[2019-04-24] MEDS: AMLODIPINE BESYLATE 5 MG TAB PO SCH (08:38)
[2019-04-24] MEDS: CEROVITE ADV FORMULA TAB PO SCH (08:38)
[2019-04-24] MEDS: IPRATROPIUM BROMIDE NASAL SPRAY 0.06% 15ML NAE PRN ×2 (08:50→20:36)
[2019-04-24] MEDS ORDERED: Nursing to Pharmacy Communication ONE (10:19)
[2019-04-24 11:08] LABS: INR 1.2 (0.9-1.1); Partial Thromboplastin Time 28.1 Seconds (21.0-31.0); Prothrombin Time 11.8 Seconds (9.0-12.0)
[2019-04-24] MEDS: FUROSEMIDE 80 MG in SYRINGE 0 ML IV SCH ×2 (11:45→20:37)
[2019-04-24] MEDS ORDERED: WARFARIN SOD 5 MG TAB PO SCH (16:00)
[2019-04-24] MEDS ORDERED: WARFARIN SOD 5 MG TAB PO ONE (16:00)
[2019-04-24] MEDS: PRAVASTATIN SOD 10 MG TAB PO SCH (20:37)
[2019-04-24] MEDS: MONTELUKAST SODIUM 10 MG TABLET PO SCH (20:38)
[2019-04-24] MEDS: PANTOprazole 40 MG TAB PO SCH (20:39)
[2019-04-25 06:49] LABS: Hematocrit (blood only) 30.6 % (42-52); Hemoglobin 10.4 g/dL (14.0-18.0); Mean Corpuscular Volume 86.2 fL (80-100); Mean Platelet Volume 10.4 fL (7.4-10.4); Platelet Count 252 K/uL (130-400); RDW Coefficient of Variation 14.7 % (11.5-14.5); RDW Standard Deviation 46.3 fL (36.4-46.3); Red Blood Count 3.55 M/uL (4.7-6.1); White Blood Count 10.63 K/uL (4.8-10.8)
[2019-04-25 07:06] LABS: INR 1.2 (0.9-1.1); Prothrombin Time 11.7 Seconds (9.0-12.0)
--- NOTE | 2019-04-25 07:08 | Discharge Summary ---
Date of Service April 25, 2019 Admission HPI Per Admitting Provider Tee Joseph is an 88-year-old male admitted medically on 04/18/19 for cardiac work-up following presentation to the ED for shortness of breath and chest tightness. Cardiac work-up is consistent with an N-STEMI. Cardiology has been managing treatment and explaining options to the patient regarding recommendations for the next course of action. Psychiatric consultation was requested to assess the patient for capacity to make the decision between cardiac catheterization or medical therapy to manage the condition. A thorough conversation between patient, daughter, and mine deputy was documented and appreciated. Documentation suggests that patient was made aware of treatment options, current recommendation, risks, and benefits. At time of the conversation, patient was interested in a catheterization, but also reportedly interested in maintaining the current function of his kidneys. With these, and other comments, it was questioned if patient was able to reasonably consider this important information and make a rational choice regarding his treatment. Case was reviewed with patient's RN and the ordering physician prior to assessment. Pt's roommate was also asked to step out of room, as he had been contributing too greatly to the conversation, skewing this provider's ability to assess the patient's decision-making process. Pt's daughter, Larissa, was invited to join at patient's request. Pt was seen individually initially, aside from interjections from his roommate. When roommate was kindly agreeable to visiting elsewhere with his family, allowing for better assessment of the patient's understanding. Pt shares with this provider, "Well, they talked about doing that procedure, they check my arteries and check to see how many are bad and clogged up." He clearly explains that he was informed that many of the anticipated blockages - "they're not sure they can clear, they may have to leave them." Pt states, "If they may not be able to get it all, oh, and they said it would hurt my kidneys, then what do I have to loose with medications." Pt begins stating that he has had time to consider his options and is interested in pursuing medication therapy to manage his symptoms, no longer interested in a catheterization. He states, "I'm going in that direction now." Pt is able to explain anticipated risks of both options, as well as the risk of doing nothing. Pt states, "my heart wasn't letting me breathe, it was difficult to do anything. I don't want to feel like that anymore, that's why I came in isn't it?" Pt states, "I think the medication is the lesser of two evils, don't you?" For the duration of our visit, patient maintained a decision to pursue medical therapy to treat his symptoms. Pt states several times, "I'm 88 year old, I don't have long, but I don't want to keep feeling like this. And the other option, they may not get everything and it may end my kidneys." Pt was asked about current level of anxiety and depression. He states, "depression isn't even a word here, it's fine." He does admit to some anxiety, "I think anybody would be anxious about this - I just think once I make a decision, I'll be able to convince myself it's the right one." Pt does not feel any specific intervention is necessary at this time to manage these concerns. Pt denies SI, A/V hallucinations, and other specific psychiatric concerns. Admission Exam Per Admitting Provider General: elderly male, no acute distress, WDWN Head: normocephalic, atraumatic Eyes: PERRL, EOM's intact, conjunctiva non-injected, anicteric ENT: normal inspection external ears, nose, mucous membranes moist, +hard of hearing Neck: supple, trachea midline Lungs: clear, no respiratory distress, no wheezing/rhonchi/rales CV: irregularly irregular, no murmur, 1+ pretibial edema Abd: normal BS, soft, non-tender Ext: no cyanosis, no calf tenderness Neuro: A&O x 3, no focal deficits noted, normal affect Skin: warm, dry Principal Diagnosis NSTEMI Pleural Effusion DCHFpEF Acute AFIB RVR A/C Resp failure c Hypoxia HTN Urgency CKD 3 IHD MGUS Asthma Depression HLD Discharge Exam ROS-No Headache, No Visual Changes, No Nausea, No Vomiting, No Fever, No Chills, No Neck Pain or Stiffness, No Chest Pain, No Palpitations, No SOB, No TURPIN, No Cough, No Sputum, No Wheezing, No Abdominal Pain, No Diarrhea, No Hematemesis, No Hemoptysis, No Unexpected Weight Loss, No Flank pain, No Melena, No Hematochezia, No Frequency, No Urgency, No Burning, No Hematuria, No Rashes, No Diaphoresis. Appetite is Normal Physical Exam Gen-AAO x 3, NAD, Afebrile, mild confusion Head-NCAT, EOMI, PERRLA, Anicteric Sclera, No Posterior Pharyngeal Erythema Neck-Supple, No JVD, No Thyromegaly, No Masses, No LAD, No Bruits Lungs-Clear to Auscultation Bilaterally, No Rales, No Rhonchi, No Wheezing, No Crepitus Chest-No S4, +S1, +S2, No S3, No Murmurs, No Rubs, No Gallops, No Ectopy Abdomen-Soft, Bowel Sounds Present, Non Tender, Non Distended, No Hepatomegaly, No Splenomegaly, No Palpable Masses, No Rebound, No Rigidity, No Guarding Musculoskeletal-Full Range of Motion Bilaterally, No CVAT Extremities-No Cyanosis, No Clubbing, No Edema Nuero-Cranial Nerves II-XII grossly intact, Motor WNL, DTRs WNL, Strength WNL, Non Focal Psych-Normal Mood Discharge Data Allergies Allergy/AdvReac Type Severity Reaction Status Date / Time lisinopril Allergy Severe tongue Verified 04/18/19 17:55 swelling niacin Allergy Intermediate RASH Verified 04/19/19 08:29 latex Allergy Unknown RASH Verified 04/18/19 17:55 meclizine Allergy Unknown unknown Verified 04/18/19 17:55 sertraline AdvReac Severe Edema Unverified 04/18/19 17:55 face/lips/tongue clonidine [From Catapres] AdvReac Unknown Unknown Unverified 04/18/19 17:55 Consultations 04/18/19 17:49 ED Decision to Admit Stat 04/18/19 19:40 Consult Cardiology Routine Consult Case Management - Discharge Planning Routine 04/20/19 14:40 Consult Psychiatry Routine 04/20/19 14:41 Consult Palliative Care Routine 04/23/19 06:07 Consult Pulmonology Routine 04/23/19 07:46 Consult Cardiac Rehabilitation Routine Ordered Studies 04/23/19 06:07 CT chest wo con Routine Current Diagnoses Essential (primary) hypertension (04/18/19) Hypertensive urgency (04/18/19) Non-ST elevation (NSTEMI) myocardial infarction (04/18/19) Chronic atrial fibrillation (04/18/19) Unspecified atrial fibrillation (04/18/19) Acute diastolic (congestive) heart failure (04/18/19) Unspecified asthma, uncomplicated (04/18/19) Pleural effusion, not elsewhere classified (04/18/19) Acute and chronic respiratory failure, unspecified whether with hypoxia or hypercapnia (04/18/19) Chronic kidney disease, stage 3 (moderate) (04/18/19) Chronic kidney disease, stage 4 (severe) (04/18/19) Other forms of dyspnea (04/18/19) Chest pain, unspecified (04/18/19) Abnormal levels of other serum enzymes (04/18/19) Other specified counseling (04/18/19) Allergies lisinopril Allergy (Severe, Verified 04/18/19 17:55) tongue swelling niacin Allergy (Intermediate, Verified 04/19/19 08:29) RASH latex Allergy (Unknown, Verified 04/18/19 17:55) RASH meclizine Allergy (Unknown, Verified 04/18/19 17:55) unknown sertraline Adverse Reaction (Severe, Unverified 04/18/19 17:55) Edema face/lips/tongue clonidine [From Catapres] Adverse Reaction (Unknown, Unverified 04/18/19 17:55) Unknown Height/Weight/Isolation Height 5 ft 9 in Weight 81.1 kg Hospital Course (1) Non-ST elevation (NSTEMI) myocardial infarction: Doesn't want Cath (2) Elevated troponin: Possible secondary to demand ischemia/cardiac strain for hypoxia Serial cardiac marker trending down, patient c sporadic episodes of R Sided CP, Paste applied and went away Had very recent echocardiogram done, repeat echo as per cardiology Continue Nitropaste, beta Omer, Imdur DC home when less hypoxic Lasix 80 q12 ordered, CHF/Pulm edema on CXR 04/22 CTC 04/23-Bilateral pleural effusions with superimposed bibasilar atelectasis, Components of congestive heart failure present, Mild pericardial effusion. V/Q Low probability, Still on 2 L, DC home Today (3) Pleural effusion: Lasix for now, Pulm on case, f/u c Pulm and Cards c PCP (4) Chest pain: Recently admitted with chest pain with negative work up for ACS Present on admission with chest pain Troponin peaked at 7.12, now trending down to 6.03 Echo showed no wall motion abnormality with EF 55- 60% Cardiology on board Off IV heparin drip Pt decided not to proceed with any cardiac cath after risks discussed with patient (daughter at bedside agreed with his decision) Pt cardiology on board and recommended conservative management Continue aspirin., and statin Metoprolol increased to 100mg BID isosorbide mononitrate increased to [address] Mccoy (5) 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 Pro BNP 6138 on admission Continue lasix 40 mg PO q12 on DC (6) HTN (hypertension): BP improved Continue amlodipine, hydralazine and metoprolol (7) Chronic atrial fibrillation: Rate controlled Metoprolol increased to 100mg BID Coumadin (8) CKD (chronic kidney disease), stage III: Acute Kidney injury improved Avoid nephrotoxic agents (9) Asthma: Hypokalemia K replaced Monitor BMP Cardiac rehab CODE STATUS DNR/DNI DC today on home O2, home health care for safety checks med review and cardiac rehab eval Now on 2 L and [place] outpatient Total Time Total Time Spent Total Time Spent (In Minutes): 60 mins Total Time Includes: Examination of the Patient, Discharge Planning, Medication Reconciliation and Communication With Other Providers Discharge Plan Discharge Items Patient Disposition: Home - Home Health Services Reason For Visit: CHEST PAIN/SOB Discharge Diagnosis: NSTEMI CKD Atrial fibrillation Acute diastolic heart failure with preserved ejection fraction Acute coronary syndrome Subtherapeutic INR Dyspnea on exertion Hypertensive urgency MGUS Asthma Depression Dyslipidemia Anemia Condition: Fair Discharge Goals: Decrease discomfort, Improve disease control and Improve function Activity: Resume your previous activity Activity Comment: As tolerated Lifting: None and Gradually increase as tolerated Bathing: No limitations Exercise/Sports: None Driving/Machine Use Comment: No driving Weightbearing: Left weightbearing and Right weightbearing Non-emergency contact: Primary Care Provider and Tank Calibrator Call non-emergency contact if: you have any medication questions and your symptoms worsen Follow-up/Referrals: Wilfrido Horn DO [Family Provider] - 05/10/19 (Already has an appoint with Dr. Horn on [phone]) Margoth Flores MD [Physician] - (Follow-up as needed) Seymour Hoff MD [Primary Care Provider] - Diet: Heart Healthy Add Provider Instructions: Maximize medical therapy for angina Prescriptions: New metoprolol tartrate 100 mg Tablet 100 mg PO BID Qty: 60 RF: 0 hydralazine 25 mg Tablet 50 mg PO TID Qty: 180 RF: 0 isosorbide mononitrate 60 mg Tablet Extended Release 24 Hr 120 mg PO QAM Qty: 60 RF: 0 potassium chloride [Klor-Con M10] 10 mEq Tablet,Er Particles/Crystals 40 meq PO QAM Qty: 120 RF: 0 furosemide 20 mg Tablet 40 mg PO Q12 Qty: 60 RF: 0 Continued prednisone 20 mg tablet 40 mg PO UD RF: 0 acetaminophen [Tylenol Extra Strength] 500 mg Tablet 500 mg PO Q6H PRN (Reason: Pain) RF: 0 pravastatin 10 mg tablet 10 mg PO HS RF: 0 amlodipine 10 mg tablet 10 mg PO QAM RF: 0 ferrous sulfate 325 mg (65 mg iron) Tablet 325 mg PO Q2D RF: 0 warfarin 5 mg tablet 2.5 mg PO SUMOWETHFR@1600 RF: 0 warfarin 5 mg tablet 5 mg PO TUSA@1600 RF: 0 nitroglycerin 0.4 mg tablet, sublingual 0.4 mg sublingual UD RF: 0 omeprazole 20 mg capsule,delayed release(DR/EC) 20 mg PO HS RF: 0 montelukast 10 mg tablet 10 mg PO HS RF: 0 digoxin [Digitek] 125 mcg tablet 125 mcg PO QAM RF: 0 albuterol sulfate [Ventolin HFA] 90 mcg/actuation Hfa Aerosol Inhaler 2 puff INHALATION Q6H PRN (Reason: Shortness Of Breath Or Wheezing) RF: 0 ipratropium bromide 42 mcg (0.06 %) spray,non-aerosol 2 spray intranasal QID PRN (Reason: Congestion) RF: 0 Flovent HFA 110 mcg/actuation HFA aerosol inhaler 2 puff inhalation BID RF: 0 PreserVision AREDS-2 [id number] Capsule 1 tab PO QAM RF: 0 multivitamin Tablet 1 tab PO QAM RF: 0 Lidocaine Pain Relief 4 % Adhesive Patch,Medicated 1 patch TOPICAL DAILY RF: 0 aspirin 81 mg Tablet,Chewable 81 mg PO DAILY RF: 0 Discontinued diphenhydramine HCl 25 mg Capsule 25 mg PO UD PRN (Reason: swelling) RF: 0 metoprolol tartrate 50 mg Tablet 75 mg PO BID Qty: 60 RF: 1 potassium chloride 10 mEq capsule, extended release 10 meq PO QAM RF: 0 hydralazine 25 mg Tablet 25 mg PO TID RF: 0 furosemide 20 mg tablet 20 mg PO QAM RF: 0 Visit Report Forms: Smoking Cessation Stand-Alone Forms: [facility] Discharge Orders: Discharge Order (Routine); Ordered 04/25/19 Ordered By: Devin Alexis Admission Data Admit Date/Time: 04/18/19 19:02 Attending Provider: Devin Alexis Admit Provider: Katharina Patel Primary Care Provider: Seymour Hoff Other Providers: Katharina Patel ; Elias Mccoy ; Wilfrido Horn ; Edouard Soria ; Patrice Esparza ; Leno Cole ; Seymour Solano ; Snow Larios ; Judy Yeung ; Cindy Villalobos ; Margoth Flores ; Mitul Melgoza Service: Telemetry Other Pending Studies at Discharge: No
[2019-04-25] MEDS: IPRATROPIUM BROMIDE NEB SOLN 0.02% 2.5 ML VIAL NEB SCH (07:17)
[2019-04-25] MEDS: LEVALBUTEROL 1.25MG/0.5ML NEB NEB SCH (07:17)
[2019-04-25 07:24] LABS: BUN Creatinine Ratio 16.1 (10-20); Calcium 8.8 mg/dl (8.5-10.1); Creatinine Clr Calc Pharmacy 18.4 ml/min; Est GFR (Non-African American) 19.8; Potassium 3.9 mmol/L (3.5-5.1)
[2019-04-25] MEDS: ASPIRIN 81 MG CHEW PO SCH (09:10)
[2019-04-25] MEDS: FLUTICASONE HFA 110MCG INHALER INH SCH (09:10)
[2019-04-25] MEDS: MULTIVITAMIN TAB PO SCH (09:11)
[2019-04-25] MEDS: ISOSORBIDE MONO EXTENDED REL 60 MG TABCR PO SCH (09:11)
[2019-04-25] MEDS: AMLODIPINE BESYLATE 5 MG TAB PO SCH (09:11)
[2019-04-25] MEDS: POTASSIUM CHLORIDE 10 MEQ TABCR PO SCH (09:11)
[2019-04-25] MEDS: LIDOCAINE 5% 1 PATCH TD SCH (09:12)
[2019-04-25] MEDS: POLYETHYLENE (MIRALAX) 17 GM PACK PO SCH (09:12)
[2019-04-25] MEDS: METOPROLOL TARTRATE 100 MG TAB PO SCH (09:12)
[2019-04-25] MEDS: CEROVITE ADV FORMULA TAB PO SCH (09:12)
[2019-04-25] MEDS: IPRATROPIUM BROMIDE NASAL SPRAY 0.06% 15ML NAE PRN (09:14)
[2019-04-25] MEDS: FUROSEMIDE 80 MG in SYRINGE 0 ML IV SCH (10:17)
--- NOTE | 2019-04-27 14:09 | Coding Query ---
CODING QUERY To promote full compliance with coding requirements relating to patient care, provider participation is requested in all cases of egg sorter uncertainty. Please assist us with the question(s) below: Coding Question(s): Patient admitted with shortness of breath in setting of acute diastolic heart failure and FL. Discharge summary documents NSTEMI and demand ischemia . Please check the following diagnosis that was treated during this Inpatient stay. Patient refused a cardiac catheterization. Thanks for your help!! Buzz Physician's Response(s): __xxx____ NSTEMI NSTEMI TYPE 2 (NSTEMI with FL) Demand Ischemia Other : Please document: Principal Diagnosis: "that condition established after study, to be chiefly responsible for occasioning the admission of the patient to the hospital for care." Co-Existing Principal Diagnosis: "when two or more diagnoses equally meet the criteria for principal diagnosis as determined by the circumstances of admission, diagnostic work up, and/or therapy provided, and the Alphabetic Index, Tabular List, or another coding guideline does not provide sequencing direction, any one of the diagnoses may be sequenced first." "When the physician has documented what appears to be a current diagnosis in the body of the record, but has not included the diagnosis in the final diagnostic statement, the physician should be asked whether the diagnosis should be added." (Source Coding Clinic 2 QTR90. p3-4) DESMOND
== END 2019-04-25 13:07 | disposition home or self-care (01) | DRG 280 ==
LOC: ED 16:41 → 2S 19:02 → SUATTDRO 19:02 → 2S 19:22
DX: F32.9 Major depressive disorder, single episode, unspecified; N18.4 Chronic kidney disease, stage 4 (severe); E78.5 Hyperlipidemia, unspecified; Z66 Do not resuscitate; Z53.29 Procedure and treatment not carried out because of patient's decision for other reasons; Z79.01 Long term (current) use of anticoagulants; R79.1 Abnormal coagulation profile; J91.8 Pleural effusion in other conditions classified elsewhere; I50.31 Acute diastolic (congestive) heart failure; I16.0 Hypertensive urgency; I48.2 Chronic atrial fibrillation; Z82.49 Family history of ischemic heart disease and other diseases of the circulatory system; Z91.040 Latex allergy status; D47.2 Monoclonal gammopathy; I13.0 Hypertensive heart and chronic kidney disease with heart failure and stage 1 through stage 4 chronic kidney disease, or unspecified chronic kidney disease; E87.6 Hypokalemia; I21.4 Non-ST elevation (NSTEMI) myocardial infarction

== ENCOUNTER 2019-06-25 19:51 | Inpatient (IN) ==
[2019-06-25] MEDS ORDERED: NITROGLYCERIN 2% OINTMENT 30GM TUBE EXT STA (20:07)
[2019-06-25 20:22] LABS: Basophils # (auto) 0.07 K/uL (0-0.2); Basophils % (auto) 0.6 %; Eosinophils # (auto) 0.08 K/uL (0-0.5); Eosinophils % (auto) 0.7 %; Hematocrit (blood only) 29.8 % (42-52); Hemoglobin 9.8 g/dL (14.0-18.0); Immature Granulocytes # (auto) 0.02 K/uL (0.00-0.02); Immature Granulocytes % (auto) 0.2 %; Lymphocytes # (auto) 1.49 K/uL (1.2-3.4); Lymphocytes % (auto) 13.7 %; Mean Corpuscular Hgb Conc 32.9 g/dL (32-36); Mean Corpuscular Volume 84.4 fL (80-100); Monocytes % (auto) 10.1 %; Neutrophils # (auto) 8.08 K/uL (1.4-6.5); Neutrophils % (auto) 74.7 %; Platelet Count 281 K/uL (130-400); RDW Coefficient of Variation 14.6 % (11.5-14.5); RDW Standard Deviation 45.2 fL (36.4-46.3); Red Blood Count 3.53 M/uL (4.7-6.1); White Blood Count 10.84 K/uL (4.8-10.8)
--- NOTE | 2019-06-25 20:23 | Emergency Department Note ---
Entered by Patsy Dodson acting as a scribe for Alexandr Do MD History of Present Illness General Chief complaint: Tachycardia Stated complaint: SOB, HIGH BP, HIGH HEART RATE, CHF Time Seen by Provider: 06/25/19 19:54 Source: patient and family Mode of arrival: wheelchair History of Present Illness Provider complaint: diffculty breathing Onset (ago): week(s) 2 Location: chest Maximum Pain Intensity: 5 Quality: + other (soreness) Relieved By: + none Exacerbated By: + none Associated symptoms: + chest pain, + cough, + shortness of breath, + weakness and + other (+diffculty sleeping, +congestion) Treatments prior to arrival: none The patient is an 88 year old male who presents to the Emergency Department in a wheelchair with complaints of difficulty breathing. Per the patients daughter, the patient has a history of CHF but over the past couple of weeks he has been feeling like he cannot breathe. The patient has some coughing when he lies down as well as chest soreness. The patient is not on oxygen at home. The patient believes his difficulty breathing is due to congestion in his nose. The patient states he is weak and has not been sleeping well. The patient was taking iron every other day but 5 days ago they changed the dosage to everyday. The patient had an EKG done on Friday which showed his heart rate was down. The patient has never been a smoker. Home Medications Home Medications Medication Instructions Recorded Confirmed Type Flovent HFA 2 puff INHALATION BID 04/06/19 06/25/19 History PreserVision AREDS-2 1 tab PO QAM 04/06/19 06/25/19 History acetaminophen [Tylenol Extra 500 mg PO Q6H PRN 04/06/19 06/25/19 History Strength] albuterol sulfate [Ventolin HFA] 2 puff INHALATION Q6H PRN 04/06/19 06/25/19 History amlodipine 10 mg PO QAM 04/06/19 06/25/19 History ferrous sulfate 325 mg PO DAILY 04/06/19 06/25/19 History ipratropium bromide 2 spray INTRANASAL QID PRN 04/06/19 06/25/19 History montelukast 10 mg PO HS 04/06/19 06/25/19 History nitroglycerin 0.4 mg SUBLINGUAL UD 04/06/19 06/25/19 History omeprazole 20 mg PO DAILY 04/06/19 06/25/19 History pravastatin 10 mg PO HS 04/06/19 06/25/19 History prednisone 40 mg PO UD 04/06/19 06/25/19 History warfarin 2.5 mg PO SUMOWETHFR@1600 04/06/19 06/25/19 History warfarin 5 mg PO TUSA@1600 04/06/19 06/25/19 History Lidocaine Pain Relief 1 patch TOPICAL DAILY PRN 04/18/19 06/25/19 History multivitamin 1 tab PO QAM 04/18/19 06/25/19 History hydralazine 50 mg PO TID #180 tab 04/22/19 06/25/19 Rx isosorbide mononitrate 120 mg PO QAM #60 tab 04/22/19 06/25/19 Rx metoprolol tartrate 100 mg PO BID #60 tab 04/22/19 06/25/19 Rx tamsulosin 0.4 mg PO QPM 06/08/19 06/25/19 History aspirin [Aspir-81] 81 mg PO DAILY 06/25/19 06/25/19 History furosemide [Lasix] 40 mg PO .BID UD 06/25/19 06/25/19 History potassium chloride [Klor-Con M10] 20 meq PO QAM 06/25/19 06/25/19 History sodium chloride [[place] Nasal] 1 spray INTRANASAL UD PRN 06/25/19 06/25/19 History Allergies Allergy/AdvReac Type Severity Reaction Status Date / Time lisinopril Allergy Severe tongue Verified 06/25/19 21:00 swelling niacin Allergy Intermediate RASH Verified 06/25/19 21:00 latex Allergy Unknown RASH Verified 06/25/19 21:00 meclizine Allergy Unknown unknown Verified 06/25/19 21:00 sertraline AdvReac Severe Edema Unverified 06/25/19 21:00 face/lips/tongue clonidine [From Catapres] AdvReac Unknown Unknown Unverified 06/25/19 21:00 Past Med/Surg History Medical History CKD (chronic kidney disease), stage III (Chronic) MGUS (monoclonal gammopathy of unknown significance) (Chronic) Anemia (Chronic) Chronic ischemic heart disease (Chronic) Asthma (Chronic) Depression (Chronic) Dyslipidemia (Chronic) HTN (hypertension) (Chronic) Chronic atrial fibrillation (Chronic) Surgical History History of inguinal hernia repair, bilateral (Chronic) Hx of cataract surgery (Chronic) Family History Other Heart disease Social History Preferred Language: [place] Communication Ability: Effective Visual Impairment: No Limitations Hearing Ability: Normal Beliefs That Will Affect Care: None marital status: / Current Living Situation: Family Feels Safe at Home: Yes Smoking Status: Never smoker Hx Alcohol Use: No Hx Substance Use: No Review of Systems See HPI for pertinent positives & negatives. and A total of 10 systems reviewed and were otherwise negative Physical Exam Vital Signs Vital Signs - 24 hr 06/25/19 19:53 06/25/19 20:18 06/25/19 20:31 Temperature 36.6 C Temperature Source Oral Sepsis Recent Fever Within 48 Hours No Sepsis Action Taken by Nursing No Action Required Pulse Rate 96 H 96 H Pulse Rate from SpO2 Sensor 92 H Respiratory Rate 18 27 H Respiratory Effort / Characteristics Non-Labored Spontaneous Spontaneous Labored Respiratory Depth Normal Deep Respiratory Pattern Regular Tachypnea Blood Pressure 135/81 144/81 H Blood Pressure Mean 99 102 Blood Pressure Position Sitting Pulse Oximetry 93 94 94 Oxygen Delivery Method Room Air Nasal Cannula Nasal Cannula Oxygen Flow Rate 2 2 06/25/19 20:33 06/25/19 21:00 06/25/19 21:30 Temperature Temperature Source Sepsis Recent Fever Within 48 Hours Sepsis Action Taken by Nursing Pulse Rate 94 H 88 70 Pulse Rate from SpO2 Sensor 97 H 89 74 Respiratory Rate 23 10 L 18 Respiratory Effort / Characteristics Respiratory Depth Respiratory Pattern Blood Pressure 147/67 H Blood Pressure Mean 93 Blood Pressure Position Pulse Oximetry 94 94 93 Oxygen Delivery Method Nasal Cannula Nasal Cannula Nasal Cannula Oxygen Flow Rate 2 2 2 06/25/19 21:31 Temperature Temperature Source Sepsis Recent Fever Within 48 Hours Sepsis Action Taken by Nursing Pulse Rate 84 Pulse Rate from SpO2 Sensor 97 H Respiratory Rate 17 Respiratory Effort / Characteristics Respiratory Depth Respiratory Pattern Blood Pressure 152/70 H Blood Pressure Mean 97 Blood Pressure Position Pulse Oximetry 93 Oxygen Delivery Method Nasal Cannula Oxygen Flow Rate 2 GENERAL: Patient is in mild distress. Appears short of breath. HEENT: No acute trauma, normocephalic atraumatic, mucous membranes moist, no nasal congestion, no scleral icterus. NECK: No stridor, no adenopathy, no meningismus, trachea is midline. LUNGS: increased respiratory rate, appears short of breath, crackles at both bases, no wheezing. HEART: Bradycardic, no murmurs, normal rhythm. ABDOMEN: Soft, nontender, bowel sounds positive, no hernias, no peritonitis. EXTREMITIES: No cyanosis, mild bilateral pedal edema, full range of motion of all the joints without pain or difficulty, no signs for acute trauma. NEUROLOGIC: Oriented x 3, no acute motor or sensory deficits, no focal weakness. SKIN: No rash, no jaundice, no diaphoresis, pale RECTAL: brown stool, heme-positive Course 1955: Past medical records reviewed. The patient was evaluated in room A2. A complete history and physical examination was performed. 2024: I checked on the patient who is resting comfortably. 2046: I checked on the patient who looks a little better. I updated him and his family. 2131: I spoke Dr. Bishop, [facility] Hospitalist, about the patients case and he agreed to accept the patient for further management. Administered Medications Discontinued Medications Magnesium Sulfate/Dextrose (Magnesium Sulfate / D5w) 1 gm in 100 mls @ 100 mls/hr IV ONE ONE Stop: 06/25/19 21:42 Last Admin: 06/25/19 20:53 Dose: 100 mls/hr Documented by: [id number] Potassium Chloride (K Malachi / Wtr) 10 meq in 100 mls @ 100 mls/hr IV ONE ONE Stop: 06/25/19 21:44 Last Admin: 06/25/19 21:11 Dose: 100 mls/hr Documented by: [id number] Furosemide 60 mg/ Syringe 6 mls @ 4 mls/min IV NOW STA Stop: 06/25/19 20:46 Last Admin: 06/25/19 21:39 Dose: 4 mls/min Documented by: [id number] Nitroglycerin (Nitro-Bid 2%) 1 inch EXT NOW STA Stop: 06/25/19 20:08 Last Admin: 06/25/19 20:21 Dose: 1 inch Documented by: [id number] Medical Decision Making Differential Diagnosis Differential Diagnosis: CHF, anemia, GI bleed, bronchitis, FL, PNA, electrolyte imbalance Medical Records Attestation: I reviewed the patient's medical records. Home Medications Current Medication List: was personally reviewed by me Laboratory Data Attestation: I reviewed the patient's lab results. Result diagrams: 06/25/19 20:12 06/25/19 20:12 Lab Results 06/25/19 06/25/19 06/25/19 Range/Units 20:12 20:12 20:12 WBC 10.84 H (4.8-10.8) K/uL RBC 3.53 L (4.7-6.1) M/uL Hgb 9.8 L (14.0-18.0) g/dL Hct 29.8 L (42-52) % MCV 84.4 (80-100) fL MCH 27.8 (25-34) pg MCHC 32.9 (32-36) g/dL RDW Std Deviation 45.2 (36.4-46.3) fL RDW Coeff of Ember 14.6 H (11.5-14.5) % Plt Count 281 (130-400) K/uL MPV 10.0 (7.4-10.4) fL Immature Gran % (Auto) 0.2 % Neut % (Auto) 74.7 % Lymph % (Auto) 13.7 % [place] % (Auto) 10.1 % Eos % (Auto) 0.7 % Baso % (Auto) 0.6 % Immature Gran # (Auto) 0.02 (0.00-0.02) K/uL Neut # (Auto) 8.08 H (1.4-6.5) K/uL Lymph # (Auto) 1.49 (1.2-3.4) K/uL [place] # (Auto) 1.10 H (0.11-0.59) K/uL Eos # (Auto) 0.08 (0-0.5) K/uL Baso # (Auto) 0.07 (0-0.2) K/uL PT 23.9 H (9.0-12.0) Seconds INR 2.5 H (0.9-1.1) APTT 46.7 H* (21.0-31.0) Seconds PTT Ratio 1.7 Sodium 134 L (136-145) mmol/L Potassium 3.4 L (3.5-5.1) mmol/L Chloride 99 (98-107) mmol/L Carbon Dioxide 25 (21-32) mmol/L Anion Gap 10.0 (3-11) BUN 32 H (7-18) mg/dl Creatinine 2.19 H (0.6-1.4) mg/dl Est Cr Clr Drug Dosing Not Reportable Est GFR ( Amer) 29.8 Est GFR (Non-Af Amer) 25.8 BUN/Creatinine Ratio 14.7 (10-20) Glucose 126 H (70-99) mg/dl Calcium 8.8 (8.5-10.1) mg/dl Magnesium 1.7 L (1.8-2.4) mg/dl Total Bilirubin 0.6 (0.2-1) mg/dl AST 51 H (15-37) U/L ALT 21 (12-78) U/L Alkaline Phosphatase 74 (45-117) U/L Troponin I 4.470 H* (0-0.045) ng/ml NT-Pro-B Natriuret Pep 36612 H (0-1800) pg/ml Total Protein 8.1 (6.4-8.2) gm/dl Albumin 3.3 L (3.4-5.0) gm/dl Globulin 4.8 H (2.5-4.0) gm/dl Albumin/Globulin Ratio 0.7 L (0.9-2) Digoxin (0.8-2.0) ng/ml 06/25/19 Range/Units 20:12 WBC (4.8-10.8) K/uL RBC (4.7-6.1) M/uL Hgb (14.0-18.0) g/dL Hct (42-52) % MCV (80-100) fL MCH (25-34) pg MCHC (32-36) g/dL RDW Std Deviation (36.4-46.3) fL RDW Coeff of Ember (11.5-14.5) % Plt Count (130-400) K/uL MPV (7.4-10.4) fL Immature Gran % (Auto) % Neut % (Auto) % Lymph % (Auto) % [place] % (Auto) % Eos % (Auto) % Baso % (Auto) % Immature Gran # (Auto) (0.00-0.02) K/uL Neut # (Auto) (1.4-6.5) K/uL Lymph # (Auto) (1.2-3.4) K/uL [place] # (Auto) (0.11-0.59) K/uL Eos # (Auto) (0-0.5) K/uL Baso # (Auto) (0-0.2) K/uL PT (9.0-12.0) Seconds INR (0.9-1.1) APTT (21.0-31.0) Seconds PTT Ratio Sodium (136-145) mmol/L Potassium (3.5-5.1) mmol/L Chloride (98-107) mmol/L Carbon Dioxide (21-32) mmol/L Anion Gap (3-11) BUN (7-18) mg/dl Creatinine (0.6-1.4) mg/dl Est Cr Clr Drug Dosing Est GFR ( Amer) Est GFR (Non-Af Amer) BUN/Creatinine Ratio (10-20) Glucose (70-99) mg/dl Calcium (8.5-10.1) mg/dl Magnesium (1.8-2.4) mg/dl Total Bilirubin (0.2-1) mg/dl AST (15-37) U/L ALT (12-78) U/L Alkaline Phosphatase (45-117) U/L Troponin I (0-0.045) ng/ml NT-Pro-B Natriuret Pep (0-1800) pg/ml Total Protein (6.4-8.2) gm/dl Albumin (3.4-5.0) gm/dl Globulin (2.5-4.0) gm/dl Albumin/Globulin Ratio (0.9-2) Digoxin 0.9 (0.8-2.0) ng/ml Imaging Data Radiologist's Impression: Radiology results as stated below per my review and radiologist interpretation: XR chest 1V portable HISTORY: Shortness of breath. COMPARISON: Chest 06/08/2019. FINDINGS: The heart remains enlarged. Interval progression of the moderate pulmonary edema and small bilateral pleural effusions. No pneumothorax. IMPRESSION: Interval progression of the moderate pulmonary edema and small bilateral pleural effusions. Electronically signed by: Altaf Gandara M.D. 06/25/2019 8:52 PM ECG Data Attestation: I personally reviewed and interpreted this ECG as follows: Indication: SOB/dyspnea Rate (beats per minute): 53 Rhythm: atrial fibrillation (likely) Findings: + ST depression (in anterior and lateral leads) and + T-wave inversion (in anterior and lateral leads); no PVC Comparison ECG Date: from (08 June 2019) Change: the following changes noted (significant changes have occurred) Additional Comments: Repeat ECG shows A. fib with a rate of 95. A PVC was seen. The QRS complex was no longer wide. There was some ST depression in the anterior and lateral leads. The QRS morphology was markedly different on this EKG compared to today's earlier EKG. Blood Pressure Blood Pressure Findings: Elevated blood pressure Blood Pressure Disposition: further management by hospitalist [facility] Narrative There is a very mild leukocytosis, this could be consistent with infection or just the stress of his situation. The patient was anemic with a hemoglobin of 9.8, this is actually a slight increase for him but in general is low compared to his values from last year. A heme test was done, the stool was brown and heme positive. INR is elevated at 2.5, this is consistent with his Coumadin use. Creatinine was elevated at 2.19. This is chronic and similar to baseline previous values. Magnesium somewhat low at 1.7. Potassium somewhat low at 3.4. BNP was quite elevated at over 12,000, chest film shows cardiomegaly and CHF. EKG initially showed a bradycardic wide-complex rhythm which may have been a slow A. fib versus a ventricular escape. Second EKG showed A. fib with some ST depressions anterior/laterally. No ST elevation. Cardiac troponin returned elevated at 4.4, this elevation is consistent with recent acute cardiac injury. Digoxin level was not toxic. The patient presented short of breath. He looked as if he was having a hard t milan catching his breath. He was aggressively managed. He received IV Lasix, Nitropaste, nasal cannula oxygen. He was given IV potassium and IV magnesium. No aspirin was given as the patient takes this medication on a daily basis. I spoke to the patient, I spoke with the patient's daughter, I talked with case management. The patient appears to have suffered a recent a non-ST elevation FL. I think the cardiac injury has led to his increasing dyspnea and CHF. He is anemic and has heme positive stool, the anemia of course could be worsening his dyspnea. His EKG is abnormal. Since being treated, the patient looks much more comfortable, he is breathing easily. He is no longer having a hard time catching his breath. A page was placed to cardiology. We spoke to the on-call hospitalist. Further cardiac work-up and care is warranted. Hospitalization is warranted. Impression & Plan Acute FL, Anemia, Abnormal EKG, CHF (congestive heart failure), SOB (shortness of breath), Heme positive stool Critical Care Time Critical Care Time: Yes Total Critical Care Time: 40 I have personally spent greater than 40 minutes of critical care time in the direct management of this patient. This includes bedside care, interpretation of diagnostic studies, and testing, discussion with consultants, patient, and family members, and other required patient management activities. This 40 minutes is in excess of all separately billable procedures. Discharge Plan Visit Data Chief Complaint: Tachycardia Stated Complaint: SOB, HIGH BP, HIGH HEART RATE, CHF ED Provider: Alexandr Do Discharge Problem: Acute FL, Anemia, Abnormal EKG, CHF (congestive heart failure), SOB (shortness of breath), Heme positive stool Patient Disposition: Being Evaluated by Hospitalist Forms Stand Alone [facility]: [facility] Prescriptions: No Action prednisone 20 mg tablet 40 mg PO UD RF: 0 acetaminophen [Tylenol Extra Strength] 500 mg Tablet 500 mg PO Q6H PRN (Reason: Pain) RF: 0 pravastatin 10 mg tablet 10 mg PO HS RF: 0 amlodipine 10 mg tablet 10 mg PO QAM RF: 0 ferrous sulfate 325 mg (65 mg iron) Tablet 325 mg PO DAILY RF: 0 warfarin 5 mg tablet 2.5 mg PO SUMOWETHFR@1600 RF: 0 warfarin 5 mg tablet 5 mg PO TUSA@1600 RF: 0 nitroglycerin 0.4 mg tablet, sublingual 0.4 mg sublingual UD RF: 0 omeprazole 20 mg capsule,delayed release(DR/EC) 20 mg PO DAILY RF: 0 montelukast 10 mg tablet 10 mg PO HS RF: 0 albuterol sulfate [Ventolin HFA] 90 mcg/actuation Hfa Aerosol Inhaler 2 puff INHALATION Q6H PRN (Reason: Shortness Of Breath Or Wheezing) RF: 0 ipratropium bromide 42 mcg (0.06 %) spray,non-aerosol 2 spray intranasal QID PRN (Reason: Congestion) RF: 0 Flovent HFA 110 mcg/actuation HFA aerosol inhaler 2 puff inhalation BID RF: 0 PreserVision AREDS-2 [id number] Capsule 1 tab PO QAM RF: 0 multivitamin Tablet 1 tab PO QAM RF: 0 Lidocaine Pain Relief 4 % Adhesive Patch,Medicated 1 patch TOPICAL DAILY PRN (Reason: Pain) RF: 0 metoprolol tartrate 100 mg Tablet 100 mg PO BID Qty: 60 RF: 0 hydralazine 25 mg Tablet 50 mg PO TID Qty: 180 RF: 0 isosorbide mononitrate 60 mg Tablet Extended Release 24 Hr 120 mg PO QAM Qty: 60 RF: 0 tamsulosin 0.4 mg capsule 0.4 mg PO QPM RF: 0 furosemide [Lasix] 40 mg tablet 40 mg PO .BID UD RF: 0 aspirin [Aspir-81] 81 mg Tablet,Delayed Release (Dr/Ec) 81 mg PO DAILY RF: 0 sodium chloride [[place] Nasal] 0.65 % Aerosol,[place] 1 spray INTRANASAL UD PRN (Reason: Nasal Congestion) RF: 0 potassium chloride [Klor-Con M10] 10 mEq tablet,ER particles/crystals 20 meq PO QAM RF: 0 Referrals Referrals: Seymour Hoff MD [Primary Care Provider] - Discharge Problem: Acute [place] Qualifiers: Myocardial infarction type: unspecified Involved coronary artery: unspecified coronary artery Qualified Code(s): I21.9 - Acute myocardial infarction, unspecified Anemia Qualifiers: Anemia type: unspecified type Qualified Code(s): D64.9 - Anemia, unspecified CHF (congestive heart failure) Qualifiers: Heart failure type: unspecified Heart failure chronicity: unspecified Qualified Code(s): I50.9 - Heart failure, unspecified The scribe's documentation has been prepared under my direction and personally reviewed by me in its entirety. I confirm that the note above accurately reflects all work, treatment, procedures, and medical decision making performed by me.
[2019-06-25 20:41] LABS: Alanine Aminotransferase 21 U/L (12-78); Albumin Level 3.3 gm/dl (3.4-5.0); Aspartate Aminotransferase 51 U/L (15-37); BUN Creatinine Ratio 14.7 (10-20); Blood Urea Nitrogen 32 mg/dl (7-18); Calcium 8.8 mg/dl (8.5-10.1); Carbon Dioxide 25 mmol/L (21-32); Chloride 99 mmol/L (98-107); Est GFR (African American) 29.8; Est GFR (Non-African American) 25.8; Glucose 126 mg/dl (70-99); Magnesium 1.7 mg/dl (1.8-2.4); Potassium 3.4 mmol/L (3.5-5.1); Sodium 134 mmol/L (136-145)
[2019-06-25 20:42] LABS: INR 2.5 (0.9-1.1); Partial Thromboplastin Ratio 1.7; Prothrombin Time 23.9 Seconds (9.0-12.0)
[2019-06-25] MEDS ORDERED: MAGNESIUM SULFATE / D5W 1 GM/100 ML BAG IV ONE (20:43)
[2019-06-25 20:44] LABS: Partial Thromboplastin Time 46.7 Seconds (21.0-31.0)
[2019-06-25] MEDS ORDERED: FUROSEMIDE 60 MG in SYRINGE 0 ML IV STA (20:45)
[2019-06-25] MEDS ORDERED: POTASSIUM CHLORIDE / WTR 10 MEQ/100 ML PLCT IV ONE (20:45)
--- NOTE | 2019-06-25 20:53 | XRay Report ---
XR chest 1V portable HISTORY: Shortness of breath. COMPARISON: Chest 06/08/2019. FINDINGS: The heart remains enlarged. Interval progression of the moderate pulmonary edema and small bilateral pleural effusions. No pneumothorax. IMPRESSION: Interval progression of the moderate pulmonary edema and small bilateral pleural effusions. Electronically signed by: Altaf Gandara M.D. 06/25/2019 8:52 PM
[2019-06-25 20:56] LABS: Albumin Globulin Ratio 0.7 (0.9-2); Alkaline Phosphatase 74 U/L (45-117); Bilirubin,Total 0.6 mg/dl (0.2-1); Globulin 4.8 gm/dl (2.5-4.0); Total Protein 8.1 gm/dl (6.4-8.2)
[2019-06-25 21:09] LABS: NT Pro B Type Natriuretic Pept 12392 pg/ml (0-1800)
[2019-06-25] MEDS ORDERED: POTASSIUM CHLORIDE 20 MEQ TABCR PO STA (21:42)
[2019-06-25 22:30] LABS: Base Excess ABG 1.3 mEq/L (-9-1.8); HCO3 ABG 25 mmol/L (19-24); Oxygen Saturation ABG 96.5 % (90-95); PCO2 ABG 33 mmHg (35-46); PO2 ABG 90 mm/Hg (80-95); pH ABG 7.48 (7.35-7.45)
[2019-06-25 22:32] LABS: Allen Test Pos (Pos)
--- NOTE | 2019-06-25 22:35 | History & Physical Report ---
Date of Service June 25, 2019 Assessment & Plan (1) SOB (shortness of breath): (2) Elevated troponin: (3) Dysuria: (4) HTN (hypertension): (5) Chronic atrial fibrillation: On Coumadin Digoxin was discontinued on 06/21/19 by cardiology INR: 2.5 (6) CKD (chronic kidney disease), stage III: Cr: 2.19. Recent 2.0-2.3 (7) Asthma: Assessment and plan per Dr Bishop History of Present Illness Chief Complaint: SOB Primary Care Provider: Seymour Hoff MD Pt is 88 y/o M with PMH HTN, chronic atrial fibrillation on Coumadin, CKD 3, chronic diastolic heart failure, asthma presented to ER with complaint of increased. shortness of breath. Recent hospital admission 04/06/2019-04/10/2019 for intermittent chest pain and HTN urgency. Had mildly elevated troponin that was thought secondary to demand ischemia. Topical nitrates and low-dose oral hydralazine were started. Echo: EF: 60-65% with moderate concentric left ventricular hypertrophy and no regional wall motion abnormalities. There was mild valvular disease. Patient had improved BP during hospital course with improved chest pain and shortness of breath. Patient had Lopressor decreased to 75 mg twice daily from 100 mg twice daily secondary to low heart rate. Readmission on 04/18/19-04/24/19 for NSTEMI, acute diastolic HF, a-fib RVR, HTN urgency. Troponin trended from 0.6-7.1 down to 2.8 upon discharge. No cardiac cath was completed and instead treated with medical management. Imdur was added at that time. Echo 04/19/19: EF: 55-60%, no wall motion abnormality. Pt with chronic CP and SOB. He has been using Nitro SL prior to activity to try to help diminish angina. Daughter reports that pt had 2 good days this week and was able to go out to eat. Pt states during the middle of night started with increased SOB. Daughter reports giving him 2 SL nitro. She states upon awakening in am pt continued to c/o SOB and states that pt seemed anxious and she was able to talk to him to calm down and his breathing seemed less labored. Daughter concerned pt may have anxiety. Pt c/o nasal congestion and feels like if he flares his nostrils he can breath easier. Denies rhinorrhea. States some coughing with lying supine. Reports pt weighs himself daily and weights have been stable, however did not weigh himself today. Denies noticing any increased extremity edema. Reports feeling more tired today. Pt has [facility]. recent discussion about nocturnal pulse ox to see if pt requires oxygen HS. Recent follow up with cardiology on 06/21/19 and digoxin was discontinued. Tonight when urinated in ER c/o dysuria. Daughter reports pt has not been eating or drinking much past couple of days. Denies fever/chills, diaphoresis, N/V/D/C, MASTERS, dizziness, syncope, vision changes, neck pain, palpitations, sore throat, choking, otalgia, abdominal pain, paresthesias, rashes, hematuria, flank pain. Allergies Allergy/AdvReac Type Severity Reaction Status Date / Time lisinopril Allergy Severe tongue Verified 06/25/19 21:00 swelling niacin Allergy Intermediate RASH Verified 06/25/19 21:00 latex Allergy Unknown RASH Verified 06/25/19 21:00 meclizine Allergy Unknown unknown Verified 06/25/19 21:00 sertraline AdvReac Severe Edema Unverified 06/25/19 21:00 face/lips/tongue clonidine [From Catapres] AdvReac Unknown Unknown Unverified 06/25/19 21:00 Home Medications Home Medications Medication Instructions Recorded Confirmed Type Flovent HFA 2 puff INHALATION BID 04/06/19 06/25/19 History PreserVision AREDS-2 1 tab PO QAM 04/06/19 06/25/19 History acetaminophen [Tylenol Extra 500 mg PO Q6H PRN 04/06/19 06/25/19 History Strength] albuterol sulfate [Ventolin HFA] 2 puff INHALATION Q6H PRN 04/06/19 06/25/19 History amlodipine 10 mg PO QAM 04/06/19 06/25/19 History ferrous sulfate 325 mg PO DAILY 04/06/19 06/25/19 History ipratropium bromide 2 spray INTRANASAL QID PRN 04/06/19 06/25/19 History montelukast 10 mg PO HS 04/06/19 06/25/19 History nitroglycerin 0.4 mg SUBLINGUAL UD 04/06/19 06/25/19 History omeprazole 20 mg PO DAILY 04/06/19 06/25/19 History pravastatin 10 mg PO HS 04/06/19 06/25/19 History prednisone 40 mg PO UD 04/06/19 06/25/19 History warfarin 2.5 mg PO SUMOWETHFR@1600 04/06/19 06/25/19 History warfarin 5 mg PO TUSA@1600 04/06/19 06/25/19 History Lidocaine Pain Relief 1 patch TOPICAL DAILY PRN 04/18/19 06/25/19 History multivitamin 1 tab PO QAM 04/18/19 06/25/19 History hydralazine 50 mg PO TID #180 tab 04/22/19 06/25/19 Rx metoprolol tartrate 100 mg PO BID #60 tab 04/22/19 06/25/19 Rx tamsulosin 0.4 mg PO QPM 06/08/19 06/25/19 History aspirin [Aspir-81] 81 mg PO DAILY 06/25/19 06/25/19 History furosemide [Lasix] 40 mg PO BID 06/25/19 06/25/19 History isosorbide mononitrate 120 mg PO QAM 06/25/19 06/25/19 History potassium chloride [Klor-Con M10] 20 meq PO QAM 06/25/19 06/25/19 History sodium chloride [[place] Nasal] 1 spray INTRANASAL UD PRN 06/25/19 06/25/19 History Past Med/Surg History Medical History CKD (chronic kidney disease), stage III (Chronic) MGUS (monoclonal gammopathy of unknown significance) (Chronic) Anemia (Chronic) Chronic ischemic heart disease (Chronic) Asthma (Chronic) Depression (Chronic) Dyslipidemia (Chronic) HTN (hypertension) (Chronic) Chronic atrial fibrillation (Chronic) Surgical History History of inguinal hernia repair, bilateral (Chronic) Hx of cataract surgery (Chronic) Family History Other Heart disease Social History Preferred Language: Yoruba Communication Ability: Effective Visual Impairment: No Limitations Hearing Ability: Normal Arbitrator Required: No Beliefs That Will Affect Care: None marital status: / Current Living Situation: Family Other Information That Helps Us Care for You: No Feels Safe at Home: Yes Safety Concerns: Feels Safe At This Time Smoking Status: Never smoker Hx Alcohol Use: No Hx Substance Use: No Review of Systems Review of Systems: All systems reviewed & are unremarkable except as noted in HPI & below Physical Exam Physical Exam: General: Elderly male, chronic ill appearing, initially in no acute distress at rest, however movement of sitting up for exam pt dyspneic with RR: 24, moderately developed, moderately nourished Head: normocephalic, atraumatic Eyes: PERRL, EOM's intact, conjunctiva non-injected, anicteric ENT: normal inspection external ears, nose, mucous membranes mildly dry Neck: supple, trachea midline Lungs: no respiratory distress at rest, however movement in bed causes dyspnea, On O2 2L NC with sat94%, diminished breath sounds, rales bases CV: irregularly irregular, rate 80, no murmur, 1+ pretibial edema Abd: normal BS, soft, non-tender Ext: no cyanosis, no calf tenderness Neuro: A&O x 3, no focal deficits noted, normal affect Skin: warm, dry Results & Data Vital Signs (Past 12 Hours) Vital Signs Temp Pulse Resp BP Pulse Ox 06/25/19 21:31 84 17 152/70 H 93 06/25/19 21:30 70 18 93 06/25/19 21:00 88 10 L 147/67 H 94 06/25/19 20:33 94 H 23 94 06/25/19 20:31 96 H 27 H 144/81 H 94 06/25/19 20:18 94 06/25/19 19:53 36.6 C 96 H 18 135/81 93 Laboratory Results Short CBC 06/25/19 Range/Units 20:12 WBC 10.84 H (4.8-10.8) K/uL Hgb 9.8 L (14.0-18.0) g/dL Hct 29.8 L (42-52) % Plt Count 281 (130-400) K/uL BMP 06/25/19 20:12 Sodium 134 L Potassium 3.4 L Chloride 99 Carbon Dioxide 25 BUN 32 H Creatinine 2.19 H Glucose 126 H Calcium 8.8 Cardiac Enzymes 06/25/19 Range/Units 20:12 Troponin I 4.470 H* (0-0.045) ng/ml Liver Function 06/25/19 Range/Units 20:12 Total Bilirubin 0.6 (0.2-1) mg/dl AST 51 H (15-37) U/L ALT 21 (12-78) U/L Alkaline Phosphatase 74 (45-117) U/L Albumin 3.3 L (3.4-5.0) gm/dl Diagnostic Findings CXR: IMPRESSION: Interval progression of the moderate pulmonary edema and small bilateral pleural effusions. ECG Rate (beats per minute): 95 Rhythm: atrial fibrillation Findings: + ST depression (Inferior, anterior, lateral) Supervising Physician Co-Signing Physician Notes IM ATTENDING : Patient seen and examined. History obtained from patient, family, and records. Preceding documentation by Ms. Noris Gallo PA-C reviewed. In addition, patient still undecided about pursuing cardiac catheterization with recurrent ACS and cardiac decompensation with ongoing medical therapy at home. FINAL ASSESSMENT AND PLAN as follows : Acute hypoxemic respiratory secondary to decompensated heart failure secondary to ACS hx CAD Hypertension, slight elevated A. fib, rate controlled, INR therapeutic Hyperlipidemia on statin Rx COPD as per records, lung disease not in exacerbation Complicated UTI, BPH as per records, patient not septic CRI, creatinine within baseline range Hypokalemia secondary to diuretic Rx Hyperglycemia rule out DM Chronic anemia secondary to CKD, hx MGUS as per records, slow progression over the last few months Occult GI bleed contributory (FOBT positive as per ER provider) PCU Supplemental O2 Baseline ABG Diuretic Rx, monitor renal function daily Strict I/Os, daily weights, CHF education, fluid restriction Continue aspirin, beta-martinez, statin medications Hold Coumadin for now until patient makes definitive decision on cardiac catheterization. IV heparin if INR less than 2 while Coumadin on hold Trend troponin TTE, Cardiology consult RE ACS, CHF follow urine cultures, IV Ceftriaxone Replace electrolytes Check hemoglobin A1c Trend H&H, transfuse PRBC to maintain hemoglobin > 10 given ongoing ischemia DVT prophylaxis. IV heparin if INR less than 2 while Coumadin on hold while patient undecided on cardiac catheterization. DNR. Patient's daughter requesting updates from providers. Ms. Larissa Hyde, contact #[phone].
[2019-06-25] MEDS ORDERED: ALBUT/IPRATROP 3MG/0.5MG NEB 3 ML VIAL NEB STA (22:51)
[2019-06-25 23:13] LABS: Appearance Urine Clear (Clear); Bacteria Urine Automated Negative (Negative); Bilirubin Urine Negative (Negative); Blood Urine Negative (Negative); Cast Urine Automated 0 /lpf (0-5); Color Urine Yellow; Glucose Urine UA Negative (Negative); Ketones Urine Negative (Negative); Leukocyte Esterase Urine Trace (Negative); Nitrite Urine Negative (Negative); Protein Urine Negative (Negative); Specific Gravity Urine 1.012 (1.000-1.030); Urobilinogen Urine Negative (Negative)
[2019-06-25] MEDS ORDERED: HYDROmorphone INJ 0.5 MG/0.5 ML SYR IV STA (23:34)
[2019-06-26] MEDS ORDERED: LEVALBUTEROL 1.25MG/0.5ML NEB INH PRN (01:12)
[2019-06-26] MEDS ORDERED: MAGNESIUM SULFATE / D5W 1 GM/100 ML BAG IV ONE (01:12)
[2019-06-26] MEDS ORDERED: IPRATROPIUM BROMIDE NEB SOLN 0.02% 2.5 ML VIAL INH PRN (01:12)
[2019-06-26] MEDS ORDERED: NITROGLYCERIN SL 0.4 MG/TAB TAB SL PRN (01:12)
[2019-06-26] MEDS ORDERED: POTASSIUM CHLORIDE 20 MEQ TABCR PO STA ×2 (01:12→03:47)
[2019-06-26] MEDS ORDERED: PROMETHAZINE HCL 12.5 MG in SODIUM CHLORIDE 0.9% 50 ML IV PRN (01:12)
[2019-06-26] MEDS ORDERED: SODIUM CHLORIDE 0.65% NA SOLN 45 ML (OCEAN) NAE PRN (01:12)
[2019-06-26] MEDS ORDERED: ACETAMINOPHEN 325 MG TAB PO PRN (01:12)
[2019-06-26] MEDS ORDERED: LORazepam 0.5 MG TAB PO STA (01:12)
[2019-06-26] MEDS ORDERED: XOPENEX/ATROVENT 1.25mg/0.5MG NEB COMBO NEB PRN (01:12)
[2019-06-26] MEDS: cefTRIAXone SODIUM 2,000 MG in DEXTROSE 5% 50 ML IV SCH (03:26)
[2019-06-26 03:28] LABS: Basophils # (auto) 0.04 K/uL (0-0.2); Basophils % (auto) 0.4 %; Eosinophils # (auto) 0.03 K/uL (0-0.5); Eosinophils % (auto) 0.3 %; Hematocrit (blood only) 28.9 % (42-52); Hemoglobin 9.3 g/dL (14.0-18.0); Immature Granulocytes # (auto) 0.02 K/uL (0.00-0.02); Immature Granulocytes % (auto) 0.2 %; Lymphocytes # (auto) 1.29 K/uL (1.2-3.4); Lymphocytes % (auto) 14.3 %; Mean Corpuscular Hgb Conc 32.2 g/dL (32-36); Mean Corpuscular Volume 84.3 fL (80-100); Mean Platelet Volume 9.6 fL (7.4-10.4); Monocytes # (auto) 1.09 K/uL (0.11-0.59); Monocytes % (auto) 12.1 %; Neutrophils # (auto) 6.52 K/uL (1.4-6.5); Neutrophils % (auto) 72.7 %; Platelet Count 249 K/uL (130-400); RDW Coefficient of Variation 14.6 % (11.5-14.5); RDW Standard Deviation 45.4 fL (36.4-46.3); Red Blood Count 3.43 M/uL (4.7-6.1); White Blood Count 8.99 K/uL (4.8-10.8)
[2019-06-26 03:36] LABS: INR 2.3 (0.9-1.1); Prothrombin Time 22.5 Seconds (9.0-12.0)
[2019-06-26] MEDS ORDERED: SODIUM CHLORIDE 0.9% 250 ML IV PRN (03:43)
[2019-06-26 03:44] LABS: BUN Creatinine Ratio 15.5 (10-20); Calcium 8.3 mg/dl (8.5-10.1); Creatinine Clr Calc Pharmacy 24.3 ml/min; Est GFR (African American) 32.1; Est GFR (Non-African American) 27.7; Magnesium 2.4 mg/dl (1.8-2.4); Potassium 3.6 mmol/L (3.5-5.1)
[2019-06-26 03:51] LABS: Troponin I 3.89 ng/ml (0-0.045)
[2019-06-26] MEDS: FUROSEMIDE 60 MG in SYRINGE 0 ML IV SCH ×2 (04:26→15:46)
[2019-06-26 06:28] LABS: Estimated Average Glucose 131 mg/dl; Hemoglobin A1C 6.2 % (4.5-5.6)
[2019-06-26] MEDS: HydrALAZINE TAB 50 MG TAB PO SCH ×3 (08:06→20:29)
[2019-06-26] MEDS: METOPROLOL TARTRATE 100 MG TAB PO SCH ×2 (08:07→20:30)
[2019-06-26] MEDS: FLUTICASONE HFA 220 MCG INHALER INH SCH ×2 (08:08→20:31)
[2019-06-26] MEDS: POTASSIUM CHLORIDE 10 MEQ TABCR PO SCH ×2 (08:09→20:30)
[2019-06-26] MEDS: AMLODIPINE BESYLATE 5 MG TAB PO SCH (08:09)
[2019-06-26] MEDS: FERROUS SULFATE 325 MG TAB PO SCH (08:10)
[2019-06-26] MEDS: ASPIRIN 81 MG ECTAB PO SCH (08:10)
[2019-06-26] MEDS: PANTOprazole 40 MG TAB PO SCH (08:10)
[2019-06-26] MEDS: MULTIVITAMIN TAB PO SCH (08:10)
[2019-06-26] MEDS: TRAMADOL HCL 50 MG TABLET PO PRN (08:45)
[2019-06-26] MEDS ORDERED: FLUTICASONE HFA 110MCG INHALER INH SCH (09:00)
[2019-06-26] MEDS ORDERED: FUROSEMIDE 60 MG in SYRINGE 0 ML IV SCH (09:00)
[2019-06-26] MEDS ORDERED: ISOSORBIDE MONO EXTENDED REL 60 MG TABCR PO SCH (09:00)
[2019-06-26] MEDS: FLUTICASONE PROPIONATE NA SPR 16 GM BTL SCH ×3 (09:54→20:31)
--- NOTE | 2019-06-26 10:12 | Cardiology Consultation ---
Date of Consultation June 26, 2019 Assessment & Plan (1) Acute on chronic diastolic CHF (congestive heart failure), NYHA class 4: (2) Non-ST elevation (NSTEMI) myocardial infarction: (3) Anemia: (4) Atrial fibrillation with RVR: (5) CKD (chronic kidney disease) stage 4, GFR 15-29 ml/min: (6) HTN (hypertension): Complex 88-year-old patient admitted with acute decompensated diastolic heart failure and recurrent NSTEMI. Overall prognosis is poor. I had a long discussion with the patient and his daughter at bedside. Patient's insight into medical conditions is limited. We discussed potential invasive treatment including cardiac catheterization with associated risks including progressive renal dysfunction and possible need for hemodialysis. Patient's multiple comorbidities reviewed including progressive anemia, chronic kidney disease, and underlying dementia. Ultimately patient deciding to proceed with medical therapies and palliative care. Continue Lasix 60 mg IV twice daily. Add topical nitrates to improve blood pressure control and reduce afterload. Digoxin recently discontinued. Heart rate remains borderline bradycardic. Continue high-dose beta-martinez at this time. Follow renal function closely. Repeat basic metabolic panel in a.m. All questions answered satisfaction of both the patient and his daughter. 50 minutes spent at bedside. History of Present Illness Reason for Consultation: NSTEMI, CHF Requesting Physician: Dr. Ly Attending Physician: Domonique Ly MD History of Present Illness Complex 88-year-old patient admitted with acute shortness of breath and chest discomfort. Diagnosed with recurrent congestive heart failure and NSTEMI. Initially, periods of atrial fibrillation with rapid ventricular response noted on telemetry. Heart rate improved overnight. Fluid balance negative approxi- 1.7 L. Resting dyspnea has resolved. Continues to have dyspnea with minimal exertion. Lying supine and resting comfortably. Denies chest pain currently. Daughters present at bedside. Patient recently evaluated in the outpatient cardiology clinic. During that visit, medical management versus invasive approach discussed at length. This was also discussed during recent hospitalization in March 2019. On both occasions the family has decided to proceed with conservative medical management due to the risk of catheterization and the potential need for dialysis in the future. Patient has history of recurrent congestive heart failure and presumed underlying CAD with elevated troponins on multiple hospitalizations over the past 3 months. Carries history of chronic atrial fibrillation on high-dose bet a-martinez therapy. Digoxin recently discontinued due to potential toxicity in the setting of chronic renal insufficiency. Patient is followed closely by [facility]. He did not weigh himself on the past 2 days. Notes poor appetite, however, requesting a.m. meal at this time. He is a poor historian and often repeats the same questions. Documented poor insight into medical conditions. Allergies Allergy/AdvReac Type Severity Reaction Status Date / Time lisinopril Allergy Severe tongue Verified 06/25/19 21:00 swelling niacin Allergy Intermediate RASH Verified 06/25/19 21:00 latex Allergy Unknown RASH Verified 06/25/19 21:00 meclizine Allergy Unknown unknown Verified 06/25/19 21:00 sertraline AdvReac Severe Edema Unverified 06/25/19 21:00 face/lips/tongue clonidine [From Catapres] AdvReac Unknown Unknown Unverified 06/25/19 21:00 Home Medications Home Medications Medication Instructions Recorded Confirmed Type Flovent HFA 2 puff INHALATION BID 04/06/19 06/25/19 History PreserVision AREDS-2 1 tab PO QA 04/06/19 06/25/19 History acetaminophen [Tylenol Extra 500 mg PO Q6H PRN 04/06/19 06/25/19 History Strength] albuterol sulfate [Ventolin HFA] 2 puff INHALATION Q6H PRN 04/06/19 06/25/19 History amlodipine 10 mg PO QAM 04/06/19 06/25/19 History ferrous sulfate 325 mg PO DAILY 04/06/19 06/25/19 History ipratropium bromide 2 spray INTRANASAL QID PRN 04/06/19 06/25/19 History montelukast 10 mg PO HS 04/06/19 06/25/19 History nitroglycerin 0.4 mg SUBLINGUAL UD 04/06/19 06/25/19 History omeprazole 20 mg PO DAILY 04/06/19 06/25/19 History pravastatin 10 mg PO HS 04/06/19 06/25/19 History prednisone 40 mg PO UD 04/06/19 06/25/19 History warfarin 2.5 mg PO SUMOWETHFR@1600 04/06/19 06/25/19 History warfarin 5 mg PO TUSA@1600 04/06/19 06/25/19 History Lidocaine Pain Relief 1 patch TOPICAL DAILY PRN 04/18/19 06/25/19 History multivitamin 1 tab PO QAM 04/18/19 06/25/19 History hydralazine 50 mg PO TID #180 tab 04/22/19 06/25/19 Rx metoprolol tartrate 100 mg PO BID #60 tab 04/22/19 06/25/19 Rx tamsulosin 0.4 mg PO QPM 06/08/19 06/25/19 History aspirin [Aspir-81] 81 mg PO DAILY 06/25/19 06/25/19 History furosemide [Lasix] 40 mg PO BID 06/25/19 06/25/19 History isosorbide mononitrate 120 mg PO QAM 06/25/19 06/25/19 History potassium chloride [Klor-Con M10] 20 meq PO QAM 06/25/19 06/25/19 History sodium chloride [[place] Nasal] 1 spray INTRANASAL UD PRN 06/25/19 06/25/19 History Patient History Medical History CKD (chronic kidney disease), stage III (Chronic) MGUS (monoclonal gammopathy of unknown significance) (Chronic) Anemia (Chronic) Chronic ischemic heart disease (Chronic) Asthma (Chronic) Depression (Chronic) Dyslipidemia (Chronic) HTN (hypertension) (Chronic) Chronic atrial fibrillation (Chronic) Surgical History History of inguinal hernia repair, bilateral (Chronic) Hx of cataract surgery (Chronic) Family History Other Heart disease Social History Preferred Language: Nepali Communication Ability: Effective Visual Impairment: No Limitations Hearing Ability: Normal Grades 6 Through 8 Teacher Required: No Beliefs That Will Affect Care: None marital status: / Current Living Situation: Family Other Information That Helps Us Care for You: No Feels Safe at Home: Yes Safety Concerns: Feels Safe At This Time Smoking Status: Never smoker Hx Alcohol Use: No Hx Substance Use: No Review of Systems Review of Systems: All systems reviewed & are unremarkable except as noted in HPI & below Physical Exam Physical Exam: General: NAD, chronically ill, pale, + conversational dyspnea. HEENT: Normocephalic. Atraumatic. Conjunctiva pink, no scleral icterus. Neck: No carotid bruits, the carotid upstrokes are brisk. No JVD. No HJR Heart: Irregular bradycardic rhythm. Normal S1 and S2. No murmurs or rub appreciated. PMI is not displaced. No RV heave. Lungs: Diminished breath sounds at the bases bilaterally. Crackles at the bases. No rhonchi or wheeze. Abdomen: Normal bowel sounds. Soft. Nontender. No masses or organomegaly. No abdominal bruits. Extremities: No clubbing, cyanosis, or edema. Pulses: radial=2/4, Dorsalis pedis =2/4. Neuro: Cranial nerves grossly intact. No focal motor deficit. Results & Data Vital Signs (Past 12 Hours) Vital Signs Temp Pulse Pulse Resp BP BP BP 06/26/19 08:30 36.6 C 88 88 20 168/83 H 168/83 H 06/26/19 07:58 82 20 145/84 H 06/26/19 07:29 36.9 C 69 18 143/69 H 06/26/19 06:58 36.7 C 92 H 16 155/65 H 06/26/19 06:28 36.7 C 85 18 170/71 H 06/26/19 06:13 36.6 C 91 H 20 165/57 H 06/26/19 05:57 36.7 C 87 20 163/85 H 06/26/19 03:19 36.7 C 86 18 143/82 H 06/26/19 01:13 36.7 C 60 16 141/62 H 06/26/19 00:30 81 17 155/78 H 06/26/19 00:00 94 H 12 145/81 H 06/25/19 23:30 90 21 142/62 H 06/25/19 23:01 86 16 06/25/19 23:00 79 20 140/82 06/25/19 22:30 88 38 H 157/80 H Pulse Ox 06/26/19 08:30 93 06/26/19 07:58 93 06/26/19 07:29 97 06/26/19 06:58 93 06/26/19 06:28 93 06/26/19 06:13 93 06/26/19 05:57 93 06/26/19 03:19 93 06/26/19 01:13 93 06/26/19 00:30 91 06/26/19 00:00 92 06/25/19 23:30 93 06/25/19 23:01 93 06/25/19 23:00 93 06/25/19 22:30 93 (1) Anemia Anemia type: unspecified type Qualified Code(s): D64.9 - Anemia, unspecified (2) HTN (hypertension) Hypertension type: essential hypertension Qualified Code(s): I10 - Essential (primary) hypertension
[2019-06-26] MEDS: NITROGLYCERIN 2% OINTMENT 30GM TUBE EXT SCH ×3 (10:46→23:32)
[2019-06-26] MEDS ORDERED: Nursing to Pharmacy Communication ONE (10:57)
[2019-06-26] MEDS ORDERED: IPRATROPIUM BROMIDE NASAL SPRAY 0.06% 15ML NAE PRN (11:12)
[2019-06-26 12:04] LABS: Hemoglobin 10.6 g/dL (14.0-18.0)
--- NOTE | 2019-06-26 12:44 | Hospitalist Progress Note ---
Date of Service June 26, 2019 Assessment & Plan (1) Acute on chronic diastolic CHF (congestive heart failure), NYHA class 4: (2) SOB (shortness of breath): Present on admission with worsening SOB associated with chest pain CXR showed interval progression of the moderate pulmonary edema and small bilateral pleural effusions. [place] on admission [address] Cardiology on board Continue IV lasix 60mg BID Has been diuresis well, about 1.7 L Monitor I/O and BMP Continue fluid restriction 2L daily Continue monitor closely (3) Non-ST elevation (NSTEMI) myocardial infarction: (4) Elevated troponin: recurrent hx of NSTEMI Troponin on admission 4.47 --> 3.89 EKG showed no ischemic changes Cardiology discussed potential invasive treatment and diagnostic procedures cardiac catheterization with patient and daughter Pt decided not to proceed with any cardiac cath after risks discussed with patient (daughter at bedside agreed with his decision) Pt cardiology recommended conservative management ECHO showed borderline diffuse LV hypokinesis. Moderate mitral regurgitation. EF 50-55 % Continue aspirin, and statin and metoprolol Topical nitrate added Very poor prognosis Will consult palliative care Continue monitor in tele (5) Dysuria: UA showed trace leukocytes WBC trending down to normal. Afebrile Urine cx pending Starting on Rocephin Will adjust abx according to urine cx (6) HTN (hypertension): BP has been fluctuated Continue amlodipine Monitor BP (7) Chronic atrial fibrillation: Digoxin was discontinued on 06/21/19 by cardiology due to worsening kidney function rate control on metoprolol Continue coumadin with INR: 2.2 Monitor PT/INR (8) CKD (chronic kidney disease), stage III: Cr: 2.19 on admission (Recent creatinine btw 2.0-2.3) Creatinine 2.06 today Avoid nephrotoxic agents Monitor BMP while on diuretic (9) Anemia: Hgb on admission 9.3 Heme positive (as per ER provider) Received 1 unit PRBC Repeat Hbg 10.6 Continue coumadin for now due to NSTEMI and AFIB If hgb trends down, will hold coumadin Monitor closely (10) Asthma: Continue nebulizer treatment CODE STATUS DNR/DNI DVT px on coumadin Disposition Continue monitor in tele Subjective Pt was seen and examined Lying in bed with no distress with daughter at bedside Pt said that he has SOB with minimal exertion Patient said that he does not want any interventional procedure (daughter agreed with his decision) He said that currently he does not have any chest pain Physical Exam Physical Exam: General- No acute distress Head- atraumatic Eyes- PERRL, EOMI, ENT- decrease hearing function Neck- supple, no JVD Lungs- clear to auscultation Heart- irregular rhythm; no murmur Abdomen- normal bowel sounds, soft, nontender Extremities- no calf tenderness Neuro- alert, oriented x 3; PERRL, EOMI; no facial palsy; no dysarthria Skin- warm & dry Results & Data Vital Signs (Past 12 Hours) Vital Signs Temp Pulse Pulse Resp BP BP BP 06/26/19 11:38 36.7 C 74 18 143/61 H 06/26/19 08:30 36.6 C 88 88 20 168/83 H 168/83 H 06/26/19 07:58 82 20 145/84 H 06/26/19 07:29 36.9 C 69 18 143/69 H 06/26/19 06:58 36.7 C 92 H 16 155/65 H 06/26/19 06:28 36.7 C 85 18 170/71 H 06/26/19 06:13 36.6 C 91 H 20 165/57 H 06/26/19 05:57 36.7 C 87 20 163/85 H 06/26/19 03:19 36.7 C 86 18 143/82 H 06/26/19 01:13 36.7 C 60 16 141/62 H Pulse Ox 06/26/19 11:38 97 06/26/19 08:30 93 06/26/19 07:58 93 06/26/19 07:29 97 06/26/19 06:58 93 06/26/19 06:28 93 06/26/19 06:13 93 06/26/19 05:57 93 06/26/19 03:19 93 06/26/19 01:13 93 (1) Anemia Anemia type: unspecified type Qualified Code(s): D64.9 - Anemia, unspecified (2) HTN (hypertension) Hypertension type: essential hypertension Qualified Code(s): I10 - Essential (primary) hypertension
[2019-06-26] MEDS: IPRATROPIUM BROMIDE NASAL SPRAY 0.06% 15ML NAE PRN (13:31)
[2019-06-26] MEDS: WARFARIN SOD 3 MG TAB PO SCH (15:47)
[2019-06-26] MEDS: TAMSULOSIN HCL 0.4 MG CAP PO SCH (20:29)
[2019-06-26] MEDS: PRAVASTATIN SOD 10 MG TAB PO SCH (20:30)
[2019-06-26] MEDS: MONTELUKAST SODIUM 10 MG TABLET PO SCH (20:31)
[2019-06-27] MEDS: cefTRIAXone SODIUM 2,000 MG in DEXTROSE 5% 50 ML IV SCH (03:35)
[2019-06-27] MEDS: NITROGLYCERIN 2% OINTMENT 30GM TUBE EXT SCH ×4 (04:19→20:53)
[2019-06-27 06:46] LABS: Hematocrit (blood only) 31.3 % (42-52); Mean Corpuscular Hgb Conc 31.9 g/dL (32-36); Mean Corpuscular Volume 85.5 fL (80-100); Mean Platelet Volume 10.5 fL (7.4-10.4); Platelet Count 251 K/uL (130-400); RDW Coefficient of Variation 14.8 % (11.5-14.5); RDW Standard Deviation 46.2 fL (36.4-46.3); Red Blood Count 3.66 M/uL (4.7-6.1)
[2019-06-27 06:55] LABS: INR 2.5 (0.9-1.1); Prothrombin Time 23.8 Seconds (9.0-12.0)
[2019-06-27 07:09] LABS: Calcium 8.4 mg/dl (8.5-10.1); Creatinine Clr Calc Pharmacy 23.6 ml/min; Est GFR (Non-African American) 26.8; Potassium 3.7 mmol/L (3.5-5.1)
[2019-06-27] MEDS: FERROUS SULFATE 325 MG TAB PO SCH (07:56)
[2019-06-27] MEDS: AMLODIPINE BESYLATE 5 MG TAB PO SCH (07:57)
[2019-06-27] MEDS: POTASSIUM CHLORIDE 10 MEQ TABCR PO SCH ×2 (07:57→20:51)
[2019-06-27] MEDS: METOPROLOL TARTRATE 100 MG TAB PO SCH ×2 (07:57→20:51)
[2019-06-27] MEDS: PANTOprazole 40 MG TAB PO SCH (07:58)
[2019-06-27] MEDS: MULTIVITAMIN TAB PO SCH (07:58)
[2019-06-27] MEDS: HydrALAZINE TAB 50 MG TAB PO SCH ×3 (07:59→20:50)
[2019-06-27] MEDS: IPRATROPIUM BROMIDE NASAL SPRAY 0.06% 15ML NAE PRN (07:59)
[2019-06-27] MEDS: FLUTICASONE PROPIONATE NA SPR 16 GM BTL SCH ×2 (08:00→20:50)
[2019-06-27] MEDS: FLUTICASONE HFA 220 MCG INHALER INH SCH ×2 (08:00→20:50)
[2019-06-27] MEDS: ASPIRIN 81 MG ECTAB PO SCH (08:00)
--- NOTE | 2019-06-27 10:52 | Cardiology Progress Note ---
Date of Service June 27, 2019 Assessment & Plan (1) Acute on chronic diastolic CHF (congestive heart failure), NYHA class 4: (2) Non-ST elevation (NSTEMI) myocardial infarction: (3) Anemia: (4) Atrial fibrillation with RVR: (5) CKD (chronic kidney disease) stage 4, GFR 15-29 ml/min: (6) HTN (hypertension): Complex 88-year-old patient admitted with acute decompensated diastolic heart failure and recurrent NSTEMI. Overall prognosis is poor. Continue IV diuretic therapy today. Repeat basic metabolic panel in the a.m. Continue topical nitrates for afterload reduction and improve blood pressure control. No role for intravenous heparin with therapeutic INR. Palliative care consultation pending at this time. Subjective Patient seen and examined the bedside. Fluid balance negative approximately 2.1 L over the past 24 hours. Patient reports mild clinical improvement. Dyspnea unchanged with minimal exertion however comfortable at rest. Chest pressure has lessened. Remains atrial fibrillation with controlled ventricular response, and borderline slow response, on telemetry. No lightheadedness or dizziness. No signs/symptoms of GI/ blood loss. Renal function remains stable. Review of Systems Review of Systems: All systems reviewed & are unremarkable except as noted in HPI & below Physical Exam Physical Exam: General: NAD, chronically ill, pale, + conversational dyspnea. HEENT: Normocephalic. Atraumatic. Conjunctiva pink, no scleral icterus. Neck: No carotid bruits, the carotid upstrokes are brisk. No JVD. No HJR Heart: Irregular bradycardic rhythm. Normal S1 and S2. No murmurs or rub appreciated. PMI is not displaced. No RV heave. Lungs: Diminished breath sounds at the bases bilaterally. Crackles at the bases. No rhonchi or wheeze. Abdomen: Normal bowel sounds. Soft. Nontender. No masses or organomegaly. No abdominal bruits. Extremities: No clubbing, cyanosis, or edema. Pulses: radial=2/4, Dorsalis pedis =2/4. Neuro: Cranial nerves grossly intact. No focal motor deficit. Results & Data Vital Signs (Past 12 Hours) Vital Signs Temp Pulse Resp BP BP Pulse Ox 06/27/19 07:20 36.9 C 69 18 158/72 H 94 06/27/19 04:13 37.0 C 73 24 149/68 H 95 06/26/19 23:12 36.8 C 60 24 144/69 H 94 (1) Anemia Anemia type: unspecified type Qualified Code(s): D64.9 - Anemia, unspecified (2) HTN (hypertension) Hypertension type: essential hypertension Qualified Code(s): I10 - Essential (primary) hypertension
--- NOTE | 2019-06-27 15:50 | Hospitalist Progress Note ---
Date of Service June 27, 2019 Assessment & Plan (1) Acute on chronic diastolic CHF (congestive heart failure), NYHA class 4: (2) SOB (shortness of breath): Present on admission with worsening SOB associated with chest pain CXR showed interval progression of the moderate pulmonary edema and small bilateral pleural effusions. BNP on admission 220[address] Cardiology on board Continue IV lasix 60mg BID Monitor I/O and BMP Continue fluid restriction 2L daily Continue monitor closely (3) Non-ST elevation (NSTEMI) myocardial infarction: (4) Elevated troponin: recurrent hx of NSTEMI Troponin on admission 4.47 --> 3.89 EKG showed no ischemic changes Cardiology discussed potential invasive treatment and diagnostic procedures cardiac catheterization with patient and daughter Pt decided not to proceed with any cardiac cath after risks discussed with patient (daughter at bedside agreed with his decision) Pt cardiology recommended conservative management ECHO showed borderline diffuse LV hypokinesis. Moderate mitral regurgitation. EF 50-55 % Continue aspirin, and statin and metoprolol Topical nitrate added Very poor prognosis Palliative care consult Continue monitor in tele (5) Dysuria: UA showed trace leukocytes WBC trending down to normal. Afebrile Urine cx pending Continue Rocephin Will adjust abx according to urine cx (6) HTN (hypertension): BP has been fluctuated Continue amlodipine Monitor BP (7) Chronic atrial fibrillation: Digoxin was discontinued on 06/21/19 by cardiology due to worsening kidney function rate control on metoprolol Continue coumadin with INR: 2.5 Monitor PT/INR (8) CKD (chronic kidney disease), stage III: Cr: 2.19 on admission (Recent creatinine btw 2.0-2.3) Creatinine 2.1 today Avoid nephrotoxic agents Monitor BMP while on diuretic (9) Anemia: Hgb on admission 9.3 Heme positive (as per ER provider) Received 1 unit PRBC hgb 10 today Continue coumadin for now due to NSTEMI and AFIB Monitor closely (10) Asthma: Continue nebulizer treatment CODE STATUS DNR/DNI DVT px on coumadin with INR 2.5 Disposition Continue monitor in tele Subjective Pt was seen and examined Lying in bed with mild respiratory distress Pt said that he continues to have respiratory distress with minimal exertion He said that his breathing feels the same Denies any chest pain and palpitation Physical Exam Physical Exam: General- No acute distress Head- atraumatic Eyes- PERRL, EOMI, ENT- decrease hearing function Neck- supple, no JVD Lungs- diminished BS Heart- irregular rhythm; no murmur Abdomen- normal bowel sounds, soft, nontender Extremities- no calf tenderness Neuro- alert, oriented x 3; PERRL, EOMI; no facial palsy; no dysarthria Skin- warm & dry Results & Data Vital Signs (Past 12 Hours) Vital Signs Temp Pulse Resp BP BP Pulse Ox 06/27/19 15:37 36.9 C 66 18 149/80 H 96 06/27/19 11:00 36.7 C 59 L 20 136/61 96 06/27/19 07:20 36.9 C 69 18 158/72 H 94 06/27/19 04:13 37.0 C 73 24 149/68 H 95 (1) Anemia Anemia type: unspecified type Qualified Code(s): D64.9 - Anemia, unspecified (2) HTN (hypertension) Hypertension type: essential hypertension Qualified Code(s): I10 - Essential (primary) hypertension
[2019-06-27] MEDS: WARFARIN SOD 3 MG TAB PO SCH (16:14)
[2019-06-27] MEDS: TAMSULOSIN HCL 0.4 MG CAP PO SCH (20:50)
[2019-06-27] MEDS: MONTELUKAST SODIUM 10 MG TABLET PO SCH (20:51)
[2019-06-27] MEDS: PRAVASTATIN SOD 10 MG TAB PO SCH (20:51)
[2019-06-28] MEDS: cefTRIAXone SODIUM 2,000 MG in DEXTROSE 5% 50 ML IV SCH (04:22)
[2019-06-28] MEDS: NITROGLYCERIN 2% OINTMENT 30GM TUBE EXT SCH ×4 (04:25→23:57)
[2019-06-28 08:40] LABS: Hematocrit (blood only) 33.6 % (42-52); Hemoglobin 10.7 g/dL (14.0-18.0); Mean Corpuscular Hgb Conc 31.8 g/dL (32-36); Mean Corpuscular Volume 86.6 fL (80-100); Mean Platelet Volume 10.4 fL (7.4-10.4); Platelet Count 259 K/uL (130-400); RDW Standard Deviation 47.4 fL (36.4-46.3); Red Blood Count 3.88 M/uL (4.7-6.1); White Blood Count 9.13 K/uL (4.8-10.8)
[2019-06-28] MEDS: FERROUS SULFATE 325 MG TAB PO SCH (09:56)
[2019-06-28] MEDS: MULTIVITAMIN TAB PO SCH (09:56)
[2019-06-28] MEDS: ASPIRIN 81 MG ECTAB PO SCH (09:56)
[2019-06-28] MEDS: METOPROLOL TARTRATE 100 MG TAB PO SCH ×2 (09:56→20:27)
[2019-06-28] MEDS: POTASSIUM CHLORIDE 10 MEQ TABCR PO SCH ×2 (09:56→20:27)
[2019-06-28] MEDS: PANTOprazole 40 MG TAB PO SCH (09:57)
[2019-06-28] MEDS: HydrALAZINE TAB 50 MG TAB PO SCH ×3 (09:57→20:29)
[2019-06-28] MEDS: FLUTICASONE PROPIONATE NA SPR 16 GM BTL SCH ×2 (09:57→20:27)
[2019-06-28] MEDS: FLUTICASONE HFA 220 MCG INHALER INH SCH ×2 (09:57→20:29)
[2019-06-28] MEDS: AMLODIPINE BESYLATE 5 MG TAB PO SCH (09:57)
--- NOTE | 2019-06-28 10:25 | Cardiology Progress Note ---
Date of Service June 28, 2019 Assessment & Plan (1) Acute on chronic diastolic CHF (congestive heart failure), NYHA class 4: (2) Non-ST elevation (NSTEMI) myocardial infarction: (3) Anemia: (4) Atrial fibrillation with RVR: (5) CKD (chronic kidney disease) stage 4, GFR 15-29 ml/min: (6) HTN (hypertension): Palliative care consult is pending. Currently the patient is clinically stable. No additional chest pain. He has had an elevation in his cardiac troponins which are partly due to chronic renal failure. He has heart failure on the basis of diastolic dysfunction and chronic renal disease. Conservative treatment is recommended. Subjective The patient is status quo. No new cardiac complaints. Review of Systems Review of Systems: All systems reviewed & are unremarkable except as noted in HPI & below Nothing additional to add Physical Exam Physical Exam: General: no acute distress and stated age Head: normocephalic, no masses, lesions, tenderness or abnormalities Eyes: conjunctiva are pink and non-injected, sclera clear Neck: supple, no adenopathy, no bruits, normal jugular venous pulse, no hepatojugular reflux Chest: normal shape and normal respiratory effort Lungs: clear to auscultation and percussion Cardiac Exam: - regular rate & rhythm, no murmurs gallops or rubs - normal S1, normal S2 Pulses: 2(+) throughout Abdomen: abdomen soft, non-tender, no abnormal masses and no hepatosplenomegaly Musculoskeletal: no gait disturbance, no joint inflammation, no deforming arthritis Extremities: no edema and no cyanosis Neuro: grossly normal exam Results & Data Vital Signs (Past 12 Hours) Vital Signs Temp Pulse Resp BP BP Pulse Ox 06/28/19 07:38 37.1 C 69 22 147/61 H 95 06/28/19 03:21 37.0 C 73 18 143/71 H 94 06/27/19 23:50 37.2 C 68 19 151/73 H 96 Laboratory Results Laboratory Results - last 24 hr 06/28/19 08:27 WBC 9.13 RBC 3.88 L Hgb 10.7 L Hct 33.6 L MCV 86.6 MCH 27.6 MCHC 31.8 L RDW Std Deviation 47.4 H RDW Coeff of Ember 15.0 H Plt Count 259 MPV 10.4 Medications Administered Current Inpatient Medications Acetaminophen (Tylenol) 650 mg PO Q4H PRN PRN Reason: Pain or Fever Stop: 07/26/19 01:11 Amlodipine Besylate (Norvasc) 10 mg PO QAM [facility] Stop: 07/26/19 08:59 Last Admin: 06/28/19 09:57 Dose: 10 mg Documented by: Aspirin (Ecotrin Ectab) 81 mg PO DAILY [facility] Stop: 07/26/19 08:59 Last Admin: 06/28/19 09:56 Dose: 81 mg Documented by: Ferrous Sulfate (Feosol) 325 mg PO DAILY [facility] Stop: 07/26/19 08:59 Last Admin: 06/28/19 09:56 Dose: 325 mg Documented by: Fluticasone Propionate (Flovent Hfa 220mcg) 1 puffs INH BID [facility] Stop: 07/26/19 08:59 Last Admin: 06/28/19 09:57 Dose: 1 puffs Documented by: Fluticasone Propionate (Flonase) 1 sprays NA BID [facility] Stop: 07/26/19 08:59 Last Admin: 06/28/19 09:57 Dose: 1 sprays Documented by: Hydralazine HCl (Apresoline) 50 mg PO TID [facility] Stop: 07/26/19 08:59 Last Admin: 06/28/19 09:57 Dose: 50 mg Documented by: Promethazine HCl 12.5 mg/ (Sodium Chloride) 50.5 mls @ 202 mls/hr IV Q6H PRN PRN Reason: Nausea And Vomiting Stop: 07/26/19 01:11 Ceftriaxone Sodium 2,000 mg/ (Dextrose) 70 mls @ 140 mls/hr IV Q24H [facility]; Protocol Stop: 07/06/19 02:59 Last Infusion: 06/28/19 05:01 Dose: Infused Documented by: Sodium Chloride (Nss) 250 mls @ 15 mls/hr IV .[id number] PRN PRN Reason: For Transfusion Stop: 07/26/19 03:42 Ipratropium [place] (Atrovent 0.02% 0.5mg/2.5ml) 0.5 mg INH Q4H PRN PRN Reason: Shortness Of Breath Stop: 07/26/19 01:11 Ipratropium [place] (Atrovent Nasal [place] 0.06%) 2 sprays MIGUEL QID PRN PRN Reason: NASAL CONGESTION Stop: 07/26/19 11:11 Last Admin: 06/27/19 07:59 Dose: 2 sprays Documented by: Isosorbide Mononitrate (Imdur Extended Rel) 120 mg PO QAM [facility] Stop: 07/26/19 08:59 Last Admin: 06/26/19 08:07 Dose: 120 mg Documented by: Levalbuterol HCl (Xopenex 1.25mg/0.5ml Neb) 1.25 mg INH Q4H PRN PRN Reason: Shortness Of Breath Stop: 07/26/19 01:11 Metoprolol Tartrate (Lopressor) 100 mg PO BID [facility] Stop: 07/26/19 08:59 Last Admin: 06/28/19 09:56 Dose: 100 mg Documented by: Montelukast Sodium (Singulair) 10 mg PO HS [facility] Stop: 07/26/19 20:59 Last Admin: 06/27/19 20:51 Dose: 10 mg Documented by: Multivitamins (Multivitamin Tab) 1 tab PO QAM [facility] Stop: 07/26/19 08:59 Last Admin: 06/28/19 09:56 Dose: 1 tab Documented by: Nitroglycerin (Nitrostat) 0.4 mg SL UD PRN PRN Reason: chest pain Stop: 07/26/19 01:11 Nitroglycerin (Nitro-Bid 2%) 1 inch EXT Q6H [facility] Stop: 07/26/19 10:29 Last Admin: 06/28/19 10:03 Dose: 1 inch Documented by: Pantoprazole Sodium (Protonix) 40 mg PO DAILY [facility] Stop: 07/26/19 08:59 Last Admin: 06/28/19 09:57 Dose: 40 mg Documented by: Potassium Chloride (Klor-Con M10) 20 meq PO BID [facility] Stop: 07/26/19 08:59 Last Admin: 06/28/19 09:56 Dose: 20 meq Documented by: Pravastatin Sodium (Pravachol) 10 mg PO HS [facility] Stop: 07/26/19 20:59 Last Admin: 06/27/19 20:51 Dose: 10 mg Documented by: Sodium Chloride ([place] Nasal) 1 sprays MIGUEL PRN PRN PRN Reason: Nasal Congestion Stop: 07/26/19 01:11 Tamsulosin HCl (Flomax) 0.4 mg PO QPM JT Stop: 07/26/19 20:59 Last Admin: 06/27/19 20:50 Dose: 0.4 mg Documented by: Tramadol HCl (Ultram) 25 mg PO Q4H PRN PRN Reason: Pain Stop: 07/26/19 01:11 Last Admin: 06/26/19 08:45 Dose: 25 mg Documented by: Warfarin Sodium (Coumadin) 3 mg PO DAILY@1600 [facility] Stop: 07/26/19 15:59 Last Admin: 06/27/19 16:14 Dose: 3 mg Documented by: (1) Anemia Anemia type: unspecified type Qualified Code(s): D64.9 - Anemia, unspecified (2) HTN (hypertension) Hypertension type: essential hypertension Qualified Code(s): I10 - Essential (primary) hypertension
--- NOTE | 2019-06-28 12:40 | Palliative Care Consultation ---
Date of Consultation June 28, 2019 Assessment & Plan (1) Goals of care, counseling/discussion: -88 year old male patient with PMH CKD stage III, MGUS, anemia, chronic ischemic heart disease, asthma, depression, HLD, htn, and afib, presented to the hospital with chest pain increasing SOB. Patient was admitted to hospital from 04/06-04/10 with chest pain 2/2 likely demand ischemia, and again from 04/18-04/25 with chest pain and NSTEMI. Patient has stage IV CKD, so it was decided during last admission that he would not pursue cardiac catheterization. Palliative care also met with patient during that time to discuss goals of care-- patient knew his prognosis, preferred to not have aggressive measures, but was still mostly independent at home and returned home with [facility]Home care. He also lives with his daughter Larissa and family. Patient is now back in hospital with increasing SOB and chest pain. His BNP elevated at 12,392. CXR showed progression of moderate pulmonary edema and BL pleural effusions. He is being diuresed with IV Lasix. Troponin elevated at 4.47 2/2 NSTEMI. Cardiology consulted and again stated that patient is not cardiac catheterization candidate due to his kidney disease and other comorbidities. Patient also prefers to focus on comfort and forego invasive procedures. Palliative care is reconsulted to discuss goals of care. -Met with patient in room 234. He is awake, alert and oriented x4. He is very hard of hearing, but is oriented and able to make decisions. Patient does have limited insight into complex medical illnesses, but he is able to tell me why he is in the hospital, knows he has heart failure, aware of kidney disease, etc. Patient also recalls that the decision has been made several times to forego cardiac catheterization. -Patient states that his quality of life is diminishing at this point. He is weaker, feels SOB often, is sad about not being as active as he once was. -We discussed the possibility of hospice care. He would like his daughter, Larissa, to be involved in this discussion. Larissa has a doctor's appointment today, so tomorrow may be best. I left a voicemail on Larissa's phone. -Patient's goal is to be comfortable and to stay at home if possible. He is amenable to discussing hospice care at this time. Patient is a DNR/DNI, which he confirmed. For now, patient would like to continue medical care and continue to be diuresed. He is hoping his SOB will subside "once there's less fluid." We discussed starting Roxanol as needed for SOB/pain/CP, but he is not ready to start it at this time. -Will continue to follow. (2) Non-ST elevation (NSTEMI) myocardial infarction: (3) Acute on chronic diastolic CHF (congestive heart failure), NYHA class 4: (4) SOB (shortness of breath): Supervising Physician Co-Signing Physician Notes Chart reviewed, patient seen and examined-no family at bedside. Collaborated with YUE Noyola. Patient known to our service from prior hospitalizations. Patient reports that he does not feel his symptoms improve with hospitalization- thinking about possible home with hospice care with no further hospitalizations PE: Patient with increased work of breathing, increased shortness of breath with conversation as compared to prior hospitalizations. HEENT: EOMI, QAWALANGIN Respirations: Mild increased work of breathing, adequate sats on 3 L nasal cannula CV: Regular rate, no edema Abdomen: Soft, nontender Neuro: Alert and oriented Agree with above note, assessment and plan as per YUE Noyola-will continue to follow and assist patient and family with medical decision making. History of Present Illness Reason for Consultation: Goals of care Requesting Physician: Dr. Ly Attending Physician: Domonique Ly MD History of Present Illness This 88 year old male patient with PMH CKD stage III, MGUS, anemia, chronic ischemic heart disease, asthma, depression, HLD, htn, and afib, presented to the hospital with chest pain increasing SOB. Patient was admitted to hospital from 04/06-04/10 with chest pain 2/2 likely demand ischemia, and again from 04/18-04/25 with chest pain and NSTEMI. Patient has stage IV CKD, so it was decided during last admission that he would not pursue cardiac catheterization. Palliative care also met with patient during that time to discuss goals of care-- patient knew his prognosis, preferred to not have aggressive measures, but was still mostly independent at home and [facility]. He also lives with his daughter Larissa and family. Patient is now back in hospital with increasing SOB and chest pain. His BNP elevated at 12,392. CXR showed progression of moderate pulmonary edema and BL pleural effusions. He is being diuresed with IV Lasix. Troponin elevated at 4.47 2/2 NSTEMI. Cardiology consulted and again stated that patient is not cardiac catheterization candidate due to his kidney disease and other comorbidities. Patient also prefers to focus on comfort and forego invasive procedures. Palliative care is reconsulted to discuss goals of care. Thank you kindly for this consult. I will follow as needed. Allergies Allergy/AdvReac Type Severity Reaction Status Date / Time lisinopril Allergy Severe tongue Verified 06/25/19 21:00 swelling niacin Allergy Intermediate RASH Verified 06/25/19 21:00 latex Allergy Unknown RASH Verified 06/25/19 21:00 meclizine Allergy Unknown unknown Verified 06/25/19 21:00 sertraline AdvReac Severe Edema Unverified 06/25/19 21:00 face/lips/tongue clonidine [From Catapres] AdvReac Unknown Unknown Unverified 06/25/19 21:00 Home Medications Home Medications Medication Instructions Recorded Confirmed Type Flovent HFA 2 puff INHALATION BID 04/06/19 06/25/19 History PreserVision AREDS-2 1 tab PO QAM 04/06/19 06/25/19 History acetaminophen [Tylenol Extra 500 mg PO Q6H PRN 04/06/19 06/25/19 History Strength] albuterol sulfate [Ventolin HFA] 2 puff INHALATION Q6H PRN 04/06/19 06/25/19 History amlodipine 10 mg PO QAM 04/06/19 06/25/19 History ferrous sulfate 325 mg PO DAILY 04/06/19 06/25/19 History ipratropium bromide 2 spray INTRANASAL QID PRN 04/06/19 06/25/19 History montelukast 10 mg PO HS 04/06/19 06/25/19 History nitroglycerin 0.4 mg SUBLINGUAL UD 04/06/19 06/25/19 History omeprazole 20 mg PO DAILY 04/06/19 06/25/19 History pravastatin 10 mg PO HS 04/06/19 06/25/19 History prednisone 40 mg PO UD 04/06/19 06/25/19 History warfarin 2.5 mg PO SUMOWETHFR@1600 04/06/19 06/25/19 History warfarin 5 mg PO TUSA@1600 04/06/19 06/25/19 History Lidocaine Pain Relief 1 patch TOPICAL DAILY PRN 04/18/19 06/25/19 History multivitamin 1 tab PO QAM 04/18/19 06/25/19 History hydralazine 50 mg PO TID #180 tab 04/22/19 06/25/19 Rx metoprolol tartrate 100 mg PO BID #60 tab 04/22/19 06/25/19 Rx tamsulosin 0.4 mg PO QPM 06/08/19 06/25/19 History aspirin [Aspir-81] 81 mg PO DAILY 06/25/19 06/25/19 History furosemide [Lasix] 40 mg PO BID 06/25/19 06/25/19 History isosorbide mononitrate 120 mg PO QAM 06/25/19 06/25/19 History potassium chloride [Klor-Con M10] 20 meq PO QAM 06/25/19 06/25/19 History sodium chloride [[place] Nasal] 1 spray INTRANASAL UD PRN 06/25/19 06/25/19 History Patient History Medical History CKD (chronic kidney disease), stage III (Chronic) MGUS (monoclonal gammopathy of unknown significance) (Chronic) Anemia (Chronic) Chronic ischemic heart disease (Chronic) Asthma (Chronic) Depression (Chronic) Dyslipidemia (Chronic) HTN (hypertension) (Chronic) Chronic atrial fibrillation (Chronic) Surgical History History of inguinal hernia repair, bilateral (Chronic) Hx of cataract surgery (Chronic) Family History Other Heart disease Social History Preferred Language: [place]ese Communication Ability: Effective Visual Impairment: No Limitations Hearing Ability: Normal Dumb Waiter Operator Required: No Beliefs That Will Affect Care: None marital status: / Current Living Situation: Family Other Information That Helps Us Care for You: No Feels Safe at Home: Yes Safety Concerns: Feels Safe At This Time Smoking Status: Never smoker Hx Alcohol Use: No Hx Substance Use: No Review of Systems Constitutional: + weakness Ear, Nose, Mouth, Throat: + nasal congestion (rhinorrhea) Respiratory: + cough and + dyspnea on exertion Cardiovascular: no chest pain and no edema Gastrointestinal: no abdominal pain and no nausea Neurologic: no confusion Psychiatric: + depression (situation, related to health care); no anxiety Physical Exam Constitutional: well developed and well nourished; no acute distress Eyes: PERRL ENMT: Ears: + hearing impairment (QAWALANGIN) Neck: normal visual inspection Respiratory: + labored breathing (mildly labored at rest while talking) Auscultation: + diminished lung sounds and + crackles (bilateral bases) Cardiovascular: Rate/Rhythm: regular rate and regular rhythm Heart Sounds: + murmur Vessels: dorsalis pedis pulses present Extremities: no edema Gastrointestinal (Abdomen): Inspection/Auscultation: abdomen normal to inspection and normal bowel sounds; abdomen not distended Percussion/Palpation: abdomen soft; abdomen nontender Skin: normal turgor Neurologic: moves all extremities and awake Psychiatric: A+Ox3, euthymic affect Insight: + limited insight Results & Data Vital Signs (Past 12 Hours) Vital Signs Temp Pulse Resp BP BP Pulse Ox 06/28/19 10:57 36.7 C 59 L 20 148/71 H 96 06/28/19 07:38 37.1 C 69 22 147/61 H 95 06/28/19 03:21 37.0 C 73 18 143/71 H 94 PG Care Time/CCT Total # of Minutes Spent Total Time Spent with Patient: Total time spent is greater than 50% in coordination of care (as documented) at patient's floor/unit and/or counseling patient: Time Spent Midlevel 70 minutes with >50% of the time spent at bedside with patient discussing condition and GOC.
[2019-06-28] MEDS: TRAMADOL HCL 50 MG TABLET PO PRN (14:28)
[2019-06-28] MEDS: WARFARIN SOD 3 MG TAB PO SCH (16:49)
--- NOTE | 2019-06-28 18:05 | Hospitalist Progress Note ---
Date of Service June 28, 2019 Assessment & Plan (1) Acute on chronic diastolic CHF (congestive heart failure), NYHA class 4: (2) SOB (shortness of breath): Present on admission with worsening SOB associated with chest pain CXR showed interval progression of the moderate pulmonary edema and small bilateral pleural effusions. BNP on admission [address] Cardiology on board Continue IV lasix 60mg BID Monitor I/O and BMP Continue fluid restriction 2L daily Continue monitor closely (3) Non-ST elevation (NSTEMI) myocardial infarction: (4) Elevated troponin: recurrent hx of NSTEMI Troponin on admission 4.47 --> 3.89 EKG showed no ischemic changes Cardiology discussed potential invasive treatment and diagnostic procedures cardiac catheterization with patient and daughter Pt decided not to proceed with any cardiac cath after risks discussed with patient (daughter at bedside agreed with his decision) Pt cardiology recommended conservative management ECHO showed borderline diffuse LV hypokinesis. Moderate mitral regurgitation. EF 50-55 % Continue aspirin, and statin and metoprolol Topical nitrate added Very poor prognosis Met with palliative care today and not ready to make decision to hospice yet He wants to continue get diuresis for now and plan to meet with palliative again tomorrow when his daughter available Continue monitor in tele (5) Dysuria: UA showed trace leukocytes WBC trending down to normal. Afebrile Urine cx grew multiple organisms (mostly contamination) Will discontinue Rocephin (6) HTN (hypertension): BP has been fluctuated Continue amlodipine Monitor BP (7) Chronic atrial fibrillation: Digoxin was discontinued on 06/21/19 by cardiology due to worsening kidney function rate control on metoprolol Continue coumadin with INR: 2.5 Monitor PT/INR (8) CKD (chronic kidney disease), stage III: Cr: 2.19 on admission (Recent creatinine btw 2.0-2.3) Creatinine 2.1 today Avoid nephrotoxic agents Monitor BMP while on diuretic (9) Anemia: Hgb on admission 9.3 Heme positive (as per ER provider) Received 1 unit PRBC hgb 10 today Continue coumadin for now due to NSTEMI and AFIB Monitor closely (10) Asthma: Continue nebulizer treatment CODE STATUS DNR/DNI DVT px on coumadin with INR 2.5 Disposition Continue monitor in tele Subjective Pt was seen and examined Lying in bed with no acute distress Pt said that her breathing is still the same She said that even when he tries to sit to eat that he runs out of breath He said that he would never think that he would have come to that point in his life Physical Exam Physical Exam: General- No acute distress Head- atraumatic Eyes- PERRL, EOMI, ENT- decrease hearing function Neck- supple, no JVD Lungs- diminished BS Heart- irregular rhythm; no murmur Abdomen- normal bowel sounds, soft, nontender Extremities- no calf tenderness Neuro- alert, oriented x 3; PERRL, EOMI; no facial palsy; no dysarthria Skin- warm & dry Results & Data Vital Signs (Past 12 Hours) Vital Signs Temp Pulse Resp BP BP Pulse Ox 06/28/19 16:40 69 154/70 H 06/28/19 16:00 37.3 C 67 18 151/73 H 94 06/28/19 10:57 36.7 C 59 L 20 148/71 H 96 06/28/19 07:38 37.1 C 69 22 147/61 H 95 (1) Anemia Anemia type: unspecified type Qualified Code(s): D64.9 - Anemia, unspecified (2) HTN (hypertension) Hypertension type: essential hypertension Qualified Code(s): I10 - Essential (primary) hypertension
[2019-06-28] MEDS: TAMSULOSIN HCL 0.4 MG CAP PO SCH (20:28)
[2019-06-28] MEDS: PRAVASTATIN SOD 10 MG TAB PO SCH (20:29)
[2019-06-28] MEDS: MONTELUKAST SODIUM 10 MG TABLET PO SCH (20:29)
[2019-06-29] MEDS: NITROGLYCERIN 2% OINTMENT 30GM TUBE EXT SCH ×4 (03:55→21:47)
[2019-06-29 07:08] LABS: INR 2.6 (0.9-1.1); Prothrombin Time 25.1 Seconds (9.0-12.0)
[2019-06-29 07:17] LABS: BUN Creatinine Ratio 18.3 (10-20); Calcium 8.4 mg/dl (8.5-10.1); Creatinine Clr Calc Pharmacy 23.4 ml/min; Est GFR (African American) 30.7; Est GFR (Non-African American) 26.5; Potassium 4.5 mmol/L (3.5-5.1)
[2019-06-29] MEDS: METOPROLOL TARTRATE 100 MG TAB PO SCH ×2 (08:16→21:47)
[2019-06-29] MEDS: HydrALAZINE TAB 50 MG TAB PO SCH ×3 (08:16→23:04)
[2019-06-29] MEDS: POTASSIUM CHLORIDE 10 MEQ TABCR PO SCH ×2 (08:17→21:46)
[2019-06-29] MEDS: MULTIVITAMIN TAB PO SCH (08:17)
[2019-06-29] MEDS: IPRATROPIUM BROMIDE NASAL SPRAY 0.06% 15ML NAE PRN (08:17)
[2019-06-29] MEDS: FERROUS SULFATE 325 MG TAB PO SCH (08:17)
[2019-06-29] MEDS: ASPIRIN 81 MG ECTAB PO SCH (08:18)
[2019-06-29] MEDS: AMLODIPINE BESYLATE 5 MG TAB PO SCH (08:18)
[2019-06-29] MEDS: FLUTICASONE PROPIONATE NA SPR 16 GM BTL SCH ×2 (08:19→21:47)
[2019-06-29] MEDS: PANTOprazole 40 MG TAB PO SCH (08:19)
[2019-06-29] MEDS: FLUTICASONE HFA 220 MCG INHALER INH SCH ×2 (08:19→21:47)
[2019-06-29] MEDS: FUROSEMIDE 60 MG in SYRINGE 0 ML IV SCH ×2 (09:37→21:45)
--- NOTE | 2019-06-29 13:14 | Palliative Care Progress Note ---
Date of Service June 29, 2019 Assessment & Plan (1) Goals of care, counseling/discussion: -Patient's Lasix reordered today. -He is feeling better and less congested today. still gets SOB with any exertion and even mildly at rest. -Daughter Larissa Hyde at bedside today. Lengthy discussion about goals of care and home health vs. hospice. -After discussion, patient and daughter both agree that patient will return home on hospice. They have chosen [facility]. -Discussed and completed POLST form: DNR, comfort measures only, abx with comfort as the goal, no artificial hydration/nutrition. -Patient does not want to return to the hospital for chest pain, OH, etc. He wants to be comfortable and let nature take its course. -Will add Roxanol 5mg PO/SL Q4h PRN pain or SOB. Patient and family counseled on the secondary side effects of morphine such as sedation and respiratory depression. Patient's main concern is to not feel SOB. (2) Non-ST elevation (NSTEMI) myocardial infarction: (3) Acute on chronic diastolic CHF (congestive heart failure), NYHA class 4: (4) SOB (shortness of breath): Subjective Patient is feeling better today-- less congested. Still gets SOB with exertion, even with talking for periods of time Review of Systems Constitutional: + weakness Respiratory: + cough and + dyspnea on exertion Physical Exam Constitutional: well developed and well nourished; no acute distress Eyes: PERRL ENMT: Ears: + hearing impairment ([place]) Neck: normal visual inspection Respiratory: + labored breathing (mildly labored at rest while talking) Auscultation: + diminished lung sounds Cardiovascular: Rate/Rhythm: regular rate and regular rhythm Heart Sounds: + murmur Vessels: dorsalis pedis pulses present Extremities: no edema Gastrointestinal (Abdomen): Inspection/Auscultation: abdomen normal to inspection and normal bowel sounds; abdomen not distended Percussion/Palpation: abdomen soft; abdomen nontender Skin: normal turgor Neurologic: moves all extremities and awake Psychiatric: A+Ox3, euthymic affect Results & Data Vital Signs (Past 12 Hours) Vital Signs Temp Pulse Resp BP BP Pulse Ox 06/29/19 11:23 36.8 C 54 L 20 133/64 95 06/29/19 07:56 36.5 C 75 20 152/61 H 94 06/29/19 03:00 37.0 C 67 21 150/69 H 93 PG Care Time/CCT Prolonged Care Time Prolonged Care Time: Yes Total Prolonged Care Time: 70 Time Spent Midlevel 70 minutes with >50% of time spent at bedside with patient and family discussing hospice, POLST and GOC.
[2019-06-29] MEDS: WARFARIN SOD 3 MG TAB PO SCH (15:52)
--- NOTE | 2019-06-29 19:47 | Hospitalist Progress Note ---
Date of Service June 29, 2019 Assessment & Plan (1) Acute on chronic diastolic CHF (congestive heart failure), NYHA class 4: (2) SOB (shortness of breath): Present on admission with worsening SOB associated with chest pain CXR showed interval progression of the moderate pulmonary edema and small bilateral pleural effusions. BNP on admission [id number] Cardiology on board Continue IV lasix 60mg BID Monitor I/O and BMP Continue fluid restriction 2L daily Continue monitor closely Palliative care on board meet with family and patient and plan to discharge on hospice Will continue IV lasix for now (3) Non-ST elevation (NSTEMI) myocardial infarction: (4) Elevated troponin: recurrent hx of NSTEMI Troponin on admission 4.47 --> 3.89 EKG showed no ischemic changes Cardiology discussed potential invasive treatment and diagnostic procedures cardiac catheterization with patient and daughter Pt decided not to proceed with any cardiac cath after risks discussed with patient (daughter at bedside agreed with his decision) Pt cardiology recommended conservative management ECHO showed borderline diffuse LV hypokinesis. Moderate mitral regurgitation. EF 50-55 % Continue aspirin, and statin and metoprolol Topical nitrate added Very poor prognosis Met with palliative care today and not ready to make decision to hospice yet He wants to continue get diuresis for now and plan to discharge on hospice (5) Dysuria: UA showed trace leukocytes WBC trending down to normal. Afebrile Urine cx grew multiple organisms (mostly contamination) Rocephin discontinued (6) HTN (hypertension): BP has been fluctuated Continue amlodipine Monitor BP (7) Chronic atrial fibrillation: Digoxin was discontinued on 06/21/19 by cardiology due to worsening kidney function rate control on metoprolol Continue coumadin with INR: 2.5 Monitor PT/INR (8) CKD (chronic kidney disease), stage III: Cr: 2.19 on admission (Recent creatinine btw 2.0-2.3) Creatinine 2.1 today Avoid nephrotoxic agents Monitor BMP while on diuretic (9) Anemia: Hgb on admission 9.3 Heme positive (as per ER provider) Received 1 unit PRBC hgb 10 today Continue coumadin for now due to NSTEMI and AFIB Monitor closely (10) Asthma: Continue nebulizer treatment CODE STATUS DNR/DNI DVT px on coumadin with INR 2.5 Disposition Continue monitor in tele Subjective Pt was seen and examined Lying in bed with no distress Pt said that breathing is alittle better today He had a meeting with palliative care today Pt said that he started to accept that this is the end of his life He said that he does not want to be readmitted again after discharging He wants to be discharged on hospice Denies any chest pain, palpitation and fever Results & Data Vital Signs (Past 12 Hours) Vital Signs Temp Pulse Resp BP BP Pulse Ox 06/29/19 19:00 36.7 C 60 20 129/68 95 06/29/19 15:51 36.9 C 56 L 18 120/69 96 06/29/19 11:23 36.8 C 54 L 20 133/64 95 06/29/19 07:56 36.5 C 75 20 152/61 H 94 (1) Anemia Anemia type: unspecified type Qualified Code(s): D64.9 - Anemia, unspecified (2) HTN (hypertension) Hypertension type: essential hypertension Qualified Code(s): I10 - Essential (primary) hypertension
[2019-06-29] MEDS: MONTELUKAST SODIUM 10 MG TABLET PO SCH (21:47)
[2019-06-29] MEDS: PRAVASTATIN SOD 10 MG TAB PO SCH (21:47)
[2019-06-29] MEDS: TAMSULOSIN HCL 0.4 MG CAP PO SCH (21:47)
[2019-06-30] MEDS: NITROGLYCERIN 2% OINTMENT 30GM TUBE EXT SCH ×2 (06:10→11:47)
[2019-06-30] MEDS ORDERED: MoRPHine SULFATE 5 MG/0.25 ML UDP PO PRN (07:28)
[2019-06-30] MEDS: FUROSEMIDE 60 MG in SYRINGE 0 ML IV SCH (09:01)
[2019-06-30] MEDS: POTASSIUM CHLORIDE 10 MEQ TABCR PO SCH (09:01)
[2019-06-30] MEDS: METOPROLOL TARTRATE 100 MG TAB PO SCH (09:01)
[2019-06-30] MEDS: AMLODIPINE BESYLATE 5 MG TAB PO SCH (09:02)
[2019-06-30] MEDS: HydrALAZINE TAB 50 MG TAB PO SCH ×2 (09:02→14:23)
[2019-06-30] MEDS: ASPIRIN 81 MG ECTAB PO SCH (09:02)
[2019-06-30] MEDS: FLUTICASONE PROPIONATE NA SPR 16 GM BTL SCH (09:02)
[2019-06-30] MEDS: MULTIVITAMIN TAB PO SCH (09:02)
[2019-06-30] MEDS: PANTOprazole 40 MG TAB PO SCH (09:02)
[2019-06-30] MEDS: FERROUS SULFATE 325 MG TAB PO SCH (09:02)
[2019-06-30] MEDS: FLUTICASONE HFA 220 MCG INHALER INH SCH (09:03)
--- NOTE | 2019-06-30 10:53 | Palliative Care Progress Note ---
Date of Service June 30, 2019 Assessment & Plan (1) Goals of care, counseling/discussion: -Hospice is to be meeting with patient's daughter, toshia, today to get home set up for patient. once ready, patient will be discharged home-- maybe this afternoon. -Continue patient's regular medications. Could stop vitamins and pravachol. -Patient still has some SOB at rest and with activity. -Roxanol ordered as needed, patient has not taken a dose yet. -Please contact palliative team with any further palliative care needs. (2) Non-ST elevation (NSTEMI) myocardial infarction: (3) Acute on chronic diastolic CHF (congestive heart failure), NYHA class 4: (4) SOB (shortness of breath): Subjective Patient is feeling well today. He is ready to go home. Review of Systems Constitutional: + weakness Respiratory: + dyspnea on exertion Cardiovascular: no chest pain Physical Exam Constitutional: well developed and well nourished; no acute distress Eyes: PERRL ENMT: Ears: + hearing impairment ([place]) Neck: normal visual inspection Respiratory: + labored breathing (mildly labored at rest while talking) Auscultation: + diminished lung sounds Cardiovascular: Rate/Rhythm: regular rate and regular rhythm Heart Sounds: + murmur Vessels: dorsalis pedis pulses present Extremities: no edema Gastrointestinal (Abdomen): Inspection/Auscultation: abdomen normal to inspection and normal bowel sounds; abdomen not distended Percussion/Palpation: abdomen soft; abdomen nontender Skin: normal turgor Neurologic: moves all extremities and awake Psychiatric: A+Ox3, euthymic affect Insight: + limited insight Results & Data Vital Signs (Past 12 Hours) Vital Signs Temp Pulse Resp BP Pulse Ox 06/30/19 07:34 36.6 C 75 17 156/74 H 95 06/30/19 03:09 37.3 C 67 18 141/58 H 97 PG Care Time/CCT Total # of Minutes Spent Total Time Spent with Patient: Total time spent is greater than 50% in coordination of care (as documented) at patient's floor/unit and/or counseling patient: Time Spent Midlevel 35 minutes with >50% of the time spent at bedside with patienet and physician discussing POC and hospice.
--- NOTE | 2019-06-30 13:34 | Hospitalist Progress Note ---
Date of Service June 30, 2019 Assessment & Plan (1) Acute on chronic diastolic CHF (congestive heart failure), NYHA class 4: (2) SOB (shortness of breath): Secondary to acute on chronic diastolic heart failure and complicated by non-ST elevation myocardial infarction Present on admission with worsening SOB associated with chest pain CXR showed interval progression of the moderate pulmonary edema and small bilateral pleural effusions. BNP on admission [id number] Cardiology on board Received IV lasix 60mg BID Continue fluid restriction 2L daily Palliative care on board meet with family and patient and plan to discharge on hospice Will continue IV lasix for now Likely be discharged today with home hospice (3) Non-ST elevation (NSTEMI) myocardial infarction: (4) Elevated troponin: Recurrent hx of NSTEMI Troponin on admission 4.47 --> 3.89 EKG showed no ischemic changes Cardiology discussed potential invasive treatment and diagnostic procedures cardiac catheterization with patient and daughter Pt decided not to proceed with any cardiac cath after risks discussed with patient (daughter at bedside agreed with his decision) Pt cardiology recommended conservative management ECHO showed borderline diffuse LV hypokinesis. Moderate mitral regurgitation. EF 50-55 % Continue aspirin, and statin and metoprolol Very poor prognosis Remains a stable clinical Will be discharged today home with hospice (5) Dysuria: UA showed trace leukocytes WBC trending down to normal. Afebrile Urine cx grew multiple organisms (mostly contamination) Rocephin discontinued (6) HTN (hypertension): BP has been fluctuated Continue amlodipine Monitor BP (7) Chronic atrial fibrillation: Digoxin was discontinued on 06/21/19 by cardiology due to worsening kidney function rate control on metoprolol Continue coumadin with INR: 2.5 Monitor PT/INR (8) CKD (chronic kidney disease), stage III: Cr: 2.19 on admission (Recent creatinine btw 2.0-2.3) Creatinine 2.1 today Avoid nephrotoxic agents Creatinine remains stable (9) Anemia: Hgb on admission 9.3 Heme positive (as per ER provider) Received 1 unit PRBC hgb 10 today Continue coumadin for now due to NSTEMI and AFIB Hemoglobin remains stable at 10.7 today 06/30 (10) Asthma: Continue nebulizer treatment CODE STATUS DNR/DNI DVT px on coumadin with INR 2.5 Disposition Will be discharged home today with home hospice Subjective 06/30 The patient was seen and examined in telemetry floor Pt is 88 y/o M with PMH HTN, chronic atrial fibrillation on Coumadin, CKD 3, chronic diastolic heart failure, asthma presented to ER with complaint of increased. shortness of breath. He complains to have generalized weakness but no other acute distress He was seen by palliative care and going to go home with hospice today Discharge discussed with the patient again today Review of Systems Review of Systems: All systems reviewed and are unremarkable except as noted below Constitutional: + fatigue and + weakness Respiratory: no dyspnea (No dyspnea at rest) Cardiovascular: no chest pain Neurologic: + generalized weakness Physical Exam Physical Exam: Lying in bed comfortably Constitutional: well developed, well nourished and + ill appearing; no acute distress Eyes: PERRL, conjunctivae normal, anicteric sclerae PERRL ENMT: Ears: + hearing impairment ([place]) Neck: normal visual inspection Respiratory: + respiratory distress (Minimal distress at rest) Auscultation: + diminished lung sounds and + crackles (bilateral bases) Cardiovascular: Rate/Rhythm: regular rate and regular rhythm Heart Sounds: + murmur Extremities: no edema Gastrointestinal (Abdomen): Inspection/Auscultation: abdomen normal to inspection and normal bowel sounds; abdomen not distended P ercussion/Palpation: abdomen soft; abdomen nontender Musculoskeletal: No acute arthritis in any joint Skin: normal turgor Neurologic: moves all extremities and awake Psychiatric: A+Ox3, euthymic affect Insight: + limited insight Results & Data Vital Signs (Past 12 Hours) Vital Signs Temp Pulse Resp BP Pulse Ox 06/30/19 11:26 36.9 C 59 L 19 137/64 97 06/30/19 07:34 36.6 C 75 17 156/74 H 95 06/30/19 03:09 37.3 C 67 18 141/58 H 97 Medications Administered Current Inpatient Medications Acetaminophen (Tylenol) 650 mg PO Q4H PRN PRN Reason: Pain or Fever Stop: 07/26/19 01:11 Amlodipine Besylate (Norvasc) 10 mg PO QAM [facility] Stop: 07/26/19 08:59 Last Admin: 06/30/19 09:02 Dose: 10 mg Documented by: Aspirin (Ecotrin Ectab) 81 mg PO DAILY [facility] Stop: 07/26/19 08:59 Last Admin: 06/30/19 09:02 Dose: 81 mg Documented by: Ferrous Sulfate (Feosol) 325 mg PO DAILY [facility] Stop: 07/26/19 08:59 Last Admin: 06/30/19 09:02 Dose: 325 mg Documented by: Fluticasone Propionate (Flovent Hfa 220mcg) 1 puffs INH BID [facility] Stop: 07/26/19 08:59 Last Admin: 06/30/19 09:03 Dose: 1 puffs Documented by: Fluticasone Propionate (Flonase) 1 sprays NA BID [facility] Stop: 07/26/19 08:59 Last Admin: 06/30/19 09:02 Dose: 1 sprays Documented by: Hydralazine HCl (Apresoline) 50 mg PO TID [facility] Stop: 07/26/19 08:59 Last Admin: 06/30/19 09:02 Dose: 50 mg Documented by: Promethazine HCl 12.5 mg/ (Sodium Chloride) 50.5 mls @ 202 mls/hr IV Q6H PRN PRN Reason: Nausea And Vomiting Stop: 07/26/19 01:11 Sodium Chloride (Nss) 250 mls @ 15 mls/hr IV .[id number] PRN PRN Reason: For Transfusion Stop: 07/26/19 03:42 Furosemide 60 mg/ Syringe 6 mls @ 4 mls/min IV BID [facility] Stop: 07/29/19 08:59 Last Admin: 06/30/19 09:01 Dose: 4 mls/min Documented by: Ipratropium [place] (Atrovent 0.02% 0.5mg/2.5ml) 0.5 mg INH Q4H PRN PRN Reason: Shortness Of Breath Stop: 07/26/19 01:11 Ipratropium [place] (Atrovent Nasal [place] 0.06%) 2 sprays MIGUEL QID PRN PRN Reason: NASAL CONGESTION Stop: 07/26/19 11:11 Last Admin: 06/29/19 08:17 Dose: 2 sprays Documented by: Isosorbide Mononitrate (Imdur Extended Rel) 120 mg PO QAM [facility] Stop: 07/26/19 08:59 Last Admin: 06/26/19 08:07 Dose: 120 mg Documented by: Levalbuterol HCl (Xopenex 1.25mg/0.5ml Neb) 1.25 mg INH Q4H PRN PRN Reason: Shortness Of Breath Stop: 07/26/19 01:11 Metoprolol Tartrate (Lopressor) 100 mg PO BID JT Stop: 07/26/19 08:59 Last Admin: 06/30/19 09:01 Dose: 100 mg Documented by: Montelukast Sodium (Singulair) 10 mg PO HS JT Stop: 07/26/19 20:59 Last Admin: 06/29/19 21:47 Dose: 10 mg Documented by: Morphine Sulfate (Roxanol) 5 mg PO Q4H PRN PRN Reason: Pain or SOB Stop: 07/14/19 07:27 Multivitamins (Multivitamin Tab) 1 tab PO QAM JT Stop: 07/26/19 08:59 Last Admin: 06/30/19 09:02 Dose: 1 tab Documented by: Nitroglycerin (Nitrostat) 0.4 mg SL UD PRN PRN Reason: chest pain Stop: 07/26/19 01:11 Nitroglycerin (Nitro-Bid 2%) 1 inch EXT Q6H [facility] Stop: 07/26/19 10:29 Last Admin: 06/30/19 11:47 Dose: 1 inch Documented by: Pantoprazole Sodium (Protonix) 40 mg PO DAILY [facility] Stop: 07/26/19 08:59 Last Admin: 06/30/19 09:02 Dose: 40 mg Documented by: Potassium Chloride (Klor-Con M10) 20 meq PO BID [facility] Stop: 07/26/19 08:59 Last Admin: 06/30/19 09:01 Dose: 20 meq Documented by: Pravastatin Sodium (Pravachol) 10 mg PO HS [facility] Stop: 07/26/19 20:59 Last Admin: 06/29/19 21:47 Dose: 10 mg Documented by: Sodium Chloride ([place] Nasal) 1 sprays MIGUEL PRN PRN PRN Reason: Nasal Congestion Stop: 07/26/19 01:11 Tamsulosin HCl (Flomax) 0.4 mg PO QPM JT Stop: 07/26/19 20:59 Last Admin: 06/29/19 21:47 Dose: 0.4 mg Documented by: Tramadol HCl (Ultram) 25 mg PO Q4H PRN PRN Reason: Pain Stop: 07/26/19 01:11 Last Admin: 06/28/19 14:28 Dose: 25 mg Documented by: Warfarin Sodium (Coumadin) 3 mg PO DAILY@1600 JT Stop: 07/26/19 15:59 Last Admin: 06/29/19 15:52 Dose: 3 mg Documented by: (1) HTN (hypertension) Hypertension type: essential hypertension Qualified Code(s): I10 - Essential (primary) hypertension (2) Anemia Anemia type: unspecified type Qualified Code(s): D64.9 - Anemia, unspecified
[2019-06-30] MEDS: WARFARIN SOD 3 MG TAB PO SCH (16:19)
--- NOTE | 2019-06-30 16:53 | Discharge Summary ---
Date of Service June 30, 2019 Admission HPI Per Admitting Provider Pt is 88 y/o M with PMH HTN, chronic atrial fibrillation on Coumadin, CKD 3, chronic diastolic heart failure, asthma presented to ER with complaint of increased. shortness of breath. Recent hospital admission 04/06/2019-04/10/2019 for intermittent chest pain and HTN urgency. Had mildly elevated troponin that was thought secondary to demand ischemia. Topical nitrates and low-dose oral hydralazine were started. Echo: EF: 60-65% with moderate concentric left ventricular hypertrophy and no regional wall motion abnormalities. There was mild valvular disease. Patient had improved BP during hospital course with improved chest pain and shortness of breath. Patient had Lopressor decreased to 75 mg twice daily from 100 mg twice daily secondary to low heart rate. Readmission on 04/18/19-04/24/19 for NSTEMI, acute diastolic HF, a-fib RVR, HTN urgency. Troponin trended from 0.6-7.1 down to 2.8 upon discharge. No cardiac cath was completed and instead treated with medical management. Imdur was added at that time. Echo 04/19/19: EF: 55-60%, no wall motion abnormality. Pt with chronic CP and SOB. He has been using Nitro SL prior to activity to try to help diminish angina. Daughter reports that pt had 2 good days this week and was able to go out to eat. Pt states during the middle of night started with increased SOB. Daughter reports giving him 2 SL nitro. She states upon awakening in am pt continued to c/o SOB and states that pt seemed anxious and she was able to talk to him to calm down and his breathing seemed less labored. Daughter concerned pt may have anxiety. Pt c/o nasal congestion and feels like if he flares his nostrils he can breath easier. Denies rhinorrhea. States some coughing with lying supine. Reports pt weighs himself daily and weights have been stable, however did not weigh himself today. Denies noticing any increased extremity edema. Reports feeling more tired today. Pt has [facility]. recent discussion about nocturnal pulse ox to see if pt requires oxygen HS. Recent follow up with cardiology on 06/21/19 and digoxin was discontinued. Tonight when urinated in ER c/o dysuria. Daughter reports pt has not been eating or drinking much past couple of days. Denies fever/chills, diaphoresis, N/V/D/C, MASTERS, dizziness, syncope, vision changes, neck pain, palpitations, sore throat, choking, otalgia, abdominal pain, paresthesias, rashes, hematuria, flank pain. Admission Exam Per Admitting Provider Physical Exam: General: Elderly male, chronic ill appearing, initially in no acute distress at rest, however movement of sitting up for exam pt dyspneic with RR: 24, moderately developed, moderately nourished Head: normocephalic, atraumatic Eyes: PERRL, EOM's intact, conjunctiva non-injected, anicteric ENT: normal inspection external ears, nose, mucous membranes mildly dry Neck: supple, trachea midline Lungs: no respiratory distress at rest, however movement in bed causes dyspnea, On O2 2L NC with sat94%, diminished breath sounds, rales bases CV: irregularly irregular, rate 80, no murmur, 1+ pretibial edema Abd: normal BS, soft, non-tender Ext: no cyanosis, no calf tenderness Neuro: A&O x 3, no focal deficits noted, normal affect Skin: warm, dry Principal Diagnosis Acute on chronic diastolic CHF, NYHA class IV, NSTEMI, chronic A. fib, hy pertension Discharge Exam Constitutional well developed, well nourished and + ill appearing; no acute distress Eyes PERRL, conjunctivae normal, anicteric sclerae PERRL ENMT Ears: + hearing impairment (OSAGE) Neck normal visual inspection Respiratory + respiratory distress (Minimal distress at rest) Auscultation: + diminished lung sounds and + crackles (bilateral bases) Cardiovascular Rate/Rhythm: regular rate and regular rhythm Heart Sounds: + murmur Extremities: no edema Gastrointestinal (Abdomen) Inspection/Auscultation: abdomen normal to inspection and normal bowel sounds; abdomen not distended Percussion/Palpation: abdomen soft; abdomen nontender Skin normal turgor Neurologic moves all extremities and awake Psychiatric A+Ox3, euthymic affect Insight: + limited insight Discharge Data Allergies Allergy/AdvReac Type Severity Reaction Status Date / Time lisinopril Allergy Severe tongue Verified 06/25/19 21:00 swelling niacin Allergy Intermediate RASH Verified 06/25/19 21:00 latex Allergy Unknown RASH Verified 06/25/19 21:00 meclizine Allergy Unknown unknown Verified 06/25/19 21:00 sertraline AdvReac Severe Edema Unverified 06/25/19 21:00 face/lips/tongue clonidine [From Catapres] AdvReac Unknown Unknown Unverified 06/25/19 21:00 Consultations 06/25/19 21:34 ED Decision to Admit Stat 06/26/19 01:12 Consult Cardiology Routine 06/26/19 16:21 Consult Palliative Care Routine Hospital Course (1) Acute on chronic diastolic CHF (congestive heart failure), NYHA class 4: (2) SOB (shortness of breath): Secondary to acute on chronic diastolic heart failure and complicated by non-ST elevation myocardial infarction Present on admission with worsening SOB associated with chest pain CXR showed interval progression of the moderate pulmonary edema and small bilateral pleural effusions. BNP on admission [id number] Cardiology on board Received IV lasix 60mg BID Continue fluid restriction 2L daily Palliative care on board meet with family and patient and plan to discharge on hospice Will continue IV lasix for now Likely be discharged today with home hospice (3) Non-ST elevation (NSTEMI) myocardial infarction: (4) Elevated troponin: Recurrent hx of NSTEMI Troponin on admission 4.47 --> 3.89 EKG showed no ischemic changes Cardiology discussed potential invasive treatment and diagnostic procedures cardiac catheterization with patient and daughter Pt decided not to proceed with any cardiac cath after risks discussed with patient (daughter at bedside agreed with his decision) Pt cardiology recommended conservative management ECHO showed borderline diffuse LV hypokinesis. Moderate mitral regurgitation. EF 50-55 % Continue aspirin, and statin and metoprolol Very poor prognosis Remains a stable clinical Will be discharged today home with hospice (5) Dysuria: UA showed trace leukocytes WBC trending down to normal. Afebrile Urine cx grew multiple organisms (mostly contamination) Rocephin discontinued (6) HTN (hypertension): BP has been fluctuated Continue amlodipine Monitor BP (7) Chronic atrial fibrillation: Digoxin was discontinued on 06/21/19 by cardiology due to worsening kidney function rate control on metoprolol Continue coumadin with INR: 2.5 Monitor PT/INR (8) CKD (chronic kidney disease), stage III: Cr: 2.19 on admission (Recent creatinine btw 2.0-2.3) Creatinine 2.1 today Avoid nephrotoxic agents Creatinine remains stable (9) Anemia: Hgb on admission 9.3 Heme positive (as per ER provider) Received 1 unit PRBC hgb 10 today Continue coumadin for now due to NSTEMI and AFIB Hemoglobin remains stable at 10.7 today 06/30 (10) Asthma: Continue nebulizer treatment CODE STATUS DNR/DNI DVT px on coumadin with INR 2.5 Disposition Will be discharged home today with home hospice Total Time Total Time Spent Total Time Spent (In Minutes): 35 minutes Total Time Includes: Examination of the Patient, Discharge Planning, Medication Reconciliation and Communication With Other Providers Discharge Plan Discharge Items Patient Disposition: Hospice - Home Reason For Visit: SOB, HIGH BP, HIGH HEART RATE, CHF Discharge Diagnosis: Acute on chronic diastolic CHF, NYHA class IV, NSTEMI, chronic A. fib, hypertension Condition: Fair Discharge Goals: Decrease discomfort Activity: As commented below Activity Comment: As per recommendation from hospice Non-emergency contact: Primary Care Provider Call non-emergency contact if: you have any medication questions and your symptoms worsen Follow-up/Referrals: Seymour Hoff MD [Primary Care Provider] - (Follow-up with primary care as per recommendation from hospice care) Diet: Heart Healthy Fluids: 1500ml (6 cups) Addtl Provider Instructions: New medication: Morphine IR 15 mg every 6 hourly as needed. #10 prescribed All of his home medications were continued Will need to have regular check of INR and dose Coumadin accordingly. Further pain medications as per hospice Prednisone has been discontinued The Patient Was Discharged with Sena catheter which will be managed by the hospice group Prescriptions: New morphine 15 mg tablet 15 mg PO Q6H PRN (Reason: pain) Qty: 10 RF: 0 Continued acetaminophen [Tylenol Extra Strength] 500 mg Tablet 500 mg PO Q6H PRN (Reason: Pain) RF: 0 pravastatin 10 mg tablet 10 mg PO HS RF: 0 amlodipine 10 mg tablet 10 mg PO QAM RF: 0 ferrous sulfate 325 mg (65 mg iron) Tablet 325 mg PO DAILY RF: 0 warfarin 5 mg tablet 2.5 mg PO SUMOWETHFR@1600 RF: 0 warfarin 5 mg tablet 5 mg PO TUSA@1600 RF: 0 nitroglycerin 0.4 mg tablet, sublingual 0.4 mg sublingual UD RF: 0 omeprazole 20 mg capsule,delayed release(DR/EC) 20 mg PO DAILY RF: 0 montelukast 10 mg tablet 10 mg PO HS RF: 0 albuterol sulfate [Ventolin HFA] 90 mcg/actuation Hfa Aerosol Inhaler 2 puff INHALATION Q6H PRN (Reason: Shortness Of Breath Or Wheezing) RF: 0 ipratropium bromide 42 mcg (0.06 %) spray,non-aerosol 2 spray intranasal QID PRN (Reason: Congestion) RF: 0 Flovent HFA 110 mcg/actuation HFA aerosol inhaler 2 puff inhalation BID RF: 0 PreserVision AREDS-2 [id number] Capsule 1 tab PO QAM RF: 0 multivitamin Tablet 1 tab PO QAM RF: 0 Lidocaine Pain Relief 4 % Adhesive Patch,Medicated 1 patch TOPICAL DAILY PRN (Reason: Pain) RF: 0 metoprolol tartrate 100 mg Tablet 100 mg PO BID Qty: 60 RF: 0 hydralazine 25 mg Tablet 50 mg PO TID Qty: 180 RF: 0 tamsulosin 0.4 mg capsule 0.4 mg PO QPM RF: 0 furosemide [Lasix] 40 mg tablet 40 mg PO BID RF: 0 aspirin [Aspir-81] 81 mg Tablet,Delayed Release (Dr/Ec) 81 mg PO DAILY RF: 0 sodium chloride [[place] Nasal] 0.65 % Aerosol,[place] 1 spray INTRANASAL UD PRN (Reason: Nasal Congestion) RF: 0 potassium chloride [Klor-Con M10] 10 mEq tablet,ER particles/crystals 20 meq PO QAM RF: 0 isosorbide mononitrate 120 mg Tablet Extended Release 24 Hr 120 mg PO QAM RF: 0 Discontinued prednisone 20 mg tablet 40 mg PO UD RF: 0 Stand-Alone Forms: [facility]/Other Patient Handouts: Prediabetes Discharge Orders: Discharge Order (Routine); Ordered 06/30/19 Ordered By: Kaleigh Zapata Admission Data Admit Date/Time: 06/25/19 23:38 Attending Provider: Kaleigh Zapata Admit Provider: Estiven Bishop Primary Care Provider: Seymour Hoff Other Providers: Estiven Bishop ; Patrice Esparza ; Margoth Flores ; Domonique Ly Service: Telemetry Other Interventions: Discharge Summary Assessment (RN) Last Done: 06/30/19 15:45
== END 2019-06-30 18:50 | disposition hospice, home (50) | DRG 280 ==
LOC: ED 19:51 → SUATTDRO 23:38 → 2S 23:38
DX: I48.2 Chronic atrial fibrillation; N40.0 Benign prostatic hyperplasia without lower urinary tract symptoms; Z66 Do not resuscitate; Z79.82 Long term (current) use of aspirin; R73.9 Hyperglycemia, unspecified; Z79.52 Long term (current) use of systemic steroids; I21.4 Non-ST elevation (NSTEMI) myocardial infarction; J45.909 Unspecified asthma, uncomplicated; E78.5 Hyperlipidemia, unspecified; I13.0 Hypertensive heart and chronic kidney disease with heart failure and stage 1 through stage 4 chronic kidney disease, or unspecified chronic kidney disease; Z51.5 Encounter for palliative care; I50.33 Acute on chronic diastolic (congestive) heart failure; Z79.899 Other long term (current) drug therapy; E87.6 Hypokalemia; Z79.01 Long term (current) use of anticoagulants; D63.1 Anemia in chronic kidney disease; N18.4 Chronic kidney disease, stage 4 (severe); T50.2X5A Adverse effect of carbonic-anhydrase inhibitors, benzothiadiazides and other diuretics, initial encounter